=== PATIENT | female | born 1950 | race Caucasian/White ===

== ENCOUNTER 2019-02-26 12:30 | Inpatient (IN) | payer OTHER ==
--- NOTE | 2019-02-26 13:06 | PDOC ---
History of Present Illness - General Chief Complaint: Lightheaded Stated Complaint: LIGHTHEADED & BOWEL ISSUES Time Seen by Provider: 02/26/19 12:33 - History of Present Illness Initial Comments: 02/26/19 13:01 68 F with h/o childhood polio, paraplegia, HTN, HLD, hypothyroid, presenting to ED with several months of feeling depressed. Pt states that she has lost multiple friends and family members over the past year and now feels like she has no one to talk to. She reports sleeping poorly sometimes. Feels very lonely because she lives alone. Pt denies any thoughts of hurting herself or others. Denies AVH. She states Dr. Burgos started her on lexapro about 6-12 months ago, but she has not noticed any difference. Pt also notes that she has been having inconsistent bowel movements. She notes that she is occasionally constipated, but more recently, she has been having daily bowel movements that are soft. Denies any bloody or dark tarry stools. Denies diarrhea. Denies N/V. Denies abdominal pain. Pt is concerned that she may have colon cancer. Past History - Past Medical History Allergies/Adverse Reactions: Allergies Allergy/AdvReac Type Severity Reaction Status Date / Time pneumococcal 23-valent Allergy Severe weakness Verified 02/26/19 14:39 polysacchari [From Pneumovax 23] allopurinol Allergy Intermediate rash Verified 02/26/19 14:39 Home Medications: Ambulatory Orders Cholecalciferol (Vitamin D3) [Vitamin D3] 2,000 unit PO DAILY tablet 05/26/12 Ubidecarenone [Co Q-10] 50 mg PO DAILY capsule 05/26/12 Fish Oil DAILY 08/17/13 Omeprazole 20 mg PO DAILY 08/17/13 Ferrous Sulfate 325 mg PO DAILY tablet 05/29/14 Sodium Chloride [Saline Nose [place]] 1 spray NS EACH NOSTRIL BID spray 05/21/16 Judi's Wort 150 mg PO DAILY capsule 07/22/16 Atenolol [Tenormin] 100 mg PO DAILY 02/26/19 Escitalopram Oxalate [Lexapro -] 10 mg PO DAILY 02/26/19 Famotidine [Pepcid] 40 mg PO DAILY 02/26/19 Febuxostat [Uloric] 40 mg PO DAILY 02/26/19 Oxybutynin Chloride [Ditropan -] 5 mg PO DAILY 02/26/19 Oxycodone HCl 5 mg PO BID PRN 02/26/19 Potassium Chloride [K-Dur -] 20 meq PO DAILY 02/26/19 Anemia: Yes COPD: No GI Disorders: Yes Disorders: Yes HTN: Yes Hypercholesterolemia: Yes Psychiatric Problems: Yes Thyroid Disease: Yes Other medical history: POLIO, USES A MOTORIZED WHEELCHAIR. DRIVES HER OWN VAN. Review of Systems - Review of Systems Comments:: 02/26/19 13:04 GENERAL/CONSTITUTIONAL: No fever or chills. No weakness. HEAD, EYES, EARS, NOSE AND THROAT: No change in vision. No ear pain or discharge. No sore throat. CARDIOVASCULAR: No chest pain, no shortness of breath, no loss of consciousness RESPIRATORY: No cough, wheezing, or hemoptysis. GASTROINTESTINAL: +soft stools, No nausea, vomiting, diarrhea or constipation. GENITOURINARY: No dysuria, frequency, or change in urination. MUSCULOSKELETAL: No joint or muscle swelling or pain. No neck or back pain. SKIN: No rash NEUROLOGIC: No vertigo, no change in strength/sensation. ENDOCRINE: No increased thirst. No abnormal weight change. HEMATOLOGIC/LYMPHATIC: No anemia, easy bleeding, or history of blood clots. ALLERGIC/IMMUNOLOGIC: No hives or skin allergy. *Physical Exam - Physical Exam 02/26/19 13:04 "GENERAL: Awake, alert, and fully oriented, in no acute distress. HEAD: No signs of trauma EYES: PERRLA, EOMI, sclera anicteric, conjunctiva clear ENT: Auricles normal inspection, hearing grossly normal, nares patent, oropharynx clear without exudates. Moist mucosa NECK: Nontender, no stepoffs, Normal ROM, supple, no lymphadenopathy, JVD, or masses LUNGS: Breath sounds equal, clear to auscultation bilaterally. No wheezes, and no crackles HEART: Regular rate and rhythm, normal S1 and S2, no murmurs, rubs or gallops ABDOMEN: Soft, nontender, normoactive bowel sounds. No guarding, no rebound. No masses EXTREMITIES: + 2 PE BLE, + erythema and crusting to both lower extremities, R>L NEUROLOGICAL: Cranial nerves II through XII intact. 5/5 strength and sensation in all extremities, Normal speech, normal gait, normal cerebellar function ED Treatment Course - LABORATORY CBC & Chemistry Diagram: 02/28/19 07:01 02/27/19 06:15 Medical Decision Making - Medical Decision Making 02/26/19 13:04 68 F with depression. No SI/HI/AVH. No acute psych needs at this time. Will refer to outpt psychiatry. Pt also complaining of intermittent constipation and soft stools. Pt with completely benign abdomen. Suspect irritable bowel syndrome. On exam, pt noted to have bilateral LE cellulitis, R>L. - Labs - Psych referral - Abx for cellulitis 02/26/19 15:09 Labs notable for WBC 25, Bands 14%, likely 2/2 severe cellulitis Will initiate vanc/zosyn Pt also has mild hypokalemia at 3.2. Pt given PO potassium. Discharge - Discharge Information Problems reviewed: Yes Clinical Impression/Diagnosis: Depression, Cellulitis Condition: Good - Admission Yes - Follow up/Referral - Patient Discharge Instructions - Post Discharge Activity
[2019-02-26 14:00] LABS: HEMATOCRIT 36.2 % (32.4-45.2); HEMOGLOBIN 11.8 GM/dl (10.7-15.3); MCH 28.9 pg (25.7-33.7); MCHC 32.7 g/dl (32.0-36.0); MEAN CELL VOLUME 88.4 fl (80-96); MEAN PLT VOLUME 7.9 fl (7.5-11.1); PLATELET COUNT 335 K/MM3 (134-434); RBC 4.09 M/mm3 (3.60-5.2); RDW 15.1 % (11.6-15.6)
[2019-02-26 14:15] LABS: ALBUMIN 3.3 g/dl (3.4-5.0); BILIRUBIN,TOTAL 0.7 mg/dl (0.2-1); CALCIUM 9.3 mg/dl (8.5-10); CREATININE 0.6 mg/dl (0.55-1.3); POTASSIUM 3.2 mmol/L (3.5-5.1); TOT PROT 7.6 g/dl (6.4-8.2)
[2019-02-26 14:27] LABS: PLATELET ESTIMATE ADEQUATE
[2019-02-26] MEDS ORDERED: POTASSIUM CHLORIDE TABS 20 MEQ TABLET.ER (FP) PO ONE ×2 (14:29→14:39)
[2019-02-26 15:09] LABS: EPITHELIAL CELLS FEW /hpf
[2019-02-26] MEDS ORDERED: PIPERACILLIN/TAZOB 4.5 GM 4.5 GM/100 ML BAG IVPB ONE (15:31)
[2019-02-26] MEDS ORDERED: VANCOMYCIN 1 GM in D5W (PRE-DOCKED) 1,000 MG/250 ML IVPB ONE (15:31)
[2019-02-26] MEDS ORDERED: PIPERACILLIN/TAZOBACTAM 4.5 GM VIAL IVPB ONE (16:11)
[2019-02-26] MEDS ORDERED: VANCOMYCIN 1,000 MG VIAL (RESTRICTED TO ID ONLY) ONE (16:12)
[2019-02-26 16:29] LABS: MAGNESIUM 2.2 mg/dL (1.8-2.4)
[2019-02-26] MEDS ORDERED: SODIUM CHLORIDE 1,000 ML IV SCH (16:45)
[2019-02-26] MEDS ORDERED: ACETAMINOPHEN 325 MG TABLET (FP) PO PRN (16:45)
--- NOTE | 2019-02-26 16:47 | HP ---
CHIEF COMPLAINT:feel depressed PCP:Loretta HISTORY OF PRESENT ILLNESS: Radha Lizarraga is a68 F with h/o childhood polio, paraplegia, HTN, HLD, hypothyroid, anemia presented to ED this afternoon with c/o feeling depressed, pt has had several family members pass away within the past 3 years. pt also has friends who are currently ill. pt seen at bedside in ED, pleasant,smiling, lives home alone. Denies SI/HI. pt takes Lexapro started within this year, does not feel it is working. pt with BLE redness, 2+PE. pt reports she had constipation, now has daily soft BMs. denies fevers, chills, cough, abd pain, n/ v, diarrhea. ER course was notable for: (1)WBC 24, Band 14% (2) (3) Recent Travel: PAST MEDICAL HISTORY: Anemia childhood polio, paraplegia, HTN, HLD, Hypothyroid PAST SURGICAL HISTORY: Social History: Smoking:denies Alcohol:denies Drugs: denies Allergies pneumococcal 23-valent polysacchari [From Pneumovax 23] Allergy (Severe, Verified 02/26/19 14:39) weakness allopurinol Allergy (Intermediate, Verified 02/26/19 14:39) rash HOME MEDICATIONS: Home Medications Medication Instructions Recorded Cholecalciferol (Vitamin D3) 2,000 unit PO DAILY tablet 05/26/12 [Vitamin D3] Ubidecarenone [Co Q-10] 50 mg PO DAILY capsule 05/26/12 Fish Oil DAILY 08/17/13 Omeprazole 20 mg PO DAILY 08/17/13 Ferrous Sulfate 325 mg PO DAILY tablet 05/29/14 Sodium Chloride [Saline Nose [place]] 1 spray NS EACH NOSTRIL BID spray 05/21/16 Judi's Wort 150 mg PO DAILY capsule 07/22/16 Atenolol [Tenormin] 100 mg PO DAILY 02/26/19 Escitalopram Oxalate [Lexapro -] 10 mg PO DAILY 02/26/19 Famotidine [Pepcid] 40 mg PO DAILY 02/26/19 Febuxostat [Uloric] 40 mg PO DAILY 02/26/19 Oxybutynin Chloride [Ditropan -] 5 mg PO DAILY 02/26/19 Oxycodone HCl 5 mg PO BID PRN 02/26/19 Potassium Chloride [K-Dur -] 20 meq PO DAILY 02/26/19 REVIEW OF SYSTEMS CONSTITUTIONAL: Absent: fever, chills, diaphoresis, generalized weakness, malaise, loss of appetite, weight change HEENT: Absent: rhinorrhea, nasal congestion, throat pain, throat swelling, difficulty swallowing, mouth swelling, ear pain, eye pain, visual changes CARDIOVASCULAR: Absent: chest pain, syncope, palpitations, irregular heart rate, lightheadedness , peripheral edema RESPIRATORY: Absent: cough, shortness of breath, dyspnea with exertion, orthopnea, wheezing, stridor, hemoptysis GASTROINTESTINAL: Absent: abdominal pain, abdominal distension, nausea, vomiting, diarrhea, constipation, melena, hematochezia GENITOURINARY: Absent: dysuria, frequency, urgency, hesitancy, hematuria, flank pain, genital pain MUSCULOSKELETAL: Absent: myalgia, arthralgia, joint swelling, back pain, neck pain SKIN: Absent: rash, itching, pallor HEMATOLOGIC/IMMUNOLOGIC: Absent: easy bleeding, easy bruising, lymphadenopathy, frequent infections ENDOCRINE: Absent: unexplained weight gain, unexplained weight loss, heat intolerance, cold intolerance NEUROLOGIC: Absent: headache, focal weakness or paresthesias, dizziness, unsteady gait, seizure, mental status changes, bladder or bowel incontinence PSYCHIATRIC: +depression Absent: anxiety, -suicidal or homicidal ideation, hallucinations. PHYSICAL EXAMINATION Vital Signs - 24 hr 02/26/19 02/26/19 12:32 15:17 Temperature 98.3 F 98.1 F Pulse Rate 64 Pulse Rate [ 80 Right Radial] Respiratory 18 17 Rate Blood Pressure 175/80 H Blood Pressure 159/60 [Left Arm] O2 Sat by Pulse 97 95 Oximetry (%) GENERAL: Awake, alert, and fully oriented, in no acute distress. HEAD: Normal with no signs of trauma. EYES: Pupils equal, round and reactive to light, extraocular movements intact, sclera anicteric, conjunctiva clear. No lid lag. EARS, NOSE, THROAT: Ears normal, nares patent, oropharynx clear without exudates. Moist mucous membranes. NECK: Normal range of motion, supple without lymphadenopathy, JVD, or masses. LUNGS: Breath sounds equal, clear to auscultation bilaterally. No wheezes, and no crackles. No accessory muscle use. HEART: Regular rate and rhythm, normal S1 and S2 without murmur, rub or gallop. ABDOMEN: Soft, nontender, not distended, normoactive bowel sounds, no guarding, no rebound, no masses. No hepatomegaly or splenomegaly. MUSCULOSKELETAL: Normal range of motion at all joints. No bony deformities or tenderness. No CVA tenderness. UPPER EXTREMITIES: 2+ pulses, warm, well-perfused. No cyanosis. No clubbing. No peripheral edema. LOWER EXTREMITIES: 2+ PE, R>L, medium, large round spots on legs, with scabs, pt picks at wounds -no drainage noted NEUROLOGICAL: Cranial nerves II-XII intact. Normal speech. Normal gait. PSYCHIATRIC: Cooperative. Good eye contact. Appropriate mood and affect. SKIN: Warm, dry, normal turgor, no rashes or lesions noted, normal capillary refill. Laboratory Results - last 24 hr 02/26/19 02/26/19 02/26/19 13:41 13:41 14:50 WBC 24.0 H RBC 4.09 Hgb 11.8 Hct 36.2 MCV 88.4 MCH 28.9 MCHC 32.7 RDW 15.1 Plt Count 335 MPV 7.9 Absolute Neuts (auto) 22.5 Neutrophils % No Result Required. Neutrophils % (Manual) 80.0 Band Neutrophils % 14.0 H Lymphocytes % No Result Required. Lymphocytes % (Manual) 2.0 L Monocytes % (Manual) 4 Platelet Estimate Adequate Sodium 135 L Potassium 3.2 L Chloride 100 Carbon Dioxide 24 Anion Gap 11 BUN 28.0 H Creatinine 0.6 Est GFR (CKD-EPI)AfAm 107.03 Est GFR (CKD-EPI)NonAf 92.35 Random Glucose 130 H Calcium 9.3 Phosphorus Magnesium Total Bilirubin 0.7 AST 29 ALT 38 Alkaline Phosphatase 165 H D Total Protein 7.6 Albumin 3.3 L TSH 3.00 Urine Color Yellow Urine Appearance Clear Urine pH 5.0 Urine Protein 1+ H Urine Glucose (UA) Negative Urine Ketones Negative Urine Blood Trace-intact Urine Nitrite Negative Urine Bilirubin Negative Urine Urobilinogen 0.2 Ur Leukocyte Esterase Negative Urine RBC 0-2 Urine WBC 0-2 Ur Transition Epith Cell Few 02/26/19 16:00 WBC RBC Hgb Hct MCV MCH MCHC RDW Plt Count MPV Absolute Neuts (auto) Neutrophils % Neutrophils % (Manual) Band Neutrophils % Lymphocytes % Lymphocytes % (Manual) Monocytes % (Manual) Platelet Estimate Sodium Potassium Chloride Carbon Dioxide Anion Gap BUN Creatinine Est GFR (CKD-EPI)AfAm Est GFR (CKD-EPI)NonAf Random Glucose Calcium Phosphorus 3.0 Magnesium 2.2 Total Bilirubin AST ALT Alkaline Phosphatase Total Protein Albumin TSH Urine Color Urine Appearance Urine pH Urine Protein Urine Glucose (UA) Urine Ketones Urine Blood Urine Nitrite Urine Bilirubin Urine Urobilinogen Ur Leukocyte Esterase Urine RBC Urine WBC Ur Transition Epith Cell ASSESSMENT/PLAN: Radha Lizarraga is a68 F with h/o childhood polio, paraplegia, HTN, HLD, hypothyroid, anemia admitted for Admitting Diagnosis BLE cellulitis Chronic Condition HTN HLD Hypothyroidism Anemia A/P: #BLE cellulitis -IV vanc, zosyn -IVF -ID consult -venous doppler ordered -blood,urine cx pending -lactic pending #Hypokalemia -repleted in ED -monitor daily #Depression,chronic -Denies SI/HI -c/w Lexapro 10mg daily-pt reports not working -psyche consult #Anemia,chronic -hg stable -c/w ferrous sulfate #HTN #HLD -resume home meds #Hypothyroidism -c/w synthroid #Overactive bladder -c/w oxybutin Full Code Low sodium diet Heparin SQ Dispo: requires inpatient treatment pt may benefit from [facility], lives home alone, reports having trouble with ADLS at home Visit type - Emergency Visit Emergency Visit: Yes Care time: The patient presented to the Emergency Department on the above date and was hospitalized for further evaluation of their emergent condition. - New Patient This patient is new to me today: No - Critical Care Critical Care patient: No
[2019-02-26 17:07] LABS: VENOUS PC02 47.2 mmHg (38-52); VENOUS PH 7.34 (7.31-7.41); VENOUS PO2 < 49 mmHg (28-48)
[2019-02-26] MEDS ORDERED: PIPERACILLIN/TAZOB 3.375 GM 3.375 GM in DEXTROSE 5%-WATER - 50 ML IVPB SCH (23:00)
[2019-02-26] MEDS ORDERED: PIPERACILLIN/TAZOBACTAM 3.375 GM VIAL IVPB ONE (23:32)
[2019-02-26] MEDS ORDERED: DEXTROSE 5%-WATER - 50 ML IVPB ONE (23:32)
[2019-02-26] MEDS: PIPERACILLIN/TAZOB 3.375 GM 3.375 GM in DEXTROSE 5%-WATER - 50 ML IVPB SCH (23:36)
[2019-02-26] MEDS: HEPARIN NA (PORCINE) 5,000 UNITS/ML 1ML VIAL SQ SCH (23:36)
[2019-02-27] MEDS ORDERED: DEXTROSE 5%-WATER - 50 ML IVPB ONE ×4 (06:38→23:44)
[2019-02-27] MEDS ORDERED: PIPERACILLIN/TAZOBACTAM 3.375 GM VIAL IVPB ONE ×4 (06:38→23:44)
[2019-02-27] MEDS: LEVOTHYROXINE NA 50 MCG TABLET (FP) PO SCH (06:40)
[2019-02-27] MEDS: PIPERACILLIN/TAZOB 3.375 GM 3.375 GM in DEXTROSE 5%-WATER - 50 ML IVPB SCH ×3 (06:40→18:38)
[2019-02-27 08:27] LABS: BASO % 0.2 % (0-2.0); EOS % 0.9 % (0-4.5); HEMATOCRIT 29.5 % (32.4-45.2); HEMOGLOBIN 9.6 GM/dl (10.7-15.3); LYMPH % 10.5 % (8-40); MCH 28.5 pg (25.7-33.7); MCHC 32.4 g/dl (32.0-36.0); MEAN PLT VOLUME 8.3 fl (7.5-11.1); MONO % 3.6 % (3.8-10.2); NEUT % 84.8 % (42.8-82.8); PLATELET COUNT 244 K/MM3 (134-434); RBC 3.36 M/mm3 (3.60-5.2); RDW 15.2 % (11.6-15.6); WHITE BLOOD COUNT 13.1 K/mm3 (4.0-10.8)
[2019-02-27 08:42] LABS: ALBUMIN 2.4 g/dl (3.4-5.0); BILIRUBIN,TOTAL 0.8 mg/dl (0.2-1); CALCIUM 8.6 mg/dl (8.5-10); CREATININE 0.7 mg/dl (0.55-1.3); MAGNESIUM 2.2 mg/dL (1.8-2.4); POTASSIUM 4.8 mmol/L (3.5-5.1); TOT PROT 5.7 g/dl (6.4-8.2)
--- NOTE | 2019-02-27 09:53 | CON.ID ---
Consult Consult Specialty:: infectious diseases Referred by:: Renetta Reason for Consultation:: b/l cellulitis of the legs - History of Present Illness Chief Complaint: depression History of Present Illness: 68 F with h/o childhood polio, paraplegia, HTN, HLD, hypothyroid, with c/o feeling depressed, pt has had several family members pass away within the past 3 years. pt also has friends who are currently ill. , lives home alone. Denies SI/HI. pt takes Lexapro started within this year, does not feel it is working. pt with BLE redness, 2+PE. pt reports she had constipation, now has daily soft BMs. denies fevers, chills, cough, abd pain, n/v, diarrhea. patient has swelling of the legs chronic,but cellulitis comes and goes - History Source History Provided By: Patient Limitations to Obtaining History: No Limitations - Past Medical History ...LMP Comment: 68 YEARS OLD ...: No - Alcohol/Substance Use Hx Alcohol Use: No - Smoking History Smoking history: Never smoked Home Medications - Allergies Allergies/Adverse Reactions: Allergies Allergy/AdvReac Type Severity Reaction Status Date / Time pneumococcal 23-valent Allergy Severe weakness Verified 02/26/19 14:39 polysacchari [From Pneumovax 23] allopurinol Allergy Intermediate rash Verified 02/26/19 14:39 - Home Medications Home Medications: Ambulatory Orders Cholecalciferol (Vitamin D3) [Vitamin D3] 2,000 unit PO DAILY tablet 05/26/12 Ubidecarenone [Co Q-10] 50 mg PO DAILY capsule 05/26/12 Fish Oil DAILY 08/17/13 Omeprazole 20 mg PO DAILY 08/17/13 Ferrous Sulfate 325 mg PO DAILY tablet 05/29/14 Sodium Chloride [Saline Nose [place]] 1 spray NS EACH NOSTRIL BID spray 05/21/16 [place]'s Wort 150 mg PO DAILY capsule 07/22/16 Atenolol [Tenormin] 100 mg PO DAILY 02/26/19 Escitalopram Oxalate [Lexapro -] 10 mg PO DAILY 02/26/19 Famotidine [Pepcid] 40 mg PO DAILY 02/26/19 Febuxostat [Uloric] 40 mg PO DAILY 02/26/19 Oxybutynin Chloride [Ditropan -] 5 mg PO DAILY 02/26/19 Oxycodone HCl 5 mg PO BID PRN 02/26/19 Potassium Chloride [K-Dur -] 20 meq PO DAILY 02/26/19 Review of Systems - Review of Systems Constitutional: reports: No Symptoms Eyes: reports: No Symptoms HENT: reports: No Symptoms Neck: reports: No Symptoms Cardiovascular: reports: No Symptoms Respiratory: reports: No Symptoms Gastrointestinal: reports: No Symptoms Genitourinary: reports: No Symptoms Musculoskeletal: reports: Other Integumentary: reports: Erythema, Other Neurological: reports: No Symptoms Endocrine: reports: No Symptoms Hematology/Lymphatic: reports: No Symptoms Psychiatric: reports: No Symptoms Physical Exam Vital Signs: Vital Signs Temperature 98.3 F 02/27/19 06:24 Pulse Rate 68 02/27/19 06:24 Respiratory Rate 20 02/27/19 06:24 Blood Pressure 121/48 L 02/27/19 06:24 O2 Sat by Pulse Oximetry (%) 95 02/27/19 06:24 Constitutional: Yes: Well Nourished, No Distress, Calm Neck: Yes: Supple, Trachea Midline Cardiovascular: Yes: Regular Rate and Rhythm Respiratory: Yes: Regular, CTA Bilaterally Gastrointestinal: Yes: Normal Bowel Sounds, Soft Extremities: Yes: Erythema (b/l legs), Other Neurological: Yes: Alert, Oriented Psychiatric: Yes: Alert, Oriented Labs: CBC, BMP 02/27/19 06:15 02/27/19 06:15 Imaging - Results Chest X-ray: Report Reviewed, Image Reviewed Ultrasound: Report Reviewed, Image Reviewed Assessment/Plan 68 F with h/o childhood polio, paraplegia, HTN, HLD, hypothyroid, anemia admitted for ble cellulitis htn hld anemia hypothyroidism plan patient was started on zosyn will continue elevation of the legs rest as per the team
[2019-02-27] MEDS ORDERED: VALSARTAN 160 MG TABLET (UD) PO SCH (10:00)
[2019-02-27] MEDS ORDERED: HYDROCHLOROTHIAZIDE 25 MG TABLET (FP) PO SCH (10:00)
[2019-02-27] MEDS ORDERED: FEBUXOSTAT 40 MG TAB PO SCH (10:00)
--- NOTE | 2019-02-27 10:15 | EKG ---
Test Reason : Blood Pressure : / mmHG Vent. Rate : 076 BPM Atrial Rate : 076 BPM P-R Int : 134 ms QRS Dur : 070 ms QT Int : 398 ms P-R-T Axes : 056 046 024 degrees QTc Int : 447 ms POOR DATA QUALITY, INTERPRETATION MAY BE ADVERSELY AFFECTED NORMAL SINUS RHYTHM NORMAL ECG NO PREVIOUS ECGS AVAILABLE Confirmed by KJ CAMARGO, KEV ([id number]) on 02/27/2019 10:15:20 AM Referred By: SYEDA ROSAS Confirmed By:KEV UNDERWOOD MD
[2019-02-27] MEDS: POTASSIUM CHLORIDE TABS 20 MEQ TABLET.ER (FP) PO SCH (10:27)
[2019-02-27] MEDS: OXYBUTYNIN CHLORIDE 5 MG TABLET PO SCH (10:27)
[2019-02-27] MEDS: FERROUS SO4 325 MG TABLET (FP) PO SCH (10:27)
[2019-02-27] MEDS: ESCITALOPRAM OXALATE 10 MG TABLET (FP) PO SCH (10:27)
[2019-02-27] MEDS: HEPARIN NA (PORCINE) 5,000 UNITS/ML 1ML VIAL SQ SCH ×2 (10:27→21:20)
[2019-02-27] MEDS: PANTOPRAZOLE 20 MG TABLET (FP) PO SCH (10:28)
[2019-02-27] MEDS: FAMOTIDINE 20 MG TABLET PO SCH (10:28)
[2019-02-27] MEDS: ATENOLOL 50 MG TABLET (FP) PO SCH (10:28)
--- NOTE | 2019-02-27 11:27 | PN ---
Physical Exam: SUBJECTIVE: Patient seen and examined at bedside. Pt reports feeling better and better spirit, denies any suicidal or homicidal, cp,sob,palpitations, abdominal pain N/V/D, melena, hematochezia,or urinary symptoms. OBJECTIVE: Vital Signs Period Temp Pulse Resp BP Sys/Kumar Pulse Ox Last 24 Hr 97.4 F-98.3 F 64-80 17-20 106-175/48-80 95-97 GENERAL: The patient is awake, alert, and fully oriented, in no acute distress. HEAD: Normal with no signs of trauma. EYES: PERRL, extraocular movements intact, sclera anicteric, conjunctiva clear. No ptosis. ENT: Ears normal, nares patent, oropharynx clear without exudates, moist mucous membranes. NECK: Trachea midline, full range of motion, supple. LUNGS: Breath sounds equal, clear to auscultation bilaterally, no wheezes, no crackles, no accessory muscle use. HEART: Regular rate and rhythm, S1, S2 without murmur, rub or gallop. ABDOMEN: Soft, nontender, nondistended, normoactive bowel sounds, no guarding, no rebound, no hepatosplenomegaly, no masses. EXTREMITIES: 2+ pulses, warm, bilateral LE with erythema, scaly/ crusted skin with multiple dry wounds, positive tenderness, edema> Rt leg NEUROLOGICAL: Cranial nerves II through XII grossly intact. Normal speech, gait not observed. PSYCH: Normal mood, normal affect. SKIN: Warm, dry, normal turgor, no rashes or lesions noted Laboratory Results - last 24 hr 02/26/19 02/26/19 02/26/19 13:41 13:41 14:50 WBC 24.0 H RBC 4.09 Hgb 11.8 Hct 36.2 MCV 88.4 MCH 28.9 MCHC 32.7 RDW 15.1 Plt Count 335 MPV 7.9 Absolute Neuts (auto) 22.5 Neutrophils % No Result Required. Neutrophils % (Manual) 80.0 Band Neutrophils % 14.0 H Lymphocytes % No Result Required. Lymphocytes % (Manual) 2.0 L Monocytes % Monocytes % (Manual) 4 Eosinophils % Basophils % Platelet Estimate Adequate VBG pH POC VBG pCO2 POC VBG pO2 VBG HCO3 VBG O2 Sat (Dragan) VBG Base Excess Sodium 135 L Potassium 3.2 L Chloride 100 Carbon Dioxide 24 Anion Gap 11 BUN 28.0 H Creatinine 0.6 Est GFR (CKD-EPI)AfAm 107.03 Est GFR (CKD-EPI)NonAf 92.35 Random Glucose 130 H Lactic Acid Calcium 9.3 Phosphorus Magnesium Total Bilirubin 0.7 AST 29 ALT 38 Alkaline Phosphatase 165 H D Total Protein 7.6 Albumin 3.3 L TSH 3.00 Urine Color Yellow Urine Appearance Clear Urine pH 5.0 Urine Protein 1+ H Urine Glucose (UA) Negative Urine Ketones Negative Urine Blood Trace-intact Urine Nitrite Negative Urine Bilirubin Negative Urine Urobilinogen 0.2 Ur Leukocyte Esterase Negative Urine RBC 0-2 Urine WBC 0-2 Ur Transition Epith Cell Few 02/26/19 02/26/19 02/26/19 16:00 16:00 16:15 WBC RBC Hgb Hct MCV MCH MCHC RDW Plt Count MPV Absolute Neuts (auto) Neutrophils % Neutrophils % (Manual) Band Neutrophils % Lymphocytes % Lymphocytes % (Manual) Monocytes % Monocytes % (Manual) Eosinophils % Basophils % Platelet Estimate VBG pH 7.34 POC VBG pCO2 47.2 POC VBG pO2 < 49 H VBG HCO3 24.9 VBG O2 Sat (Dragan) 36.6 L VBG Base Excess -0.6 Sodium Potassium Chloride Carbon Dioxide Anion Gap BUN Creatinine Est GFR (CKD-EPI)AfAm Est GFR (CKD-EPI)NonAf Random Glucose Lactic Acid 2.0 Calcium Phosphorus 3.0 Magnesium 2.2 Total Bilirubin AST ALT Alkaline Phosphatase Total Protein Albumin TSH Urine Color Urine Appearance Urine pH Urine Protein Urine Glucose (UA) Urine Ketones Urine Blood Urine Nitrite Urine Bilirubin Urine Urobilinogen Ur Leukocyte Esterase Urine RBC Urine WBC Ur Transition Epith Cell 02/27/19 02/27/19 06:15 06:15 WBC 13.1 H RBC 3.36 L Hgb 9.6 L Hct 29.5 L D MCV 88.0 MCH 28.5 MCHC 32.4 RDW 15.2 Plt Count 244 MPV 8.3 Absolute Neuts (auto) 11.1 Neutrophils % 84.8 H Neutrophils % (Manual) Band Neutrophils % Lymphocytes % 10.5 Lymphocytes % (Manual) Monocytes % 3.6 L Monocytes % (Manual) Eosinophils % 0.9 Basophils % 0.2 Platelet Estimate VBG pH POC VBG pCO2 POC VBG pO2 VBG HCO3 VBG O2 Sat (Dragan) VBG Base Excess Sodium 137 Potassium 4.8 Chloride 105 Carbon Dioxide 22 Anion Gap 10 BUN 28.0 H Creatinine 0.7 Est GFR (CKD-EPI)AfAm 101.74 Est GFR (CKD-EPI)NonAf 87.78 Random Glucose 102 Lactic Acid Calcium 8.6 Phosphorus Magnesium 2.2 Total Bilirubin 0.8 AST 26 ALT 29 Alkaline Phosphatase 132 H D Total Protein 5.7 L Albumin 2.4 L TSH Urine Color Urine Appearance Urine pH Urine Protein Urine Glucose (UA) Urine Ketones Urine Blood Urine Nitrite Urine Bilirubin Urine Urobilinogen Ur Leukocyte Esterase Urine RBC Urine WBC Ur Transition Epith Cell Active Medications Generic Name Dose Route Start Last Admin Trade Name Freq PRN Reason Stop Dose Admin Acetaminophen 650 mg 02/26/19 16:45 Tylenol - PO Q6H PRN PAIN LEVEL 1 - 3 Atenolol 100 mg 02/27/19 10:00 Tenormin - PO DAILY GISELLE Escitalopram Oxalate 10 mg 02/27/19 10:00 Lexapro - PO DAILY GISELLE Famotidine 40 mg 02/27/19 10:00 Pepcid - PO DAILY GISELLE Febuxostat 40 mg 02/27/19 10:00 Uloric - PO DAILY GISELLE Ferrous Sulfate 325 mg 02/27/19 10:00 Feosol - PO DAILY GISELLE Heparin Sodium (Porcine) 5,000 unit 02/26/19 22:00 02/26/19 23:36 Heparin - SQ 5,000 unit BID GISELLE Administration Hydrochlorothiazide 25 mg 02/27/19 10:00 Hctz - PO DAILY GISELLE Sodium Chloride 1,000 mls @ 75 mls/hr 02/26/19 16:45 02/26/19 16:45 Normal Saline - IV 75 mls/hr ASDIR GISELLE Administration Piperacillin Sod/Tazobactam 50 mls @ 100 mls/hr 02/27/19 12:00 Sod 3.375 gm/ Dextrose IVPB Q8H-IV GISELLE Protocol Levothyroxine Sodium 50 mcg 02/27/19 07:00 02/27/19 06:40 Synthroid - PO 50 mcg DAILY@0700 GISELLE Administration Oxybutynin Chloride 5 mg 02/27/19 10:00 Ditropan - PO DAILY GISELLE Pantoprazole Sodium 20 mg 02/27/19 10:00 Protonix - PO DAILY GISELLE Potassium Chloride 20 meq 02/27/19 10:00 K-Dur - PO DAILY GISELLE Valsartan 160 mg 02/27/19 10:00 Diovan - PO DAILY GISELLE Microbiology 02/26/19 14:50 Urine - Urine - Catheterized Urine Culture - Final NO GROWTH OBTAINED CxR: No acute lung pathology ASSESSMENT/PLAN: 68 F with h/o childhood polio, paraplegia, HTN, HLD, hypothyroid, anemia presented to ED this afternoon with c/o feeling depressed, bilateral lower redness and edema. PMD *BLE cellulitis - ID Dr. Villa following - s/p one dose of Vanco in ER -will con on Zosyn -wbc trending down 24>13.1 - lactic acid 2, afebrile - BC pending -encourage to keep legs elevated - US negative for DVT *Hypokalemia- resolved -replaced in ED -monitor daily *Depression,chronic -will cont on Lexapro 10mg daily-pt reports not working -psy consult ordered - no suicidal ideations #Anemia,chronic - baseline Hgb (10-11) - drop in H/H ( 11.8>9.6)- likely dilutional -asymptomatic - will check stool studies, b12,folate - will cont on home dose Fe *HTN -resume home meds *Hypothyroidism -c/w Synthroid - TFT's -normal *Overactive bladder -c/w oxybutin *Chronically elevated ALK- asymptomatic - AST/ALT- wnl Full Code *F/E/N: Low sodium diet * Replace electrolytes as needed * PT evaluation to assess for transfer ability *DVT Prophylaxis: Heparin SQ Visit type - Emergency Visit Emergency Visit: Yes ED Registration Date: 02/26/19 Care time: The patient presented to the Emergency Department on the above date and was hospitalized for further evaluation of their emergent condition. - New Patient This patient is new to me today: Yes Date on this admission: 02/27/19 - Critical Care Critical Care patient: No
[2019-02-27 12:56] LABS: IRON SERUM 22 ug/dL (50-175); TOTAL IRON BINDING CAPACITY 196 ug/dL (250-450)
[2019-02-27] MEDS: SODIUM CHLORIDE 1,000 ML IV SCH (14:37)
[2019-02-28] MEDS: PIPERACILLIN/TAZOB 3.375 GM 3.375 GM in DEXTROSE 5%-WATER - 50 ML IVPB SCH ×3 (01:35→17:44)
[2019-02-28] MEDS ORDERED: oxyCODONE HCL 5 MG TABLET PO PRN (05:27)
[2019-02-28] MEDS ORDERED: guaiFENesin/D-METHORPHAN HB 10 ML UNIT-DOSE CUPS PO PRN (05:28)
[2019-02-28] MEDS: LEVOTHYROXINE NA 50 MCG TABLET (FP) PO SCH (06:29)
[2019-02-28 07:10] LABS: BASO % 0.6 % (0-2.0); EOS % 3.7 % (0-4.5); HEMATOCRIT 29.9 % (32.4-45.2); HEMOGLOBIN 9.7 GM/dl (10.7-15.3); MCH 28.6 pg (25.7-33.7); MCHC 32.4 g/dl (32.0-36.0); MEAN CELL VOLUME 88.4 fl (80-96); MONO % 6.4 % (3.8-10.2); NEUT % 74.3 % (42.8-82.8); PLATELET COUNT 243 K/MM3 (134-434); RBC 3.38 M/mm3 (3.60-5.2); RDW 15.1 % (11.6-15.6); WHITE BLOOD COUNT 7.5 K/mm3 (4.0-10.8)
[2019-02-28] MEDS ORDERED: PT OWN MED DRAWER 7, Y5N ONE (10:12)
[2019-02-28] MEDS ORDERED: DEXTROSE 5%-WATER - 50 ML IVPB ONE ×2 (10:12→17:24)
[2019-02-28] MEDS ORDERED: PIPERACILLIN/TAZOBACTAM 3.375 GM VIAL IVPB ONE ×2 (10:12→17:24)
--- NOTE | 2019-02-28 10:16 | PN ---
Physical Exam: SUBJECTIVE: Patient seen and examined. Came to the hospital feeling depressed, anhedonia. Has had episodes of loose stools for several months. Has obsessive habit of picking at skin on her legs, did not realize her right leg was infected. OBJECTIVE: Vital Signs Period Temp Pulse Resp BP Sys/Kumar Pulse Ox Last 24 Hr 97.5 F-98.4 F 63-93 16-19 90-142/37-54 93-97 GENERAL: The patient is awake, alert, and fully oriented, in no acute distress. HEAD: Normal with no signs of trauma. EYES: PERRL, extraocular movements intact, sclera anicteric, conjunctiva clear. LUNGS: Breath sounds equal, clear to auscultation bilaterally, no wheezes, no crackles, no accessory muscle use. HEART: Regular rate and rhythm, S1, S2 ABDOMEN: Soft, nontender, nondistended EXTREMITIES: 1+ PT pulses bilaterally, warm, 2+ edema bilaterally RLE: vascular wounds x 2 (see SKIN below) NEUROLOGICAL: Cranial nerves II through XII grossly intact. Normal speech. SKIN: RLE: (1) Pre tibial area, superior: vascular ulcer, 3cmW x 1.5cmL x unstageable depth 2/2 slough (2) Pre tibial area, inferior: vascular ulcer, 2cmW x 1.5cmL x unstageable depth 2/2 slough Right upper posterior thigh (1) Stage II pressure ulcer, 1cmWx 1cmLx0.1cmD (2) Stage II pressure ulcer, 0.25cmW x 0.25cmL x 0.1cmD Left buttocks (1) Stage II pressure ulcer, .25cmW x .25cmL x .2cmD Laboratory Results - last 24 hr 02/27/19 02/28/19 06:15 07:01 WBC 7.5 RBC 3.38 L Hgb 9.7 L Hct 29.9 L MCV 88.4 MCH 28.6 MCHC 32.4 RDW 15.1 Plt Count 243 MPV 8.0 Absolute Neuts (auto) 5.6 Neutrophils % 74.3 Lymphocytes % 15.0 Monocytes % 6.4 Eosinophils % 3.7 Basophils % 0.6 Iron 22 L TIBC 196 L Iron Saturation 11 L Unsaturated IBC 174 L Vitamin B12 404 Serum Folate 23 H Active Medications Generic Name Dose Route Start Last Admin Trade Name Freq PRN Reason Stop Dose Admin Acetaminophen 650 mg 02/26/19 16:45 02/28/19 04:05 Tylenol - PO 650 mg Q6H PRN Administration PAIN LEVEL 1 - 3 Atenolol 100 mg 02/27/19 10:00 02/27/19 10:28 Tenormin - PO 100 mg DAILY [facility] Administration Collagenase 1 applic 02/28/19 10:15 Santyl - TP DAILY [facility] Protocol Escitalopram Oxalate 10 mg 02/27/19 10:00 02/27/19 10:27 Lexapro - PO 10 mg DAILY [facility] Administration Famotidine 40 mg 02/27/19 10:00 02/27/19 10:28 Pepcid - PO 40 mg DAILY [facility] Administration Febuxostat 40 mg 02/27/19 10:00 Uloric - PO DAILY [facility] Ferrous Sulfate 325 mg 02/27/19 10:00 02/27/19 10:27 Feosol - PO 325 mg DAILY [facility] Administration Guaifenesin 10 ml 02/28/19 05:28 02/28/19 05:39 Robitussin Dm - PO 10 ml Q8H PRN Administration COUGH Heparin Sodium (Porcine) 5,000 unit 02/26/19 22:00 02/27/19 21:20 Heparin - SQ 5,000 unit BID [facility] Administration Piperacillin Sod/Tazobactam 50 mls @ 100 mls/hr 02/27/19 12:00 02/28/19 01:35 Sod 3.375 gm/ Dextrose IVPB 100 mls/hr Q8H-IV [facility] Administration Protocol Sodium Chloride 1,000 mls @ 75 mls/hr 02/27/19 14:15 02/27/19 14:37 Normal Saline - IV 75 mls/hr ASDIR [facility] Administration Levothyroxine Sodium 50 mcg 02/27/19 07:00 02/28/19 06:29 Synthroid - PO 50 mcg DAILY@0700 [facility] Administration Oxybutynin Chloride 5 mg 02/27/19 10:00 02/27/19 10:27 Ditropan - PO 5 mg DAILY [facility] Administration Oxycodone HCl 5 mg 02/28/19 05:27 02/28/19 05:39 Roxicodone - PO 5 mg BID PRN Administration PAIN LEVEL 6-10 Pantoprazole Sodium 20 mg 02/27/19 10:00 02/27/19 10:28 Protonix - PO 20 mg DAILY [facility] Administration Potassium Chloride 20 meq 02/27/19 10:00 02/27/19 10:27 K-Dur - PO 20 meq DAILY [facility] Administration ASSESSMENT/PLAN: 68 year-old female with a PMH significant for HTN, HLD, 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 Cellulitis of RLE Chronic lower extremity lymphedema Vascular ulcers --two vascular ulcers, unstageable, with slough with surrounding erythema and warmth --apply collagenase daily --continue Zosyn --ID consult --patient has venodynes at home, does not use Hypertension --BP mildly elevated --continue atenolol Hyperlipidemia --continue ezetimibe, atorvastatin Hypothyroidism --continue levothyroxine Polio Postpolio syndrome (2001) --monitor respiratory status closely Stool incontinence --ongoing for several months --last colonoscopy >10 years ago --GI consult GERD --not on PPI Gout --continue Uloric OCD --continue Lexapro Pressure ulcers --apply Allevyn dressing q72h or PRN if soiled FEN Fluids: PO intake adequate Electrolytes: replete as indicated Nutrition: low sodium DVT prophylaxis: subq heparin Physical therapy Dispo: continues to require inpatient care. Full code. Visit type - Emergency Visit Emergency Visit: Yes ED Registration Date: 02/26/19 Care time: The patient presented to the Emergency Department on the above date and was hospitalized for further evaluation of their emergent condition. - New Patient This patient is new to me today: Yes Date on this admission: 02/28/19 - Critical Care Critical Care patient: No
[2019-02-28] MEDS: FAMOTIDINE 20 MG TABLET PO SCH (10:25)
[2019-02-28] MEDS: ESCITALOPRAM OXALATE 10 MG TABLET (FP) PO SCH (10:25)
[2019-02-28] MEDS: OXYBUTYNIN CHLORIDE 5 MG TABLET PO SCH (10:25)
[2019-02-28] MEDS: ATENOLOL 50 MG TABLET (FP) PO SCH (10:26)
[2019-02-28] MEDS: POTASSIUM CHLORIDE TABS 20 MEQ TABLET.ER (FP) PO SCH (10:26)
[2019-02-28] MEDS: HEPARIN NA (PORCINE) 5,000 UNITS/ML 1ML VIAL SQ SCH ×2 (10:27→15:03)
[2019-02-28] MEDS: FERROUS SO4 325 MG TABLET (FP) PO SCH (10:27)
[2019-02-28] MEDS: PANTOPRAZOLE 20 MG TABLET (FP) PO SCH (10:27)
[2019-02-28] MEDS ORDERED: EZETIMIBE 10 MG TABLET (FP) PO SCH (11:00)
[2019-02-28] MEDS ORDERED: COLLAGENASE CLOSTRIDIUM HIST. 30 GRAMS TUBE TP SCH (11:00)
--- NOTE | 2019-02-28 12:49 | PN ---
Progress Note, Physician History of Present Illness: stable leg improving - Current Medication List Current Medications: Active Medications Acetaminophen (Tylenol -) 650 mg PO Q6H PRN PRN Reason: PAIN LEVEL 1 - 3 Last Admin: 02/28/19 04:05 Dose: 650 mg Atenolol (Tenormin -) 100 mg PO DAILY [facility] Last Admin: 02/28/19 10:26 Dose: 100 mg Atorvastatin Calcium (Lipitor -) 10 mg PO HS [facility] Collagenase (Santyl -) 1 applic TP DAILY [facility]; Protocol Last Admin: 02/28/19 10:27 Dose: 1 applic Ezetimibe (Zetia -) 10 mg PO DAILY [facility] Escitalopram Oxalate (Lexapro -) 10 mg PO DAILY [facility] Last Admin: 02/28/19 10:25 Dose: 10 mg Famotidine (Pepcid -) 40 mg PO DAILY [facility] Last Admin: 02/28/19 10:25 Dose: 40 mg Febuxostat (Uloric -) 40 mg PO DAILY [facility] Ferrous Sulfate (Feosol -) 325 mg PO DAILY [facility] Last Admin: 02/28/19 10:27 Dose: 325 mg Guaifenesin (Robitussin Dm -) 10 ml PO Q8H PRN PRN Reason: COUGH Last Admin: 02/28/19 05:39 Dose: 10 ml Heparin Sodium (Porcine) (Heparin -) 5,000 unit SQ TID [facility] Piperacillin Sod/Tazobactam (Sod 3.375 gm/ Dextrose) 50 mls @ 100 mls/hr IVPB Q8H-IV [facility]; Protocol Last Admin: 02/28/19 10:27 Dose: 100 mls/hr Sodium Chloride (Normal Saline -) 1,000 mls @ 75 mls/hr IV ASDIR [facility] Last Admin: 02/27/19 14:37 Dose: 75 mls/hr Levothyroxine Sodium (Synthroid -) 50 mcg PO DAILY@0700 [facility] Last Admin: 02/28/19 06:29 Dose: 50 mcg Oxybutynin Chloride (Ditropan -) 5 mg PO DAILY [facility] Last Admin: 02/28/19 10:25 Dose: 5 mg Oxycodone HCl (Roxicodone -) 5 mg PO BID PRN PRN Reason: PAIN LEVEL 6-10 Last Admin: 02/28/19 05:39 Dose: 5 mg Pantoprazole Sodium (Protonix -) 20 mg PO DAILY [facility] Last Admin: 02/28/19 10:27 Dose: 20 mg Potassium Chloride (K-Dur -) 20 meq PO DAILY [facility] Last Admin: 02/28/19 10:26 Dose: 20 meq - Objective Vital Signs: Vital Signs Temperature 97.4 F L 02/28/19 10:00 Pulse Rate 74 02/28/19 10:00 Respiratory Rate 19 02/28/19 10:00 Blood Pressure 140/68 02/28/19 10:00 O2 Sat by Pulse Oximetry (%) 98 02/28/19 10:00 Constitutional: Yes: No Distress, Calm Cardiovascular: Yes: S1, S2 Respiratory: Yes: Regular, CTA Bilaterally Gastrointestinal: Yes: Normal Bowel Sounds, Soft Musculoskeletal: Yes: Other Extremities: Yes: Other (cellulitis of both legs) Neurological: Yes: Alert, Oriented Psychiatric: Yes: Alert, Oriented Labs: CBC, BMP 02/28/19 07:01 02/27/19 06:15 Assessment/Plan 68 F with h/o childhood polio, paraplegia, HTN, HLD, hypothyroid, anemia admitted for ble cellulitis htn hld anemia hypothyroidism plan zosyn will continue elevation of the legs rest as per the team
[2019-02-28] MEDS: SODIUM CHLORIDE 1,000 ML IV SCH (15:04)
[2019-02-28] MEDS ORDERED: PROPOFOL 1,000,000 MCG/100 ML VIAL IVPB SCH (18:45)
[2019-02-28 19:01] LABS: BASO % 1.9 % (0-2.0); HEMATOCRIT 33.6 % (32.4-45.2); HEMOGLOBIN 10.6 GM/dl (10.7-15.3); MCH 28.3 pg (25.7-33.7); MCHC 31.6 g/dl (32.0-36.0); MEAN CELL VOLUME 89.6 fl (80-96); MEAN PLT VOLUME 7.9 fl (7.5-11.1); MONO % 5.3 % (3.8-10.2); NEUT % 67.8 % (42.8-82.8); PLATELET COUNT 347 K/MM3 (134-434); RBC 3.75 M/mm3 (3.60-5.2); RDW 15.5 % (11.6-15.6); WHITE BLOOD COUNT 9.1 K/mm3 (4.0-10.8)
--- NOTE | 2019-02-28 19:10 | ED.PROV ---
Physicial Exam I saw and examined the patient. - Vital Signs Last Vital Signs Temp Pulse Resp BP Pulse Ox 97.5 F L 64 18 152/79 97 02/28/19 14:00 02/28/19 14:00 02/28/19 14:00 02/28/19 14:00 02/28/19 14:00 Procedures - Intubation Time of Intubation: 18:30 Intubation Method: orotracheal Blade used: Mac Tube Size (Fr): 7.5 Medications: Etomidate, Rocuronium Tube position @ lip (cm): 24 Tube position confirmed by: Direct visualization, CO2 detector, Chest x-ray, Breath sounds Breath Sounds after Intubation: equal Intubation Complications: no complications Post Intubation Xray: Yes Critical Care Time/MDM Note Total Critical Care Time: 60 Critical Care Statement: The care of this patient involved high complexity decision making to prevent further life threatening deterioration of the patient 's condition and/or to evaluate & treat vital organ system(s) failure or risk of failure. - Medical Decision Making Note: 02/28/19 19:02 Rapid response was called for altered mental status. Upon my arrival to pt's room, pt was found unresponsive, receiving rescue breaths via BVM by hospital staff. Pt was given etomidate and linden, intubated via DL with 7.5 ET tube Post-intubation vitals notable for HTN with BP 170s/90s, O2 sat 100% on vent CXR obtained Per pt's sister, pt was well appearing earlier today, though she was complaining of SOB all day. Prior to my evaluation, pt had apparently been breathing agonally. Labs obtained, including ABG to evaluate for possible hypercapnic respiratory failure Will r/o ICH with head CT given acute mental status change
[2019-02-28 19:14] LABS: ALBUMIN 2.3 g/dl (3.4-5.0); BILIRUBIN,TOTAL 0.8 mg/dl (0.2-1); CALCIUM 8.2 mg/dl (8.5-10); CREATININE 0.6 mg/dl (0.55-1.3); MAGNESIUM 2.2 mg/dL (1.8-2.4); POTASSIUM 4.4 mmol/L (3.5-5.1); TOT PROT 6.1 g/dl (6.4-8.2)
--- NOTE | 2019-02-28 19:15 | RAPID ---
Physical Examination Vital Signs: Vital Signs Temperature 97.5 F L 02/28/19 14:00 Pulse Rate 64 02/28/19 14:00 Respiratory Rate 18 02/28/19 14:00 Blood Pressure 152/79 02/28/19 14:00 O2 Sat by Pulse Oximetry (%) 97 02/28/19 14:00 Summoned to patient's room for complaint of SOB. Patient seen and examined. Patient supine in bed, awake, eyes open, pulling off nasal cannula, not following commands. SpO2 71%. Airway clear on inspection. No stridor. Coarse bilateral breath sounds. NRB placed. Rapid response called, ED team responded. Labs: CBC, BMP 02/28/19 18:30
--- NOTE | 2019-02-28 19:18 | ED.PROV ---
Physicial Exam I saw and examined the patient. - Vital Signs Last Vital Signs Temp Pulse Resp BP Pulse Ox 97.5 F L 64 18 152/79 97 02/28/19 14:00 02/28/19 14:00 02/28/19 14:00 02/28/19 14:00 02/28/19 14:00 Procedures - Intubation Intubation Method: orotracheal Blade used: Mac (3) Tube Size (Fr): 7.5 Medications: Etomidate, Rocuronium Tube position @ lip (cm): 24 Tube position confirmed by: Direct visualization, CO2 detector, Chest x-ray, Breath sounds Breath Sounds after Intubation: equal Intubation Complications: no complications Post Intubation Xray: Yes Critical Care Time/MDM Note - Medical Decision Making Note: Called to pt's bedside for rapid response as pt had become altered/unresponsive. On arrival pt was not following commands and was non-verbal Pt was noted to have an SpO2 in the low 80s on a non-rebreather Pt was bagged with improved saturations Pt intubated with 7.5 ETT, at 24cm at teeth RSI with Etomidate and Junior Post intubation sedation with propofol B/l breath sounds auscultated and color change noted on CO2 detector Pt placed on vent, SIMV 350/18/100 [employer] Winkler at bedside ETT noted to be just proximal to chance Will back tube out 2cm and re-take XR RT notified 02/28/19 19:12
[2019-02-28 20:01] LABS: ARTERIAL BLD GAS O2 SATURATION 98.9 % (95-98); ARTERIAL BLOOD GAS BASE EXCESS -8.1 meq/l (-2-2); ARTERIAL BLOOD GAS PCO2 51.2 mmHg (35-45); ARTERIAL BLOOD GAS PO2 246 mmHg (80-100)
[2019-02-28] MEDS ORDERED: VANCOMYCIN 1 GM in D5W (PRE-DOCKED) 1,000 MG/250 ML IVPB ONE (21:42)
[2019-02-28] MEDS ORDERED: PIPERACILLIN/TAZOB 3.375 GM 3.375 GM in DEXTROSE 5%-WATER - 50 ML IVPB SCH (21:45)
[2019-02-28 21:59] LABS: ARTERIAL BLD GAS O2 SATURATION 98.8 % (95-98); ARTERIAL BLOOD GAS BASE EXCESS -7.7 meq/l (-2-2); ARTERIAL BLOOD GAS PCO2 47.2 mmHg (35-45); ARTERIAL BLOOD GAS pH 7.25 (7.35-7.45)
[2019-02-28] MEDS ORDERED: ATORVASTATIN CA 10 MG TABLET (FP) PO SCH (22:00)
[2019-02-28 22:01] LABS: ARTERIAL BLOOD GAS PO2 239 mmHg (80-100)
[2019-02-28 22:03] LABS: ALLENS TEST POSITIVE
[2019-02-28 22:10] LABS: EPITHELIAL CELLS FEW /hpf
[2019-02-28] MEDS ORDERED: ACETAMINOPHEN 325 MG TABLET (FP) PO PRN (22:24)
[2019-02-28] MEDS ORDERED: SODIUM CHLORIDE 1,000 ML IV SCH (22:24)
[2019-02-28] MEDS ORDERED: FUROSEMIDE 40 MG/4 ML INJECTABLE VIAL IVPUSH ONE (23:22)
--- NOTE | 2019-02-28 23:26 | CONSULT ---
Consultation: REQUESTING PROVIDER: Giorgi Camacho CONSULT REQUEST: We have been asked to medically evaluate this patient for ( Acute respiratory distress ). HISTORY OF PRESENT ILLNESS: history is taking from chart as pt is not able to provide story, intubated , sedated Radha Lizarraga is a68 F with h/o childhood polio, paraplegia, HTN, HLD, hypothyroid, anemia presented from [facility] due to acute respiratory distress , she was intubated and sedated, lives home alone. pt takes Lexapro started within this year, does not feel it is working. pt with BLE redness, 2+PE. pt reports she had constipation, now has daily soft BMs. denies fevers, chills, cough, abd pain, n/v, diarrhea. REVIEW OF SYSTEMS: un able to obtain PHYSICAL EXAMINATION Vital Signs - 24 hr 02/28/19 02/28/19 02/28/19 06:00 07:46 10:00 Temperature 97.5 F L 97.4 F L Pulse Rate 67 74 Respiratory 19 19 Rate Blood Pressure 142/54 L 140/68 O2 Sat by Pulse 94 L 94 L 98 Oximetry (%) 02/28/19 02/28/19 02/28/19 14:00 18:05 18:08 Temperature 97.5 F L 97.5 F L 97.5 F L Pulse Rate 64 89 94 H Respiratory 18 18 18 Rate Blood Pressure 152/79 221/90 H 185/102 H O2 Sat by Pulse 97 Oximetry (%) 02/28/19 02/28/19 02/28/19 18:10 18:15 19:00 Temperature 97.5 F L 97.5 F L Pulse Rate 94 H 80 Respiratory 18 20 Rate Blood Pressure 156/102 H 110/56 L O2 Sat by Pulse 100 Oximetry (%) 02/28/19 02/28/19 02/28/19 19:20 20:00 20:20 Temperature Pulse Rate Respiratory 18 18 Rate Blood Pressure O2 Sat by Pulse 100 Oximetry (%) 02/28/19 02/28/19 02/28/19 20:30 21:00 21:30 Temperature Pulse Rate 54 L Respiratory 18 Rate Blood Pressure 83/49 L 129/71 O2 Sat by Pulse 100 Oximetry (%) 02/28/19 02/28/19 02/28/19 21:39 21:58 23:07 Temperature 97.8 F 95.6 F L Pulse Rate 52 L 54 L 55 L Respiratory 18 18 18 Rate Blood Pressure 143/78 145/75 178/87 H O2 Sat by Pulse Oximetry (%) GENERAL: intubated sedated , but still able to follow commands HEAD: Normal with no signs of trauma. EYES: Pupils equal, round and reactive to light, extraocular movements intact, sclera anicteric, EARS, NOSE, THROAT: dry mucous membranes. NECK: supple LUNGS:diminished breath sounds at lyn bases HEART:RRR, normal S1 and S2 without murmur, rub or gallop. ABDOMEN: Soft, nontender, not distended, normoactive bowel sounds, no guarding, UPPER EXTREMITIES: 2+ pulses, warm, well-perfused. No cyanosis. No clubbing. No peripheral edema. LOWER EXTREMITIES: 2+ PE, R>L, medium, large round spots on legs, with scabs, pt picks at wounds -no drainage noted , LE paralysed NEUROLOGICAL: intubated sedated SKIN: Warm, dry, normal turgor,B/L LE erythema with exfoliation. Laboratory Results - last 24 hr 02/28/19 02/28/19 02/28/19 03:30 07:01 07:01 WBC 7.5 RBC 3.38 L Hgb 9.7 L Hct 29.9 L MCV 88.4 MCH 28.6 MCHC 32.4 RDW 15.1 Plt Count 243 MPV 8.0 Absolute Neuts (auto) 5.6 Neutrophils % 74.3 Lymphocytes % 15.0 Monocytes % 6.4 Eosinophils % 3.7 Basophils % 0.6 PTT (Actin FS) Anticoagulation Therapy Puncture Site ABG pH ABG pCO2 at Pt Temp ABG pO2 at Pt Temp ABG HCO3 ABG O2 Sat (Measured) ABG O2 Content ABG Base Excess Carlo Test O2 Delivery Device Oxygen Flow Rate Vent Mode Vent Rate Mechanical Rate PEEP Pressure Support Vent Sodium Potassium Chloride Carbon Dioxide Anion Gap BUN Creatinine Est GFR (CKD-EPI)AfAm Est GFR (CKD-EPI)NonAf Random Glucose Lactic Acid Calcium Magnesium Ferritin 488.5 H Total Bilirubin AST ALT Alkaline Phosphatase Troponin I Total Protein Albumin Urine Color Urine Appearance Urine pH Urine Protein Urine Glucose (UA) Urine Ketones Urine Blood Urine Nitrite Urine Bilirubin Urine Urobilinogen Ur Leukocyte Esterase Urine RBC Urine WBC Ur Transition Epith Cell Urine Bacteria Stool Occult Blood Negative Blood Type Antibody Screen 02/28/19 02/28/19 02/28/19 18:30 18:30 18:30 WBC 9.1 RBC 3.75 Hgb 10.6 L Hct 33.6 MCV 89.6 MCH 28.3 MCHC 31.6 L RDW 15.5 Plt Count 347 MPV 7.9 Absolute Neuts (auto) 6.1 Neutrophils % 67.8 Lymphocytes % 23.0 Monocytes % 5.3 Eosinophils % 2.0 Basophils % 1.9 PTT (Actin FS) 24.9 L Anticoagulation Therapy Puncture Site ABG pH ABG pCO2 at Pt Temp ABG pO2 at Pt Temp ABG HCO3 ABG O2 Sat (Measured) ABG O2 Content ABG Base Excess Carlo Test O2 Delivery Device Oxygen Flow Rate Vent Mode Vent Rate Mechanical Rate PEEP Pressure Support Vent Sodium 138 Potassium 4.4 Chloride 110 H Carbon Dioxide 18 L Anion Gap 10 BUN 17.0 Creatinine 0.6 Est GFR (CKD-EPI)AfAm 107.03 Est GFR (CKD-EPI)NonAf 92.35 Random Glucose 180 H Lactic Acid Calcium 8.2 L Magnesium 2.2 Ferritin Total Bilirubin 0.8 AST 74 H ALT 63 H Alkaline Phosphatase 192 H D Troponin I Total Protein 6.1 L Albumin 2.3 L Urine Color Urine Appearance Urine pH Urine Protein Urine Glucose (UA) Urine Ketones Urine Blood Urine Nitrite Urine Bilirubin Urine Urobilinogen Ur Leukocyte Esterase Urine RBC Urine WBC Ur Transition Epith Cell Urine Bacteria Stool Occult Blood Blood Type Antibody Screen 02/28/19 02/28/19 02/28/19 18:30 18:30 18:30 WBC RBC Hgb Hct MCV MCH MCHC RDW Plt Count MPV Absolute Neuts (auto) Neutrophils % Lymphocytes % Monocytes % Eosinophils % Basophils % PTT (Actin FS) Anticoagulation Therapy No Result Required. Puncture Site ABG pH ABG pCO2 at Pt Temp ABG pO2 at Pt Temp ABG HCO3 ABG O2 Sat (Measured) ABG O2 Content ABG Base Excess Carlo Test O2 Delivery Device Oxygen Flow Rate Vent Mode No Result Required. Vent Rate Mechanical Rate PEEP Pressure Support Vent Sodium Potassium Chloride Carbon Dioxide Anion Gap BUN Creatinine Est GFR (CKD-EPI)AfAm Est GFR (CKD-EPI)NonAf Random Glucose Lactic Acid 2.3 H* Calcium Magnesium Ferritin Total Bilirubin AST ALT Alkaline Phosphatase Troponin I 0.03 Total Protein Albumin Urine Color Urine Appearance Urine pH Urine Protein Urine Glucose (UA) Urine Ketones Urine Blood Urine Nitrite Urine Bilirubin Urine Urobilinogen Ur Leukocyte Esterase Urine RBC Urine WBC Ur Transition Epith Cell Urine Bacteria Stool Occult Blood Blood Type Antibody Screen 02/28/19 02/28/19 02/28/19 18:30 19:50 20:36 WBC RBC Hgb Hct MCV MCH MCHC RDW Plt Count MPV Absolute Neuts (auto) Neutrophils % Lymphocytes % Monocytes % Eosinophils % Basophils % PTT (Actin FS) Anticoagulation Therapy Puncture Site No Result Required. ABG pH 7.20 L ABG pCO2 at Pt Temp 51.2 H ABG pO2 at Pt Temp 246 H ABG HCO3 19.4 L ABG O2 Sat (Measured) 98.9 H ABG O2 Content 15.3 ABG Base Excess -8.1 L Carlo Test No Result Required. O2 Delivery Device Oxygen Flow Rate No Result Required. Vent Mode Vent Rate Mechanical Rate PEEP Pressure Support Vent Sodium Potassium Chloride Carbon Dioxide Anion Gap BUN Creatinine Est GFR (CKD-EPI)AfAm Est GFR (CKD-EPI)NonAf Random Glucose Lactic Acid Calcium Magnesium Ferritin Total Bilirubin AST ALT Alkaline Phosphatase Troponin I Total Protein Albumin Urine Color Yellow Urine Appearance Clear Urine pH 5.0 Urine Protein 1+ H Urine Glucose (UA) Negative Urine Ketones Negative Urine Blood Negative Urine Nitrite Negative Urine Bilirubin Negative Urine Urobilinogen 0.2 Ur Leukocyte Esterase Negative Urine RBC 2-5 Urine WBC 2-5 Ur Transition Epith Cell Few Urine Bacteria Few Stool Occult Blood Blood Type A POSITIVE Antibody Screen Negative 02/28/19 20:55 WBC RBC Hgb Hct MCV MCH MCHC RDW Plt Count MPV Absolute Neuts (auto) Neutrophils % Lymphocytes % Monocytes % Eosinophils % Basophils % PTT (Actin FS) Anticoagulation Therapy Puncture Site Right radial ABG pH 7.25 L ABG pCO2 at Pt Temp 47.2 H ABG pO2 at Pt Temp 239 H ABG HCO3 19.8 L ABG O2 Sat (Measured) 98.8 H ABG O2 Content 98.8 ABG Base Excess -7.7 L Carlo Test Positive O2 Delivery Device Mech vent Oxygen Flow Rate 100% Vent Mode Vent Rate 18 Mechanical Rate A/c PEEP 5.0 Pressure Support Vent 350 Sodium Potassium Chloride Carbon Dioxide Anion Gap BUN Creatinine Est GFR (CKD-EPI)AfAm Est GFR (CKD-EPI)NonAf Random Glucose Lactic Acid Calcium Magnesium Ferritin Total Bilirubin AST ALT Alkaline Phosphatase Troponin I Total Protein Albumin Urine Color Urine Appearance Urine pH Urine Protein Urine Glucose (UA) Urine Ketones Urine Blood Urine Nitrite Urine Bilirubin Urine Urobilinogen Ur Leukocyte Esterase Urine RBC Urine WBC Ur Transition Epith Cell Urine Bacteria Stool Occult Blood Blood Type Antibody Screen Active Medications Generic Name Dose Route Start Last Admin Trade Name Freq PRN Reason Stop Dose Admin Acetaminophen 650 mg 02/28/19 22:24 Tylenol - PO Q6H PRN PAIN LEVEL 1 - 3 Atenolol 100 mg 03/01/19 10:00 Tenormin - PO DAILY [facility] Atorvastatin Calcium 10 mg 03/01/19 22:00 Lipitor - PO HS [facility] Chlorhexidine Gluconate 1 applic 02/28/19 22:00 Hibiclens For Decolonization - TP HS [facility] Collagenase 1 applic 03/01/19 10:00 Santyl - TP DAILY [facility] Protocol Ezetimibe 10 mg 03/01/19 10:00 Zetia - PO DAILY [facility] Escitalopram Oxalate 10 mg 03/01/19 10:00 Lexapro - PO DAILY [facility] Famotidine 40 mg 03/01/19 10:00 Pepcid - PO DAILY [facility] Febuxostat 40 mg 03/01/19 10:00 Uloric - PO DAILY [facility] Ferrous Sulfate 325 mg 03/01/19 10:00 Feosol - PO DAILY [facility] Furosemide 40 mg 02/28/19 23:22 Lasix Injection - IVPUSH 02/28/19 23:23 ONCE ONE Guaifenesin 10 ml 02/28/19 22:24 Robitussin Dm - PO Q8H PRN COUGH Heparin Sodium (Porcine) 5,000 unit 03/01/19 06:00 Heparin - SQ TID [facility] Propofol 1,000,000 mcg in 100 mls @ 15.803 mls/hr 02/28/19 19:13 Diprivan - IVPB TITR [facility] Protocol 35 MCG/KG/MIN Sodium Chloride 1,000 mls @ 75 mls/hr 02/28/19 22:24 Normal Saline - IV ASDIR [facility] Piperacillin Sod/Tazobactam 50 mls @ 100 mls/hr 03/01/19 02:00 Sod 3.375 gm/ Dextrose IVPB Q8H-IV [facility] Protocol Levothyroxine Sodium 50 mcg 03/01/19 07:00 Synthroid - PO DAILY@0700 [facility] Mupirocin 1 applic 02/28/19 22:00 Bactroban Ointment (For Decolonization) - NS 03/05/19 21:59 BID [facility] Oxybutynin Chloride 5 mg 03/01/19 10:00 Ditropan - PO DAILY [facility] Oxycodone HCl 5 mg 02/28/19 22:24 Roxicodone - PO BID PRN PAIN LEVEL 6-10 Pantoprazole Sodium 20 mg 03/01/19 10:00 Protonix - PO DAILY [facility] Potassium Chloride 20 meq 03/01/19 10:00 K-Dur - PO DAILY [facility] CBC, BMP 02/28/19 18:30 02/28/19 18:30 ASSESSMENT/PLAN: 68 year-old female with a PMH significant for HTN, HLD, 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 # Acute respiratory distress 2/2 volume over load , R.O Pulmonary edema /PNA * intibated , sedated , on propofol @ 100 * repeat ABG * Vent settings Fioe 40 % TV 350m PEEP 5 * maintain o2 sat > 90 * maintain MAP > 65 * cont abx * lasix 40 iv once * repeat CXR now and in AM * # Cellulitis of RLE Chronic lower extremity lymphedema Vascular ulcers * two vascular ulcers, unstageable, with slough with surrounding erythema and warmth * apply collagenase daily * continue Zosyn /vanco * ID consulted * patient has venodynes at home, does not use * repeat LA , cont lose dose IV fluids to help decrease LA #Hypertension * BP mildly elevated in 140 systolic has couple reading > 180 systolic , will give one dose lasix , continue atenolol #Hyperlipidemia * continue ezetimibe, atorvastatin #Hypothyroidism * continue levothyroxine, repeat TSH #Polio #Postpolio syndrome (2001) * monitor respiratory status closely #Stool incontinence, chronic * last colonoscopy >10 years ago * GI consult #GERD * on PPI 20 mg IV daily #Gout * continue Uloric #OCD * continue Lexapro #Pressure ulcers * apply Allevyn dressing q72h or PRN if soiled #FEN * Fluids: IV @ 42 NS * Electrolytes: replete as indicated * Nutrition: NPO for now #DVT prophylaxis: sq heparin #Dispo:monior in ICU , # Full code Visit type - Emergency Visit Emergency Visit: Yes ED Registration Date: 02/26/19 Care time: The patient presented to the Emergency Department on the above date and was hospitalized for further evaluation of their emergent condition. - New Patient This patient is new to me today: Yes Date on this admission: 02/26/19 - Critical Care Critical Care patient: Yes Total Critical Care Time (in minutes): 45 Critical Care Statement: The care of this patient involved high complexity decision making to prevent further life threatening deterioration of the patient 's condition and/or to evaluate & treat vital organ system(s) failure or risk of failure. ATTENDING PHYSICIAN STATEMENT I saw and evaluated the patient. I reviewed the resident's note and discussed the case with the resident. I agree with the resident's findings and plan as documented. SUBJECTIVE: OBJECTIVE: ASSESSMENT AND PLAN:
[2019-03-01] MEDS: PROPOFOL 1,000,000 MCG/100 ML VIAL IVPB SCH ×2 (00:04→09:00)
[2019-03-01 00:06] LABS: BASO % 0.4 % (0-2.0); EOS % 1.6 % (0-4.5); HEMATOCRIT 32.2 % (32.4-45.2); HEMOGLOBIN 10.3 GM/dL (10.7-15.3); LYMPH % 7.5 % (8-40); MCH 28.1 pg (25.7-33.7); MEAN CELL VOLUME 87.9 fl (80-96); MEAN PLT VOLUME 7.7 fl (7.5-11.1); MONO % 5.2 % (3.8-10.2); NEUT % 85.3 % (42.8-82.8); PLATELET COUNT 283 K/MM3 (134-434); RBC 3.66 M/mm3 (3.60-5.2); RDW 16.1 % (11.6-15.6); WHITE BLOOD COUNT 10.9 K/mm3 (4.0-10.0)
[2019-03-01] MEDS: MUPIROCIN 2% TOPICAL OINTMENT FOR DECOLONIZATION NS SCH ×3 (00:11→21:57)
[2019-03-01] MEDS: CHLORHEXIDINE GLUCONATE 4% CLEANSER FOR DECOLONIZATION TP SCH ×2 (00:11→21:57)
[2019-03-01 00:19] LABS: INR 0.94 (0.83-1.09); PROTHROMBIN TIME (PATIENT) 11.1 SEC (9.7-13.0)
[2019-03-01 00:21] LABS: COCAINE, UR NEGATIVE ng/ml (CUTOFF=300); METHADONE, UR NEGATIVE ng/ml (CUTOFF=300); OPIATES, URI NEGATIVE ng/ml (CUTOFF=300); PHENCYCLIDINE,URINE NEGATIVE ng/ml (CUTOFF=25); URINE AMPHETAMINES NEGATIVE ng/ml (CUTOFF=500); URINE BARBITURATES NEGATIVE ng/ml (CUTOFF=200); URINE BENZODIAZEPINES NEGATIVE ng/ml (CUTOFF=200)
[2019-03-01] MEDS ORDERED: DEXTROSE 5%-WATER - 50 ML IVPB ONE ×3 (00:22→17:35)
[2019-03-01] MEDS ORDERED: PIPERACILLIN/TAZOBACTAM 3.375 GM VIAL IVPB ONE ×3 (00:22→17:35)
[2019-03-01 00:33] LABS: BILIRUBIN,TOTAL 0.9 mg/dL (0.2-1); BLOOD UREA NITROGEN 15.3 mg/dL (7-18); CALCIUM 8.1 mg/dL (8.5-10.1); CREATININE 0.5 mg/dL (0.55-1.3); MAGNESIUM 1.9 mg/dL (1.8-2.4); PHOSPHOROUS 2.7 mg/dL (2.5-4.9); POTASSIUM 3.9 mmol/L (3.5-5.1); TOT PROT 5.8 g/dl (6.4-8.2)
[2019-03-01 00:34] LABS: N-TERMINAL BNP 5578.2 pg/ml (5-125)
[2019-03-01] MEDS ORDERED: SODIUM CHLORIDE 1,000 ML IV SCH (00:49)
[2019-03-01] MEDS: PIPERACILLIN/TAZOB 3.375 GM 3.375 GM in DEXTROSE 5%-WATER - 50 ML IVPB SCH ×3 (01:13→17:38)
[2019-03-01] MEDS: HEPARIN NA (PORCINE) 5,000 UNITS/ML 1ML VIAL SQ SCH ×4 (01:16→21:57)
[2019-03-01 01:25] LABS: ARTERIAL BLD GAS O2 SATURATION 97.3 % (95-98); ARTERIAL BLOOD GAS BASE EXCESS -4.7 meq/l (-2-2); ARTERIAL BLOOD GAS PCO2 36.1 mmHg (35-45); ARTERIAL BLOOD GAS pH 7.36 (7.35-7.45)
[2019-03-01 01:27] LABS: ALLENS TEST POSITIVE; ARTERIAL BLOOD GAS PO2 149 mmHg (80-100)
--- NOTE | 2019-03-01 06:01 | HOSP ---
Subjective - Review of Symptoms Events since last encounter: Patient was seen and examined. Initially admitted to [facility] and treated for cellulitis of her lower extremity and on 02/28 in the evening developed sudden respiratory failure which prompted intubation. She was subsequently transferred to [facility] to be managed in the ICU. CT of chest was performed and showed bilateral pneumonia with pleural effusions. Patient with copious secretions through ET tube. Treating broadly with Zosyn and vancomycin , blood cultures, tracheal aspirate cultures sent. Chemistry showed worsening of transaminitis, lactic acidosis which improved after antibiotic administration. Found to have mild leukocytosis. Physical Examination Vital Signs: Vital Signs Temperature 97.3 F L 03/01/19 02:00 Pulse Rate 46 L 03/01/19 02:30 Respiratory Rate 18 03/01/19 03:30 Blood Pressure 90/57 L 03/01/19 02:30 O2 Sat by Pulse Oximetry (%) 100 03/01/19 02:15 Labs: CBC, BMP 02/28/19 23:30 02/28/19 23:30
[2019-03-01] MEDS ORDERED: ACETAMINOPHEN 1000 MG/100 ML VIAL (NON FORMULARY) IVPB ONE (06:48)
[2019-03-01] MEDS ORDERED: ACETAMINOPHEN 1000 MG/100 ML VIAL (NON FORMULARY) IVPB PRN (06:50)
[2019-03-01] MEDS ORDERED: LEVOTHYROXINE NA 50 MCG TABLET (FP) PO SCH (07:00)
[2019-03-01 07:25] LABS: BASO % 0.6 % (0-2.0); EOS % 3.8 % (0-4.5); HEMATOCRIT 29.8 % (32.4-45.2); HEMOGLOBIN 9.8 GM/dL (10.7-15.3); LYMPH % 10.6 % (8-40); MCH 28.5 pg (25.7-33.7); MCHC 32.7 g/dl (32.0-36.0); MEAN CELL VOLUME 87.2 fl (80-96); MEAN PLT VOLUME 7.7 fl (7.5-11.1); MONO % 5.4 % (3.8-10.2); NEUT % 79.6 % (42.8-82.8); PLATELET COUNT 277 K/MM3 (134-434); RBC 3.42 M/mm3 (3.60-5.2); RDW 16.1 % (11.6-15.6); WHITE BLOOD COUNT 9.4 K/mm3 (4.0-10.0)
[2019-03-01 08:06] LABS: BILIRUBIN,TOTAL 0.6 mg/dL (0.2-1); BLOOD UREA NITROGEN 14.9 mg/dL (7-18); CALCIUM 8.4 mg/dL (8.5-10.1); CREATININE 0.5 mg/dL (0.55-1.3); MAGNESIUM 1.9 mg/dL (1.8-2.4); POTASSIUM 3.6 mmol/L (3.5-5.1); TOT PROT 5.5 g/dl (6.4-8.2)
--- NOTE | 2019-03-01 08:34 | PN ---
Progress Note, Physician History of Present Illness: 68 F with h/o childhood polio, paraplegia, HTN, HLD, hypothyroid, anemia. Initially admitted to [facility] and treated for cellulitis of her lower extremity and on 02/28 in the evening developed sudden respiratory failure which prompted intubation and transfer to [facility] to be managed in the ICU. CT of chest was performed and showed bilateral pneumonia with pleural effusions. Patient with copious secretions through ET tube. Treating broadly with Zosyn and vancomycin, blood cultures, tracheal aspirate cultures sent. Chemistry showed worsening of transaminitis, lactic acidosis which improved after antibiotic administration. - Current Medication List Current Medications: Active Medications Acetaminophen (Tylenol -) 650 mg PO Q6H PRN PRN Reason: PAIN LEVEL 1 - 3 Acetaminophen (Ofirmev Injection -) 1,000 mg IVPB Q6H PRN PRN Reason: PAIN 4-6 Atenolol (Tenormin -) 100 mg PO DAILY [facility] Atorvastatin Calcium (Lipitor -) 10 mg PO HS [facility] Chlorhexidine Gluconate (Hibiclens For Decolonization -) 1 applic TP HS [facility] Last Admin: 03/01/19 00:11 Dose: 1 applic Collagenase (Santyl -) 1 applic TP DAILY [facility]; Protocol Ezetimibe (Zetia -) 10 mg PO DAILY [facility] Escitalopram Oxalate (Lexapro -) 10 mg PO DAILY [facility] Famotidine (Pepcid -) 40 mg PO DAILY [facility] Febuxostat (Uloric -) 40 mg PO DAILY [facility] Ferrous Sulfate (Feosol -) 325 mg PO DAILY [facility] Guaifenesin (Robitussin Dm -) 10 ml PO Q8H PRN PRN Reason: COUGH Heparin Sodium (Porcine) (Heparin -) 5,000 unit SQ TID [facility] Last Admin: 03/01/19 05:31 Dose: 5,000 unit Propofol (Diprivan -) 1,000,000 mcg in 100 mls @ 15.803 mls/hr IVPB TITR [facility]; Protocol Last Titration: 03/01/19 06:50 Dose: 20 mcg/kg/min, 9.03 mls/hr Piperacillin Sod/Tazobactam (Sod 3.375 gm/ Dextrose) 50 mls @ 100 mls/hr IVPB Q8H-IV [facility]; Protocol Last Admin: 03/01/19 01:13 Dose: 100 mls/hr Sodium Chloride (Normal Saline -) 1,000 mls @ 42 mls/hr IV ASDIR [facility] Last Admin: 03/01/19 01:13 Dose: 42 mls/hr Levothyroxine Sodium (Synthroid Injection -) 37.5 mcg IVPUSH DAILY [facility] Mupirocin (Bactroban Ointment (For Decolonization) -) 1 applic NS BID [facility] Stop: 03/05/19 21:59 Last Admin: 03/01/19 00:11 Dose: Not Given Oxybutynin Chloride (Ditropan -) 5 mg PO DAILY [facility] Oxycodone HCl (Roxicodone -) 5 mg PO BID PRN PRN Reason: PAIN LEVEL 7-10 Pantoprazole Sodium (Protonix -) 20 mg PO DAILY [facility] Potassium Chloride (K-Dur -) 20 meq PO DAILY [facility] - Objective Vital Signs: Vital Signs Temperature 97.7 F 03/01/19 06:00 Pulse Rate 46 L 03/01/19 08:00 Respiratory Rate 20 03/01/19 08:18 Blood Pressure 92/52 L 03/01/19 08:00 O2 Sat by Pulse Oximetry (%) 99 03/01/19 08:07 Constitutional: Yes: Well Nourished, No Distress, Calm Eyes: Yes: WNL, Conjunctiva Clear HENT: Yes: WNL, Atraumatic, Normocephalic Neck: Yes: WNL, Supple, Trachea Midline Cardiovascular: Yes: WNL, Regular Rate and Rhythm Respiratory: Yes: Mechanically Ventilated (on AC 10, FIO2 40), Rhonchi ( scattered) Gastrointestinal: Yes: WNL, Normal Bowel Sounds, Soft, Abdomen, Obese ...Rectal Exam: Yes: Deferred Genitourinary: Yes: Ramirez Present Breast(s): Yes: WNL Musculoskeletal: Yes: Joint Stiffness, Joint Swelling (to right LE) Extremities: Yes: Other (cellulitus to RLE) Edema: No Edema: LUE: 1+, RUE: 1+, LLE: 3+, RLE: 4+ Peripheral Pulses WNL: Yes Peripheral Pulses: Left Radial: 1+, Right Radial: 1+, Left Doralis Pedis: 1+, Right Dorsalis Pedis: 1+, Left Femoral: 1+, Right Femoral: 1+ Integumentary: Yes: Bruising (to RLE), Erythema, Skin Tear Neurological: Yes: Other (Intubated ans sedtaed. Respods to verbal commands. Attempting to write) ...Motor Strength: LUE, LLE, RUE, RLE (generalized weakness) Psychiatric: Yes: Other (sedated and intubated) Labs: CBC, BMP 03/01/19 06:30 03/01/19 06:30 INR, PTT INR 0.94 (0.83-1.09) 02/28/19 23:30 - ....Imaging Chest X-ray: Image Reviewed (BL infitrates, effusions R>L) Cat Scan: Report Reviewed (no acute pathology) Problem List - Problems (1) Prophylactic measure Assessment/Plan: FEN NPO monitor electrolytes IVF if remains with prolonged intubation will start clinimix/TF for nutrition Code(s): Z29.9 - ENCOUNTER FOR PROPHYLACTIC MEASURES, UNSPECIFIED (2) Cellulitis Assessment/Plan: c/w abx zosyn ID following Code(s): L03.90 - CELLULITIS, UNSPECIFIED (3) Depression Assessment/Plan: c/w lexapro supportive care Code(s): F32.9 - MAJOR DEPRESSIVE DISORDER, SINGLE EPISODE, UNSPECIFIED (4) Hypothyroidism Assessment/Plan: c/w synthroid Code(s): E03.9 - HYPOTHYROIDISM, UNSPECIFIED (5) Overactive bladder Assessment/Plan: c/w oxybutin remove ramirez when extubated Code(s): N32.81 - OVERACTIVE BLADDER (6) HLD (hyperlipidemia) Assessment/Plan: c/w atorvastatin and zetia when extubated Code(s): E78.5 - HYPERLIPIDEMIA, UNSPECIFIED (7) HTN (hypertension) Assessment/Plan: normotensive c./w tenormin Code(s): I10 - ESSENTIAL (PRIMARY) HYPERTENSION (8) Anemia, chronic disease Assessment/Plan: H/H stable continue to monitor Code(s): D63.8 - ANEMIA IN OTHER CHRONIC DISEASES CLASSIFIED ELSEWHERE (9) Acute respiratory failure requiring reintubation Assessment/Plan: remains intubated awake and following commands will begin to wean to extubation after extubation BiPap if needed c/w inhaled bronchodilators Code(s): J96.00 - ACUTE RESPIRATORY FAILURE, UNSP W HYPOXIA OR HYPERCAPNIA Visit type - Emergency Visit Emergency Visit: Yes ED Registration Date: 02/26/19 Care time: The patient presented to the Emergency Department on the above date and was hospitalized for further evaluation of their emergent condition. - New Patient This patient is new to me today: Yes Date on this admission: 03/01/19 - Critical Care Critical Care patient: Yes Total Critical Care Time (in minutes): 55 Critical Care Statement: The care of this patient involved high complexity decision making to prevent further life threatening deterioration of the patient 's condition and/or to evaluate & treat vital organ system(s) failure or risk of failure.
[2019-03-01] MEDS ORDERED: PHENOL 177 ML SPRAY BOTTLE MM PRN (08:53)
[2019-03-01] MEDS ORDERED: MORPHINE SULFATE 2 MG/ML VIAL IVPUSH PRN (08:56)
[2019-03-01 08:58] LABS: INR 0.95 (0.83-1.09); PROTHROMBIN TIME (PATIENT) 11.2 SEC (9.7-13.0)
[2019-03-01] MEDS ORDERED: SODIUM CHLORIDE 1,000 ML IV STA (09:03)
[2019-03-01] MEDS ORDERED: LEVOTHYROXINE SODIUM 100 MCG VIAL IVPUSH SCH ×2 (10:00→10:30)
[2019-03-01] MEDS ORDERED: FAMOTIDINE 20 MG TABLET PO SCH (10:00)
[2019-03-01] MEDS: FERROUS SO4 325 MG TABLET (FP) PO SCH ×2 (10:01→14:18)
[2019-03-01] MEDS: POTASSIUM CHLORIDE TABS 20 MEQ TABLET.ER (FP) PO SCH ×2 (10:01→14:18)
[2019-03-01] MEDS: ESCITALOPRAM OXALATE 10 MG TABLET (FP) PO SCH ×2 (10:01→14:26)
[2019-03-01] MEDS: OXYBUTYNIN CHLORIDE 5 MG TABLET PO SCH ×2 (10:01→14:20)
[2019-03-01] MEDS: PANTOPRAZOLE 20 MG TABLET (FP) PO SCH ×2 (10:02→14:20)
[2019-03-01] MEDS: ATENOLOL 50 MG TABLET (FP) PO SCH (10:03)
[2019-03-01] MEDS: EZETIMIBE 10 MG TABLET (FP) PO SCH (10:04)
[2019-03-01] MEDS: FEBUXOSTAT 40 MG TAB PO SCH ×2 (10:04→14:18)
[2019-03-01] MEDS ORDERED: PT OWN MED DRAWER 7, Y5N ONE (10:10)
[2019-03-01] MEDS ORDERED: FUROSEMIDE 40 MG/4 ML INJECTABLE VIAL ONE (10:48)
[2019-03-01] MEDS ORDERED: FUROSEMIDE 40 MG/4 ML INJECTABLE VIAL IVPUSH ONE (10:57)
[2019-03-01] MEDS: COLLAGENASE CLOSTRIDIUM HIST. 30 GRAMS TUBE TP SCH (11:20)
--- NOTE | 2019-03-01 11:25 | PN ---
Teaching Attending Note Name of Resident: Elvi Zamora ATTENDING PHYSICIAN STATEMENT I saw and evaluated the patient. I reviewed the resident's note and discussed the case with the resident. I agree with the resident's findings and plan as documented. SUBJECTIVE: Patient seen and examined in the ICU. Awake and alert on AC Mode of vent, 40% FiO2 No pressors. Intake & Output 02/26/19 02/27/19 02/28/19 03/01/19 23:59 23:59 23:59 23:59 Intake Total 350 2605 1378.8 900 Output Total 0 880 1375 Balance 350 2605 498.8 -475 Weight 165 lb 14.4 oz 163 lb 9.328 oz 163 lb 9.328 oz Last Vital Signs Temp Pulse Resp BP Pulse Ox 97.5 F L 48 L 18 109/65 99 03/01/19 10:00 03/01/19 10:00 03/01/19 10:00 03/01/19 10:00 03/01/19 08:07 Active Medications Acetaminophen (Tylenol -) 650 mg PO Q6H PRN PRN Reason: PAIN LEVEL 1 - 3 Acetaminophen (Ofirmev Injection -) 1,000 mg IVPB Q6H PRN PRN Reason: PAIN 4-6 Atenolol (Tenormin -) 100 mg PO DAILY [facility] Last Admin: 03/01/19 10:03 Dose: Not Given Atorvastatin Calcium (Lipitor -) 10 mg PO HS [facility] Chlorhexidine Gluconate (Hibiclens For Decolonization -) 1 applic TP HS [facility] Last Admin: 03/01/19 00:11 Dose: 1 applic Collagenase (Santyl -) 1 applic TP DAILY [facility]; Protocol Last Admin: 03/01/19 11:20 Dose: 1 applic Ezetimibe (Zetia -) 10 mg PO DAILY [facility] Last Admin: 03/01/19 10:04 Dose: Not Given Escitalopram Oxalate (Lexapro -) 10 mg PO DAILY [facility] Last Admin: 03/01/19 10:01 Dose: Not Given Famotidine (Pepcid -) 40 mg PO DAILY [facility] Last Admin: 03/01/19 10:01 Dose: Not Given Febuxostat (Uloric -) 40 mg PO DAILY [facility] Last Admin: 03/01/19 10:04 Dose: Not Given Ferrous Sulfate (Feosol -) 325 mg PO DAILY [facility] Last Admin: 03/01/19 10:01 Dose: Not Given Guaifenesin (Robitussin Dm -) 10 ml PO Q8H PRN PRN Reason: COUGH Heparin Sodium (Porcine) (Heparin -) 5,000 unit SQ TID [facility] Last Admin: 03/01/19 05:31 Dose: 5,000 unit Propofol (Diprivan -) 1,000,000 mcg in 100 mls @ 15.803 mls/hr IVPB TITR [facility]; Protocol Last Titration: 03/01/19 09:30 Dose: 0 mcg/kg/min, 0 mls/hr Piperacillin Sod/Tazobactam (Sod 3.375 gm/ Dextrose) 50 mls @ 100 mls/hr IVPB Q8H-IV [facility]; Protocol Last Admin: 03/01/19 10:11 Dose: 100 mls/hr Sodium Chloride (Normal Saline -) 1,000 mls @ 42 mls/hr IV ASD[facility] Last Admin: 03/01/19 01:13 Dose: 42 mls/hr Levothyroxine Sodium (Synthroid Injection -) 37.5 mcg IVPUSH 0700 [facility] Last Admin: 03/01/19 11:21 Dose: 37.5 mcg Morphine Sulfate (Morphine Sulfate) 2 mg IVPUSH Q6H PRN PRN Reason: PAIN LEVEL 6-10 Mupirocin (Bactroban Ointment (For Decolonization) -) 1 applic NS BID [facility] Stop: 03/05/19 21:59 Last Admin: 03/01/19 00:11 Dose: Not Given Oxybutynin Chloride (Ditropan -) 5 mg PO DAILY [facility] Last Admin: 03/01/19 10:01 Dose: Not Given Oxycodone HCl (Roxicodone -) 5 mg PO BID PRN PRN Reason: PAIN LEVEL 7-10 Pantoprazole Sodium (Protonix -) 20 mg PO DAILY [facility] Last Admin: 03/01/19 10:02 Dose: Not Given Phenol/Menthol (Chloraseptic -) 1 spray MM Q6HPO PRN PRN Reason: SORE THROAT Last Admin: 03/01/19 10:11 Dose: 1 spray Potassium Chloride (K-Dur -) 20 meq PO DAILY [facility] Last Admin: 03/01/19 10:01 Dose: Not Given GENERAL: intubated and awake, able to follow commands HEAD: Normal with no signs of trauma. EYES: Pupils equal, round and reactive to light, extraocular movements intact, sclera anicteric, EARS, NOSE, THROAT: dry mucous membranes. NECK: supple LUNGS: Bilateral rales and rhonchi HEART:RRR, normal S1 and S2 without murmur, rub or gallop. ABDOMEN: Soft, nontender, not distended, normoactive bowel sounds, no guarding, UPPER EXTREMITIES: 2+ pulses, warm, well-perfused. No cyanosis. No clubbing. No peripheral edema. LOWER EXTREMITIES: 2+ PE, R>L, medium, large round spots on legs, with scabs NEUROLOGICAL: nonfocal SKIN: Warm, dry, normal turgor,B/L LE erythema with exfoliation. Laboratory Results - last 24 hr 02/28/19 02/28/19 02/28/19 07:01 18:30 18:30 WBC 9.1 RBC 3.75 Hgb 10.6 L Hct 33.6 MCV 89.6 MCH 28.3 MCHC 31.6 L RDW 15.5 Plt Count 347 MPV 7.9 Absolute Neuts (auto) 6.1 Neutrophils % 67.8 Lymphocytes % 23.0 Monocytes % 5.3 Eosinophils % 2.0 Basophils % 1.9 Nucleated RBC % PT with INR INR PTT (Act[facility] FS) Anticoagulation Therapy Puncture Site ABG pH ABG pCO2 at Pt Temp ABG pO2 at Pt Temp ABG HCO3 ABG O2 Sat (Measured) ABG O2 Content ABG Base Excess Carlo Test O2 Delivery Device Oxygen Flow Rate Vent Mode Vent Rate Mechanical Rate PEEP Pressure Support Vent Sodium 138 Potassium 4.4 Chloride 110 H Carbon Dioxide 18 L Anion Gap 10 BUN 17.0 Creatinine 0.6 Est GFR (CKD-EPI)AfAm 107.03 Est GFR (CKD-EPI)NonAf 92.35 Random Glucose 180 H Lactic Acid Calcium 8.2 L Phosphorus Magnesium 2.2 Ferritin 488.5 H Total Bilirubin 0.8 AST 74 H ALT 63 H Alkaline Phosphatase 192 H D Troponin I B-Natriuretic Peptide Total Protein 6.1 L Albumin 2.3 L TSH Urine Color Urine Appearance Urine pH Urine Protein Urine Glucose (UA) Urine Ketones Urine Blood Urine Nitrite Urine Bilirubin Urine Urobilinogen Ur Leukocyte Esterase Urine RBC Urine WBC Ur Transition Epith Cell Urine Bacteria Opiates Screen Methadone Screen Barbiturate Screen Phencyclidine Screen Ur Amphetamines Screen MDMA (Ecstasy) Screen Benzodiazepines Screen Cocaine Screen U Marijuana (THC) Screen Influenza A (Rapid) Influenza B (Rapid) Blood Type Antibody Screen 02/28/19 02/28/19 02/28/19 18:30 18:30 18:30 WBC RBC Hgb Hct MCV MCH MCHC RDW Plt Count MPV Absolute Neuts (auto) Neutrophils % Lymphocytes % Monocytes % Eosinophils % Basophils % Nucleated RBC % PT with INR INR PTT (Actin FS) 24.9 L Anticoagulation Therapy Puncture Site ABG pH ABG pCO2 at Pt Temp ABG pO2 at Pt Temp ABG HCO3 ABG O2 Sat (Measured) ABG O2 Content ABG Base Excess Carlo Test O2 Delivery Device Oxygen Flow Rate Vent Mode Vent Rate Mechanical Rate PEEP Pressure Support Vent Sodium Potassium Chloride Carbon Dioxide Anion Gap BUN Creatinine Est GFR (CKD-EPI)AfAm Est GFR (CKD-EPI)NonAf Random Glucose Lactic Acid 2.3 H* Calcium Phosphorus Magnesium Ferritin Total Bilirubin AST ALT Alkaline Phosphatase Troponin I 0.03 B-Natriuretic Peptide Total Protein Albumin TSH Urine Color Urine Appearance Urine pH Urine Protein Urine Glucose (UA) Urine Ketones Urine Blood Urine Nitrite Urine Bilirubin Urine Urobilinogen Ur Leukocyte Esterase Urine RBC Urine WBC Ur Transition Epith Cell Urine Bacteria Opiates Screen Methadone Screen Barbiturate Screen Phencyclidine Screen Ur Amphetamines Screen MDMA (Ecstasy) Screen Benzodiazepines Screen Cocaine Screen U Marijuana (THC) Screen Influenza A (Rapid) Influenza B (Rapid) Blood Type Antibody Screen 02/28/19 02/28/19 02/28/19 18:30 18:30 19:50 WBC RBC Hgb Hct MCV MCH MCHC RDW Plt Count MPV Absolute Neuts (auto) Neutrophils % Lymphocytes % Monocytes % Eosinophils % Basophils % Nucleated RBC % PT with INR INR PTT (Actin FS) Anticoagulation Therapy No Result Required. Puncture Site No Result Required. ABG pH 7.20 L ABG pCO2 at Pt Temp 51.2 H ABG pO2 at Pt Temp 246 H ABG HCO3 19.4 L ABG O2 Sat (Measured) 98.9 H ABG O2 Content 15.3 ABG Base Excess -8.1 L Carlo Test No Result Required. O2 Delivery Device Oxygen Flow Rate No Result Required. Vent Mode No Result Required. Vent Rate Mechanical Rate PEEP Pressure Support Vent Sodium Potassium Chloride Carbon Dioxide Anion Gap BUN Creatinine Est GFR (CKD-EPI)AfAm Est GFR (CKD-EPI)NonAf Random Glucose Lactic Acid Calcium Phosphorus Magnesium Ferritin Total Bilirubin AST ALT Alkaline Phosphatase Troponin I B-Natriuretic Peptide Total Protein Albumin TSH Urine Color Urine Appearance Urine pH Urine Protein Urine Glucose (UA) Urine Ketones Urine Blood Urine Nitrite Urine Bilirubin Urine Urobilinogen Ur Leukocyte Esterase Urine RBC Urine WBC Ur Transition Epith Cell Urine Bacteria Opiates Screen Methadone Screen Barbiturate Screen Phencyclidine Screen Ur Amphetamines Screen MDMA (Ecstasy) Screen Benzodiazepines Screen Cocaine Screen U Marijuana (THC) Screen Influenza A (Rapid) Influenza B (Rapid) Blood Type A POSITIVE Antibody Screen Negative 02/28/19 02/28/19 02/28/19 20:36 20:55 23:30 WBC RBC Hgb Hct MCV MCH MCHC RDW Plt Count MPV Absolute Neuts (auto) Neutrophils % Lymphocytes % Monocytes % Eosinophils % Basophils % Nucleated RBC % PT with INR INR PTT (Actin FS) Anticoagulation Therapy Puncture Site Right radial ABG pH 7.25 L ABG pCO2 at Pt Temp 47.2 H ABG pO2 at Pt Temp 239 H ABG HCO3 19.8 L ABG O2 Sat (Measured) 98.8 H ABG O2 Content 98.8 ABG Base Excess -7.7 L Carlo Test Positive O2 Delivery Device Mech vent Oxygen Flow Rate 100% Vent Mode Vent Rate 18 Mechanical Rate A/c PEEP 5.0 Pressure Support Vent 350 Sodium Potassium Chloride Carbon Dioxide Anion Gap BUN Creatinine Est GFR (CKD-EPI)AfAm Est GFR (CKD-EPI)NonAf Random Glucose Lactic Acid Calcium Phosphorus Magnesium Ferritin Total Bilirubin AST ALT Alkaline Phosphatase Troponin I B-Natriuretic Peptide 5578.2 H Total Protein Albumin TSH 1.52 Urine Color Yellow Urine Appearance Clear Urine pH 5.0 Urine Protein 1+ H Urine Glucose (UA) Negative Urine Ketones Negative Urine Blood Negative Urine Nitrite Negative Urine Bilirubin Negative Urine Urobilinogen 0.2 Ur Leukocyte Esterase Negative Urine RBC 2-5 Urine WBC 2-5 Ur Transition Epith Cell Few Urine Bacteria Few Opiates Screen Methadone Screen Barbiturate Screen Phencyclidine Screen Ur Amphetamines Screen MDMA (Ecstasy) Screen Benzodiazepines Screen Cocaine Screen U Marijuana (THC) Screen Influenza A (Rapid) Influenza B (Rapid) Blood Type Antibody Screen 02/28/19 02/28/19 02/28/19 23:30 23:30 23:30 WBC RBC Hgb Hct MCV MCH MCHC RDW Plt Count MPV Absolute Neuts (auto) Neutrophils % Lymphocytes % Monocytes % Eosinophils % Basophils % Nucleated RBC % PT with INR INR PTT (Actin FS) Anticoagulation Therapy Puncture Site ABG pH ABG pCO2 at Pt Temp ABG pO2 at Pt Temp ABG HCO3 ABG O2 Sat (Measured) ABG O2 Content ABG Base Excess Carlo Test O2 Delivery Device Oxygen Flow Rate Vent Mode Vent Rate Mechanical Rate PEEP Pressure Support Vent Sodium 141 Potassium 3.9 Chloride 114 H Carbon Dioxide 21 Anion Gap 7 L BUN 15.3 Creatinine 0.5 L Est GFR (CKD-EPI)AfAm 113.65 Est GFR (CKD-EPI)NonAf 98.06 Random Glucose 116 H Lactic Acid 0.8 Calcium 8.1 L Phosphorus Cancelled 2.7 Magnesium 1.9 Ferritin Total Bilirubin 0.9 AST 84 H ALT 78 H Alkaline Phosphatase 232 H Troponin I B-Natriuretic Peptide Total Protein 5.8 L Albumin 2.0 L TSH Cancelled Urine Color Urine Appearance Urine pH Urine Protein Urine Glucose (UA) Urine Ketones Urine Blood Urine Nitrite Urine Bilirubin Urine Urobilinogen Ur Leukocyte Esterase Urine RBC Urine WBC Ur Transition Epith Cell Urine Bacteria Opiates Screen Methadone Screen Barbiturate Screen Phencyclidine Screen Ur Amphetamines Screen MDMA (Ecstasy) Screen Benzodiazepines Screen Cocaine Screen U Marijuana (THC) Screen Influenza A (Rapid) Influenza B (Rapid) Blood Type Antibody Screen 02/28/19 02/28/19 02/28/19 23:30 23:30 23:45 WBC 10.9 H RBC 3.66 Hgb 10.3 L Hct 32.2 L MCV 87.9 MCH 28.1 MCHC 32.0 RDW 16.1 H Plt Count 283 MPV 7.7 Absolute Neuts (auto) 9.3 H Neutrophils % 85.3 H Lymphocytes % 7.5 L Monocytes % 5.2 Eosinophils % 1.6 Basophils % 0.4 Nucleated RBC % 0 PT with INR 11.10 INR 0.94 PTT (Actin FS) Anticoagulation Therapy Puncture Site ABG pH ABG pCO2 at Pt Temp ABG pO2 at Pt Temp ABG HCO3 ABG O2 Sat (Measured) ABG O2 Content ABG Base Excess Carlo Test O2 Delivery Device Oxygen Flow Rate Vent Mode Vent Rate Mechanical Rate PEEP Pressure Support Vent Sodium Potassium Chloride Carbon Dioxide Anion Gap BUN Creatinine Est GFR (CKD-EPI)AfAm Est GFR (CKD-EPI)NonAf Random Glucose Lactic Acid Calcium Phosphorus Magnesium Ferritin Total Bilirubin AST ALT Alkaline Phosphatase Troponin I B-Natriuretic Peptide Total Protein Albumin TSH Urine Color Urine Appearance Urine pH Urine Protein Urine Glucose (UA) Urine Ketones Urine Blood Urine Nitrite Urine Bilirubin Urine Urobilinogen Ur Leukocyte Esterase Urine RBC Urine WBC Ur Transition Epith Cell Urine Bacteria Opiates Screen Negative Methadone Screen Negative Barbiturate Screen Negative Phencyclidine Screen Negative Ur Amphetamines Screen Negative MDMA (Ecstasy) Screen Negative Benzodiazepines Screen Negative Cocaine Screen Negative U Marijuana (THC) Screen Negative Influenza A (Rapid) Influenza B (Rapid) Blood Type Antibody Screen 03/01/19 03/01/19 03/01/19 01:10 06:30 06:30 WBC 9.4 RBC 3.42 L Hgb 9.8 L Hct 29.8 L MCV 87.2 MCH 28.5 MCHC 32.7 RDW 16.1 H Plt Count 277 MPV 7.7 Absolute Neuts (auto) 7.5 Neutrophils % 79.6 Lymphocytes % 10.6 D Monocytes % 5.4 Eosinophils % 3.8 D Basophils % 0.6 Nucleated RBC % 0 PT with INR 11.20 INR 0.95 PTT (Actin FS) Anticoagulation Therapy No Result Required. Puncture Site Right radial ABG pH 7.36 ABG pCO2 at Pt Temp 36.1 ABG pO2 at Pt Temp 149 H ABG HCO3 19.8 L ABG O2 Sat (Measured) 97.3 ABG O2 Content No Result Required. ABG Base Excess -4.7 L Carlo Test Positive O2 Delivery Device No Result Required. Oxygen Flow Rate 40% Vent Mode A/c Vent Rate 18 Mechanical Rate No Result Required. PEEP 5.0 Pressure Support Vent 350 Sodium Potassium Chloride Carbon Dioxide Anion Gap BUN Creatinine Est GFR (CKD-EPI)AfAm Est GFR (CKD-EPI)NonAf Random Glucose Lactic Acid Calcium Phosphorus Magnesium Ferritin Total Bilirubin AST ALT Alkaline Phosphatase Troponin I B-Natriuretic Peptide Total Protein Albumin TSH Urine Color Urine Appearance Urine pH Urine Protein Urine Glucose (UA) Urine Ketones Urine Blood Urine Nitrite Urine Bilirubin Urine Urobilinogen Ur Leukocyte Esterase Urine RBC Urine WBC Ur Transition Epith Cell Urine Bacteria Opiates Screen Methadone Screen Barbiturate Screen Phencyclidine Screen Ur Amphetamines Screen MDMA (Ecstasy) Screen Benzodiazepines Screen Cocaine Screen U Marijuana (THC) Screen Influenza A (Rapid) Influenza B (Rapid) Blood Type Antibody Screen 03/01/19 03/01/19 06:30 08:20 WBC RBC Hgb Hct MCV MCH MCHC RDW Plt Count MPV Absolute Neuts (auto) Neutrophils % Lymphocytes % Monocytes % Eosinophils % Basophils % Nucleated RBC % PT with INR INR PTT (Actin FS) Anticoagulation Therapy Puncture Site ABG pH ABG pCO2 at Pt Temp ABG pO2 at Pt Temp ABG HCO3 ABG O2 Sat (Measured) ABG O2 Content ABG Base Excess Carlo Test O2 Delivery Device Oxygen Flow Rate Vent Mode Vent Rate Mechanical Rate PEEP Pressure Support Vent Sodium 142 Potassium 3.6 Chloride 110 H Carbon Dioxide 23 Anion Gap 9 BUN 14.9 Creatinine 0.5 L Est GFR (CKD-EPI)AfAm 113.65 Est GFR (CKD-EPI)NonAf 98.06 Random Glucose 97 Lactic Acid Calcium 8.4 L Phosphorus Magnesium 1.9 Ferritin Total Bilirubin 0.6 AST 52 H ALT 66 H Alkaline Phosphatase 208 H Troponin I 0.11 H B-Natriuretic Peptide Total Protein 5.5 L Albumin 2.0 L TSH Urine Color Urine Appearance Urine pH Urine Protein Urine Glucose (UA) Urine Ketones Urine Blood Urine Nitrite Urine Bilirubin Urine Urobilinogen Ur Leukocyte Esterase Urine RBC Urine WBC Ur Transition Epith Cell Urine Bacteria Opiates Screen Methadone Screen Barbiturate Screen Phencyclidine Screen Ur Amphetamines Screen MDMA (Ecstasy) Screen Benzodiazepines Screen Cocaine Screen U Marijuana (THC) Screen Influenza A (Rapid) Negative Influenza B (Rapid) Negative Blood Type Antibody Screen ASSESSMENT/PLAN: Acute respiratory distress due to volume over load / Pulmonary edema / PNA (?) component of ARDS physiology Cellulitis of RLE Chronic lower extremity lymphedema Vascular ulcers Hypertension Hyperlipidemia Hypothyroidism Post polio syndrome GERD Gout PLAN: ABX Per ID Lasix Strict I & O Follow CXR Wean trials and extubate to HFOT Daily weight VTE prophylaxis Local wound care Requires ICU monitoring Dr Hernandez Critical care time spent in reviewing chart, evaluating patient and formulating plan - 36 minutes.
--- NOTE | 2019-03-01 13:04 | ECHO ---
Version: 1 Name: JOSE MIGUEL DINERO Exam: Adult Echocardiogram Study Date: 03/01/2019, 11:18 AM Age: 68 Years MMode/2D Measurements & Calculations IVSd: 0.92 cm LVIDs: 2.30 cm LVIDd: 4.0 cm LVPWd: 0.75 cm LAV (MOD-bp): 35.8 ml LVOT diam: 1.96 cm Ao root diam: 2.45 cm LA dimension: 3.1 cm Doppler Measurements & Calculations MV E max gwyn: 85.9 cm/sec Med E/e': 12.5 MV A max gwyn: 99.4 cm/sec Med Peak E' Gwyn: 6.9 cm/sec MV E/A: 0.86 Lat E/e': 11.3 Lat Peak E' Gwyn: 7.6 cm/sec MR max P.3 mmHg Ao max P.7 mmHg Ao V2 max: 119.4 cm/sec TR max gwyn: 270.5 cm/sec TR max P.2 mmHg Procedure A complete two-dimensional transthoracic echocardiogram was performed (2D, M-mode, Doppler and color flow Doppler). Left Ventricle The left ventricular size, thickness and function are normal. Ejection Fraction = 60%. E/A reversal consistent with but not diagnostic of poor LV compliance. The left ventricular wall motion is normal . Right Ventricle The right ventricle is normal in size and function. Atria Normal left and right atrial size and function. Mitral Valve The mitral valve is normal. There is mild mitral regurgitation. Tricuspid Valve The tricuspid valve is normal in structure and function. There is mild tricuspid regurgitation. Righ t ventricular systolic pressure is elevated at 50 mmhg. Assuming the RA pressure is 5 mmHg. There is m oderate pulmonary hypertension. Aortic Valve There is trivial aortic valve thickening. Pulmonic Valve The pulmonic valve is normal in structure and function. Trace pulmonic valvular regurgitation. Great Vessels The aortic root is normal size. Pericardium/Pleura There is no pericardial effusion. There is no pleural effusion. Summary Statements The left ventricular size, thickness and function are normal Ejection Fraction = 60%. There is mild mitral regurgitation. There is mild tricuspid regurgitation. There is moderate pulmonary hypertension. Right ventricular systolic pressure is elevated at 50 mmhg. There is trivial aortic valve thickening. Trace pulmonic valvular regurgitation. MD Matt Pacheco 03/01/2019, 1:03 PM Ordering Physician: Albina Rand Performed By: Dhara Jain
--- NOTE | 2019-03-01 14:07 | PN ---
Physical Exam: SUBJECTIVE: Patient seen and examined. Extubated now on high flow, satting 100% toelrated extubation well. OBJECTIVE: Vital Signs Period Temp Pulse Resp BP Sys/Kumar Pulse Ox Last 24 Hr 95.6 F-97.8 F 46-94 17-28 83-221/49-102 97-100 GENERAL: AOx3 NAD HEENT: NCAT. PERRLA. Mild erythema of oropharynx post- extubation. LUNGS: B/l rhonchi noted. No incr work of breathing no use of access muscles. HEART: RRR S1S2 heard no murmurs ABDOMEN: Soft NTND + BS EXTREMITIES: pulse palpable b/l LE's. 2+ edema b/l LE, RLE weeping ulcerations + b/l cellulitis skin changes NEUROLOGICAL: Normal speech. Nonfocal exam PSYCH: Good mood, normal affect. SKIN: B/l LE cellulitis Laboratory Results - last 24 hr 02/28/19 02/28/19 02/28/19 18:30 18:30 18:30 WBC 9.1 RBC 3.75 Hgb 10.6 L Hct 33.6 MCV 89.6 MCH 28.3 MCHC 31.6 L RDW 15.5 Plt Count 347 MPV 7.9 Absolute Neuts (auto) 6.1 Neutrophils % 67.8 Lymphocytes % 23.0 Monocytes % 5.3 Eosinophils % 2.0 Basophils % 1.9 Nucleated RBC % PT with INR INR PTT (Actin FS) 24.9 L Anticoagulation Therapy Puncture Site ABG pH ABG pCO2 at Pt Temp ABG pO2 at Pt Temp ABG HCO3 ABG O2 Sat (Measured) ABG O2 Content ABG Base Excess Carlo Test O2 Delivery Device Oxygen Flow Rate Vent Mode Vent Rate Mechanical Rate PEEP Pressure Support Vent Sodium 138 Potassium 4.4 Chloride 110 H Carbon Dioxide 18 L Anion Gap 10 BUN 17.0 Creatinine 0.6 Est GFR (CKD-EPI)AfAm 107.03 Est GFR (CKD-EPI)NonAf 92.35 Random Glucose 180 H Lactic Acid Calcium 8.2 L Phosphorus Magnesium 2.2 Total Bilirubin 0.8 AST 74 H ALT 63 H Alkaline Phosphatase 192 H D Troponin I B-Natriuretic Peptide Total Protein 6.1 L Albumin 2.3 L TSH Urine Color Urine Appearance Urine pH Urine Protein Urine Glucose (UA) Urine Ketones Urine Blood Urine Nitrite Urine Bilirubin Urine Urobilinogen Ur Leukocyte Esterase Urine RBC Urine WBC Ur Transition Epith Cell Urine Bacteria Opiates Screen Methadone Screen Barbiturate Screen Phencyclidine Screen Ur Amphetamines Screen MDMA (Ecstasy) Screen Benzodiazepines Screen Cocaine Screen U Marijuana (THC) Screen Influenza A (Rapid) Influenza B (Rapid) Blood Type Antibody Screen 02/28/19 02/28/19 02/28/19 18:30 18:30 18:30 WBC RBC Hgb Hct MCV MCH MCHC RDW Plt Count MPV Absolute Neuts (auto) Neutrophils % Lymphocytes % Monocytes % Eosinophils % Basophils % Nucleated RBC % PT with INR INR PTT (Actin FS) Anticoagulation Therapy No Result Required. Puncture Site ABG pH ABG pCO2 at Pt Temp ABG pO2 at Pt Temp ABG HCO3 ABG O2 Sat (Measured) ABG O2 Content ABG Base Excess Carlo Test O2 Delivery Device Oxygen Flow Rate Vent Mode No Result Required. Vent Rate Mechanical Rate PEEP Pressure Support Vent Sodium Potassium Chloride Carbon Dioxide Anion Gap BUN Creatinine Est GFR (CKD-EPI)AfAm Est GFR (CKD-EPI)NonAf Random Glucose Lactic Acid 2.3 H* Calcium Phosphorus Magnesium Total Bilirubin AST ALT Alkaline Phosphatase Troponin I 0.03 B-Natriuretic Peptide Total Protein Albumin TSH Urine Color Urine Appearance Urine pH Urine Protein Urine Glucose (UA) Urine Ketones Urine Blood Urine Nitrite Urine Bilirubin Urine Urobilinogen Ur Leukocyte Esterase Urine RBC Urine WBC Ur Transition Epith Cell Urine Bacteria Opiates Screen Methadone Screen Barbiturate Screen Phencyclidine Screen Ur Amphetamines Screen MDMA (Ecstasy) Screen Benzodiazepines Screen Cocaine Screen U Marijuana (THC) Screen Influenza A (Rapid) Influenza B (Rapid) Blood Type Antibody Screen 02/28/19 02/28/19 02/28/19 18:30 19:50 20:36 WBC RBC Hgb Hct MCV MCH MCHC RDW Plt Count MPV Absolute Neuts (auto) Neutrophils % Lymphocytes % Monocytes % Eosinophils % Basophils % Nucleated RBC % PT with INR INR PTT (Actin FS) Anticoagulation Therapy Puncture Site No Result Required. ABG pH 7.20 L ABG pCO2 at Pt Temp 51.2 H ABG pO2 at Pt Temp 246 H ABG HCO3 19.4 L ABG O2 Sat (Measured) 98.9 H ABG O2 Content 15.3 ABG Base Excess -8.1 L Carlo Test No Result Required. O2 Delivery Device Oxygen Flow Rate No Result Required. Vent Mode Vent Rate Mechanical Rate PEEP Pressure Support Vent Sodium Potassium Chloride Carbon Dioxide Anion Gap BUN Creatinine Est GFR (CKD-EPI)AfAm Est GFR (CKD-EPI)NonAf Random Glucose Lactic Acid Calcium Phosphorus Magnesium Total Bilirubin AST ALT Alkaline Phosphatase Troponin I B-Natriuretic Peptide Total Protein Albumin TSH Urine Color Yellow Urine Appearance Clear Urine pH 5.0 Urine Protein 1+ H Urine Glucose (UA) Negative Urine Ketones Negative Urine Blood Negative Urine Nitrite Negative Urine Bilirubin Negative Urine Urobilinogen 0.2 Ur Leukocyte Esterase Negative Urine RBC 2-5 Urine WBC 2-5 Ur Transition Epith Cell Few Urine Bacteria Few Opiates Screen Methadone Screen Barbiturate Screen Phencyclidine Screen Ur Amphetamines Screen MDMA (Ecstasy) Screen Benzodiazepines Screen Cocaine Screen U Marijuana (THC) Screen Influenza A (Rapid) Influenza B (Rapid) Blood Type A POSITIVE Antibody Screen Negative 02/28/19 02/28/19 02/28/19 20:55 23:30 23:30 WBC RBC Hgb Hct MCV MCH MCHC RDW Plt Count MPV Absolute Neuts (auto) Neutrophils % Lymphocytes % Monocytes % Eosinophils % Basophils % Nucleated RBC % PT with INR INR PTT (Actin FS) Anticoagulation Therapy Puncture Site Right radial ABG pH 7.25 L ABG pCO2 at Pt Temp 47.2 H ABG pO2 at Pt Temp 239 H ABG HCO3 19.8 L ABG O2 Sat (Measured) 98.8 H ABG O2 Content 98.8 ABG Base Excess -7.7 L Carlo Test Positive O2 Delivery Device Mech vent Oxygen Flow Rate 100% Vent Mode Vent Rate 18 Mechanical Rate A/c PEEP 5.0 Pressure Support Vent 350 Sodium Potassium Chloride Carbon Dioxide Anion Gap BUN Creatinine Est GFR (CKD-EPI)AfAm Est GFR (CKD-EPI)NonAf Random Glucose Lactic Acid Calcium Phosphorus Cancelled Magnesium Total Bilirubin AST ALT Alkaline Phosphatase Troponin I B-Natriuretic Peptide 5578.2 H Total Protein Albumin TSH 1.52 Cancelled Urine Color Urine Appearance Urine pH Urine Protein Urine Glucose (UA) Urine Ketones Urine Blood Urine Nitrite Urine Bilirubin Urine Urobilinogen Ur Leukocyte Esterase Urine RBC Urine WBC Ur Transition Epith Cell Urine Bacteria Opiates Screen Methadone Screen Barbiturate Screen Phencyclidine Screen Ur Amphetamines Screen MDMA (Ecstasy) Screen Benzodiazepines Screen Cocaine Screen U Marijuana (THC) Screen Influenza A (Rapid) Influenza B (Rapid) Blood Type Antibody Screen 02/28/19 02/28/19 02/28/19 23:30 23:30 23:30 WBC 10.9 H RBC 3.66 Hgb 10.3 L Hct 32.2 L MCV 87.9 MCH 28.1 MCHC 32.0 RDW 16.1 H Plt Count 283 MPV 7.7 Absolute Neuts (auto) 9.3 H Neutrophils % 85.3 H Lymphocytes % 7.5 L Monocytes % 5.2 Eosinophils % 1.6 Basophils % 0.4 Nucleated RBC % 0 PT with INR INR PTT (Actin FS) Anticoagulation Therapy Puncture Site ABG pH ABG pCO2 at Pt Temp ABG pO2 at Pt Temp ABG HCO3 ABG O2 Sat (Measured) ABG O2 Content ABG Base Excess Carlo Test O2 Delivery Device Oxygen Flow Rate Vent Mode Vent Rate Mechanical Rate PEEP Pressure Support Vent Sodium 141 Potassium 3.9 Chloride 114 H Carbon Dioxide 21 Anion Gap 7 L BUN 15.3 Creatinine 0.5 L Est GFR (CKD-EPI)AfAm 113.65 Est GFR (CKD-EPI)NonAf 98.06 Random Glucose 116 H Lactic Acid 0.8 Calcium 8.1 L Phosphorus 2.7 Magnesium 1.9 Total Bilirubin 0.9 AST 84 H ALT 78 H Alkaline Phosphatase 232 H Troponin I B-Natriuretic Peptide Total Protein 5.8 L Albumin 2.0 L TSH Urine Color Urine Appearance Urine pH Urine Protein Urine Glucose (UA) Urine Ketones Urine Blood Urine Nitrite Urine Bilirubin Urine Urobilinogen Ur Leukocyte Esterase Urine RBC Urine WBC Ur Transition Epith Cell Urine Bacteria Opiates Screen Methadone Screen Barbiturate Screen Phencyclidine Screen Ur Amphetamines Screen MDMA (Ecstasy) Screen Benzodiazepines Screen Cocaine Screen U Marijuana (THC) Screen Influenza A (Rapid) Influenza B (Rapid) Blood Type Antibody Screen 02/28/19 02/28/19 03/01/19 23:30 23:45 01:10 WBC RBC Hgb Hct MCV MCH MCHC RDW Plt Count MPV Absolute Neuts (auto) Neutrophils % Lymphocytes % Monocytes % Eosinophils % Basophils % Nucleated RBC % PT with INR 11.10 INR 0.94 PTT (Actin FS) Anticoagulation Therapy No Result Required. Puncture Site Right radial ABG pH 7.36 ABG pCO2 at Pt Temp 36.1 ABG pO2 at Pt Temp 149 H ABG HCO3 19.8 L ABG O2 Sat (Measured) 97.3 ABG O2 Content No Result Required. ABG Base Excess -4.7 L Carlo Test Positive O2 Delivery Device No Result Required. Oxygen Flow Rate 40% Vent Mode A/c Vent Rate 18 Mechanical Rate No Result Required. PEEP 5.0 Pressure Support Vent 350 Sodium Potassium Chloride Carbon Dioxide Anion Gap BUN Creatinine Est GFR (CKD-EPI)AfAm Est GFR (CKD-EPI)NonAf Random Glucose Lactic Acid Calcium Phosphorus Magnesium Total Bilirubin AST ALT Alkaline Phosphatase Troponin I B-Natriuretic Peptide Total Protein Albumin TSH Urine Color Urine Appearance Urine pH Urine Protein Urine Glucose (UA) Urine Ketones Urine Blood Urine Nitrite Urine Bilirubin Urine Urobilinogen Ur Leukocyte Esterase Urine RBC Urine WBC Ur Transition Epith Cell Urine Bacteria Opiates Screen Negative Methadone Screen Negative Barbiturate Screen Negative Phencyclidine Screen Negative Ur Amphetamines Screen Negative MDMA (Ecstasy) Screen Negative Benzodiazepines Screen Negative Cocaine Screen Negative U Marijuana (THC) Screen Negative Influenza A (Rapid) Influenza B (Rapid) Blood Type Antibody Screen 03/01/19 03/01/19 03/01/19 06:30 06:30 06:30 WBC 9.4 RBC 3.42 L Hgb 9.8 L Hct 29.8 L MCV 87.2 MCH 28.5 MCHC 32.7 RDW 16.1 H Plt Count 277 MPV 7.7 Absolute Neuts (auto) 7.5 Neutrophils % 79.6 Lymphocytes % 10.6 D Monocytes % 5.4 Eosinophils % 3.8 D Basophils % 0.6 Nucleated RBC % 0 PT with INR 11.20 INR 0.95 PTT (Actin FS) Anticoagulation Therapy Puncture Site ABG pH ABG pCO2 at Pt Temp ABG pO2 at Pt Temp ABG HCO3 ABG O2 Sat (Measured) ABG O2 Content ABG Base Excess Carlo Test O2 Delivery Device Oxygen Flow Rate Vent Mode Vent Rate Mechanical Rate PEEP Pressure Support Vent Sodium 142 Potassium 3.6 Chloride 110 H Carbon Dioxide 23 Anion Gap 9 BUN 14.9 Creatinine 0.5 L Est GFR (CKD-EPI)AfAm 113.65 Est GFR (CKD-EPI)NonAf 98.06 Random Glucose 97 Lactic Acid Calcium 8.4 L Phosphorus Magnesium 1.9 Total Bilirubin 0.6 AST 52 H ALT 66 H Alkaline Phosphatase 208 H Troponin I 0.11 H B-Natriuretic Peptide Total Protein 5.5 L Albumin 2.0 L TSH Urine Color Urine Appearance Urine pH Urine Protein Urine Glucose (UA) Urine Ketones Urine Blood Urine Nitrite Urine Bilirubin Urine Urobilinogen Ur Leukocyte Esterase Urine RBC Urine WBC Ur Transition Epith Cell Urine Bacteria Opiates Screen Methadone Screen Barbiturate Screen Phencyclidine Screen Ur Amphetamines Screen MDMA (Ecstasy) Screen Benzodiazepines Screen Cocaine Screen U Marijuana (THC) Screen Influenza A (Rapid) Influenza B (Rapid) Blood Type Antibody Screen 03/01/19 08:20 WBC RBC Hgb Hct MCV MCH MCHC RDW Plt Count MPV Absolute Neuts (auto) Neutrophils % Lymphocytes % Monocytes % Eosinophils % Basophils % Nucleated RBC % PT with INR INR PTT (Actin FS) Anticoagulation Therapy Puncture Site ABG pH ABG pCO2 at Pt Temp ABG pO2 at Pt Temp ABG HCO3 ABG O2 Sat (Measured) ABG O2 Content ABG Base Excess Carlo Test O2 Delivery Device Oxygen Flow Rate Vent Mode Vent Rate Mechanical Rate PEEP Pressure Support Vent Sodium Potassium Chloride Carbon Dioxide Anion Gap BUN Creatinine Est GFR (CKD-EPI)AfAm Est GFR (CKD-EPI)NonAf Random Glucose Lactic Acid Calcium Phosphorus Magnesium Total Bilirubin AST ALT Alkaline Phosphatase Troponin I B-Natriuretic Peptide Total Protein Albumin TSH Urine Color Urine Appearance Urine pH Urine Protein Urine Glucose (UA) Urine Ketones Urine Blood Urine Nitrite Urine Bilirubin Urine Urobilinogen Ur Leukocyte Esterase Urine RBC Urine WBC Ur Transition Epith Cell Urine Bacteria Opiates Screen Methadone Screen Barbiturate Screen Phencyclidine Screen Ur Amphetamines Screen MDMA (Ecstasy) Screen Benzodiazepines Screen Cocaine Screen U Marijuana (THC) Screen Influenza A (Rapid) Negative Influenza B (Rapid) Negative Blood Type Antibody Screen Active Medications Generic Name Dose Route Start Last Admin Trade Name Freq PRN Reason Stop Dose Admin Acetaminophen 650 mg 02/28/19 22:24 Tylenol - PO Q6H PRN PAIN LEVEL 1 - 3 Acetaminophen 1,000 mg 03/01/19 06:50 Ofirmev Injection - IVPB Q6H PRN PAIN 4-6 Atenolol 100 mg 03/01/19 10:00 03/01/19 10:03 Tenormin - PO Not Given DAILY GISELLE Atorvastatin Calcium 10 mg 03/01/19 22:00 Lipitor - PO HS GISELLE Chlorhexidine Gluconate 1 applic 02/28/19 22:00 03/01/19 00:11 Hibiclens For Decolonization - TP 1 applic HS GISELLE Administration Collagenase 1 applic 03/01/19 10:00 03/01/19 11:20 Santyl - TP 1 applic DAILY GISELLE Administration Protocol Ezetimibe 10 mg 03/01/19 10:00 12/17/19 10:04 Zetia - PO Not Given DAILY [facility] Escitalopram Oxalate 10 mg 03/01/19 10:00 03/01/19 10:01 Lexapro - PO Not Given DAILY GISELLE Famotidine 40 mg 03/01/19 10:00 03/01/19 10:01 Pepcid - PO Not Given DAILY GISELLE Febuxostat 40 mg 03/01/19 10:00 03/01/19 10:04 Uloric - PO Not Given DAILY [facility] Ferrous Sulfate 325 mg 03/01/19 10:00 03/01/19 10:01 Feosol - PO Not Given DAILY [facility] Guaifenesin 10 ml 02/28/19 22:24 Robitussin Dm - PO Q8H PRN COUGH Heparin Sodium (Porcine) 5,000 unit 03/01/19 06:00 03/01/19 05:31 Heparin - SQ 5,000 unit TID GISELLE Administration Propofol 1,000,000 mcg in 100 mls @ 15.803 mls/hr 02/28/19 19:13 03/01/19 09: 30 Diprivan - IVPB 0 mcg/kg/min TITR GISELLE 0 mls/hr Titration Protocol 35 MCG/KG/MIN Piperacillin Sod/Tazobactam 50 mls @ 100 mls/hr 03/01/19 02:00 03/01/19 10:11 Sod 3.375 gm/ Dextrose IVPB 100 mls/hr Q8H-IV GISELLE Administration Protocol Sodium Chloride 1,000 mls @ 42 mls/hr 03/01/19 00:49 03/01/19 01:13 Normal Saline - IV 42 mls/hr ASDIR GISELLE Administration Levothyroxine Sodium 37.5 mcg 03/01/19 10:30 03/01/19 11:21 Synthroid Injection - IVPUSH 37.5 mcg 0700 GISELLE Administration Morphine Sulfate 2 mg 03/01/19 08:56 Morphine Sulfate IVPUSH Q6H PRN PAIN LEVEL 6-10 Mupirocin 1 applic 02/28/19 22:00 03/01/19 11:25 Bactroban Ointment (For Decolonization) - NS 03/05/19 21:59 1 applic BID GISELLE Administration Oxybutynin Chloride 5 mg 03/01/19 10:00 12/17/19 10:01 Ditropan - PO Not Given DAILY GISELLE Oxycodone HCl 5 mg 02/28/19 22:24 Roxicodone - PO BID PRN PAIN LEVEL 7-10 Pantoprazole Sodium 20 mg 03/01/19 10:00 03/01/19 10:02 Protonix - PO Not Given DAILY GISELLE Phenol/Menthol 1 spray 03/01/19 08:53 03/01/19 10:11 Chloraseptic - MM 1 spray Q6HPO PRN Administration SORE THROAT Potassium Chloride 20 meq 03/01/19 10:00 03/01/19 10:01 K-Dur - PO Not Given DAILY GISELLE ASSESSMENT/PLAN: 68 y.o. F PMH HTN, HLD, hyperthyroid, anemia, childhood polio, paraplegia presenting for worsening respiratory symptoms. #CV -EKG NSR [id number] -Tropinemia 0.11 likely 2/2 demand-- f/u repeat #Pulm -Extubated today now on high flow o2 40% FiO2 -CXR today weak inspiration with elevated right hemidiaphragm and persistent bilateral pulmonary and pleural changes. -S/p IV lasix 40mg -Monitor I's & O's -Daily weights -f/u sputum cx # -Morrow in place O's 150mL post lasix #ID -C/w abx zosyn for cellulitis -prn wound care -f/u repeat blood cx, urine cx #PPX -Heparin SQ #FEN -IVF d/c'd -Trend lytes -Tolerating PO water Visit type - Emergency Visit Emergency Visit: No - New Patient This patient is new to me today: Yes Date on this admission: 03/01/19 - Critical Care Critical Care patient: Yes Total Critical Care Time (in minutes): 36 Critical Care Statement: The care of this patient involved high complexity decision making to prevent further life threatening deterioration of the patient 's condition and/or to evaluate & treat vital organ system(s) failure or risk of failure. ATTENDING PHYSICIAN STATEMENT I saw and evaluated the patient. I reviewed the resident's note and discussed the case with the resident. I agree with the resident's findings and plan as documented. SUBJECTIVE: OBJECTIVE: ASSESSMENT AND PLAN:
[2019-03-01] MEDS: guaiFENesin/D-METHORPHAN HB 10 ML UNIT-DOSE CUPS PO PRN ×2 (14:24→21:57)
--- NOTE | 2019-03-01 20:17 | PN ---
Progress Note, Physician History of Present Illness: Events noted. Noted yesterday to be in acute respiratory distress with O2 desaturation requiring intubation. Reported to have copious respiratory secretions. CXR with infiltrates/edema. Pt is now extubated, alert, on HFOT. Remains afebrile. B/L LE edema/erythema. - Current Medication List Current Medications: Active Medications Acetaminophen (Tylenol -) 650 mg PO Q6H PRN PRN Reason: PAIN LEVEL 1 - 3 Acetaminophen (Ofirmev Injection -) 1,000 mg IVPB Q6H PRN PRN Reason: PAIN 4-6 Atenolol (Tenormin -) 100 mg PO DAILY [facility] Last Admin: 03/01/19 10:03 Dose: Not Given Atorvastatin Calcium (Lipitor -) 10 mg PO HS [facility] Chlorhexidine Gluconate (Hibiclens For Decolonization -) 1 applic TP HS [facility] Last Admin: 03/01/19 00:11 Dose: 1 applic Collagenase (Santyl -) 1 applic TP DAILY [facility]; Protocol Last Admin: 03/01/19 11:20 Dose: 1 applic Ezetimibe (Zetia -) 10 mg PO DAILY [facility] Last Admin: 03/01/19 10:04 Dose: Not Given Escitalopram Oxalate (Lexapro -) 10 mg PO DAILY [facility] Last Admin: 03/01/19 14:26 Dose: 10 mg Febuxostat (Uloric -) 40 mg PO DAILY [facility] Last Admin: 03/01/19 14:18 Dose: 40 mg Ferrous Sulfate (Feosol -) 325 mg PO DAILY [facility] Last Admin: 03/01/19 14:18 Dose: 325 mg Guaifenesin (Robitussin Dm -) 10 ml PO Q8H PRN PRN Reason: COUGH Last Admin: 03/01/19 14:24 Dose: 10 ml Heparin Sodium (Porcine) (Heparin -) 5,000 unit SQ TID [facility] Last Admin: 03/01/19 14:13 Dose: 5,000 unit Piperacillin Sod/Tazobactam (Sod 3.375 gm/ Dextrose) 50 mls @ 100 mls/hr IVPB Q8H-IV G[facility]ELLE; Protocol Last Admin: 03/01/19 17:38 Dose: 100 mls/hr Levothyroxine Sodium (Synthroid Injection -) 37.5 mcg IVPUSH 0700 [facility] Last Admin: 03/01/19 11:21 Dose: 37.5 mcg Morphine Sulfate (Morphine Sulfate) 2 mg IVPUSH Q6H PRN PRN Reason: PAIN LEVEL 6-10 Mupirocin (Bactroban Ointment (For Decolonization) -) 1 applic NS BID [facility] Stop: 03/05/19 21:59 Last Admin: 03/01/19 11:25 Dose: 1 applic Oxybutynin Chloride (Ditropan -) 5 mg PO DAILY [facility] Last Admin: 03/01/19 14:20 Dose: 5 mg Oxycodone HCl (Roxicodone -) 5 mg PO BID PRN PRN Reason: PAIN LEVEL 7-10 Pantoprazole Sodium (Protonix -) 20 mg PO DAILY [facility] Last Admin: 03/01/19 14:20 Dose: 20 mg Phenol/Menthol (Chloraseptic -) 1 spray MM Q6HPO PRN PRN Reason: SORE THROAT Last Admin: 03/01/19 10:11 Dose: 1 spray Potassium Chloride (K-Dur -) 20 meq PO DAILY [facility] Last Admin: 03/01/19 14:18 Dose: 20 meq - Objective Vital Signs: Vital Signs Temperature 97.3 F L 03/01/19 18:00 Pulse Rate 71 03/01/19 18:00 Respiratory Rate 18 03/01/19 18:00 Blood Pressure 130/79 03/01/19 18:00 O2 Sat by Pulse Oximetry (%) 97 03/01/19 11:00 Constitutional: Yes: No Distress, Calm Eyes: Yes: Conjunctiva Clear Cardiovascular: Yes: Regular Rate and Rhythm Respiratory: Yes: Rhonchi, Other (HFOT) Gastrointestinal: Yes: Normal Bowel Sounds, Soft, Abdomen, Obese Extremities: Yes: Erythema (b/l LE erythema RLE>LLE, RLE ulcers) Edema: Yes Edema: LLE: 2+, RLE: 2+ Integumentary: Yes: WNL Neurological: Yes: Alert Labs: CBC, BMP 03/01/19 06:30 03/01/19 06:30 INR, PTT INR 0.95 (0.83-1.09) 03/01/19 06:30 Laboratory Tests 02/26/19 02/26/19 02/26/19 13:41 13:41 14:50 WBC 24.0 H RBC 4.09 Hgb 11.8 Hct 36.2 MCV 88.4 MCH 28.9 MCHC 32.7 RDW 15.1 Plt Count 335 MPV 7.9 Absolute Neuts (auto) 22.5 Neutrophils % No Result Required. Neutrophils % (Manual) 80.0 Band Neutrophils % 14.0 H Lymphocytes % No Result Required. Lymphocytes % (Manual) 2.0 L Monocytes % Monocytes % (Manual) 4 Eosinophils % Basophils % Nucleated RBC % Platelet Estimate Adequate PT with INR INR PTT (Actin FS) Anticoagulation Therapy Puncture Site ABG pH ABG pCO2 at Pt Temp ABG pO2 at Pt Temp ABG HCO3 ABG O2 Sat (Measured) ABG O2 Content ABG Base Excess Carlo Test VBG pH POC VBG pCO2 POC VBG pO2 VBG HCO3 VBG O2 Sat (Dragan) VBG Base Excess O2 Delivery Device Oxygen Flow Rate Vent Mode Vent Rate Mechanical Rate PEEP Pressure Support Vent Sodium 135 L Potassium 3.2 L Chloride 100 Carbon Dioxide 24 Anion Gap 11 BUN 28.0 H Creatinine 0.6 Est GFR (CKD-EPI)AfAm 107.03 Est GFR (CKD-EPI)NonAf 92.35 Random Glucose 130 H Lactic Acid Calcium 9.3 Phosphorus Magnesium Iron TIBC Iron Saturation Unsaturated IBC Ferritin Total Bilirubin 0.7 AST 29 ALT 38 Alkaline Phosphatase 165 H D Troponin I B-Natriuretic Peptide Total Protein 7.6 Albumin 3.3 L Vitamin B12 Serum Folate TSH 3.00 Urine Color Yellow Urine Appearance Clear Urine pH 5.0 Urine Protein 1+ H Urine Glucose (UA) Negative Urine Ketones Negative Urine Blood Trace-intact Urine Nitrite Negative Urine Bilirubin Negative Urine Urobilinogen 0.2 Ur Leukocyte Esterase Negative Urine RBC 0-2 Urine WBC 0-2 Ur Transition Epith Cell Few Urine Bacteria Stool Occult Blood Opiates Screen Methadone Screen Barbiturate Screen Phencyclidine Screen Ur Amphetamines Screen MDMA (Ecstasy) Screen Benzodiazepines Screen Cocaine Screen U Marijuana (THC) Screen Influenza A (Rapid) Influenza B (Rapid) Blood Type Antibody Screen 02/26/19 02/26/19 02/26/19 16:00 16:00 16:15 WBC RBC Hgb Hct MCV MCH MCHC RDW Plt Count MPV Absolute Neuts (auto) Neutrophils % Neutrophils % (Manual) Band Neutrophils % Lymphocytes % Lymphocytes % (Manual) Monocytes % Monocytes % (Manual) Eosinophils % Basophils % Nucleated RBC % Platelet Estimate PT with INR INR PTT (Actin FS) Anticoagulation Therapy Puncture Site ABG pH ABG pCO2 at Pt Temp ABG pO2 at Pt Temp ABG HCO3 ABG O2 Sat (Measured) ABG O2 Content ABG Base Excess Carlo Test VBG pH 7.34 POC VBG pCO2 47.2 POC VBG pO2 < 49 H VBG HCO3 24.9 VBG O2 Sat (Dragan) 36.6 L VBG Base Excess -0.6 O2 Delivery Device Oxygen Flow Rate Vent Mode Vent Rate Mechanical Rate PEEP Pressure Support Vent Sodium Potassium Chloride Carbon Dioxide Anion Gap BUN Creatinine Est GFR (CKD-EPI)AfAm Est GFR (CKD-EPI)NonAf Random Glucose Lactic Acid 2.0 Calcium Phosphorus 3.0 Magnesium 2.2 Iron TIBC Iron Saturation Unsaturated IBC Ferritin Total Bilirubin AST ALT Alkaline Phosphatase Troponin I B-Natriuretic Peptide Total Protein Albumin Vitamin B12 Serum Folate TSH Urine Color Urine Appearance Urine pH Urine Protein Urine Glucose (UA) Urine Ketones Urine Blood Urine Nitrite Urine Bilirubin Urine Urobilinogen Ur Leukocyte Esterase Urine RBC Urine WBC Ur Transition Epith Cell Urine Bacteria Stool Occult Blood Opiates Screen Methadone Screen Barbiturate Screen Phencyclidine Screen Ur Amphetamines Screen MDMA (Ecstasy) Screen Benzodiazepines Screen Cocaine Screen U Marijuana (THC) Screen Influenza A (Rapid) Influenza B (Rapid) Blood Type Antibody Screen 02/27/19 02/27/19 02/27/19 06:15 06:15 06:15 WBC 13.1 H RBC 3.36 L Hgb 9.6 L Hct 29.5 L D MCV 88.0 MCH 28.5 MCHC 32.4 RDW 15.2 Plt Count 244 MPV 8.3 Absolute Neuts (auto) 11.1 Neutrophils % 84.8 H Neutrophils % (Manual) Band Neutrophils % Lymphocytes % 10.5 Lymphocytes % (Manual) Monocytes % 3.6 L Monocytes % (Manual) Eosinophils % 0.9 Basophils % 0.2 Nucleated RBC % Platelet Estimate PT with INR INR PTT (Actin FS) Anticoagulation Therapy Puncture Site ABG pH ABG pCO2 at Pt Temp ABG pO2 at Pt Temp ABG HCO3 ABG O2 Sat (Measured) ABG O2 Content ABG Base Excess Carlo Test VBG pH POC VBG pCO2 POC VBG pO2 VBG HCO3 VBG O2 Sat (Dragan) VBG Base Excess O2 Delivery Device Oxygen Flow Rate Vent Mode Vent Rate Mechanical Rate PEEP Pressure Support Vent Sodium 137 Potassium 4.8 Chloride 105 Carbon Dioxide 22 Anion Gap 10 BUN 28.0 H Creatinine 0.7 Est GFR (CKD-EPI)AfAm 101.74 Est GFR (CKD-EPI)NonAf 87.78 Random Glucose 102 Lactic Acid Calcium 8.6 Phosphorus Magnesium 2.2 Iron 22 L TIBC 196 L Iron Saturation 11 L Unsaturated IBC 174 L Ferritin Total Bilirubin 0.8 AST 26 ALT 29 Alkaline Phosphatase 132 H D Troponin I B-Natriuretic Peptide Total Protein 5.7 L Albumin 2.4 L Vitamin B12 404 Serum Folate 23 H TSH Urine Color Urine Appearance Urine pH Urine Protein Urine Glucose (UA) Urine Ketones Urine Blood Urine Nitrite Urine Bilirubin Urine Urobilinogen Ur Leukocyte Esterase Urine RBC Urine WBC Ur Transition Epith Cell Urine Bacteria Stool Occult Blood Opiates Screen Methadone Screen Barbiturate Screen Phencyclidine Screen Ur Amphetamines Screen MDMA (Ecstasy) Screen Benzodiazepines Screen Cocaine Screen U Marijuana (THC) Screen Influenza A (Rapid) Influenza B (Rapid) Blood Type Antibody Screen 02/28/19 02/28/19 02/28/19 03:30 07:01 07:01 WBC 7.5 RBC 3.38 L Hgb 9.7 L Hct 29.9 L MCV 88.4 MCH 28.6 MCHC 32.4 RDW 15.1 Plt Count 243 MPV 8.0 Absolute Neuts (auto) 5.6 Neutrophils % 74.3 Neutrophils % (Manual) Band Neutrophils % Lymphocytes % 15.0 Lymphocytes % (Manual) Monocytes % 6.4 Monocytes % (Manual) Eosinophils % 3.7 Basophils % 0.6 Nucleated RBC % Platelet Estimate PT with INR INR PTT (Actin FS) Anticoagulation Therapy Puncture Site ABG pH ABG pCO2 at Pt Temp ABG pO2 at Pt Temp ABG HCO3 ABG O2 Sat (Measured) ABG O2 Content ABG Base Excess Carlo Test VBG pH POC VBG pCO2 POC VBG pO2 VBG HCO3 VBG O2 Sat (Dragan) VBG Base Excess O2 Delivery Device Oxygen Flow Rate Vent Mode Vent Rate Mechanical Rate PEEP Pressure Support Vent Sodium Potassium Chloride Carbon Dioxide Anion Gap BUN Creatinine Est GFR (CKD-EPI)AfAm Est GFR (CKD-EPI)NonAf Random Glucose Lactic Acid Calcium Phosphorus Magnesium Iron TIBC Iron Saturation Unsaturated IBC Ferritin 488.5 H Total Bilirubin AST ALT Alkaline Phosphatase Troponin I B-Natriuretic Peptide Total Protein Albumin Vitamin B12 Serum Folate TSH Urine Color Urine Appearance Urine pH Urine Protein Urine Glucose (UA) Urine Ketones Urine Blood Urine Nitrite Urine Bilirubin Urine Urobilinogen Ur Leukocyte Esterase Urine RBC Urine WBC Ur Transition Epith Cell Urine Bacteria Stool Occult Blood Negative Opiates Screen Methadone Screen Barbiturate Screen Phencyclidine Screen Ur Amphetamines Screen MDMA (Ecstasy) Screen Benzodiazepines Screen Cocaine Screen U Marijuana (THC) Screen Influenza A (Rapid) Influenza B (Rapid) Blood Type Antibody Screen 02/28/19 02/28/19 02/28/19 18:30 18:30 18:30 WBC 9.1 RBC 3.75 Hgb 10.6 L Hct 33.6 MCV 89.6 MCH 28.3 MCHC 31.6 L RDW 15.5 Plt Count 347 MPV 7.9 Absolute Neuts (auto) 6.1 Neutrophils % 67.8 Neutrophils % (Manual) Band Neutrophils % Lymphocytes % 23.0 Lymphocytes % (Manual) Monocytes % 5.3 Monocytes % (Manual) Eosinophils % 2.0 Basophils % 1.9 Nucleated RBC % Platelet Estimate PT with INR INR PTT (Actin FS) 24.9 L Anticoagulation Therapy Puncture Site ABG pH ABG pCO2 at Pt Temp ABG pO2 at Pt Temp ABG HCO3 ABG O2 Sat (Measured) ABG O2 Content ABG Base Excess Carlo Test VBG pH POC VBG pCO2 POC VBG pO2 VBG HCO3 VBG O2 Sat (Dragan) VBG Base Excess O2 Delivery Device Oxygen Flow Rate Vent Mode Vent Rate Mechanical Rate PEEP Pressure Support Vent Sodium 138 Potassium 4.4 Chloride 110 H Carbon Dioxide 18 L Anion Gap 10 BUN 17.0 Creatinine 0.6 Est GFR (CKD-EPI)AfAm 107.03 Est GFR (CKD-EPI)NonAf 92.35 Random Glucose 180 H Lactic Acid Calcium 8.2 L Phosphorus Magnesium 2.2 Iron TIBC Iron Saturation Unsaturated IBC Ferritin Total Bilirubin 0.8 AST 74 H ALT 63 H Alkaline Phosphatase 192 H D Troponin I B-Natriuretic Peptide Total Protein 6.1 L Albumin 2.3 L Vitamin B12 Serum Folate TSH Urine Color Urine Appearance Urine pH Urine Protein Urine Glucose (UA) Urine Ketones Urine Blood Urine Nitrite Urine Bilirubin Urine Urobilinogen Ur Leukocyte Esterase Urine RBC Urine WBC Ur Transition Epith Cell Urine Bacteria Stool Occult Blood Opiates Screen Methadone Screen Barbiturate Screen Phencyclidine Screen Ur Amphetamines Screen MDMA (Ecstasy) Screen Benzodiazepines Screen Cocaine Screen U Marijuana (THC) Screen Influenza A (Rapid) Influenza B (Rapid) Blood Type Antibody Screen 02/28/19 02/28/19 02/28/19 18:30 18:30 18:30 WBC RBC Hgb Hct MCV MCH MCHC RDW Plt Count MPV Absolute Neuts (auto) Neutrophils % Neutrophils % (Manual) Band Neutrophils % Lymphocytes % Lymphocytes % (Manual) Monocytes % Monocytes % (Manual) Eosinophils % Basophils % Nucleated RBC % Platelet Estimate PT with INR INR PTT (Actin FS) Anticoagulation Therapy No Result Required. Puncture Site ABG pH ABG pCO2 at Pt Temp ABG pO2 at Pt Temp ABG HCO3 ABG O2 Sat (Measured) ABG O2 Content ABG Base Excess Carlo Test VBG pH POC VBG pCO2 POC VBG pO2 VBG HCO3 VBG O2 Sat (Dragan) VBG Base Excess O2 Delivery Device Oxygen Flow Rate Vent Mode No Result Required. Vent Rate Mechanical Rate PEEP Pressure Support Vent Sodium Potassium Chloride Carbon Dioxide Anion Gap BUN Creatinine Est GFR (CKD-EPI)AfAm Est GFR (CKD-EPI)NonAf Random Glucose Lactic Acid 2.3 H* Calcium Phosphorus Magnesium Iron TIBC Iron Saturation Unsaturated IBC Ferritin Total Bilirubin AST ALT Alkaline Phosphatase Troponin I 0.03 B-Natriuretic Peptide Total Protein Albumin Vitamin B12 Serum Folate TSH Urine Color Urine Appearance Urine pH Urine Protein Urine Glucose (UA) Urine Ketones Urine Blood Urine Nitrite Urine Bilirubin Urine Urobilinogen Ur Leukocyte Esterase Urine RBC Urine WBC Ur Transition Epith Cell Urine Bacteria Stool Occult Blood Opiates Screen Methadone Screen Barbiturate Screen Phencyclidine Screen Ur Amphetamines Screen MDMA (Ecstasy) Screen Benzodiazepines Screen Cocaine Screen U Marijuana (THC) Screen Influenza A (Rapid) Influenza B (Rapid) Blood Type Antibody Screen 02/28/19 02/28/19 02/28/19 18:30 19:50 20:36 WBC RBC Hgb Hct MCV MCH MCHC RDW Plt Count MPV Absolute Neuts (auto) Neutrophils % Neutrophils % (Manual) Band Neutrophils % Lymphocytes % Lymphocytes % (Manual) Monocytes % Monocytes % (Manual) Eosinophils % Basophils % Nucleated RBC % Platelet Estimate PT with INR INR PTT (Actin FS) Anticoagulation Therapy Puncture Site No Result Required. ABG pH 7.20 L ABG pCO2 at Pt Temp 51.2 H ABG pO2 at Pt Temp 246 H ABG HCO3 19.4 L ABG O2 Sat (Measured) 98.9 H ABG O2 Content 15.3 ABG Base Excess -8.1 L Carlo Test No Result Required. VBG pH POC VBG pCO2 POC VBG pO2 VBG HCO3 VBG O2 Sat (Dragan) VBG Base Excess O2 Delivery Device Oxygen Flow Rate No Result Required. Vent Mode Vent Rate Mechanical Rate PEEP Pressure Support Vent Sodium Potassium Chloride Carbon Dioxide Anion Gap BUN Creatinine Est GFR (CKD-EPI)AfAm Est GFR (CKD-EPI)NonAf Random Glucose Lactic Acid Calcium Phosphorus Magnesium Iron TIBC Iron Saturation Unsaturated IBC Ferritin Total Bilirubin AST ALT Alkaline Phosphatase Troponin I B-Natriuretic Peptide Total Protein Albumin Vitamin B12 Serum Folate TSH Urine Color Yellow Urine Appearance Clear Urine pH 5.0 Urine Protein 1+ H Urine Glucose (UA) Negative Urine Ketones Negative Urine Blood Negative Urine Nitrite Negative Urine Bilirubin Negative Urine Urobilinogen 0.2 Ur Leukocyte Esterase Negative Urine RBC 2-5 Urine WBC 2-5 Ur Transition Epith Cell Few Urine Bacteria Few Stool Occult Blood Opiates Screen Methadone Screen Barbiturate Screen Phencyclidine Screen Ur Amphetamines Screen MDMA (Ecstasy) Screen Benzodiazepines Screen Cocaine Screen U Marijuana (THC) Screen Influenza A (Rapid) Influenza B (Rapid) Blood Type A POSITIVE Antibody Screen Negative 02/28/19 02/28/19 02/28/19 20:55 23:30 23:30 WBC RBC Hgb Hct MCV MCH MCHC RDW Plt Count MPV Absolute Neuts (auto) Neutrophils % Neutrophils % (Manual) Band Neutrophils % Lymphocytes % Lymphocytes % (Manual) Monocytes % Monocytes % (Manual) Eosinophils % Basophils % Nucleated RBC % Platelet Estimate PT with INR INR PTT (Actin FS) Anticoagulation Therapy Puncture Site Right radial ABG pH 7.25 L ABG pCO2 at Pt Temp 47.2 H ABG pO2 at Pt Temp 239 H ABG HCO3 19.8 L ABG O2 Sat (Measured) 98.8 H ABG O2 Content 98.8 ABG Base Excess -7.7 L Carlo Test Positive VBG pH POC VBG pCO2 POC VBG pO2 VBG HCO3 VBG O2 Sat (Dragan) VBG Base Excess O2 Delivery Device Mech vent Oxygen Flow Rate 100% Vent Mode Vent Rate 18 Mechanical Rate A/c PEEP 5.0 Pressure Support Vent 350 Sodium Potassium Chloride Carbon Dioxide Anion Gap BUN Creatinine Est GFR (CKD-EPI)AfAm Est GFR (CKD-EPI)NonAf Random Glucose Lactic Acid Calcium Phosphorus Cancelled Magnesium Iron TIBC Iron Saturation Unsaturated IBC Ferritin Total Bilirubin AST ALT Alkaline Phosphatase Troponin I B-Natriuretic Peptide 5578.2 H Total Protein Albumin Vitamin B12 Serum Folate TSH 1.52 Cancelled Urine Color Urine Appearance Urine pH Urine Protein Urine Glucose (UA) Urine Ketones Urine Blood Urine Nitrite Urine Bilirubin Urine Urobilinogen Ur Leukocyte Esterase Urine RBC Urine WBC Ur Transition Epith Cell Urine Bacteria Stool Occult Blood Opiates Screen Methadone Screen Barbiturate Screen Phencyclidine Screen Ur Amphetamines Screen MDMA (Ecstasy) Screen Benzodiazepines Screen Cocaine Screen U Marijuana (THC) Screen Influenza A (Rapid) Influenza B (Rapid) Blood Type Antibody Screen 02/28/19 02/28/19 02/28/19 23:30 23:30 23:30 WBC 10.9 H RBC 3.66 Hgb 10.3 L Hct 32.2 L MCV 87.9 MCH 28.1 MCHC 32.0 RDW 16.1 H Plt Count 283 MPV 7.7 Absolute Neuts (auto) 9.3 H Neutrophils % 85.3 H Neutrophils % (Manual) Band Neutrophils % Lymphocytes % 7.5 L Lymphocytes % (Manual) Monocytes % 5.2 Monocytes % (Manual) Eosinophils % 1.6 Basophils % 0.4 Nucleated RBC % 0 Platelet Estimate PT with INR INR PTT (Actin FS) Anticoagulation Therapy Puncture Site ABG pH ABG pCO2 at Pt Temp ABG pO2 at Pt Temp ABG HCO3 ABG O2 Sat (Measured) ABG O2 Content ABG Base Excess Carlo Test VBG pH POC VBG pCO2 POC VBG pO2 VBG HCO3 VBG O2 Sat (Dragan) VBG Base Excess O2 Delivery Device Oxygen Flow Rate Vent Mode Vent Rate Mechanical Rate PEEP Pressure Support Vent Sodium 141 Potassium 3.9 Chloride 114 H Carbon Dioxide 21 Anion Gap 7 L BUN 15.3 Creatinine 0.5 L Est GFR (CKD-EPI)AfAm 113.65 Est GFR (CKD-EPI)NonAf 98.06 Random Glucose 116 H Lactic Acid 0.8 Calcium 8.1 L Phosphorus 2.7 Magnesium 1.9 Iron TIBC Iron Saturation Unsaturated IBC Ferritin Total Bilirubin 0.9 AST 84 H ALT 78 H Alkaline Phosphatase 232 H Troponin I B-Natriuretic Peptide Total Protein 5.8 L Albumin 2.0 L Vitamin B12 Serum Folate TSH Urine Color Urine Appearance Urine pH Urine Protein Urine Glucose (UA) Urine Ketones Urine Blood Urine Nitrite Urine Bilirubin Urine Urobilinogen Ur Leukocyte Esterase Urine RBC Urine WBC Ur Transition Epith Cell Urine Bacteria Stool Occult Blood Opiates Screen Methadone Screen Barbiturate Screen Phencyclidine Screen Ur Amphetamines Screen MDMA (Ecstasy) Screen Benzodiazepines Screen Cocaine Screen U Marijuana (THC) Screen Influenza A (Rapid) Influenza B (Rapid) Blood Type Antibody Screen 02/28/19 02/28/19 03/01/19 23:30 23:45 01:10 WBC RBC Hgb Hct MCV MCH MCHC RDW Plt Count MPV Absolute Neuts (auto) Neutrophils % Neutrophils % (Manual) Band Neutrophils % Lymphocytes % Lymphocytes % (Manual) Monocytes % Monocytes % (Manual) Eosinophils % Basophils % Nucleated RBC % Platelet Estimate PT with INR 11.10 INR 0.94 PTT (Actin FS) Anticoagulation Therapy No Result Required. Puncture Site Right radial ABG pH 7.36 ABG pCO2 at Pt Temp 36.1 ABG pO2 at Pt Temp 149 H ABG HCO3 19.8 L ABG O2 Sat (Measured) 97.3 ABG O2 Content No Result Required. ABG Base Excess -4.7 L Carlo Test Positive VBG pH POC VBG pCO2 POC VBG pO2 VBG HCO3 VBG O2 Sat (Dragan) VBG Base Excess O2 Delivery Device No Result Required. Oxygen Flow Rate 40% Vent Mode A/c Vent Rate 18 Mechanical Rate No Result Required. PEEP 5.0 Pressure Support Vent 350 Sodium Potassium Chloride Carbon Dioxide Anion Gap BUN Creatinine Est GFR (CKD-EPI)AfAm Est GFR (CKD-EPI)NonAf Random Glucose Lactic Acid Calcium Phosphorus Magnesium Iron TIBC Iron Saturation Unsaturated IBC Ferritin Total Bilirubin AST ALT Alkaline Phosphatase Troponin I B-Natriuretic Peptide Total Protein Albumin Vitamin B12 Serum Folate TSH Urine Color Urine Appearance Urine pH Urine Protein Urine Glucose (UA) Urine Ketones Urine Blood Urine Nitrite Urine Bilirubin Urine Urobilinogen Ur Leukocyte Esterase Urine RBC Urine WBC Ur Transition Epith Cell Urine Bacteria Stool Occult Blood Opiates Screen Negative Methadone Screen Negative Barbiturate Screen Negative Phencyclidine Screen Negative Ur Amphetamines Screen Negative MDMA (Ecstasy) Screen Negative Benzodiazepines Screen Negative Cocaine Screen Negative U Marijuana (THC) Screen Negative Influenza A (Rapid) Influenza B (Rapid) Blood Type Antibody Screen 03/01/19 03/01/19 03/01/19 06:30 06:30 06:30 WBC 9.4 RBC 3.42 L Hgb 9.8 L Hct 29.8 L MCV 87.2 MCH 28.5 MCHC 32.7 RDW 16.1 H Plt Count 277 MPV 7.7 Absolute Neuts (auto) 7.5 Neutrophils % 79.6 Neutrophils % (Manual) Band Neutrophils % Lymphocytes % 10.6 D Lymphocytes % (Manual) Monocytes % 5.4 Monocytes % (Manual) Eosinophils % 3.8 D Basophils % 0.6 Nucleated RBC % 0 Platelet Estimate PT with INR 11.20 INR 0.95 PTT (Actin FS) Anticoagulation Therapy Puncture Site ABG pH ABG pCO2 at Pt Temp ABG pO2 at Pt Temp ABG HCO3 ABG O2 Sat (Measured) ABG O2 Content ABG Base Excess Carlo Test VBG pH POC VBG pCO2 POC VBG pO2 VBG HCO3 VBG O2 Sat (Dragan) VBG Base Excess O2 Delivery Device Oxygen Flow Rate Vent Mode Vent Rate Mechanical Rate PEEP Pressure Support Vent Sodium 142 Potassium 3.6 Chloride 110 H Carbon Dioxide 23 Anion Gap 9 BUN 14.9 Creatinine 0.5 L Est GFR (CKD-EPI)AfAm 113.65 Est GFR (CKD-EPI)NonAf 98.06 Random Glucose 97 Lactic Acid Calcium 8.4 L Phosphorus Magnesium 1.9 Iron TIBC Iron Saturation Unsaturated IBC Ferritin Total Bilirubin 0.6 AST 52 H ALT 66 H Alkaline Phosphatase 208 H Troponin I 0.11 H B-Natriuretic Peptide Total Protein 5.5 L Albumin 2.0 L Vitamin B12 Serum Folate TSH Urine Color Urine Appearance Urine pH Urine Protein Urine Glucose (UA) Urine Ketones Urine Blood Urine Nitrite Urine Bilirubin Urine Urobilinogen Ur Leukocyte Esterase Urine RBC Urine WBC Ur Transition Epith Cell Urine Bacteria Stool Occult Blood Opiates Screen Methadone Screen Barbiturate Screen Phencyclidine Screen Ur Amphetamines Screen MDMA (Ecstasy) Screen Benzodiazepines Screen Cocaine Screen U Marijuana (THC) Screen Influenza A (Rapid) Influenza B (Rapid) Blood Type Antibody Screen 03/01/19 03/01/19 03/01/19 08:20 15:00 15:00 WBC RBC Hgb Hct MCV MCH MCHC RDW Plt Count MPV Absolute Neuts (auto) Neutrophils % Neutrophils % (Manual) Band Neutrophils % Lymphocytes % Lymphocytes % (Manual) Monocytes % Monocytes % (Manual) Eosinophils % Basophils % Nucleated RBC % Platelet Estimate PT with INR INR PTT (Actin FS) Anticoagulation Therapy Puncture Site ABG pH ABG pCO2 at Pt Temp ABG pO2 at Pt Temp ABG HCO3 ABG O2 Sat (Measured) ABG O2 Content ABG Base Excess Carlo Test VBG pH POC VBG pCO2 POC VBG pO2 VBG HCO3 VBG O2 Sat (Dragan) VBG Base Excess O2 Delivery Device Oxygen Flow Rate Vent Mode Vent Rate Mechanical Rate PEEP Pressure Support Vent Sodium Potassium Chloride Carbon Dioxide Anion Gap BUN Creatinine Est GFR (CKD-EPI)AfAm Est GFR (CKD-EPI)NonAf Random Glucose Lactic Acid Calcium Phosphorus Magnesium Iron TIBC Iron Saturation Unsaturated IBC Ferritin Total Bilirubin AST ALT Alkaline Phosphatase Troponin I 0.07 H B-Natriuretic Peptide Total Protein Albumin Vitamin B12 Serum Folate TSH Urine Color Urine Appearance Urine pH Urine Protein Urine Glucose (UA) Urine Ketones Urine Blood Urine Nitrite Urine Bilirubin Urine Urobilinogen Ur Leukocyte Esterase Urine RBC Urine WBC Ur Transition Epith Cell Urine Bacteria Stool Occult Blood Opiates Screen Methadone Screen Barbiturate Screen Phencyclidine Screen Ur Amphetamines Screen MDMA (Ecstasy) Screen Benzodiazepines Screen Cocaine Screen U Marijuana (THC) Screen Influenza A (Rapid) Negative Influenza B (Rapid) Negative Blood Type A POSITIVE Antibody Screen - ....Imaging Chest X-ray: Report Reviewed Problem List - Problems (1) Acute respiratory failure requiring reintubation Code(s): J96.00 - ACUTE RESPIRATORY FAILURE, UNSP W HYPOXIA OR HYPERCAPNIA (2) Anemia, chronic disease Code(s): D63.8 - ANEMIA IN OTHER CHRONIC DISEASES CLASSIFIED ELSEWHERE (3) Cellulitis Code(s): L03.90 - CELLULITIS, UNSPECIFIED (4) Depression Code(s): F32.9 - MAJOR DEPRESSIVE DISORDER, SINGLE EPISODE, UNSPECIFIED (5) HLD (hyperlipidemia) Code(s): E78.5 - HYPERLIPIDEMIA, UNSPECIFIED (6) HTN (hypertension) Code(s): I10 - ESSENTIAL (PRIMARY) HYPERTENSION (7) Hypothyroidism Code(s): E03.9 - HYPOTHYROIDISM, UNSPECIFIED Assessment/Plan Acute hypoxic respiratory failure PNA Pulmonary Edema LE cellulitis LE lymphedema Hx of Polio HTN hypothyroidism -- Chart reviewed, labs/imaging results noted -- s/p extubation, now on HFOT -- leukocytosis resolved, LFTs trending down, lactic acid normalized, afebrile -- follow up blood/urine/sputum culture results -- continue IV antibiotics -- monitor vitals closely Rest of care per ICU cc: 40 min
--- NOTE | 2019-03-01 20:25 | CON.PSL ---
Psychology Consult Consult Specialty:: Clinical Psychology History Provided By: Patient Limitations to Obtaining History: No Limitations Current Medications: Active Medications Acetaminophen (Tylenol -) 650 mg PO Q6H PRN PRN Reason: PAIN LEVEL 1 - 3 Acetaminophen (Ofirmev Injection -) 1,000 mg IVPB Q6H PRN PRN Reason: PAIN 4-6 Atenolol (Tenormin -) 100 mg PO DAILY COUNTS [facility]CLUDE 234 BEDS AT THE [facility] Last Admin: 03/01/19 10:03 Dose: Not Given Atorvastatin Calcium (Lipitor -) 10 mg PO HS COUNTS INCLUDE 234 BEDS AT THE [facility] Chlorhexidine Gluconate (Hibiclens For Decolonization -) 1 applic TP HS COUNTS INCLUDE 234 BEDS AT THE [facility] Last Admin: 03/01/19 00:11 Dose: 1 applic Collagenase (Santyl -) 1 applic TP DAILY [facility]S [facility]CLUDE 234 BEDS AT THE [facility]; Protocol Last Admin: 03/01/19 11:20 Dose: 1 applic Ezetimibe (Zetia -) 10 mg PO DAILY COUNTS INCLUDE 234 BEDS AT THE [facility] Last Admin: 03/01/19 10:04 Dose: Not Given Escitalopram Oxalate (Lexapro -) 10 mg PO DAILY COUNTS INCLUDE 234 BEDS AT THE [facility] Last Admin: 03/01/19 14:26 Dose: 10 mg Febuxostat (Uloric -) 40 mg PO DAILY COUNTS INCLUDE 234 BEDS AT THE [facility] Last Admin: 03/01/19 14:18 Dose: 40 mg Ferrous Sulfate (Feosol -) 325 mg PO DAILY COUNTS INCLUDE 234 BEDS AT THE [facility] Last Admin: 03/01/19 14:18 Dose: 325 mg Guaifenesin (Robitussin Dm -) 10 ml PO Q8H PRN PRN Reason: COUGH Last Admin: 03/01/19 14:24 Dose: 10 ml Heparin Sodium (Porcine) (Heparin -) 5,000 unit SQ TID COUNTS INCLUDE 234 BEDS AT THE [facility] Last Admin: 03/01/19 14:13 Dose: 5,000 unit Piperacillin Sod/Tazobactam (Sod 3.375 gm/ Dextrose) 50 mls @ 100 mls/hr IVPB Q8H-IV COUNTS INCLUDE 234 BEDS AT THE [facility]; Protocol Last Admin: 03/01/19 17:38 Dose: 100 mls/hr Levothyroxine Sodium (Synthroid Injection -) 37.5 mcg IVPUSH 0700 COUNTS INCLUDE 234 BEDS AT THE [facility] Last Admin: 03/01/19 11:21 Dose: 37.5 mcg Morphine Sulfate (Morphine Sulfate) 2 mg IVPUSH Q6H PRN PRN Reason: PAIN LEVEL 6-10 Mupirocin (Bactroban Ointment (For Decolonization) -) 1 applic NS BID COUNTS INCLUDE 234 BEDS AT THE [facility] Stop: 03/05/19 21:59 Last Admin: 03/01/19 11:25 Dose: 1 applic Oxybutynin Chloride (Ditropan -) 5 mg PO DAILY COUNTS INCLUDE 234 BEDS AT THE [facility] Last Admin: 03/01/19 14:20 Dose: 5 mg Oxycodone HCl (Roxicodone -) 5 mg PO BID PRN PRN Reason: PAIN LEVEL 7-10 Pantoprazole Sodium (Protonix -) 20 mg PO DAILY COUNTS INCLUDE 234 BEDS AT THE [facility] Last Admin: 03/01/19 14:20 Dose: 20 mg Phenol/Menthol (Chloraseptic -) 1 spray MM Q6HPO PRN PRN Reason: SORE THROAT Last Admin: 03/01/19 10:11 Dose: 1 spray Potassium Chloride (K-Dur -) 20 meq PO DAILY COUNTS INCLUDE 234 BEDS AT THE [facility] Last Admin: 03/01/19 14:18 Dose: 20 meq Allergies: Allergies Allergy/AdvReac Type Severity Reaction Status Date / Time pneumococcal 23-valent Allergy Severe weakness Verified 02/26/19 14:39 polysacchari [From Pneumovax 23] allopurinol Allergy Intermediate rash Verified 02/26/19 14:39 Does patient have pain?: Yes (She described her pain as minimal apparently well managed with analgesics.) Pain Location Body Site: Abdomen Pain Description: Chronic, Non-Descriptive Hx Alcohol Use: No Hx Substance Use: No Current Medical Exam-Psy Attention: Alert Orientation: Time, Person, Place Immediate Term Memory: 3/ Expressive: Coherent Receptive: Age Appropriate Comprehension of Spoken Words Hallucinations: Absent Thought Process: Intact Depression: Moderate Hopelessness: No Loss of Interest: Yes Danger to Self and Others: No Appetite: Good Serial Sevens Intact: No (She was able to spell WORLD backwards.) Repeats 3 words told earlier: 2/3 Support System: Family Problem List - Problem (1) Major depressive disorder, recurrent, moderate Code(s): F33.1 - MAJOR DEPRESSIVE DISORDER, RECURRENT, MODERATE Assessment/Plan The patient is a wilfredo person admitted due to respiratory distress. She has pneumonia and cellulitis. A consult was requested as the patient admitted to depression. We spoke for a few minutes and she did not appear to be very depressed. Her affect at first was euthymic and it became evident that she appreciated the visit and attention . Unless asked, she did not volunteer her emotional state. She did not seem anxious. The patient has suffered recent losses of family members and this results in her grief. She also experiences depression due to her debilitating medical state. The patient has a hx of childhood polio, parapelgia, hypothyroidism and pain. She was clear that she is not a danger to herself or others. However, at times she does not see the point in going on with her life though emphatically stated that she would not want to harm herself. The treatment plan is to provide supportive psychotherapy while she remains an inpatient. Thank you for the courtesy of your referral.
[2019-03-01] MEDS ORDERED: ATORVASTATIN CA 10 MG TABLET (FP) PO SCH (22:00)
[2019-03-01] MEDS: oxyCODONE HCL 5 MG TABLET PO PRN (23:44)
[2019-03-02] MEDS ORDERED: PIPERACILLIN/TAZOBACTAM 3.375 GM VIAL IVPB ONE ×3 (02:28→17:50)
[2019-03-02] MEDS ORDERED: DEXTROSE 5%-WATER - 50 ML IVPB ONE ×3 (02:28→17:50)
[2019-03-02] MEDS: PIPERACILLIN/TAZOB 3.375 GM 3.375 GM in DEXTROSE 5%-WATER - 50 ML IVPB SCH ×3 (03:15→18:14)
[2019-03-02] MEDS: HEPARIN NA (PORCINE) 5,000 UNITS/ML 1ML VIAL SQ SCH ×3 (06:03→21:33)
[2019-03-02] MEDS ORDERED: LEVOTHYROXINE NA 50 MCG TABLET (FP) PO SCH (07:00)
[2019-03-02 07:58] LABS: BASO % 0.8 % (0-2.0); EOS % 8.3 % (0-4.5); HEMATOCRIT 28.8 % (32.4-45.2); HEMOGLOBIN 9.5 GM/dL (10.7-15.3); MCH 28.6 pg (25.7-33.7); MCHC 33.1 g/dl (32.0-36.0); MEAN CELL VOLUME 86.3 fl (80-96); MEAN PLT VOLUME 7.8 fl (7.5-11.1); MONO % 7.4 % (3.8-10.2); NEUT % 66.5 % (42.8-82.8); PLATELET COUNT 257 K/MM3 (134-434); RBC 3.33 M/mm3 (3.60-5.2); WHITE BLOOD COUNT 6.9 K/mm3 (4.0-10.0)
[2019-03-02 08:05] LABS: ALBUMIN 2.1 g/dl (3.4-5.0); BILIRUBIN,TOTAL 0.5 mg/dL (0.2-1); BLOOD UREA NITROGEN 13.7 mg/dL (7-18); CALCIUM 8.9 mg/dL (8.5-10.1); CREATININE 0.7 mg/dL (0.55-1.3); MAGNESIUM 1.6 mg/dL (1.8-2.4); PHOSPHOROUS 3.4 mg/dL (2.5-4.9); POTASSIUM 3.7 mmol/L (3.5-5.1); TOT PROT 5.7 g/dl (6.4-8.2)
[2019-03-02] MEDS ORDERED: MAGNESIUM SULF 50% (8.12 MEQ/2 ML-1 GM VIAL) IVPB ONE (08:15)
--- NOTE | 2019-03-02 08:15 | PN ---
Progress Note, Physician Chief Complaint: Feels much better, appreciative for care she is receiving History of Present Illness: 68 F with h/o childhood polio, paraplegia, HTN, HLD, hypothyroid, anemia. Initially admitted to [facility] and treated for cellulitis of her lower extremity and on 02/28 in the evening developed sudden respiratory failure which prompted intubation and transfer to [facility] to be managed in the ICU. CT of chest was performed and showed bilateral pneumonia with pleural effusions. Patient with copious secretions through ET tube. Treating broadly with Zosyn and vancomycin, blood cultures, tracheal aspirate cultures sent. Chemistry showed worsening of transaminitis, lactic acidosis which improved after antibiotic administration. - Current Medication List Current Medications: Active Medications Acetaminophen (Tylenol -) 650 mg PO Q6H PRN PRN Reason: PAIN LEVEL 1 - 3 Acetaminophen (Ofirmev Injection -) 1,000 mg IVPB Q6H PRN PRN Reason: PAIN 4-6 Atenolol (Tenormin -) 100 mg PO DAILY [facility] Last Admin: 03/01/19 10:03 Dose: Not Given Atorvastatin Calcium (Lipitor -) 10 mg PO HS [facility] Last Admin: 03/01/19 21:57 Dose: 10 mg Chlorhexidine Gluconate (Hibiclens For Decolonization -) 1 applic TP HS [facility] Last Admin: 03/01/19 21:57 Dose: 1 applic Collagenase (Santyl -) 1 applic TP DAILY [facility]; Protocol Last Admin: 03/01/19 11:20 Dose: 1 applic Ezetimibe (Zetia -) 10 mg PO DAILY [facility] Last Admin: 03/01/19 10:04 Dose: Not Given Escitalopram Oxalate (Lexapro -) 10 mg PO DAILY [facility] Last Admin: 03/01/19 14:26 Dose: 10 mg Febuxostat (Uloric -) 40 mg PO DAILY [facility] Last Admin: 03/01/19 14:18 Dose: 40 mg Ferrous Sulfate (Feosol -) 325 mg PO DAILY [facility] Last Admin: 03/01/19 14:18 Dose: 325 mg Guaifenesin (Robitussin Dm -) 10 ml PO Q8H PRN PRN Reason: COUGH Last Admin: 03/01/19 21:57 Dose: 10 ml Heparin Sodium (Porcine) (Heparin -) 5,000 unit SQ TID [facility] Last Admin: 03/02/19 06:03 Dose: 5,000 unit Piperacillin Sod/Tazobactam (Sod 3.375 gm/ Dextrose) 50 mls @ 100 mls/hr IVPB Q8H-IV [facility]; Protocol Last Admin: 03/02/19 03:15 Dose: 100 mls/hr Levothyroxine Sodium (Synthroid -) 50 mcg PO DAILY@0700 [facility] Last Admin: 03/02/19 06:03 Dose: 50 mcg Magnesium Sulfate (Magnesium Sulfate) 2 gm IVPB ONCE ONE Stop: 03/02/19 08:16 Morphine Sulfate (Morphine Sulfate) 2 mg IVPUSH Q6H PRN PRN Reason: PAIN LEVEL 6-10 Mupirocin (Bactroban Ointment (For Decolonization) -) 1 applic NS BID [facility] Stop: 03/05/19 21:59 Last Admin: 03/01/19 21:57 Dose: 1 applic Oxybutynin Chloride (Ditropan -) 5 mg PO DAILY [facility] Last Admin: 03/01/19 14:20 Dose: 5 mg Oxycodone HCl (Roxicodone -) 5 mg PO BID PRN PRN Reason: PAIN LEVEL 7-10 Last Admin: 03/01/19 23:44 Dose: 5 mg Pantoprazole Sodium (Protonix -) 20 mg PO DAILY [facility] Last Admin: 03/01/19 14:20 Dose: 20 mg Phenol/Menthol (Chloraseptic -) 1 spray MM Q6HPO PRN PRN Reason: SORE THROAT Last Admin: 03/01/19 10:11 Dose: 1 spray Potassium Chloride (K-Dur -) 20 meq PO DAILY [facility] Last Admin: 03/01/19 14:18 Dose: 20 meq - Objective Vital Signs: Vital Signs Temperature 97.2 F L 03/02/19 06:00 Pulse Rate 55 L 03/02/19 06:00 Respiratory Rate 16 03/02/19 07:31 Blood Pressure 137/74 03/02/19 06:00 O2 Sat by Pulse Oximetry (%) 100 03/02/19 07:31 Constitutional: Yes: Well Nourished, No Distress, Calm Eyes: Yes: WNL, Conjunctiva Clear HENT: Yes: WNL, Atraumatic, Normocephalic Neck: Yes: WNL, Supple, Trachea Midline Cardiovascular: Yes: WNL, Regular Rate and Rhythm Respiratory: Yes: Regular, Diminished (at bases), Rhonchi (scattered) Gastrointestinal: Yes: WNL, Normal Bowel Sounds ...Rectal Exam: Yes: Deferred Genitourinary: Yes: WNL Breast(s): Yes: WNL Musculoskeletal: Yes: WNL Extremities: Yes: Erythema, Other (cellulitus to RLE) Edema: Yes Edema: LUE: 1+, RUE: 1+, LLE: 3+, RLE: 4+ Peripheral Pulses WNL: No Peripheral Pulses: Left Radial: 2+, Right Radial: 2+, Left Doralis Pedis: 1+, Right Dorsalis Pedis: 1+, Left Femoral: 2+, Right Femoral: 2+ Wound/Incision: Yes: Other (RLE weeping ulcerations + BL cellulitis skin changes ) Neurological: Yes: WNL, Alert, Oriented ...Motor Strength: WNL Psychiatric: Yes: WNL Labs: CBC, BMP 03/02/19 07:00 INR, PTT INR 0.95 (0.83-1.09) 03/01/19 06:30 Problem List - Problems (1) Prophylactic measure Assessment/Plan: FEN tolerating regular diet monitor electrolytes IVF stopped DVT heparin sq Dispo mainatin as in patient full code discharge planning Code(s): Z29.9 - ENCOUNTER FOR PROPHYLACTIC MEASURES, UNSPECIFIED (2) Cellulitis Assessment/Plan: c/w abx zosyn ID following Code(s): L03.90 - CELLULITIS, UNSPECIFIED (3) Depression Assessment/Plan: c/w lexapro supportive care seen by Dr Cohen Code(s): F32.9 - MAJOR DEPRESSIVE DISORDER, SINGLE EPISODE, UNSPECIFIED (4) Hypothyroidism Assessment/Plan: c/w synthroid Code(s): E03.9 - HYPOTHYROIDISM, UNSPECIFIED (5) Overactive bladder Assessment/Plan: c/w oxybutin Code(s): N32.81 - OVERACTIVE BLADDER (6) HLD (hyperlipidemia) Assessment/Plan: c/w atorvastatin and zetia Code(s): E78.5 - HYPERLIPIDEMIA, UNSPECIFIED (7) HTN (hypertension) Assessment/Plan: normotensive c./w tenormin Code(s): I10 - ESSENTIAL (PRIMARY) HYPERTENSION (8) Anemia, chronic disease Assessment/Plan: H/H stable 9/28 continue to monitor Code(s): D63.8 - ANEMIA IN OTHER CHRONIC DISEASES CLASSIFIED ELSEWHERE (9) Acute respiratory failure requiring reintubation Assessment/Plan: extubated successfully yesterday and transitioned to NC today Code(s): J96.00 - ACUTE RESPIRATORY FAILURE, UNSP W HYPOXIA OR HYPERCAPNIA Visit type - Emergency Visit Emergency Visit: Yes ED Registration Date: 02/26/19 Care time: The patient presented to the Emergency Department on the above date and was hospitalized for further evaluation of their emergent condition. - New Patient This patient is new to me today: No - Critical Care Critical Care patient: No - Discharge Referral Referred to [facility] Med P.C.: No
[2019-03-02] MEDS: EZETIMIBE 10 MG TABLET (FP) PO SCH (09:37)
[2019-03-02] MEDS: FERROUS SO4 325 MG TABLET (FP) PO SCH (09:37)
[2019-03-02] MEDS: FEBUXOSTAT 40 MG TAB PO SCH (09:37)
[2019-03-02] MEDS: ATENOLOL 50 MG TABLET (FP) PO SCH (09:37)
[2019-03-02] MEDS: PANTOPRAZOLE 20 MG TABLET (FP) PO SCH (09:38)
[2019-03-02] MEDS: POTASSIUM CHLORIDE TABS 20 MEQ TABLET.ER (FP) PO SCH (09:38)
[2019-03-02] MEDS: OXYBUTYNIN CHLORIDE 5 MG TABLET PO SCH (09:38)
[2019-03-02] MEDS: COLLAGENASE CLOSTRIDIUM HIST. 30 GRAMS TUBE TP SCH (09:38)
[2019-03-02] MEDS: ESCITALOPRAM OXALATE 10 MG TABLET (FP) PO SCH (09:38)
[2019-03-02] MEDS: MUPIROCIN 2% TOPICAL OINTMENT FOR DECOLONIZATION NS SCH (09:39)
[2019-03-02] MEDS: oxyCODONE HCL 5 MG TABLET PO PRN (10:14)
[2019-03-02] MEDS: guaiFENesin/D-METHORPHAN HB 10 ML UNIT-DOSE CUPS PO PRN (10:20)
--- NOTE | 2019-03-02 12:39 | PN ---
Teaching Attending Note Name of Resident: Elvi Zamora ATTENDING PHYSICIAN STATEMENT I saw and evaluated the patient. I reviewed the resident's note and discussed the case with the resident. I agree with the resident's findings and plan as documented. SUBJECTIVE: Pt seen and examined in the ICU. Extubated yesterday without incident. Transitioned to nasal cannula from HFOT during rounds. OBJECTIVE: Vital Signs Period Temp Pulse Resp BP Sys/Kumar Pulse Ox Last 24 Hr 97.1 F-97.5 F 43-72 14-22 96-150/52-95 96-100 Intake & Output 02/27/19 02/28/19 03/01/19 03/02/19 23:59 23:59 23:59 23:59 Intake Total 2605 1378.8 1713 550 Output Total 880 3575 1000 Balance 2605 498.8 -1862 -450 Weight 74.2 kg 73.936 kg 70.534 kg Gen: NAD at rest Heart: RRR Lung: left base rales Abd: soft, nontender Ext: + edema, +erythema CBC, BMP 03/02/19 07:00 03/02/19 07:00 Active Medications Acetaminophen (Tylenol -) 650 mg PO Q6H PRN PRN Reason: PAIN LEVEL 1 - 3 Acetaminophen (Ofirmev Injection -) 1,000 mg IVPB Q6H PRN PRN Reason: PAIN 4-6 Atenolol (Tenormin -) 100 mg PO DAILY [facility] Last Admin: 03/02/19 09:37 Dose: 100 mg Atorvastatin Calcium (Lipitor -) 10 mg PO HS [facility] Last Admin: 03/01/19 21:57 Dose: 10 mg Chlorhexidine Gluconate (Hibiclens For Decolonization -) 1 applic TP HS [facility] Last Admin: 03/01/19 21:57 Dose: 1 applic Collagenase (Santyl -) 1 applic TP DAILY [facility]; Protocol Last Admin: 03/02/19 09:38 Dose: 1 applic Ezetimibe (Zetia -) 10 mg PO DAILY [facility] Last Admin: 03/02/19 09:37 Dose: 10 mg Escitalopram Oxalate (Lexapro -) 10 mg PO DAILY [facility] Last Admin: 03/02/19 09:38 Dose: 10 mg Febuxostat (Uloric -) 40 mg PO DAILY [facility] Last Admin: 03/02/19 09:37 Dose: 40 mg Ferrous Sulfate (Feosol -) 325 mg PO DAILY [facility] Last Admin: 03/02/19 09:37 Dose: 325 mg Guaifenesin (Robitussin Dm -) 10 ml PO Q8H PRN PRN Reason: COUGH Last Admin: 03/02/19 10:20 Dose: 10 ml Heparin Sodium (Porcine) (Heparin -) 5,000 unit SQ TID [facility] Last Admin: 03/02/19 06:03 Dose: 5,000 unit Piperacillin Sod/Tazobactam (Sod 3.375 gm/ Dextrose) 50 mls @ 100 mls/hr IVPB Q8H-IV [facility]; Protocol Last Admin: 03/02/19 09:35 Dose: 100 mls/hr Levothyroxine Sodium (Synthroid -) 50 mcg PO DAILY@0700 [facility] Last Admin: 03/02/19 06:03 Dose: 50 mcg Morphine Sulfate (Morphine Sulfate) 2 mg IVPUSH Q6H PRN PRN Reason: PAIN LEVEL 6-10 Mupirocin (Bactroban Ointment (For Decolonization) -) 1 applic NS BID [facility] Stop: 03/05/19 21:59 Last Admin: 03/02/19 09:39 Dose: 1 applic Oxybutynin Chloride (Ditropan -) 5 mg PO DAILY [facility] Last Admin: 03/02/19 09:38 Dose: 5 mg Oxycodone HCl (Roxicodone -) 5 mg PO BID PRN PRN Reason: PAIN LEVEL 7-10 Last Admin: 03/02/19 10:14 Dose: 5 mg Pantoprazole Sodium (Protonix -) 20 mg PO DAILY [facility] Last Admin: 03/02/19 09:38 Dose: 20 mg Phenol/Menthol (Chloraseptic -) 1 spray MM Q6HPO PRN PRN Reason: SORE THROAT Last Admin: 03/01/19 10:11 Dose: 1 spray Potassium Chloride (K-Dur -) 20 meq PO DAILY [facility] Last Admin: 03/02/19 09:38 Dose: 20 meq ASSESSMENT AND PLAN: Acute Hypoxic and Hypercapneic Respiratory Failure improving Pneumonia Cellulitis Chronic Lymphedema HTN Hyperlipidemia Hypothyroidism h/o Polio Anemia - continue antibiotics - wound care - PO as tolerated - O2 to keep Spo2 >90% - DVT prophylaxis - can monitor on floor
--- NOTE | 2019-03-02 13:24 | PN ---
Progress Note (short form) - Note Progress Note: The patient was in good spirits today. Her sleep is said to be interrupted by "mind chatter." Her pain is overall well controlled by analgesic. However, upon further questioning it was established that she experiences cold hands and toes. A basic hypnotic intervention was administered and the patient's hands felt a little warmer after a couple of minutes. She was taught a diaphragmatic breathing exercise to be used while her HR is monitored as it may result in decreased HR. She indeed reported that she felt more relaxed with the treatment. A similar approach was suggested to her to improve sleep and interrupt the mind chatter when trying to sleep. Eulogio Cohen Psy.D. Member of the [employer] Member, [employer]CI[employer], Senior Fellow, Board Certified in Neurofeedback Problem List - Problems (1) Major depressive disorder, recurrent, moderate Code(s): F33.1 - MAJOR DEPRESSIVE DISORDER, RECURRENT, MODERATE
--- NOTE | 2019-03-02 14:02 | PN ---
Progress Note, Physician History of Present Illness: stable extubated improving - Current Medication List Current Medications: Active Medications Acetaminophen (Tylenol -) 650 mg PO Q6H PRN PRN Reason: PAIN LEVEL 1 - 3 Acetaminophen (Ofirmev Injection -) 1,000 mg IVPB Q6H PRN PRN Reason: PAIN 4-6 Atenolol (Tenormin -) 100 mg PO DAILY [facility] Last Admin: 03/02/19 09:37 Dose: 100 mg Atorvastatin Calcium (Lipitor -) 10 mg PO HS [facility] Last Admin: 03/01/19 21:57 Dose: 10 mg Chlorhexidine Gluconate (Hibiclens For Decolonization -) 1 applic TP HS [facility] Last Admin: 03/01/19 21:57 Dose: 1 applic Collagenase (Santyl -) 1 applic TP DAILY [facility]; Protocol Last Admin: 03/02/19 09:38 Dose: 1 applic Ezetimibe (Zetia -) 10 mg PO DAILY [facility] Last Admin: 03/02/19 09:37 Dose: 10 mg Escitalopram Oxalate (Lexapro -) 10 mg PO DAILY [facility] Last Admin: 03/02/19 09:38 Dose: 10 mg Febuxostat (Uloric -) 40 mg PO DAILY [facility] Last Admin: 03/02/19 09:37 Dose: 40 mg Ferrous Sulfate (Feosol -) 325 mg PO DAILY [facility] Last Admin: 03/02/19 09:37 Dose: 325 mg Guaifenesin (Robitussin Dm -) 10 ml PO Q8H PRN PRN Reason: COUGH Last Admin: 03/02/19 10:20 Dose: 10 ml Heparin Sodium (Porcine) (Heparin -) 5,000 unit SQ TID [facility] Last Admin: 03/02/19 06:03 Dose: 5,000 unit Piperacillin Sod/Tazobactam (Sod 3.375 gm/ Dextrose) 50 mls @ 100 mls/hr IVPB Q8H-IV [facility]; Protocol Last Admin: 03/02/19 09:35 Dose: 100 mls/hr Levothyroxine Sodium (Synthroid -) 50 mcg PO DAILY@0700 [facility] Last Admin: 03/02/19 06:03 Dose: 50 mcg Morphine Sulfate (Morphine Sulfate) 2 mg IVPUSH Q6H PRN PRN Reason: PAIN LEVEL 6-10 Mupirocin (Bactroban Ointment (For Decolonization) -) 1 applic NS BID [facility] Stop: 03/05/19 21:59 Last Admin: 03/02/19 09:39 Dose: 1 applic Oxybutynin Chloride (Ditropan -) 5 mg PO DAILY [facility] Last Admin: 03/02/19 09:38 Dose: 5 mg Oxycodone HCl (Roxicodone -) 5 mg PO BID PRN PRN Reason: PAIN LEVEL 7-10 Last Admin: 03/02/19 10:14 Dose: 5 mg Pantoprazole Sodium (Protonix -) 20 mg PO DAILY [facility] Last Admin: 03/02/19 09:38 Dose: 20 mg Phenol/Menthol (Chloraseptic -) 1 spray MM Q6HPO PRN PRN Reason: SORE THROAT Last Admin: 03/01/19 10:11 Dose: 1 spray Potassium Chloride (K-Dur -) 20 meq PO DAILY [facility] Last Admin: 03/02/19 09:38 Dose: 20 meq - Objective Vital Signs: Vital Signs Temperature 97.2 F L 03/02/19 06:00 Pulse Rate 63 03/02/19 12:00 Respiratory Rate 17 03/02/19 12:00 Blood Pressure 116/91 03/02/19 12:00 O2 Sat by Pulse Oximetry (%) 100 03/02/19 07:31 Constitutional: Yes: No Distress, Calm Respiratory: Yes: Regular, CTA Bilaterally Gastrointestinal: Yes: Normal Bowel Sounds, Soft Musculoskeletal: Yes: WNL Extremities: Yes: Other Neurological: Yes: Alert, Oriented Psychiatric: Yes: Alert, Oriented Labs: CBC, BMP 03/02/19 07:00 03/02/19 07:00 INR, PTT INR 0.95 (0.83-1.09) 03/01/19 06:30 Assessment/Plan 68 F with h/o childhood polio, paraplegia, HTN, HLD, hypothyroid, anemia admitted for ble cellulitis htn hld anemia hypothyroidism plan zosyn monitor resp status rest as per the team
[2019-03-02] MEDS ORDERED: guaiFENesin/D-METHORPHAN HB 10 ML UNIT-DOSE CUPS PO PRN (15:31)
[2019-03-02] MEDS ORDERED: ACETAMINOPHEN 1000 MG/100 ML VIAL (NON FORMULARY) IVPB PRN (15:31)
[2019-03-02] MEDS ORDERED: PHENOL 177 ML SPRAY BOTTLE MM PRN (15:31)
[2019-03-02] MEDS ORDERED: MORPHINE SULFATE 2 MG/ML VIAL IVPUSH PRN (15:31)
--- NOTE | 2019-03-02 16:15 | PN ---
Physical Exam: SUBJECTIVE: Patient seen and examined. Tolerating PO diet. Transitioned from high flow O2 to 3L NC, satting well. No respiratory distress. Denies pain. OBJECTIVE: Vital Signs Period Temp Pulse Resp BP Sys/Kumar Pulse Ox Last 24 Hr 97.2 F-97.5 F 43-72 14-22 96-150/58-95 96-100 GENERAL: AOx3 NAD HEENT: NCAT. PERRLA. Clear oropharynx LUNGS: B/l rales noted @ bases. No incr work of breathing no use of access muscles. HEART: RRR S1S2 heard no murmurs ABDOMEN: Soft NTND + BS EXTREMITIES: pulse palpable b/l LE's. 2+ edema b/l LE, RLE weeping ulcerations + b/l cellulitis skin changes NEUROLOGICAL: Nonfocal exam PSYCH: Good mood, appropriate affect. SKIN: B/l LE cellulitis Laboratory Results - last 24 hr 03/01/19 03/01/19 03/02/19 15:00 15:00 07:00 WBC 6.9 RBC 3.33 L Hgb 9.5 L Hct 28.8 L MCV 86.3 MCH 28.6 MCHC 33.1 RDW 16.0 H Plt Count 257 MPV 7.8 Absolute Neuts (auto) 4.6 Neutrophils % 66.5 Lymphocytes % 17.0 D Monocytes % 7.4 Eosinophils % 8.3 H D Basophils % 0.8 Nucleated RBC % 0 Sodium Potassium Chloride Carbon Dioxide Anion Gap BUN Creatinine Est GFR (CKD-EPI)AfAm Est GFR (CKD-EPI)NonAf Random Glucose Calcium Phosphorus Magnesium Total Bilirubin AST ALT Alkaline Phosphatase Troponin I 0.07 H Total Protein Albumin Blood Type A POSITIVE 03/02/19 07:00 WBC RBC Hgb Hct MCV MCH MCHC RDW Plt Count MPV Absolute Neuts (auto) Neutrophils % Lymphocytes % Monocytes % Eosinophils % Basophils % Nucleated RBC % Sodium 145 Potassium 3.7 Chloride 109 H Carbon Dioxide 28 Anion Gap 8 BUN 13.7 Creatinine 0.7 Est GFR (CKD-EPI)AfAm 101.74 Est GFR (CKD-EPI)NonAf 87.78 Random Glucose 85 Calcium 8.9 Phosphorus 3.4 Magnesium 1.6 L Total Bilirubin 0.5 AST 33 ALT 55 Alkaline Phosphatase 200 H Troponin I Total Protein 5.7 L Albumin 2.1 L Blood Type Active Medications Generic Name Dose Route Start Last Admin Trade Name Freq PRN Reason Stop Dose Admin Acetaminophen 650 mg 03/02/19 15:31 Tylenol - PO Q6H PRN PAIN LEVEL 1 - 3 Acetaminophen 1,000 mg 03/02/19 15:31 Ofirmev Injection - IVPB Q6H PRN PAIN 4-6 Atenolol 100 mg 03/03/19 10:00 Tenormin - PO DAILY [facility] Atorvastatin Calcium 10 mg 03/02/19 22:00 Lipitor - PO HS [facility] Chlorhexidine Gluconate 1 applic 03/02/19 22:00 Hibiclens For Decolonization - TP HS [facility] Ezetimibe 10 mg 03/03/19 10:00 Zetia - PO DAILY [facility] Escitalopram Oxalate 10 mg 03/03/19 10:00 Lexapro - PO DAILY [facility] Febuxostat 40 mg 03/03/19 10:00 Uloric - PO DAILY [facility] Ferrous Sulfate 325 mg 03/03/19 10:00 Feosol - PO DAILY [facility] Guaifenesin 10 ml 03/02/19 15:31 Robitussin Dm - PO Q8H PRN COUGH Heparin Sodium (Porcine) 5,000 unit 03/02/19 22:00 Heparin - SQ TID [facility] Piperacillin Sod/Tazobactam 50 mls @ 100 mls/hr 03/02/19 18:00 Sod 3.375 gm/ Dextrose IVPB Q8H-IV [facility] Protocol Levothyroxine Sodium 50 mcg 03/03/19 07:00 Synthroid - PO DAILY@0700 [facility] Morphine Sulfate 2 mg 03/02/19 15:31 Morphine Sulfate IVPUSH Q6H PRN PAIN LEVEL 6-10 Mupirocin 1 applic 03/02/19 22:00 Bactroban Ointment (For Decolonization) - NS 03/05/19 21:59 BID [facility] Oxybutynin Chloride 5 mg 03/03/19 10:00 Ditropan - PO DAILY [facility] Oxycodone HCl 5 mg 03/02/19 15:31 Roxicodone - PO BID PRN PAIN LEVEL 7-10 Pantoprazole Sodium 20 mg 03/03/19 10:00 Protonix - PO DAILY [facility] Phenol/Menthol 1 spray 03/02/19 15:31 Chloraseptic - MM Q6HPO PRN SORE THROAT Potassium Chloride 20 meq 03/03/19 10:00 K-Dur - PO DAILY [facility] ASSESSMENT/PLAN: 68 y.o. F PMH HTN, HLD, hyperthyroid, anemia, childhood polio, paraplegia presenting for worsening respiratory symptoms. #CV -EKG NSR [id number] -Trops downtrended -Depressive sxs- seen by Dr. Cohen, c/w daily supportive psychotherapy #Pulm -Extubated 03/01/19 transitioned to high flow now on nasal cannula -CXR 03/02 b/l pulm changes similar to previous xray -IV lasix 1 dose 03/01 -Monitor I's & O's -Daily weights -Sputum cx negative # -Morrow in place 1.3L output 24h #ID -C/w abx zosyn for cellulitis -prn wound care -Repeat blood cx, urine cx negative #PPX -Heparin SQ #FEN -no standing fluids -Hypomagnesemia, repleted; Trend lytes -Tolerating PO diet #Dispo Med surg Visit type - Emergency Visit Emergency Visit: No - New Patient This patient is new to me today: No - Critical Care Critical Care patient: Yes Total Critical Care Time (in minutes): 36 Critical Care Statement: The care of this patient involved high complexity decision making to prevent further life threatening deterioration of the patient 's condition and/or to evaluate & treat vital organ system(s) failure or risk of failure. ATTENDING PHYSICIAN STATEMENT I saw and evaluated the patient. I reviewed the resident's note and discussed the case with the resident. I agree with the resident's findings and plan as documented. SUBJECTIVE: OBJECTIVE: ASSESSMENT AND PLAN:
[2019-03-02] MEDS: ATORVASTATIN CA 10 MG TABLET (FP) PO SCH (21:33)
[2019-03-02] MEDS ORDERED: MUPIROCIN 2% TOPICAL OINTMENT FOR DECOLONIZATION NS SCH (22:00)
[2019-03-02] MEDS ORDERED: CHLORHEXIDINE GLUCONATE 4% CLEANSER FOR DECOLONIZATION TP SCH (22:00)
[2019-03-03] MEDS ORDERED: PIPERACILLIN/TAZOBACTAM 3.375 GM VIAL IVPB ONE ×3 (00:47→17:27)
[2019-03-03] MEDS ORDERED: DEXTROSE 5%-WATER - 50 ML IVPB ONE ×3 (00:47→17:27)
[2019-03-03] MEDS: PIPERACILLIN/TAZOB 3.375 GM 3.375 GM in DEXTROSE 5%-WATER - 50 ML IVPB SCH ×3 (01:28→17:29)
[2019-03-03] MEDS: HEPARIN NA (PORCINE) 5,000 UNITS/ML 1ML VIAL SQ SCH ×3 (06:17→21:25)
[2019-03-03] MEDS: LEVOTHYROXINE NA 50 MCG TABLET (FP) PO SCH (06:18)
[2019-03-03] MEDS ORDERED: PT OWN MED DRAWER 7, Y5N ONE ×2 (08:14→10:35)
[2019-03-03 08:20] LABS: HEMATOCRIT 27.6 % (32.4-45.2); HEMOGLOBIN 9.2 GM/dL (10.7-15.3); MCH 28.7 pg (25.7-33.7); MCHC 33.3 g/dl (32.0-36.0); MEAN CELL VOLUME 86.4 fl (80-96); MEAN PLT VOLUME 7.7 fl (7.5-11.1); PLATELET COUNT 272 K/MM3 (134-434); RDW 15.9 % (11.6-15.6); WHITE BLOOD COUNT 8.8 K/mm3 (4.0-10.0)
[2019-03-03 08:46] LABS: ALBUMIN 2.2 g/dl (3.4-5.0); BILIRUBIN,TOTAL 0.4 mg/dL (0.2-1); BLOOD UREA NITROGEN 19.9 mg/dL (7-18); CALCIUM 8.9 mg/dL (8.5-10.1); CREATININE 0.8 mg/dL (0.55-1.3); MAGNESIUM 2.3 mg/dL (1.8-2.4); PHOSPHOROUS 3.7 mg/dL (2.5-4.9); POTASSIUM 4.1 mmol/L (3.5-5.1); TOT PROT 5.8 g/dl (6.4-8.2)
--- NOTE | 2019-03-03 09:10 | PN ---
Progress Note, Physician Chief Complaint: Feels much better. Thinks here legs are much improved but can not see if they look improved History of Present Illness: 68 F with h/o childhood polio, paraplegia, HTN, HLD, hypothyroid, anemia. Initially admitted to [facility] and treated for cellulitis of her lower extremity and on 02/28 in the evening developed sudden respiratory failure which prompted intubation and transfer to [facility] to be managed in the ICU. CT of chest was performed and showed bilateral pneumonia with pleural effusions. Patient with copious secretions through ET tube. Treating broadly with Zosyn and vancomycin, blood cultures, tracheal aspirate cultures sent. Chemistry showed worsening of transaminitis, lactic acidosis which improved after antibiotic administration. - Current Medication List Current Medications: Active Medications Acetaminophen (Tylenol -) 650 mg PO Q6H PRN PRN Reason: PAIN LEVEL 1 - 3 Acetaminophen (Ofirmev Injection -) 1,000 mg IVPB Q6H PRN PRN Reason: PAIN 4-6 Atenolol (Tenormin -) 100 mg PO DAILY [facility] Atorvastatin Calcium (Lipitor -) 10 mg PO HS [facility] Last Admin: 03/02/19 21:33 Dose: 10 mg Ezetimibe (Zetia -) 10 mg PO DAILY [facility] Escitalopram Oxalate (Lexapro -) 10 mg PO DAILY [facility] Febuxostat (Uloric -) 40 mg PO DAILY [facility] Ferrous Sulfate (Feosol -) 325 mg PO DAILY [facility] Guaifenesin (Robitussin Dm -) 10 ml PO Q8H PRN PRN Reason: COUGH Heparin Sodium (Porcine) (Heparin -) 5,000 unit SQ TID [facility] Last Admin: 03/03/19 06:17 Dose: 5,000 unit Piperacillin Sod/Tazobactam (Sod 3.375 gm/ Dextrose) 50 mls @ 100 mls/hr IVPB Q8H-IV [facility]; Protocol Last Admin: 03/03/19 01:28 Dose: 100 mls/hr Levothyroxine Sodium (Synthroid -) 50 mcg PO DAILY@0700 [facility] Last Admin: 03/03/19 06:18 Dose: 50 mcg Morphine Sulfate (Morphine Sulfate) 2 mg IVPUSH Q6H PRN PRN Reason: PAIN LEVEL 6-10 Oxybutynin Chloride (Ditropan -) 5 mg PO DAILY [facility] Oxycodone HCl (Roxicodone -) 5 mg PO BID PRN PRN Reason: PAIN LEVEL 7-10 Pantoprazole Sodium (Protonix -) 20 mg PO DAILY [facility] Phenol/Menthol (Chloraseptic -) 1 spray MM Q6HPO PRN PRN Reason: SORE THROAT Potassium Chloride (K-Dur -) 20 meq PO DAILY [facility] - Objective Vital Signs: Vital Signs Temperature 98.3 F 03/03/19 07:00 Pulse Rate 92 H 03/03/19 07:00 Respiratory Rate 20 03/03/19 07:00 Blood Pressure 111/60 03/03/19 07:00 O2 Sat by Pulse Oximetry (%) 100 03/02/19 23:28 Additional Findings/Remarks: Constitutional: Yes: Well Nourished, No Distress, Calm Eyes: Yes: WNL, Conjunctiva Clear HENT: Yes: WNL, Atraumatic, Normocephalic Neck: Yes: WNL, Supple, Trachea Midline Cardiovascular: Yes: WNL, Regular Rate and Rhythm Respiratory: Yes: Regular, Diminished (at bases), Rhonchi (scattered) Gastrointestinal: Yes: WNL, Normal Bowel Sounds ...Rectal Exam: Yes: Deferred Genitourinary: Yes: WNL Breast(s): Yes: WNL Musculoskeletal: Yes: WNL Extremities: Yes: Erythema, Other (cellulitus to RLE) Edema: Yes Edema: LUE: 1+, RUE: 1+, LLE: 3+, RLE: 4+ Peripheral Pulses WNL: No Peripheral Pulses: Left Radial: 2+, Right Radial: 2+, Left Doralis Pedis: 1+, Right Dorsalis Pedis: 1+, Left Femoral: 2+, Right Femoral: 2+ Wound/Incision: Yes: Other (RLE weeping ulcerations + BL cellulitis skin changes ) Neurological: Yes: WNL, Alert, Oriented ...Motor Strength: WNL Psychiatric: Yes: WNL Labs: CBC, BMP 03/03/19 07:05 03/03/19 07:05 INR, PTT INR 0.95 (0.83-1.09) 03/01/19 06:30 Problem List - Problems (1) Prophylactic measure Assessment/Plan: FEN tolerating regular diet monitor electrolytes IVF stopped DVT heparin sq Dispo maintain as in patient full code discharge planning Code(s): Z29.9 - ENCOUNTER FOR PROPHYLACTIC MEASURES, UNSPECIFIED (2) Cellulitis Assessment/Plan: c/w abx zosyn ID following Code(s): L03.90 - CELLULITIS, UNSPECIFIED (3) Depression Assessment/Plan: c/w lexapro supportive care Dr Vicki tran Code(s): F32.9 - MAJOR DEPRESSIVE DISORDER, SINGLE EPISODE, UNSPECIFIED (4) Hypothyroidism Assessment/Plan: c/w synthroid Code(s): E03.9 - HYPOTHYROIDISM, UNSPECIFIED (5) Overactive bladder Assessment/Plan: c/w oxybutin Code(s): N32.81 - OVERACTIVE BLADDER (6) HLD (hyperlipidemia) Assessment/Plan: c/w atorvastatin and zetia Code(s): E78.5 - HYPERLIPIDEMIA, UNSPECIFIED (7) HTN (hypertension) Assessment/Plan: normotensive c./w tenormin Code(s): I10 - ESSENTIAL (PRIMARY) HYPERTENSION (8) Anemia, chronic disease Assessment/Plan: H/H stable 12/10 continue to monitor Code(s): D63.8 - ANEMIA IN OTHER CHRONIC DISEASES CLASSIFIED ELSEWHERE (9) Acute respiratory failure requiring reintubation Assessment/Plan: maintain on NC respiratory failure resolved Code(s): J96.00 - ACUTE RESPIRATORY FAILURE, UNSP W HYPOXIA OR HYPERCAPNIA Visit type - Emergency Visit Emergency Visit: Yes ED Registration Date: 02/26/19 Care time: The patient presented to the Emergency Department on the above date and was hospitalized for further evaluation of their emergent condition. - New Patient This patient is new to me today: No - Critical Care Critical Care patient: No - Discharge Referral Referred to [facility] Med P.C.: No
[2019-03-03] MEDS: FERROUS SO4 325 MG TABLET (FP) PO SCH (10:39)
[2019-03-03] MEDS: POTASSIUM CHLORIDE TABS 20 MEQ TABLET.ER (FP) PO SCH (10:39)
[2019-03-03] MEDS: OXYBUTYNIN CHLORIDE 5 MG TABLET PO SCH (10:39)
[2019-03-03] MEDS: ESCITALOPRAM OXALATE 10 MG TABLET (FP) PO SCH (10:39)
[2019-03-03] MEDS: ATENOLOL 50 MG TABLET (FP) PO SCH (10:40)
[2019-03-03] MEDS: PANTOPRAZOLE 20 MG TABLET (FP) PO SCH (10:40)
[2019-03-03] MEDS: EZETIMIBE 10 MG TABLET (FP) PO SCH (10:41)
[2019-03-03] MEDS: FEBUXOSTAT 40 MG TAB PO SCH (10:41)
[2019-03-03] MEDS: ACETAMINOPHEN 325 MG TABLET (FP) PO PRN (12:00)
--- NOTE | 2019-03-03 14:56 | PN ---
Progress Note, Physician History of Present Illness: stable no new issues - Current Medication List Current Medications: Active Medications Acetaminophen (Tylenol -) 650 mg PO Q6H PRN PRN Reason: PAIN LEVEL 1 - 3 Last Admin: 03/03/19 12:00 Dose: 650 mg Acetaminophen (Ofirmev Injection -) 1,000 mg IVPB Q6H PRN PRN Reason: PAIN 4-6 Atenolol (Tenormin -) 100 mg PO DAILY [facility] Last Admin: 03/03/19 10:40 Dose: 100 mg Atorvastatin Calcium (Lipitor -) 10 mg PO HS [facility] Last Admin: 03/02/19 21:33 Dose: 10 mg Ezetimibe (Zetia -) 10 mg PO DAILY [facility] Last Admin: 03/03/19 10:41 Dose: 10 mg Escitalopram Oxalate (Lexapro -) 10 mg PO DAILY [facility] Last Admin: 03/03/19 10:39 Dose: 10 mg Febuxostat (Uloric -) 40 mg PO DAILY [facility] Last Admin: 03/03/19 10:41 Dose: 40 mg Ferrous Sulfate (Feosol -) 325 mg PO DAILY [facility] Last Admin: 03/03/19 10:39 Dose: 325 mg Guaifenesin (Robitussin Dm -) 10 ml PO Q8H PRN PRN Reason: COUGH Heparin Sodium (Porcine) (Heparin -) 5,000 unit SQ TID [facility] Last Admin: 03/03/19 13:37 Dose: 5,000 unit Piperacillin Sod/Tazobactam (Sod 3.375 gm/ Dextrose) 50 mls @ 100 mls/hr IVPB Q8H-IV [facility]; Protocol Last Admin: 03/03/19 10:41 Dose: 100 mls/hr Levothyroxine Sodium (Synthroid -) 50 mcg PO DAILY@0700 [facility] Last Admin: 03/03/19 06:18 Dose: 50 mcg Morphine Sulfate (Morphine Sulfate) 2 mg IVPUSH Q6H PRN PRN Reason: PAIN LEVEL 6-10 Oxybutynin Chloride (Ditropan -) 5 mg PO DAILY [facility] Last Admin: 03/03/19 10:39 Dose: 5 mg Oxycodone HCl (Roxicodone -) 5 mg PO BID PRN PRN Reason: PAIN LEVEL 7-10 Pantoprazole Sodium (Protonix -) 20 mg PO DAILY [facility] Last Admin: 03/03/19 10:40 Dose: 20 mg Phenol/Menthol (Chloraseptic -) 1 spray MM Q6HPO PRN PRN Reason: SORE THROAT Potassium Chloride (K-Dur -) 20 meq PO DAILY [facility] Last Admin: 03/03/19 10:39 Dose: 20 meq - Objective Vital Signs: Vital Signs Temperature 98.1 F 03/03/19 14:14 Pulse Rate 61 03/03/19 14:14 Respiratory Rate 20 03/03/19 14:14 Blood Pressure 119/56 L 03/03/19 14:14 O2 Sat by Pulse Oximetry (%) 100 03/03/19 10:00 Constitutional: Yes: No Distress, Calm Cardiovascular: Yes: S1, S2 Respiratory: Yes: Regular, CTA Bilaterally Musculoskeletal: Yes: WNL Extremities: Yes: Other Neurological: Yes: Alert, Oriented Psychiatric: Yes: Alert, Oriented Labs: CBC, BMP 03/03/19 07:05 03/03/19 07:05 INR, PTT INR 0.95 (0.83-1.09) 03/01/19 06:30 Assessment/Plan 68 F with h/o childhood polio, paraplegia, HTN, HLD, hypothyroid, anemia admitted for ble cellulitis htn hld anemia hypothyroidism plan zosyn will continue elevation of the legs rest as per the team
[2019-03-03] MEDS: ATORVASTATIN CA 10 MG TABLET (FP) PO SCH (21:26)
[2019-03-04] MEDS ORDERED: PIPERACILLIN/TAZOBACTAM 3.375 GM VIAL IVPB ONE ×4 (01:54→15:25)
[2019-03-04] MEDS ORDERED: DEXTROSE 5%-WATER - 50 ML IVPB ONE ×4 (01:54→15:25)
[2019-03-04] MEDS: PIPERACILLIN/TAZOB 3.375 GM 3.375 GM in DEXTROSE 5%-WATER - 50 ML IVPB SCH ×3 (02:00→17:56)
[2019-03-04] MEDS: ACETAMINOPHEN 325 MG TABLET (FP) PO PRN (02:00)
[2019-03-04] MEDS: LEVOTHYROXINE NA 50 MCG TABLET (FP) PO SCH (06:18)
[2019-03-04] MEDS: HEPARIN NA (PORCINE) 5,000 UNITS/ML 1ML VIAL SQ SCH ×3 (06:18→21:15)
[2019-03-04 08:31] LABS: BASO % 0.7 % (0-2.0); EOS % 5.5 % (0-4.5); HEMATOCRIT 26.9 % (32.4-45.2); HEMOGLOBIN 8.8 GM/dL (10.7-15.3); LYMPH % 18.9 % (8-40); MCH 28.4 pg (25.7-33.7); MCHC 32.8 g/dl (32.0-36.0); MEAN CELL VOLUME 86.5 fl (80-96); MEAN PLT VOLUME 7.7 fl (7.5-11.1); MONO % 8.3 % (3.8-10.2); NEUT % 66.6 % (42.8-82.8); PLATELET COUNT 269 K/MM3 (134-434); RBC 3.11 M/mm3 (3.60-5.2); RDW 15.5 % (11.6-15.6); WHITE BLOOD COUNT 7.8 K/mm3 (4.0-10.0)
[2019-03-04 08:32] LABS: BILIRUBIN,TOTAL 0.4 mg/dL (0.2-1); CALCIUM 9.1 mg/dL (8.5-10.1); CREATININE 0.7 mg/dL (0.55-1.3); MAGNESIUM 2.1 mg/dL (1.8-2.4); POTASSIUM 4.4 mmol/L (3.5-5.1); TOT PROT 5.6 g/dl (6.4-8.2)
--- NOTE | 2019-03-04 08:40 | PN ---
Progress Note, Physician Chief Complaint: Feels much better. c/o purtitic rash on right flank and buttock History of Present Illness: 68 F with h/o childhood polio, paraplegia, HTN, HLD, hypothyroid, anemia. Initially admitted to [facility] and treated for cellulitis of her lower extremity and on 02/28 in the evening developed sudden respiratory failure which prompted intubation and transfer to [facility] to be managed in the ICU. CT of chest was performed and showed bilateral pneumonia with pleural effusions. Patient with copious secretions through ET tube. Treating broadly with Zosyn and vancomycin, blood cultures, tracheal aspirate cultures sent. Chemistry showed worsening of transaminitis, lactic acidosis which improved after antibiotic administration. - Current Medication List Current Medications: Active Medications Acetaminophen (Tylenol -) 650 mg PO Q6H PRN PRN Reason: PAIN LEVEL 1 - 3 Last Admin: 03/04/19 02:00 Dose: 650 mg Acetaminophen (Ofirmev Injection -) 1,000 mg IVPB Q6H PRN PRN Reason: PAIN 4-6 Atenolol (Tenormin -) 100 mg PO DAILY [facility] Last Admin: 03/03/19 10:40 Dose: 100 mg Atorvastatin Calcium (Lipitor -) 10 mg PO HS [facility] Last Admin: 03/03/19 21:26 Dose: 10 mg Ezetimibe (Zetia -) 10 mg PO DAILY [facility] Last Admin: 03/03/19 10:41 Dose: 10 mg Escitalopram Oxalate (Lexapro -) 10 mg PO DAILY [facility] Last Admin: 03/03/19 10:39 Dose: 10 mg Febuxostat (Uloric -) 40 mg PO DAILY [facility] Last Admin: 03/03/19 10:41 Dose: 40 mg Ferrous Sulfate (Feosol -) 325 mg PO DAILY [facility] Last Admin: 03/03/19 10:39 Dose: 325 mg Guaifenesin (Robitussin Dm -) 10 ml PO Q8H PRN PRN Reason: COUGH Heparin Sodium (Porcine) (Heparin -) 5,000 unit SQ TID [facility] Last Admin: 03/04/19 06:18 Dose: 5,000 unit Piperacillin Sod/Tazobactam (Sod 3.375 gm/ Dextrose) 50 mls @ 100 mls/hr IVPB Q8H-IV [facility]; Protocol Last Admin: 03/04/19 02:00 Dose: 100 mls/hr Levothyroxine Sodium (Synthroid -) 50 mcg PO DAILY@0700 [facility] Last Admin: 03/04/19 06:18 Dose: 50 mcg Morphine Sulfate (Morphine Sulfate) 2 mg IVPUSH Q6H PRN PRN Reason: PAIN LEVEL 6-10 Oxybutynin Chloride (Ditropan -) 5 mg PO DAILY [facility] Last Admin: 03/03/19 10:39 Dose: 5 mg Oxycodone HCl (Roxicodone -) 5 mg PO BID PRN PRN Reason: PAIN LEVEL 7-10 Pantoprazole Sodium (Protonix -) 20 mg PO DAILY [facility] Last Admin: 03/03/19 10:40 Dose: 20 mg Phenol/Menthol (Chloraseptic -) 1 spray MM Q6HPO PRN PRN Reason: SORE THROAT Potassium Chloride (K-Dur -) 20 meq PO DAILY [facility] Last Admin: 03/03/19 10:39 Dose: 20 meq - Objective Vital Signs: Vital Signs Temperature 97.5 F L 03/04/19 05:00 Pulse Rate 59 L 03/04/19 05:00 Respiratory Rate 20 03/04/19 05:00 Blood Pressure 133/6 L 03/04/19 05:00 O2 Sat by Pulse Oximetry (%) 99 03/03/19 22:00 Additional Findings/Remarks: Constitutional: Yes: Well Nourished, No Distress, Calm Eyes: Yes: WNL, Conjunctiva Clear HENT: Yes: WNL, Atraumatic, Normocephalic Neck: Yes: WNL, Supple, Trachea Midline Cardiovascular: Yes: WNL, Regular Rate and Rhythm Respiratory: Yes: Regular, Diminished (at bases), Rhonchi (scattered) Gastrointestinal: Yes: WNL, Normal Bowel Sounds ...Rectal Exam: Yes: Deferred Genitourinary: Yes: WNL Breast(s): Yes: WNL Musculoskeletal: Yes: WNL Extremities: Yes: Erythema, Other (cellulitus to RLE) Edema: Yes Edema: LUE: 1+, RUE: 1+, LLE: 3+, RLE: 4+ Peripheral Pulses WNL: No Peripheral Pulses: Left Radial: 2+, Right Radial: 2+, Left Doralis Pedis: 1+, Right Dorsalis Pedis: 1+, Left Femoral: 2+, Right Femoral: 2+ Wound/Incision: Yes: Other (RLE weeping ulcerations + BL cellulitis skin changes ) Integumentary: scabbed rash to right flank and right buttock Neurological: Yes: WNL, Alert, Oriented ...Motor Strength: WNL Psychiatric: Yes: WNL Labs: CBC, BMP 03/04/19 06:57 INR, PTT INR 0.95 (0.83-1.09) 03/01/19 06:30 Problem List - Problems (1) Prophylactic measure Assessment/Plan: FEN tolerating regular diet monitor electrolytes adequate PO intake DVT heparin sq Dispo maintain as in patient full code discharge planning Code(s): Z29.9 - ENCOUNTER FOR PROPHYLACTIC MEASURES, UNSPECIFIED (2) Cellulitis Assessment/Plan: c/w abx zosyn ID following Code(s): L03.90 - CELLULITIS, UNSPECIFIED (3) Depression Assessment/Plan: c/w lexapro supportive care Dr Vicki tran Code(s): F32.9 - MAJOR DEPRESSIVE DISORDER, SINGLE EPISODE, UNSPECIFIED (4) Hypothyroidism Assessment/Plan: c/w synthroid Code(s): E03.9 - HYPOTHYROIDISM, UNSPECIFIED (5) Overactive bladder Assessment/Plan: c/w oxybutin Code(s): N32.81 - OVERACTIVE BLADDER (6) HLD (hyperlipidemia) Assessment/Plan: c/w atorvastatin and zetia Code(s): E78.5 - HYPERLIPIDEMIA, UNSPECIFIED (7) HTN (hypertension) Assessment/Plan: normotensive c./w tenormin Code(s): I10 - ESSENTIAL (PRIMARY) HYPERTENSION (8) Anemia, chronic disease Assessment/Plan: H/H stable 12/10 continue to monitor Code(s): D63.8 - ANEMIA IN OTHER CHRONIC DISEASES CLASSIFIED ELSEWHERE (9) Acute respiratory failure requiring reintubation Assessment/Plan: maintain on NC respiratory failure resolved Code(s): J96.00 - ACUTE RESPIRATORY FAILURE, UNSP W HYPOXIA OR HYPERCAPNIA (10) Polio Code(s): A80.9 - ACUTE POLIOMYELITIS, UNSPECIFIED (11) Functional quadriplegia Assessment/Plan: secondary to polio supportive care Code(s): R53.2 - FUNCTIONAL QUADRIPLEGIA Visit type - Emergency Visit Emergency Visit: Yes ED Registration Date: 02/26/19 Care time: The patient presented to the Emergency Department on the above date and was hospitalized for further evaluation of their emergent condition. - New Patient This patient is new to me today: No - Critical Care Critical Care patient: No - Discharge Referral Referred to [facility] Med P.C.: No
--- NOTE | 2019-03-04 08:59 | PN ---
Progress Note, Physician History of Present Illness: stable no new issues - Current Medication List Current Medications: Active Medications Acetaminophen (Tylenol -) 650 mg PO Q6H PRN PRN Reason: PAIN LEVEL 1 - 3 Last Admin: 03/04/19 02:00 Dose: 650 mg Acetaminophen (Ofirmev Injection -) 1,000 mg IVPB Q6H PRN PRN Reason: PAIN 4-6 Atenolol (Tenormin -) 100 mg PO DAILY [facility] Last Admin: 03/03/19 10:40 Dose: 100 mg Atorvastatin Calcium (Lipitor -) 10 mg PO HS [facility] Last Admin: 03/03/19 21:26 Dose: 10 mg Ezetimibe (Zetia -) 10 mg PO DAILY [facility] Last Admin: 03/03/19 10:41 Dose: 10 mg Escitalopram Oxalate (Lexapro -) 10 mg PO DAILY [facility] Last Admin: 03/03/19 10:39 Dose: 10 mg Febuxostat (Uloric -) 40 mg PO DAILY [facility] Last Admin: 03/03/19 10:41 Dose: 40 mg Ferrous Sulfate (Feosol -) 325 mg PO DAILY [facility] Last Admin: 03/03/19 10:39 Dose: 325 mg Guaifenesin (Robitussin Dm -) 10 ml PO Q8H PRN PRN Reason: COUGH Heparin Sodium (Porcine) (Heparin -) 5,000 unit SQ TID [facility] Last Admin: 03/04/19 06:18 Dose: 5,000 unit Piperacillin Sod/Tazobactam (Sod 3.375 gm/ Dextrose) 50 mls @ 100 mls/hr IVPB Q8H-IV [facility]; Protocol Last Admin: 03/04/19 02:00 Dose: 100 mls/hr Levothyroxine Sodium (Synthroid -) 50 mcg PO DAILY@0700 [facility] Last Admin: 03/04/19 06:18 Dose: 50 mcg Morphine Sulfate (Morphine Sulfate) 2 mg IVPUSH Q6H PRN PRN Reason: PAIN LEVEL 6-10 Oxybutynin Chloride (Ditropan -) 5 mg PO DAILY [facility] Last Admin: 03/03/19 10:39 Dose: 5 mg Oxycodone HCl (Roxicodone -) 5 mg PO BID PRN PRN Reason: PAIN LEVEL 7-10 Pantoprazole Sodium (Protonix -) 20 mg PO DAILY [facility] Last Admin: 03/03/19 10:40 Dose: 20 mg Phenol/Menthol (Chloraseptic -) 1 spray MM Q6HPO PRN PRN Reason: SORE THROAT Potassium Chloride (K-Dur -) 20 meq PO DAILY [facility] Last Admin: 03/03/19 10:39 Dose: 20 meq - Objective Vital Signs: Vital Signs Temperature 97.5 F L 03/04/19 05:00 Pulse Rate 59 L 03/04/19 05:00 Respiratory Rate 20 03/04/19 05:00 Blood Pressure 133/6 L 03/04/19 05:00 O2 Sat by Pulse Oximetry (%) 99 03/03/19 22:00 Constitutional: Yes: No Distress, Calm Cardiovascular: Yes: S1, S2 Respiratory: Yes: Regular, CTA Bilaterally Gastrointestinal: Yes: Normal Bowel Sounds, Soft Musculoskeletal: Yes: WNL Extremities: Yes: Erythema (improving), Other Neurological: Yes: Alert, Oriented Psychiatric: Yes: Alert, Oriented Labs: CBC, BMP 03/04/19 06:57 03/04/19 06:57 INR, PTT INR 0.95 (0.83-1.09) 03/01/19 06:30 Assessment/Plan 68 F with h/o childhood polio, paraplegia, HTN, HLD, hypothyroid, anemia admitted for ble cellulitis htn hld anemia hypothyroidism plan zosyn monitor resp status rest as per the team
[2019-03-04] MEDS: ATENOLOL 50 MG TABLET (FP) PO SCH (09:35)
[2019-03-04] MEDS: FERROUS SO4 325 MG TABLET (FP) PO SCH (09:36)
[2019-03-04] MEDS: OXYBUTYNIN CHLORIDE 5 MG TABLET PO SCH (09:36)
[2019-03-04] MEDS: ESCITALOPRAM OXALATE 10 MG TABLET (FP) PO SCH (09:37)
[2019-03-04] MEDS: POTASSIUM CHLORIDE TABS 20 MEQ TABLET.ER (FP) PO SCH (09:38)
[2019-03-04] MEDS: PANTOPRAZOLE 20 MG TABLET (FP) PO SCH (09:38)
[2019-03-04] MEDS: EZETIMIBE 10 MG TABLET (FP) PO SCH (09:38)
[2019-03-04 10:30] LABS: PLATELET ESTIMATE NORMAL
[2019-03-04] MEDS: FEBUXOSTAT 40 MG TAB PO SCH (10:34)
[2019-03-04] MEDS ORDERED: PT OWN MED DRAWER 7, Y5N ONE (11:23)
[2019-03-04] MEDS: ATORVASTATIN CA 10 MG TABLET (FP) PO SCH (21:15)
[2019-03-04] MEDS: oxyCODONE HCL 5 MG TABLET PO PRN (21:22)
[2019-03-05] MEDS ORDERED: PIPERACILLIN/TAZOBACTAM 3.375 GM VIAL IVPB ONE ×3 (02:19→16:37)
[2019-03-05] MEDS ORDERED: DEXTROSE 5%-WATER - 50 ML IVPB ONE ×3 (02:20→16:37)
[2019-03-05] MEDS: PIPERACILLIN/TAZOB 3.375 GM 3.375 GM in DEXTROSE 5%-WATER - 50 ML IVPB SCH ×3 (02:52→17:00)
[2019-03-05] MEDS: HEPARIN NA (PORCINE) 5,000 UNITS/ML 1ML VIAL SQ SCH ×3 (06:03→21:45)
[2019-03-05] MEDS: LEVOTHYROXINE NA 50 MCG TABLET (FP) PO SCH (06:03)
[2019-03-05 08:26] LABS: BASO % 1.1 % (0-2.0); EOS % 6.3 % (0-4.5); HEMATOCRIT 29.9 % (32.4-45.2); HEMOGLOBIN 9.4 GM/dL (10.7-15.3); LYMPH % 17.8 % (8-40); MCH 27.7 pg (25.7-33.7); MCHC 31.6 g/dl (32.0-36.0); MEAN CELL VOLUME 87.8 fl (80-96); MEAN PLT VOLUME 7.7 fl (7.5-11.1); MONO % 7.2 % (3.8-10.2); NEUT % 67.6 % (42.8-82.8); PLATELET COUNT 258 K/MM3 (134-434); RDW 15.6 % (11.6-15.6); WHITE BLOOD COUNT 8.9 K/mm3 (4.0-10.0)
--- NOTE | 2019-03-05 09:02 | PN ---
Progress Note, Physician Chief Complaint: Feels much better. Rash is improved. History of Present Illness: 68 F with h/o childhood polio, paraplegia, HTN, HLD, hypothyroid, anemia. Initially admitted to [facility] and treated for cellulitis of her lower extremity and on 02/28 in the evening developed sudden respiratory failure which prompted intubation and transfer to [facility] to be managed in the ICU. CT of chest was performed and showed bilateral pneumonia with pleural effusions. Patient with copious secretions through ET tube. Treating broadly with Zosyn and vancomycin, blood cultures, tracheal aspirate cultures sent. Chemistry showed worsening of transaminitis, lactic acidosis which improved after antibiotic administration. - Current Medication List Current Medications: Active Medications Acetaminophen (Tylenol -) 650 mg PO Q6H PRN PRN Reason: PAIN LEVEL 1 - 3 Last Admin: 03/04/19 02:00 Dose: 650 mg Acetaminophen (Ofirmev Injection -) 1,000 mg IVPB Q6H PRN PRN Reason: PAIN 4-6 Atenolol (Tenormin -) 100 mg PO DAILY [facility] Last Admin: 03/04/19 09:35 Dose: 100 mg Atorvastatin Calcium (Lipitor -) 10 mg PO HS [facility] Last Admin: 03/04/19 21:15 Dose: 10 mg Ezetimibe (Zetia -) 10 mg PO DAILY [facility] Last Admin: 03/04/19 09:38 Dose: 10 mg Escitalopram Oxalate (Lexapro -) 10 mg PO DAILY [facility] Last Admin: 03/04/19 09:37 Dose: 10 mg Febuxostat (Uloric -) 40 mg PO DAILY [facility] Last Admin: 03/04/19 10:34 Dose: 40 mg Ferrous Sulfate (Feosol -) 325 mg PO DAILY [facility] Last Admin: 03/04/19 09:36 Dose: 325 mg Guaifenesin (Robitussin Dm -) 10 ml PO Q8H PRN PRN Reason: COUGH Heparin Sodium (Porcine) (Heparin -) 5,000 unit SQ TID [facility] Last Admin: 03/05/19 06:03 Dose: 5,000 unit Hydrocortisone (Hytone 0.5% Cream -) 1 applic TP TID PRN PRN Reason: FOR ITCHING Piperacillin Sod/Tazobactam (Sod 3.375 gm/ Dextrose) 50 mls @ 100 mls/hr IVPB Q8H-IV [facility]; Protocol Last Admin: 03/05/19 02:52 Dose: 100 mls/hr Levothyroxine Sodium (Synthroid -) 50 mcg PO DAILY@0700 [facility] Last Admin: 03/05/19 06:03 Dose: 50 mcg Morphine Sulfate (Morphine Sulfate) 2 mg IVPUSH Q6H PRN PRN Reason: PAIN LEVEL 6-10 Oxybutynin Chloride (Ditropan -) 5 mg PO DAILY [facility] Last Admin: 03/04/19 09:36 Dose: 5 mg Oxycodone HCl (Roxicodone -) 5 mg PO BID PRN PRN Reason: PAIN LEVEL 7-10 Last Admin: 03/04/19 21:22 Dose: 5 mg Pantoprazole Sodium (Protonix -) 20 mg PO DAILY [facility] Last Admin: 03/04/19 09:38 Dose: 20 mg Phenol/Menthol (Chloraseptic -) 1 spray MM Q6HPO PRN PRN Reason: SORE THROAT Potassium Chloride (K-Dur -) 20 meq PO DAILY [facility] Last Admin: 03/04/19 09:38 Dose: 20 meq - Objective Vital Signs: Vital Signs Temperature 97.8 F 03/05/19 03:00 Pulse Rate 56 L 03/05/19 03:00 Respiratory Rate 18 03/05/19 03:00 Blood Pressure 120/58 L 03/05/19 03:00 O2 Sat by Pulse Oximetry (%) 99 03/04/19 10:00 Additional Findings/Remarks: Constitutional: Yes: Well Nourished, No Distress, Calm Eyes: Yes: WNL, Conjunctiva Clear HENT: Yes: WNL, Atraumatic, Normocephalic Neck: Yes: WNL, Supple, Trachea Midline Cardiovascular: Yes: WNL, Regular Rate and Rhythm Respiratory: Yes: Regular, Diminished (at bases), Rhonchi (scattered) Gastrointestinal: Yes: WNL, Normal Bowel Sounds ...Rectal Exam: Yes: Deferred Genitourinary: Yes: WNL Breast(s): Yes: WNL Musculoskeletal: Yes: WNL Extremities: Yes: Erythema, Other (cellulitus to RLE) Edema: Yes Edema: LUE: 1+, RUE: 1+, LLE: 3+, RLE: 4+ Peripheral Pulses WNL: No Peripheral Pulses: Left Radial: 2+, Right Radial: 2+, Left Doralis Pedis: 1+, Right Dorsalis Pedis: 1+, Left Femoral: 2+, Right Femoral: 2+ Wound/Incision: Yes: Other (RLE weeping ulcerations + BL cellulitis skin changes ) Neurological: Yes: WNL, Alert, Oriented ...Motor Strength: WNL Psychiatric: Yes: WNL Labs: CBC, BMP 03/05/19 07:46 INR, PTT INR 0.95 (0.83-1.09) 03/01/19 06:30 Problem List - Problems (1) Prophylactic measure Assessment/Plan: FEN tolerating regular diet monitor electrolytes adequate PO intake DVT heparin sq Dispo maintain as in patient full code discharge planning Code(s): Z29.9 - ENCOUNTER FOR PROPHYLACTIC MEASURES, UNSPECIFIED (2) Cellulitis Assessment/Plan: c/w abx zosyn ID following will start to de-escelate Code(s): L03.90 - CELLULITIS, UNSPECIFIED (3) Depression Assessment/Plan: c/w lexapro supportive care Dr Vicki tran Code(s): F32.9 - MAJOR DEPRESSIVE DISORDER, SINGLE EPISODE, UNSPECIFIED (4) Hypothyroidism Assessment/Plan: c/w synthroid Code(s): E03.9 - HYPOTHYROIDISM, UNSPECIFIED (5) Overactive bladder Assessment/Plan: c/w oxybutin Code(s): N32.81 - OVERACTIVE BLADDER (6) HLD (hyperlipidemia) Assessment/Plan: c/w atorvastatin and zetia Code(s): E78.5 - HYPERLIPIDEMIA, UNSPECIFIED (7) HTN (hypertension) Assessment/Plan: normotensive c./w tenormin Code(s): I10 - ESSENTIAL (PRIMARY) HYPERTENSION (8) Anemia, chronic disease Assessment/Plan: H/H stable 12/10 continue to monitor Code(s): D63.8 - ANEMIA IN OTHER CHRONIC DISEASES CLASSIFIED ELSEWHERE (9) Acute respiratory failure requiring reintubation Assessment/Plan: maintain on NC respiratory failure resolved Code(s): J96.00 - ACUTE RESPIRATORY FAILURE, UNSP W HYPOXIA OR HYPERCAPNIA (10) Polio Code(s): A80.9 - ACUTE POLIOMYELITIS, UNSPECIFIED (11) Functional quadriplegia Assessment/Plan: secondary to polio supportive care Code(s): R53.2 - FUNCTIONAL QUADRIPLEGIA Visit type - Emergency Visit Emergency Visit: Yes ED Registration Date: 02/26/19 Care time: The patient presented to the Emergency Department on the above date and was hospitalized for further evaluation of their emergent condition. - New Patient This patient is new to me today: No - Critical Care Critical Care patient: No - Discharge Referral Referred to [facility] Med P.C.: No
[2019-03-05 09:20] LABS: ALBUMIN 2.2 g/dl (3.4-5.0); BILIRUBIN,TOTAL 0.3 mg/dL (0.2-1); BLOOD UREA NITROGEN 20.6 mg/dL (7-18); CALCIUM 8.8 mg/dL (8.5-10.1); CREATININE 0.6 mg/dL (0.55-1.3); MAGNESIUM 1.8 mg/dL (1.8-2.4); POTASSIUM 4.7 mmol/L (3.5-5.1); TOT PROT 5.9 g/dl (6.4-8.2)
[2019-03-05] MEDS: EZETIMIBE 10 MG TABLET (FP) PO SCH (09:33)
[2019-03-05] MEDS: FERROUS SO4 325 MG TABLET (FP) PO SCH (09:33)
[2019-03-05] MEDS: ESCITALOPRAM OXALATE 10 MG TABLET (FP) PO SCH (09:34)
[2019-03-05] MEDS: OXYBUTYNIN CHLORIDE 5 MG TABLET PO SCH (09:34)
[2019-03-05] MEDS: POTASSIUM CHLORIDE TABS 20 MEQ TABLET.ER (FP) PO SCH (09:34)
[2019-03-05] MEDS: ATENOLOL 50 MG TABLET (FP) PO SCH (09:34)
[2019-03-05] MEDS: PANTOPRAZOLE 20 MG TABLET (FP) PO SCH (09:35)
--- NOTE | 2019-03-05 10:03 | PN ---
Progress Note, Physician History of Present Illness: stable starting to look better legs improving patient improving - Current Medication List Current Medications: Active Medications Acetaminophen (Tylenol -) 650 mg PO Q6H PRN PRN Reason: PAIN LEVEL 1 - 3 Last Admin: 03/04/19 02:00 Dose: 650 mg Acetaminophen (Ofirmev Injection -) 1,000 mg IVPB Q6H PRN PRN Reason: PAIN 4-6 Atenolol (Tenormin -) 100 mg PO DAILY [facility] Last Admin: 03/05/19 09:34 Dose: 100 mg Atorvastatin Calcium (Lipitor -) 10 mg PO HS [facility] Last Admin: 03/04/19 21:15 Dose: 10 mg Ezetimibe (Zetia -) 10 mg PO DAILY [facility] Last Admin: 03/05/19 09:33 Dose: 10 mg Escitalopram Oxalate (Lexapro -) 10 mg PO DAILY [facility] Last Admin: 03/05/19 09:34 Dose: 10 mg Febuxostat (Uloric -) 40 mg PO DAILY [facility] Last Admin: 03/04/19 10:34 Dose: 40 mg Ferrous Sulfate (Feosol -) 325 mg PO DAILY [facility] Last Admin: 03/05/19 09:33 Dose: 325 mg Guaifenesin (Robitussin Dm -) 10 ml PO Q8H PRN PRN Reason: COUGH Heparin Sodium (Porcine) (Heparin -) 5,000 unit SQ TID [facility] Last Admin: 03/05/19 06:03 Dose: 5,000 unit Hydrocortisone (Hytone 0.5% Cream -) 1 applic TP TID PRN PRN Reason: FOR ITCHING Piperacillin Sod/Tazobactam (Sod 3.375 gm/ Dextrose) 50 mls @ 100 mls/hr IVPB Q8H-IV [facility]; Protocol Last Admin: 03/05/19 09:35 Dose: 100 mls/hr Levothyroxine Sodium (Synthroid -) 50 mcg PO DAILY@0700 [facility] Last Admin: 03/05/19 06:03 Dose: 50 mcg Morphine Sulfate (Morphine Sulfate) 2 mg IVPUSH Q6H PRN PRN Reason: PAIN LEVEL 6-10 Oxybutynin Chloride (Ditropan -) 5 mg PO DAILY [facility] Last Admin: 03/05/19 09:34 Dose: 5 mg Oxycodone HCl (Roxicodone -) 5 mg PO BID PRN PRN Reason: PAIN LEVEL 7-10 Last Admin: 03/04/19 21:22 Dose: 5 mg Pantoprazole Sodium (Protonix -) 20 mg PO DAILY [facility] Last Admin: 03/05/19 09:35 Dose: 20 mg Phenol/Menthol (Chloraseptic -) 1 spray MM Q6HPO PRN PRN Reason: SORE THROAT Potassium Chloride (K-Dur -) 20 meq PO DAILY [facility] Last Admin: 03/05/19 09:34 Dose: 20 meq - Objective Vital Signs: Vital Signs Temperature 97.8 F 03/05/19 03:00 Pulse Rate 56 L 03/05/19 03:00 Respiratory Rate 18 03/05/19 03:00 Blood Pressure 120/58 L 03/05/19 03:00 O2 Sat by Pulse Oximetry (%) 99 03/04/19 10:00 Constitutional: Yes: No Distress, Calm Cardiovascular: Yes: S1, S2 Respiratory: Yes: Regular, CTA Bilaterally Gastrointestinal: Yes: Normal Bowel Sounds, Soft Musculoskeletal: Yes: WNL Extremities: Yes: Other Wound/Incision: Yes: Dressing Dry and Intact Neurological: Yes: Alert, Oriented Psychiatric: Yes: Alert, Oriented Labs: CBC, BMP 03/05/19 07:46 03/05/19 07:46 INR, PTT INR 0.95 (0.83-1.09) 03/01/19 06:30 Assessment/Plan 68 F with h/o childhood polio, paraplegia, HTN, HLD, hypothyroid, anemia admitted for ble cellulitis htn hld anemia hypothyroidism plan zosyn monitor resp status rest as per the team will deescalte in a day or so
[2019-03-05] MEDS: FEBUXOSTAT 40 MG TAB PO SCH (11:00)
[2019-03-05 11:15] LABS: ANISOCYTOSIS 0; MACROCYTOSIS 0; PLATELET ESTIMATE NORMAL
[2019-03-05] MEDS: ATORVASTATIN CA 10 MG TABLET (FP) PO SCH (21:44)
[2019-03-05] MEDS: oxyCODONE HCL 5 MG TABLET PO PRN (21:44)
[2019-03-05] MEDS: SODIUM CHLORIDE NASAL SPRAY 44 ML BOTTLE NS SCH (21:46)
[2019-03-06] MEDS ORDERED: diphenhydrAMINE HCL 25 MG CAPSULE (FP) PO ONE (00:02)
[2019-03-06] MEDS ORDERED: PIPERACILLIN/TAZOBACTAM 3.375 GM VIAL IVPB ONE ×3 (01:04→17:28)
[2019-03-06] MEDS ORDERED: DEXTROSE 5%-WATER - 50 ML IVPB ONE ×3 (01:04→17:28)
[2019-03-06] MEDS ORDERED: diphenhydrAMINE HCL 12.5 MG/5 ML UNIT-DOSE CUPS PO ONE (01:15)
[2019-03-06] MEDS: PIPERACILLIN/TAZOB 3.375 GM 3.375 GM in DEXTROSE 5%-WATER - 50 ML IVPB SCH ×3 (01:22→17:46)
[2019-03-06] MEDS: HEPARIN NA (PORCINE) 5,000 UNITS/ML 1ML VIAL SQ SCH ×3 (06:05→21:52)
[2019-03-06] MEDS: LEVOTHYROXINE NA 50 MCG TABLET (FP) PO SCH (06:05)
--- NOTE | 2019-03-06 08:18 | PN ---
Progress Note, Physician Chief Complaint: Feels much better. Rash is improved. History of Present Illness: 68 F with h/o childhood polio, paraplegia, HTN, HLD, hypothyroid, anemia. Initially admitted to [facility] and treated for cellulitis of her lower extremity and on 02/28 in the evening developed sudden respiratory failure which prompted intubation and transfer to [facility] to be managed in the ICU. CT of chest was performed and showed bilateral pneumonia with pleural effusions. Patient with copious secretions through ET tube. Treating broadly with Zosyn and vancomycin, blood cultures, tracheal aspirate cultures sent. Chemistry showed worsening of transaminitis, lactic acidosis which improved after antibiotic administration. - Current Medication List Current Medications: Active Medications Acetaminophen (Tylenol -) 650 mg PO Q6H PRN PRN Reason: PAIN LEVEL 1 - 3 Last Admin: 03/04/19 02:00 Dose: 650 mg Acetaminophen (Ofirmev Injection -) 1,000 mg IVPB Q6H PRN PRN Reason: PAIN 4-6 Atenolol (Tenormin -) 100 mg PO DAILY [facility] Last Admin: 03/05/19 09:34 Dose: 100 mg Atorvastatin Calcium (Lipitor -) 10 mg PO HS [facility] Last Admin: 03/05/19 21:44 Dose: 10 mg Ezetimibe (Zetia -) 10 mg PO DAILY [facility] Last Admin: 03/05/19 09:33 Dose: 10 mg Escitalopram Oxalate (Lexapro -) 10 mg PO DAILY [facility] Last Admin: 03/05/19 09:34 Dose: 10 mg Febuxostat (Uloric -) 40 mg PO DAILY [facility] Last Admin: 03/05/19 11:00 Dose: 40 mg Ferrous Sulfate (Feosol -) 325 mg PO DAILY [facility] Last Admin: 03/05/19 09:33 Dose: 325 mg Guaifenesin (Robitussin Dm -) 10 ml PO Q8H PRN PRN Reason: COUGH Heparin Sodium (Porcine) (Heparin -) 5,000 unit SQ TID [facility] Last Admin: 03/06/19 06:05 Dose: 5,000 unit Hydrocortisone (Hytone 0.5% Cream -) 1 applic TP TID PRN PRN Reason: FOR ITCHING Piperacillin Sod/Tazobactam (Sod 3.375 gm/ Dextrose) 50 mls @ 100 mls/hr IVPB Q8H-IV [facility]; Protocol Last Admin: 03/06/19 01:22 Dose: 100 mls/hr Levothyroxine Sodium (Synthroid -) 50 mcg PO DAILY@0700 [facility] Last Admin: 03/06/19 06:05 Dose: 50 mcg Oxybutynin Chloride (Ditropan -) 5 mg PO DAILY [facility] Last Admin: 03/05/19 09:34 Dose: 5 mg Oxycodone HCl (Roxicodone -) 5 mg PO BID PRN PRN Reason: PAIN LEVEL 7-10 Last Admin: 03/05/19 21:44 Dose: 5 mg Pantoprazole Sodium (Protonix -) 20 mg PO DAILY [facility] Last Admin: 03/05/19 09:35 Dose: 20 mg Phenol/Menthol (Chloraseptic -) 1 spray MM Q6HPO PRN PRN Reason: SORE THROAT Potassium Chloride (K-Dur -) 20 meq PO DAILY [facility] Last Admin: 03/05/19 09:34 Dose: 20 meq Sodium Chloride ([place] Nasal [place] -) 1 spray NS BID [facility] Last Admin: 03/05/19 21:46 Dose: 1 spray - Objective Vital Signs: Vital Signs Temperature 98.4 F 03/06/19 05:38 Pulse Rate 64 03/06/19 05:38 Respiratory Rate 20 03/06/19 05:38 Blood Pressure 154/64 03/06/19 05:38 O2 Sat by Pulse Oximetry (%) 98 03/05/19 22:00 Additional Findings/Remarks: Constitutional: Yes: Well Nourished, No Distress, Calm Eyes: Yes: WNL, Conjunctiva Clear HENT: Yes: WNL, Atraumatic, Normocephalic Neck: Yes: WNL, Supple, Trachea Midline Cardiovascular: Yes: WNL, Regular Rate and Rhythm Respiratory: Yes: Regular, Diminished (at bases) Gastrointestinal: Yes: WNL, Normal Bowel Sounds ...Rectal Exam: Yes: Deferred Genitourinary: Yes: WNL Breast(s): Yes: WNL Musculoskeletal: Yes: WNL Extremities: Yes: Erythema, Other (cellulitus to RLE) Edema: Yes Edema: LUE: 1+, RUE: 1+, LLE: 3+, RLE: 4+ Peripheral Pulses WNL: No Peripheral Pulses: Left Radial: 2+, Right Radial: 2+, Left Doralis Pedis: 1+, Right Dorsalis Pedis: 1+, Left Femoral: 2+, Right Femoral: 2+ Wound/Incision: Yes: Other (RLE weeping ulcerations + BL cellulitis skin changes ) Neurological: Yes: WNL, Alert, Oriented ...Motor Strength: WNL Psychiatric: Yes: WNL Labs: CBC, BMP 03/05/19 07:46 03/05/19 07:46 INR, PTT INR 0.95 (0.83-1.09) 03/01/19 06:30 Problem List - Problems (1) Prophylactic measure Assessment/Plan: FEN tolerating regular diet monitor electrolytes adequate PO intake DVT heparin sq Dispo maintain as in patient full code discharge planning Code(s): Z29.9 - ENCOUNTER FOR PROPHYLACTIC MEASURES, UNSPECIFIED (2) Cellulitis Assessment/Plan: c/w abx zosyn ID following will start to de-escelate Code(s): L03.90 - CELLULITIS, UNSPECIFIED (3) Depression Assessment/Plan: c/w lexapro supportive care Dr Vicki tran Code(s): F32.9 - MAJOR DEPRESSIVE DISORDER, SINGLE EPISODE, UNSPECIFIED (4) Hypothyroidism Assessment/Plan: c/w synthroid Code(s): E03.9 - HYPOTHYROIDISM, UNSPECIFIED (5) Overactive bladder Assessment/Plan: c/w oxybutin Code(s): N32.81 - OVERACTIVE BLADDER (6) HLD (hyperlipidemia) Assessment/Plan: c/w atorvastatin and zetia Code(s): E78.5 - HYPERLIPIDEMIA, UNSPECIFIED (7) HTN (hypertension) Assessment/Plan: normotensive c./w tenormin Code(s): I10 - ESSENTIAL (PRIMARY) HYPERTENSION (8) Anemia, chronic disease Assessment/Plan: H/H stable 12/10 continue to monitor Code(s): D63.8 - ANEMIA IN OTHER CHRONIC DISEASES CLASSIFIED ELSEWHERE (9) Acute respiratory failure requiring reintubation Assessment/Plan: maintain on NC respiratory failure resolved Code(s): J96.00 - ACUTE RESPIRATORY FAILURE, UNSP W HYPOXIA OR HYPERCAPNIA (10) Polio Assessment/Plan: c/w PT pt has compression sleeves that she wears at home-advised her not to use while there is open areas on LE Code(s): A80.9 - ACUTE POLIOMYELITIS, UNSPECIFIED (11) Functional quadriplegia Assessment/Plan: secondary to polio supportive care PT Code(s): R53.2 - FUNCTIONAL QUADRIPLEGIA Visit type - Emergency Visit Emergency Visit: Yes ED Registration Date: 02/26/19 Care time: The patient presented to the Emergency Department on the above date and was hospitalized for further evaluation of their emergent condition. - New Patient This patient is new to me today: No - Critical Care Critical Care patient: No - Discharge Referral Referred to [facility] Med P.C.: No
[2019-03-06 08:32] LABS: BASO % 0.6 % (0-2.0); EOS % 5.5 % (0-4.5); HEMATOCRIT 27.7 % (32.4-45.2); HEMOGLOBIN 8.9 GM/dL (10.7-15.3); LYMPH % 20.4 % (8-40); MCHC 32.2 g/dl (32.0-36.0); MEAN CELL VOLUME 87.1 fl (80-96); MONO % 6.9 % (3.8-10.2); NEUT % 66.6 % (42.8-82.8); PLATELET COUNT 259 K/MM3 (134-434); RBC 3.19 M/mm3 (3.60-5.2); RDW 15.4 % (11.6-15.6)
[2019-03-06] MEDS ORDERED: PT OWN MED DRAWER 7, Y5N ONE ×2 (09:38→22:13)
[2019-03-06] MEDS: PANTOPRAZOLE 20 MG TABLET (FP) PO SCH (09:46)
[2019-03-06] MEDS: ESCITALOPRAM OXALATE 10 MG TABLET (FP) PO SCH (09:46)
[2019-03-06] MEDS: EZETIMIBE 10 MG TABLET (FP) PO SCH (09:46)
[2019-03-06] MEDS: FERROUS SO4 325 MG TABLET (FP) PO SCH (09:46)
[2019-03-06] MEDS: OXYBUTYNIN CHLORIDE 5 MG TABLET PO SCH (09:46)
[2019-03-06] MEDS: POTASSIUM CHLORIDE TABS 20 MEQ TABLET.ER (FP) PO SCH (09:46)
[2019-03-06] MEDS: ATENOLOL 50 MG TABLET (FP) PO SCH (09:46)
[2019-03-06] MEDS: FEBUXOSTAT 40 MG TAB PO SCH (09:47)
[2019-03-06] MEDS: SODIUM CHLORIDE NASAL SPRAY 44 ML BOTTLE NS SCH ×2 (09:49→21:53)
[2019-03-06 09:51] LABS: ANISOCYTOSIS 3+; MACROCYTOSIS 0; PLATELET ESTIMATE NORMAL
[2019-03-06 10:00] LABS: ALBUMIN 2.2 g/dl (3.4-5.0); BILIRUBIN,TOTAL 0.3 mg/dL (0.2-1); CALCIUM 9.1 mg/dL (8.5-10.1); CREATININE 0.7 mg/dL (0.55-1.3); MAGNESIUM 1.8 mg/dL (1.8-2.4); POTASSIUM 4.9 mmol/L (3.5-5.1); TOT PROT 5.7 g/dl (6.4-8.2)
[2019-03-06] MEDS: diphenhydrAMINE HCL 25 MG CAPSULE (FP) PO PRN (11:44)
--- NOTE | 2019-03-06 17:56 | PN ---
Progress Note, Physician History of Present Illness: Pt is doing well, stating she feels better. No new complaints. - Current Medication List Current Medications: Active Medications Acetaminophen (Tylenol -) 650 mg PO Q6H PRN PRN Reason: PAIN LEVEL 1 - 3 Last Admin: 03/04/19 02:00 Dose: 650 mg Acetaminophen (Ofirmev Injection -) 1,000 mg IVPB Q6H PRN PRN Reason: PAIN 4-6 Atenolol (Tenormin -) 100 mg PO DAILY [facility] Last Admin: 03/06/19 09:46 Dose: 100 mg Atorvastatin Calcium (Lipitor -) 10 mg PO HS [facility] Last Admin: 03/05/19 21:44 Dose: 10 mg Diphenhydramine HCl (Benadryl -) 25 mg PO Q6H PRN PRN Reason: FOR ITCHING Last Admin: 03/06/19 11:44 Dose: 25 mg Ezetimibe (Zetia -) 10 mg PO DAILY [facility] Last Admin: 03/06/19 09:46 Dose: 10 mg Escitalopram Oxalate (Lexapro -) 10 mg PO DAILY [facility] Last Admin: 03/06/19 09:46 Dose: 10 mg Febuxostat (Uloric -) 40 mg PO DAILY [facility] Last Admin: 03/06/19 09:47 Dose: 40 mg Ferrous Sulfate (Feosol -) 325 mg PO DAILY [facility] Last Admin: 03/06/19 09:46 Dose: 325 mg Guaifenesin (Robitussin Dm -) 10 ml PO Q8H PRN PRN Reason: COUGH Heparin Sodium (Porcine) (Heparin -) 5,000 unit SQ TID [facility] Last Admin: 03/06/19 13:41 Dose: 5,000 unit Hydrocortisone (Hytone 0.5% Cream -) 1 applic TP TID PRN PRN Reason: FOR ITCHING Piperacillin Sod/Tazobactam (Sod 3.375 gm/ Dextrose) 50 mls @ 100 mls/hr IVPB Q8H-IV [facility]; Protocol Last Admin: 03/06/19 17:46 Dose: 100 mls/hr Levothyroxine Sodium (Synthroid -) 50 mcg PO DAILY@0700 [facility] Last Admin: 03/06/19 06:05 Dose: 50 mcg Oxybutynin Chloride (Ditropan -) 5 mg PO DAILY [facility] Last Admin: 03/06/19 09:46 Dose: 5 mg Oxycodone HCl (Roxicodone -) 5 mg PO BID PRN PRN Reason: PAIN LEVEL 7-10 Last Admin: 03/05/19 21:44 Dose: 5 mg Pantoprazole Sodium (Protonix -) 20 mg PO DAILY [facility] Last Admin: 03/06/19 09:46 Dose: 20 mg Phenol/Menthol (Chloraseptic -) 1 spray MM Q6HPO PRN PRN Reason: SORE THROAT Potassium Chloride (K-Dur -) 20 meq PO DAILY [facility] Last Admin: 03/06/19 09:46 Dose: 20 meq Sodium Chloride ([place] Nasal [place] -) 1 spray NS BID [facility] Last Admin: 03/06/19 09:49 Dose: 1 spray - Objective Vital Signs: Vital Signs Temperature 97.4 F L 03/06/19 14:00 Pulse Rate 59 L 03/06/19 14:00 Respiratory Rate 20 03/06/19 14:00 Blood Pressure 101/44 L 03/06/19 14:00 O2 Sat by Pulse Oximetry (%) 98 03/06/19 10:00 Constitutional: Yes: No Distress, Calm Cardiovascular: Yes: Regular Rate and Rhythm Respiratory: Yes: Diminished (slight at bases), On Nasal O2 Gastrointestinal: Yes: Normal Bowel Sounds, Soft Extremities: Yes: Erythema (b/l erythema, mild warmth) Wound/Incision: Yes: Dressing Dry and Intact Labs: CBC, BMP 03/06/19 07:09 03/06/19 07:09 INR, PTT INR 0.95 (0.83-1.09) 03/01/19 06:30 Microbiology 02/28/19 23:45 Blood - Peripheral Venous Blood Culture - Final NO GROWTH AFTER 5 DAYS INCUBATION 02/28/19 23:30 Blood - Peripheral Venous Blood Culture - Final NO GROWTH AFTER 5 DAYS INCUBATION 02/26/19 16:00 Blood - Peripheral Venous Blood Culture - Final NO GROWTH AFTER 5 DAYS INCUBATION 02/26/19 15:45 Blood - Peripheral Venous Blood Culture - Final NO GROWTH AFTER 5 DAYS INCUBATION 03/01/19 00:05 Sputum - Endotrachea Suction/Ventilator Gram Stain - Final 03/01/19 00:05 Sputum - Endotrachea Suction/Ventilator Sputum Culture - Final NORMAL RESPIRATORY ESTELITA 02/28/19 20:36 Urine - Urine Morrow Urine Culture - Final NO GROWTH OBTAINED 02/28/19 23:47 Urine For Antigen Detection Legionella Antigen - Final 02/28/19 23:47 Urine For Antigen Detection Streptococcus pneumoniae Antigen (M - Final 02/26/19 14:50 Urine - Urine - Catheterized Urine Culture - Final NO GROWTH OBTAINED Problem List - Problems (1) Acute respiratory failure requiring reintubation Code(s): J96.00 - ACUTE RESPIRATORY FAILURE, UNSP W HYPOXIA OR HYPERCAPNIA (2) Anemia, chronic disease Code(s): D63.8 - ANEMIA IN OTHER CHRONIC DISEASES CLASSIFIED ELSEWHERE (3) Cellulitis Code(s): L03.90 - CELLULITIS, UNSPECIFIED (4) Depression Code(s): F32.9 - MAJOR DEPRESSIVE DISORDER, SINGLE EPISODE, UNSPECIFIED (5) HLD (hyperlipidemia) Code(s): E78.5 - HYPERLIPIDEMIA, UNSPECIFIED (6) HTN (hypertension) Code(s): I10 - ESSENTIAL (PRIMARY) HYPERTENSION (7) Hypothyroidism Code(s): E03.9 - HYPOTHYROIDISM, UNSPECIFIED Assessment/Plan Acute hypoxic respiratory failure - s/p extubation Pulmonary Edema/Possible PNA LE cellulitis LE lymphedema Hx of Polio HTN hypothyroidism -- Pt clinically improving -- continue antibiotics -- continue wound care
[2019-03-06] MEDS: ATORVASTATIN CA 10 MG TABLET (FP) PO SCH (21:53)
[2019-03-07] MEDS ORDERED: PIPERACILLIN/TAZOBACTAM 3.375 GM VIAL IVPB ONE ×3 (01:29→17:13)
[2019-03-07] MEDS ORDERED: DEXTROSE 5%-WATER - 50 ML IVPB ONE ×3 (01:29→17:13)
[2019-03-07] MEDS: PIPERACILLIN/TAZOB 3.375 GM 3.375 GM in DEXTROSE 5%-WATER - 50 ML IVPB SCH ×3 (01:31→17:21)
[2019-03-07] MEDS: HEPARIN NA (PORCINE) 5,000 UNITS/ML 1ML VIAL SQ SCH ×3 (06:17→21:54)
[2019-03-07] MEDS: LEVOTHYROXINE NA 50 MCG TABLET (FP) PO SCH (06:17)
[2019-03-07 08:15] LABS: BASO % 0.7 % (0-2.0); EOS % 5.4 % (0-4.5); HEMOGLOBIN 9.4 GM/dL (10.7-15.3); LYMPH % 21.3 % (8-40); MCH 28.2 pg (25.7-33.7); MCHC 32.5 g/dl (32.0-36.0); MEAN CELL VOLUME 86.7 fl (80-96); MONO % 6.3 % (3.8-10.2); NEUT % 66.3 % (42.8-82.8); PLATELET COUNT 267 K/MM3 (134-434); RBC 3.34 M/mm3 (3.60-5.2); RDW 15.8 % (11.6-15.6)
[2019-03-07 09:28] LABS: ALBUMIN 2.2 g/dl (3.4-5.0); BILIRUBIN,TOTAL 0.3 mg/dL (0.2-1); BLOOD UREA NITROGEN 24.5 mg/dL (7-18); CALCIUM 9.6 mg/dL (8.5-10.1); CREATININE 0.7 mg/dL (0.55-1.3); MAGNESIUM 1.7 mg/dL (1.8-2.4); POTASSIUM 5.1 mmol/L (3.5-5.1); TOT PROT 6.1 g/dl (6.4-8.2)
[2019-03-07] MEDS: POTASSIUM CHLORIDE TABS 20 MEQ TABLET.ER (FP) PO SCH (09:35)
[2019-03-07] MEDS: OXYBUTYNIN CHLORIDE 5 MG TABLET PO SCH (09:35)
[2019-03-07] MEDS: ESCITALOPRAM OXALATE 10 MG TABLET (FP) PO SCH (09:35)
[2019-03-07] MEDS: FERROUS SO4 325 MG TABLET (FP) PO SCH (09:35)
[2019-03-07] MEDS: ATENOLOL 50 MG TABLET (FP) PO SCH (09:36)
[2019-03-07] MEDS: FEBUXOSTAT 40 MG TAB PO SCH (09:36)
[2019-03-07] MEDS: PANTOPRAZOLE 20 MG TABLET (FP) PO SCH (09:36)
[2019-03-07] MEDS: SODIUM CHLORIDE NASAL SPRAY 44 ML BOTTLE NS SCH ×2 (09:37→21:57)
[2019-03-07] MEDS: EZETIMIBE 10 MG TABLET (FP) PO SCH (09:37)
[2019-03-07] MEDS: HYDROCORTISONE 0.5% TOPICAL CREAM 30 GM TUBE TP PRN (09:47)
[2019-03-07 10:35] LABS: ANISOCYTOSIS 1+; MACROCYTOSIS 0; PLATELET ESTIMATE NORMAL
[2019-03-07 12:20] VITALS: BMI 34.2
--- NOTE | 2019-03-07 12:27 | PN ---
Physical Exam: SUBJECTIVE: Patient seen and examined at the bedside. eating lunch. feels well. no shortness of breath or pain OBJECTIVE: Patient is a 68 F with h/o childhood polio, paraplegia, HTN, HLD, hypothyroid, anemia. Initially admitted to [facility] and treated for cellulitis of her lower right extremity and on 02/28 in the evening developed sudden respiratory failure which prompted intubation and transfer to [facility] to be managed in the ICU. CT of chest was performed and showed bilateral pneumonia with pleural effusions. Vital Signs Period Temp Pulse Resp BP Sys/Kumar Pulse Ox Last 24 Hr 97.4 F-98.6 F 55-71 18-20 101-141/44-88 96-96 GENERAL: The patient is awake, alert, and fully oriented, in no acute distress. HEAD: Normal with no signs of trauma. EYES: PERRL, extraocular movements intact, sclera anicteric, conjunctiva clear. No ptosis. ENT: Ears normal, nares patent, oropharynx clear without exudates, moist mucous membranes. NECK: Trachea midline, full range of motion, supple. LUNGS: diminished bilaterally, on 2 liters of nasal cannula. HEART: Regular rate and rhythm ABDOMEN: Soft, nontender, nondistended, normoactive bowel sounds, no guarding, no rebound, no hepatosplenomegaly, no masses. EXTREMITIES: right lower leg cellulitis NEUROLOGICAL: Normal speech PSYCH: Normal mood, normal affect. Laboratory Results - last 24 hr 03/07/19 03/07/19 07:20 07:20 WBC 8.0 RBC 3.34 L Hgb 9.4 L Hct 29.0 L MCV 86.7 MCH 28.2 MCHC 32.5 RDW 15.8 H Plt Count 267 MPV 8.0 Absolute Neuts (auto) 5.3 Neutrophils % 66.3 Neutrophils % (Manual) 66.7 Band Neutrophils % 0.0 Lymphocytes % 21.3 Lymphocytes % (Manual) 20.6 Monocytes % 6.3 Monocytes % (Manual) 4 Eosinophils % 5.4 H Eosinophils % (Manual) 1.9 Basophils % 0.7 Basophils % (Manual) 1.0 Myelocytes % (Man) 1 D Promyelocytes % (Man) 0 Blast Cells % (Manual) 0 Nucleated RBC % 0 Metamyelocytes 1 Hypochromia 0 Platelet Estimate Normal Polychromasia 1+ Poikilocytosis 1+ Basophilic Stippling 1+ Anisocytosis 1+ Microcytosis 1+ Macrocytosis 0 Stomatocytes 1+ Sodium 141 Potassium 5.1 Chloride 106 Carbon Dioxide 29 Anion Gap 7 L BUN 24.5 H Creatinine 0.7 Est GFR (CKD-EPI)AfAm 101.74 Est GFR (CKD-EPI)NonAf 87.78 Random Glucose 90 Calcium 9.6 Magnesium 1.7 L Total Bilirubin 0.3 AST 21 ALT 22 Alkaline Phosphatase 112 Total Protein 6.1 L Albumin 2.2 L Active Medications Generic Name Dose Route Start Last Admin Trade Name Freq PRN Reason Stop Dose Admin Acetaminophen 650 mg 03/02/19 15:31 03/04/19 02:00 Tylenol - PO 650 mg Q6H PRN Administration PAIN LEVEL 1 - 3 Acetaminophen 1,000 mg 03/02/19 15:31 Ofirmev Injection - IVPB Q6H PRN PAIN 4-6 Atenolol 100 mg 03/03/19 10:00 03/07/19 09:36 Tenormin - PO 100 mg DAILY GISELLE Administration Atorvastatin Calcium 10 mg 03/02/19 22:00 03/06/19 21:53 Lipitor - PO 10 mg HS GISELLE Administration Diphenhydramine HCl 25 mg 03/06/19 11:35 03/06/19 11:44 Benadryl - PO 25 mg Q6H PRN Administration FOR ITCHING Ezetimibe 10 mg 03/03/19 10:00 03/07/19 09:37 Zetia - PO 10 mg DAILY GISELLE Administration Escitalopram Oxalate 10 mg 03/03/19 10:00 03/07/19 09:35 Lexapro - PO 10 mg DAILY GISELLE Administration Febuxostat 40 mg 03/03/19 10:00 03/07/19 09:36 Uloric - PO 40 mg DAILY GISELLE Administration Ferrous Sulfate 325 mg 03/03/19 10:00 03/07/19 09:35 Feosol - PO 325 mg DAILY GISELLE Administration Guaifenesin 10 ml 03/02/19 15:31 Robitussin Dm - PO Q8H PRN COUGH Heparin Sodium (Porcine) 5,000 unit 03/02/19 22:00 03/07/19 06:17 Heparin - SQ 5,000 unit TID GISELLE Administration Hydrocortisone 1 applic 03/04/19 10:54 03/07/19 09:47 Hytone 0.5% Cream - TP 1 applic TID PRN Administration FOR ITCHING Piperacillin Sod/Tazobactam 50 mls @ 100 mls/hr 03/02/19 18:00 03/07/19 09:37 Sod 3.375 gm/ Dextrose IVPB 100 mls/hr Q8H-IV GISELLE Administration Protocol Levothyroxine Sodium 50 mcg 03/03/19 07:00 03/07/19 06:17 Synthroid - PO 50 mcg DAILY@0700 GISELLE Administration Oxybutynin Chloride 5 mg 03/03/19 10:00 03/07/19 09:35 Ditropan - PO 5 mg DAILY GISELLE Administration Pantoprazole Sodium 20 mg 03/03/19 10:00 03/07/19 09:36 Protonix - PO 20 mg DAILY GISELLE Administration Phenol/Menthol 1 spray 03/02/19 15:31 Chloraseptic - MM Q6HPO PRN SORE THROAT Potassium Chloride 20 meq 03/03/19 10:00 03/07/19 09:35 K-Dur - PO 20 meq DAILY GISELLE Administration Sodium Chloride 1 spray 03/05/19 22:00 03/07/19 09:37 [place] Nasal [place] - NS 1 spray BID GISELLE Administration ASSESSMENT/PLAN: Problem List - Problems (1) Acute respiratory failure requiring reintubation Assessment/Plan: required intubation and transfer from [facility] after patient had acute respiratory failure possible pneumonia/bilaterally cta negative for PE on zosyn id following Code(s): J96.00 - ACUTE RESPIRATORY FAILURE, UNSP W HYPOXIA OR HYPERCAPNIA (2) Pneumonia Code(s): J18.9 - PNEUMONIA, UNSPECIFIED ORGANISM (3) Anemia, chronic disease Assessment/Plan: monitor hmg/hct Code(s): D63.8 - ANEMIA IN OTHER CHRONIC DISEASES CLASSIFIED ELSEWHERE (4) Cellulitis Assessment/Plan: right lower ext cellulitis on zosyn Code(s): L03.90 - CELLULITIS, UNSPECIFIED (5) Functional quadriplegia Assessment/Plan: bed bound turn and position Code(s): R53.2 - FUNCTIONAL QUADRIPLEGIA (6) HLD (hyperlipidemia) Assessment/Plan: cont home meds Code(s): E78.5 - HYPERLIPIDEMIA, UNSPECIFIED (7) HTN (hypertension) Code(s): I10 - ESSENTIAL (PRIMARY) HYPERTENSION (8) Hypothyroidism Code(s): E03.9 - HYPOTHYROIDISM, UNSPECIFIED (9) Prophylactic measure Assessment/Plan: FEN tolerating regular diet monitor electrolytes adequate PO intake DVT heparin sq Dispo maintain as in patient full code Code(s): Z29.9 - ENCOUNTER FOR PROPHYLACTIC MEASURES, UNSPECIFIED Visit type - Emergency Visit Emergency Visit: Yes ED Registration Date: 02/26/19 Care time: The patient presented to the Emergency Department on the above date and was hospitalized for further evaluation of their emergent condition. - New Patient This patient is new to me today: Yes Date on this admission: 03/07/19 - Critical Care Critical Care patient: No - Discharge Referral Referred to [facility] Med [facility] No
--- NOTE | 2019-03-07 13:58 | PN ---
Progress Note, Physician History of Present Illness: stable doing well - Current Medication List Current Medications: Active Medications Acetaminophen (Tylenol -) 650 mg PO Q6H PRN PRN Reason: PAIN LEVEL 1 - 3 Last Admin: 03/04/19 02:00 Dose: 650 mg Acetaminophen (Ofirmev Injection -) 1,000 mg IVPB Q6H PRN PRN Reason: PAIN 4-6 Atenolol (Tenormin -) 100 mg PO DAILY [facility] Last Admin: 03/07/19 09:36 Dose: 100 mg Atorvastatin Calcium (Lipitor -) 10 mg PO HS [facility] Last Admin: 03/06/19 21:53 Dose: 10 mg Diphenhydramine HCl (Benadryl -) 25 mg PO Q6H PRN PRN Reason: FOR ITCHING Last Admin: 03/06/19 11:44 Dose: 25 mg Ezetimibe (Zetia -) 10 mg PO DAILY [facility] Last Admin: 03/07/19 09:37 Dose: 10 mg Escitalopram Oxalate (Lexapro -) 10 mg PO DAILY [facility] Last Admin: 03/07/19 09:35 Dose: 10 mg Febuxostat (Uloric -) 40 mg PO DAILY [facility] Last Admin: 03/07/19 09:36 Dose: 40 mg Ferrous Sulfate (Feosol -) 325 mg PO DAILY [facility] Last Admin: 03/07/19 09:35 Dose: 325 mg Guaifenesin (Robitussin Dm -) 10 ml PO Q8H PRN PRN Reason: COUGH Heparin Sodium (Porcine) (Heparin -) 5,000 unit SQ TID [facility] Last Admin: 03/07/19 06:17 Dose: 5,000 unit Hydrocortisone (Hytone 0.5% Cream -) 1 applic TP TID PRN PRN Reason: FOR ITCHING Last Admin: 03/07/19 09:47 Dose: 1 applic Piperacillin Sod/Tazobactam (Sod 3.375 gm/ Dextrose) 50 mls @ 100 mls/hr IVPB Q8H-IV GISELLE; Protocol Last Admin: 03/07/19 09:37 Dose: 100 mls/hr Levothyroxine Sodium (Synthroid -) 50 mcg PO DAILY@0700 [facility] Last Admin: 03/07/19 06:17 Dose: 50 mcg Oxybutynin Chloride (Ditropan -) 5 mg PO DAILY [facility] Last Admin: 03/07/19 09:35 Dose: 5 mg Pantoprazole Sodium (Protonix -) 20 mg PO DAILY [facility] Last Admin: 03/07/19 09:36 Dose: 20 mg Phenol/Menthol (Chloraseptic -) 1 spray MM Q6HPO PRN PRN Reason: SORE THROAT Potassium Chloride (K-Dur -) 20 meq PO DAILY [facility] Last Admin: 03/07/19 09:35 Dose: 20 meq Sodium Chloride ([place] Nasal [place] -) 1 spray NS BID [facility] Last Admin: 03/07/19 09:37 Dose: 1 spray - Objective Vital Signs: Vital Signs Temperature 98.2 F 03/07/19 08:50 Pulse Rate 62 03/07/19 08:50 Respiratory Rate 20 03/07/19 08:50 Blood Pressure 141/88 03/07/19 08:50 O2 Sat by Pulse Oximetry (%) 96 03/07/19 10:00 Constitutional: Yes: No Distress, Calm Cardiovascular: Yes: S1, S2 Respiratory: Yes: Regular, CTA Bilaterally Gastrointestinal: Yes: Normal Bowel Sounds, Soft Genitourinary: Yes: Other Musculoskeletal: Yes: Other Extremities: Yes: Erythema (improved) Integumentary: Yes: Erythema (improving) Neurological: Yes: Alert, Oriented Labs: CBC, BMP 03/07/19 07:20 03/07/19 07:20 INR, PTT INR 0.95 (0.83-1.09) 03/01/19 06:30 Assessment/Plan 68 F with h/o childhood polio, paraplegia, HTN, HLD, hypothyroid, anemia admitted for [facility] - Problems (1) Acute respiratory failure requiring reintubation Code(s): J96.00 - ACUTE RESPIRATORY FAILURE, UNSP W HYPOXIA OR HYPERCAPNIA (2) Anemia, chronic disease Code(s): D63.8 - ANEMIA IN OTHER CHRONIC DISEASES CLASSIFIED ELSEWHERE (3) Cellulitis Code(s): L03.90 - CELLULITIS, UNSPECIFIED (4) Depression Code(s): F32.9 - MAJOR DEPRESSIVE DISORDER, SINGLE EPISODE, UNSPECIFIED (5) HLD (hyperlipidemia) Code(s): E78.5 - HYPERLIPIDEMIA, UNSPECIFIED (6) HTN (hypertension) Code(s): I10 - ESSENTIAL (PRIMARY) HYPERTENSION (7) Hypothyroidism Code(s): E03.9 - HYPOTHYROIDISM, UNSPECIFIED Assessment/Plan Acute hypoxic respiratory failure - s/p extubation Pulmonary Edema/Possible PNA LE cellulitis LE lymphedema Hx of Polio HTN hypothyroidism plan will look at the wound rest as per he team
[2019-03-07] MEDS: ATORVASTATIN CA 10 MG TABLET (FP) PO SCH (21:54)
[2019-03-07] MEDS: oxyCODONE HCL 5 MG TABLET PO PRN (21:55)
[2019-03-08] MEDS ORDERED: PIPERACILLIN/TAZOBACTAM 3.375 GM VIAL IVPB ONE ×3 (01:36→17:36)
[2019-03-08] MEDS ORDERED: DEXTROSE 5%-WATER - 50 ML IVPB ONE ×3 (01:37→17:36)
[2019-03-08] MEDS: diphenhydrAMINE HCL 25 MG CAPSULE (FP) PO PRN (01:39)
[2019-03-08] MEDS: PIPERACILLIN/TAZOB 3.375 GM 3.375 GM in DEXTROSE 5%-WATER - 50 ML IVPB SCH ×3 (01:39→17:40)
[2019-03-08] MEDS: LEVOTHYROXINE NA 50 MCG TABLET (FP) PO SCH (06:22)
[2019-03-08] MEDS: HEPARIN NA (PORCINE) 5,000 UNITS/ML 1ML VIAL SQ SCH ×3 (06:22→22:26)
[2019-03-08 07:37] LABS: BASO % 0.8 % (0-2.0); HEMATOCRIT 29.2 % (32.4-45.2); HEMOGLOBIN 9.4 GM/dL (10.7-15.3); LYMPH % 20.5 % (8-40); MCH 27.9 pg (25.7-33.7); MEAN PLT VOLUME 8.1 fl (7.5-11.1); NEUT % 69.7 % (42.8-82.8); PLATELET COUNT 265 K/MM3 (134-434); RBC 3.36 M/mm3 (3.60-5.2); RDW 16.1 % (11.6-15.6); WHITE BLOOD COUNT 9.2 K/mm3 (4.0-10.0)
[2019-03-08 08:07] LABS: ALBUMIN 2.2 g/dl (3.4-5.0); BILIRUBIN,TOTAL 0.3 mg/dL (0.2-1); BLOOD UREA NITROGEN 27.7 mg/dL (7-18); CALCIUM 9.4 mg/dL (8.5-10.1); CREATININE 0.6 mg/dL (0.55-1.3); MAGNESIUM 1.8 mg/dL (1.8-2.4); POTASSIUM 4.9 mmol/L (3.5-5.1)
[2019-03-08 10:20] LABS: ANISOCYTOSIS 1+; MACROCYTOSIS 0; PLATELET ESTIMATE NORMAL
[2019-03-08] MEDS ORDERED: PT OWN MED DRAWER 7, Y5N ONE (10:39)
[2019-03-08] MEDS: FEBUXOSTAT 40 MG TAB PO SCH (10:44)
[2019-03-08] MEDS: ESCITALOPRAM OXALATE 10 MG TABLET (FP) PO SCH (10:44)
[2019-03-08] MEDS: FERROUS SO4 325 MG TABLET (FP) PO SCH (10:44)
[2019-03-08] MEDS: POTASSIUM CHLORIDE TABS 20 MEQ TABLET.ER (FP) PO SCH (10:44)
[2019-03-08] MEDS: PANTOPRAZOLE 20 MG TABLET (FP) PO SCH (10:44)
[2019-03-08] MEDS: OXYBUTYNIN CHLORIDE 5 MG TABLET PO SCH (10:44)
[2019-03-08] MEDS: ATENOLOL 50 MG TABLET (FP) PO SCH (10:44)
[2019-03-08] MEDS: EZETIMIBE 10 MG TABLET (FP) PO SCH (10:45)
[2019-03-08] MEDS: SODIUM CHLORIDE NASAL SPRAY 44 ML BOTTLE NS SCH ×2 (10:45→22:26)
--- NOTE | 2019-03-08 14:07 | PN ---
Progress Note, Physician History of Present Illness: stable no new issues - Current Medication List Current Medications: Active Medications Acetaminophen (Tylenol -) 650 mg PO Q6H PRN PRN Reason: PAIN LEVEL 1 - 3 Last Admin: 03/04/19 02:00 Dose: 650 mg Acetaminophen (Ofirmev Injection -) 1,000 mg IVPB Q6H PRN PRN Reason: PAIN 4-6 Atenolol (Tenormin -) 100 mg PO DAILY [facility] [place] Last Admin: 03/08/19 10:44 Dose: 100 mg Atorvastatin Calcium (Lipitor -) 10 mg PO HS [facility] Last Admin: 03/07/19 21:54 Dose: 10 mg Diphenhydramine HCl (Benadryl -) 25 mg PO Q6H PRN PRN Reason: FOR ITCHING Last Admin: 03/08/19 01:39 Dose: 25 mg Ezetimibe (Zetia -) 10 mg PO DAILY [facility] Last Admin: 03/08/19 10:45 Dose: 10 mg Escitalopram Oxalate (Lexapro -) 10 mg PO DAILY [facility] Last Admin: 03/08/19 10:44 Dose: 10 mg Febuxostat (Uloric -) 40 mg PO DAILY [facility] [place] Last Admin: 03/08/19 10:44 Dose: 40 mg Ferrous Sulfate (Feosol -) 325 mg PO DAILY [facility] [place] Last Admin: 03/08/19 10:44 Dose: 325 mg Guaifenesin (Robitussin Dm -) 10 ml PO Q8H PRN PRN Reason: COUGH Heparin Sodium (Porcine) (Heparin -) 5,000 unit SQ TID [facility] Last Admin: 03/08/19 06:22 Dose: 5,000 unit Hydrocortisone (Hytone 0.5% Cream -) 1 applic TP TID PRN PRN Reason: FOR ITCHING Last Admin: 03/07/19 09:47 Dose: 1 applic Piperacillin Sod/Tazobactam (Sod 3.375 gm/ Dextrose) 50 mls @ 100 mls/hr IVPB Q8H-IV GISELLE; Protocol Last Admin: 03/08/19 10:45 Dose: 100 mls/hr Levothyroxine Sodium (Synthroid -) 50 mcg PO DAILY@0700 [facility] [place] Last Admin: 03/08/19 06:22 Dose: 50 mcg Oxybutynin Chloride (Ditropan -) 5 mg PO DAILY [facility] Last Admin: 03/08/19 10:44 Dose: 5 mg Oxycodone HCl (Roxicodone -) 5 mg PO Q6H PRN PRN Reason: PAIN LEVEL 7 - 10 Last Admin: 03/07/19 21:55 Dose: 5 mg Pantoprazole Sodium (Protonix -) 20 mg PO DAILY [facility] [place] Last Admin: 03/08/19 10:44 Dose: 20 mg Phenol/Menthol (Chloraseptic -) 1 spray MM Q6HPO PRN PRN Reason: SORE THROAT Potassium Chloride (K-Dur -) 20 meq PO DAILY [facility] [place] Last Admin: 03/08/19 10:44 Dose: 20 meq Sodium Chloride ([place] Nasal [place] -) 1 spray NS BID [facility] Last Admin: 03/08/19 10:45 Dose: 1 spray - Objective Vital Signs: Vital Signs Temperature 98.5 F 03/08/19 06:00 Pulse Rate 67 03/08/19 06:00 Respiratory Rate 18 03/08/19 06:00 Blood Pressure 140/75 03/08/19 06:00 O2 Sat by Pulse Oximetry (%) 96 03/07/19 22:00 Constitutional: Yes: No Distress, Calm Cardiovascular: Yes: S1, S2 Respiratory: Yes: Regular, CTA Bilaterally Gastrointestinal: Yes: Normal Bowel Sounds, Soft Musculoskeletal: Yes: WNL Extremities: Yes: Erythema (improving), Other Neurological: Yes: Alert, Oriented Psychiatric: Yes: Alert, Oriented Labs: CBC, BMP 03/08/19 06:40 03/08/19 06:40 INR, PTT INR 0.95 (0.83-1.09) 03/01/19 06:30 Assessment/Plan 68 F with h/o childhood polio, paraplegia, HTN, HLD, hypothyroid, anemia admitted for [facility] - Problems (1) Acute respiratory failure requiring reintubation Code(s): J96.00 - ACUTE RESPIRATORY FAILURE, UNSP W HYPOXIA OR HYPERCAPNIA (2) Anemia, chronic disease Code(s): D63.8 - ANEMIA IN OTHER CHRONIC DISEASES CLASSIFIED ELSEWHERE (3) Cellulitis Code(s): L03.90 - CELLULITIS, UNSPECIFIED (4) Depression Code(s): F32.9 - MAJOR DEPRESSIVE DISORDER, SINGLE EPISODE, UNSPECIFIED (5) HLD (hyperlipidemia) Code(s): E78.5 - HYPERLIPIDEMIA, UNSPECIFIED (6) HTN (hypertension) Code(s): I10 - ESSENTIAL (PRIMARY) HYPERTENSION (7) Hypothyroidism Code(s): E03.9 - HYPOTHYROIDISM, UNSPECIFIED Assessment/Plan Acute hypoxic respiratory failure - s/p extubation Pulmonary Edema/Possible PNA LE cellulitis LE lymphedema Hx of Polio HTN hypothyroidism plan continue current mgmt will deescalte in a day or so to oral
--- NOTE | 2019-03-08 16:31 | PN ---
Physical Exam: SUBJECTIVE: Patient seen and examined at the bedside. in no acute distress. feels well. was able to get out of bed with PT today. at home she has a motorized wheel chair. OBJECTIVE: Patient is a 68 F with h/o childhood polio, paraplegia, HTN, HLD, hypothyroid, anemia. Initially admitted to [facility] and treated for cellulitis of her lower right extremity and on 02/28 in the evening developed sudden respiratory failure which prompted intubation and transfer to [facility] to be managed in the ICU. She was extubated 03/01/19 and transitioned to high flow now on nasal cannula. She is currently tolerating room air with stable oxygen saturations. CT of chest was performed and showed bilateral pneumonia with pleural effusions. Vital Signs Period Temp Pulse Resp BP Sys/Kumar Pulse Ox Last 24 Hr 97.3 F-98.5 F 65-67 18-20 110-140/45-75 96-98 GENERAL: The patient is awake, alert, and fully oriented, in no acute distress. HEAD: Normal with no signs of trauma. EYES: PERRL, extraocular movements intact, sclera anicteric, conjunctiva clear. No ptosis. ENT: Ears normal, nares patent, oropharynx clear without exudates, moist mucous membranes. NECK: Trachea midline, full range of motion, supple. LUNGS: diminished bilaterally, but clear on upper lobes, patient sats 91% on room air. HEART: Regular rate and rhythm ABDOMEN: Soft, nontender, nondistended, normoactive bowel sounds, no guarding, no rebound, no hepatosplenomegaly, no masses. EXTREMITIES: right lower leg cellulitis, dressing c/d/i - left leg with small areas of redness, no open lesions, open to air NEUROLOGICAL: Normal speech. WC bound PSYCH: Normal mood, normal affect. Laboratory Results - last 24 hr 03/08/19 03/08/19 06:40 06:40 WBC 9.2 RBC 3.36 L Hgb 9.4 L Hct 29.2 L MCV 87.0 MCH 27.9 MCHC 32.0 RDW 16.1 H Plt Count 265 MPV 8.1 Absolute Neuts (auto) 6.4 Neutrophils % 69.7 Neutrophils % (Manual) 66.3 Band Neutrophils % 0.0 Lymphocytes % 20.5 Lymphocytes % (Manual) 17.8 Monocytes % 6.0 Monocytes % (Manual) 7 Eosinophils % 3.0 Eosinophils % (Manual) 2.0 Basophils % 0.8 Basophils % (Manual) 1.0 Myelocytes % (Man) 1 Promyelocytes % (Man) 0 Blast Cells % (Manual) 0 Nucleated RBC % 0 Metamyelocytes 1 Hypochromia 0 Platelet Estimate Normal Polychromasia 1+ Poikilocytosis 1+ Anisocytosis 1+ Microcytosis 1+ Macrocytosis 0 Stomatocytes 1+ Sodium 141 Potassium 4.9 Chloride 105 Carbon Dioxide 30 Anion Gap 6 L BUN 27.7 H Creatinine 0.6 Est GFR (CKD-EPI)AfAm 107.03 Est GFR (CKD-EPI)NonAf 92.35 Random Glucose 80 Calcium 9.4 Magnesium 1.8 Total Bilirubin 0.3 AST 22 ALT 22 Alkaline Phosphatase 105 Total Protein 6.0 L Albumin 2.2 L Active Medications Generic Name Dose Route Start Last Admin Trade Name Freq PRN Reason Stop Dose Admin Acetaminophen 650 mg 03/02/19 15:31 03/04/19 02:00 Tylenol - PO 650 mg Q6H PRN Administration PAIN LEVEL 1 - 3 Acetaminophen 1,000 mg 03/02/19 15:31 Ofirmev Injection - IVPB Q6H PRN PAIN 4-6 Atenolol 100 mg 03/03/19 10:00 03/08/19 10:44 Tenormin - PO 100 mg DAILY GISELLE Administration Atorvastatin Calcium 10 mg 03/02/19 22:00 03/07/19 21:54 Lipitor - PO 10 mg HS GISELLE Administration Diphenhydramine HCl 25 mg 03/06/19 11:35 03/08/19 01:39 Benadryl - PO 25 mg Q6H PRN Administration FOR ITCHING Ezetimibe 10 mg 03/03/19 10:00 03/08/19 10:45 Zetia - PO 10 mg DAILY GISELLE Administration Escitalopram Oxalate 10 mg 03/03/19 10:00 03/08/19 10:44 Lexapro - PO 10 mg DAILY GISELLE Administration Febuxostat 40 mg 03/03/19 10:00 03/08/19 10:44 Uloric - PO 40 mg DAILY GISELLE Administration Ferrous Sulfate 325 mg 03/03/19 10:00 03/08/19 10:44 Feosol - PO 325 mg DAILY GISELLE Administration Guaifenesin 10 ml 12/18/19 15:31 Robitussin Dm - PO Q8H PRN COUGH Heparin Sodium (Porcine) 5,000 unit 03/02/19 22:00 03/08/19 14:17 Heparin - SQ 5,000 unit TID GISELLE Administration Hydrocortisone 1 applic 03/04/19 10:54 03/07/19 09:47 Hytone 0.5% Cream - TP 1 applic TID PRN Administration FOR ITCHING Piperacillin Sod/Tazobactam 50 mls @ 100 mls/hr 03/02/19 18:00 03/08/19 10:45 Sod 3.375 gm/ Dextrose IVPB 100 mls/hr Q8H-IV GISELLE Administration Protocol Levothyroxine Sodium 50 mcg 03/03/19 07:00 03/08/19 06:22 Synthroid - PO 50 mcg DAILY@0700 GISELLE Administration Oxybutynin Chloride 5 mg 03/03/19 10:00 03/08/19 10:44 Ditropan - PO 5 mg DAILY GISELLE Administration Oxycodone HCl 5 mg 03/07/19 19:00 03/07/19 21:55 Roxicodone - PO 5 mg Q6H PRN Administration PAIN LEVEL 7 - 10 Pantoprazole Sodium 20 mg 03/03/19 10:00 03/08/19 10:44 Protonix - PO 20 mg DAILY GISELLE Administration Phenol/Menthol 1 spray 03/02/19 15:31 Chloraseptic - MM Q6HPO PRN SORE THROAT Potassium Chloride 20 meq 03/03/19 10:00 03/08/19 10:44 K-Dur - PO 20 meq DAILY G[facility]LE Administration Sodium Chloride 1 spray 03/05/19 22:00 03/08/19 10:45 [place] Nasal [place] - NS 1 spray BID GISELLE Administration ASSESSMENT/PLAN: Problem List - Problems (1) Acute respiratory failure requiring reintubation Assessment/Plan: required intubation and transfer from [facility] after patient had acute respiratory failure secondary to bilateral pneumonia. currently on Zosyn. Currently patient is tolerating room air with stable oxygen levels above 92%. Per id, patient to be switched to oral antibiotics likely tomorrow. cta negative for PE Code(s): J96.00 - ACUTE RESPIRATORY FAILURE, UNSP W HYPOXIA OR HYPERCAPNIA (2) Pneumonia Assessment/Plan: On Zosyn Code(s): J18.9 - PNEUMONIA, UNSPECIFIED ORGANISM (3) Anemia, chronic disease Assessment/Plan: stable, monitor hmg/hct Code(s): D63.8 - ANEMIA IN OTHER CHRONIC DISEASES CLASSIFIED ELSEWHERE (4) Cellulitis Assessment/Plan: right lower ext cellulitis with daily wound care. on Zosyn Code(s): L03.90 - CELLULITIS, UNSPECIFIED (5) Functional quadriplegia Assessment/Plan: bed bound turn and position to protect bony prominences Code(s): R53.2 - FUNCTIONAL QUADRIPLEGIA (6) HLD (hyperlipidemia) Assessment/Plan: cont home meds Code(s): E78.5 - HYPERLIPIDEMIA, UNSPECIFIED (7) HTN (hypertension) Assessment/Plan: blood pressure stable on atenolol Code(s): I10 - ESSENTIAL (PRIMARY) HYPERTENSION (8) Hypothyroidism Assessment/Plan: on Synthroid Code(s): E03.9 - HYPOTHYROIDISM, UNSPECIFIED (9) Prophylactic measure Assessment/Plan: FEN tolerating regular diet monitor electrolytes adequate PO intake DVT heparin sq Dispo maintain as in patient full code Code(s): Z29.9 - ENCOUNTER FOR PROPHYLACTIC MEASURES, UNSPECIFIED Visit type - Emergency Visit Emergency Visit: Yes ED Registration Date: 02/26/19 Care time: The patient presented to the Emergency Department on the above date and was hospitalized for further evaluation of their emergent condition. - New Patient This patient is new to me today: No - Critical Care Critical Care patient: No - Discharge Referral Referred to [facility] Med [facility] No
[2019-03-08] MEDS: ATORVASTATIN CA 10 MG TABLET (FP) PO SCH (22:26)
[2019-03-08] MEDS: oxyCODONE HCL 5 MG TABLET PO PRN (22:31)
[2019-03-09] MEDS ORDERED: PIPERACILLIN/TAZOBACTAM 3.375 GM VIAL IVPB ONE ×3 (01:33→17:17)
[2019-03-09] MEDS ORDERED: DEXTROSE 5%-WATER - 50 ML IVPB ONE ×3 (01:33→17:17)
[2019-03-09] MEDS: PIPERACILLIN/TAZOB 3.375 GM 3.375 GM in DEXTROSE 5%-WATER - 50 ML IVPB SCH ×2 (02:30→09:35)
[2019-03-09] MEDS: LEVOTHYROXINE NA 50 MCG TABLET (FP) PO SCH (06:48)
[2019-03-09] MEDS: HEPARIN NA (PORCINE) 5,000 UNITS/ML 1ML VIAL SQ SCH ×2 (06:48→14:07)
[2019-03-09 08:21] LABS: BASO % 0.8 % (0-2.0); EOS % 3.7 % (0-4.5); HEMATOCRIT 29.3 % (32.4-45.2); HEMOGLOBIN 9.3 GM/dL (10.7-15.3); LYMPH % 17.3 % (8-40); MCHC 31.9 g/dl (32.0-36.0); MEAN CELL VOLUME 87.7 fl (80-96); MEAN PLT VOLUME 8.2 fl (7.5-11.1); NEUT % 72.2 % (42.8-82.8); PLATELET COUNT 284 K/MM3 (134-434); RBC 3.34 M/mm3 (3.60-5.2); RDW 16.2 % (11.6-15.6); WHITE BLOOD COUNT 10.9 K/mm3 (4.0-10.0)
[2019-03-09 09:21] LABS: ALBUMIN 2.3 g/dl (3.4-5.0); BILIRUBIN,TOTAL 0.3 mg/dL (0.2-1); BLOOD UREA NITROGEN 24.6 mg/dL (7-18); CALCIUM 9.2 mg/dL (8.5-10.1); CREATININE 0.6 mg/dL (0.55-1.3); POTASSIUM 4.4 mmol/L (3.5-5.1); TOT PROT 6.2 g/dl (6.4-8.2)
[2019-03-09] MEDS ORDERED: PT OWN MED DRAWER 7, Y5N ONE (09:33)
[2019-03-09] MEDS: FERROUS SO4 325 MG TABLET (FP) PO SCH (09:35)
[2019-03-09] MEDS: POTASSIUM CHLORIDE TABS 20 MEQ TABLET.ER (FP) PO SCH (09:35)
[2019-03-09] MEDS: ESCITALOPRAM OXALATE 10 MG TABLET (FP) PO SCH (09:35)
[2019-03-09] MEDS: EZETIMIBE 10 MG TABLET (FP) PO SCH (09:35)
[2019-03-09] MEDS: ATENOLOL 50 MG TABLET (FP) PO SCH (09:35)
[2019-03-09] MEDS: SODIUM CHLORIDE NASAL SPRAY 44 ML BOTTLE NS SCH ×2 (09:36→22:14)
[2019-03-09] MEDS: PANTOPRAZOLE 20 MG TABLET (FP) PO SCH (09:36)
[2019-03-09] MEDS: OXYBUTYNIN CHLORIDE 5 MG TABLET PO SCH (09:36)
[2019-03-09] MEDS: FEBUXOSTAT 40 MG TAB PO SCH (09:36)
[2019-03-09] MEDS: AMOX TR/POT CLAV 875MG/125MG TABLETS (FP) PO SCH (22:14)
[2019-03-09] MEDS: ATORVASTATIN CA 10 MG TABLET (FP) PO SCH (22:14)
[2019-03-09] MEDS: diphenhydrAMINE HCL 25 MG CAPSULE (FP) PO PRN (23:16)
[2019-03-10] MEDS: LEVOTHYROXINE NA 50 MCG TABLET (FP) PO SCH (06:04)
--- NOTE | 2019-03-10 09:51 | PN ---
Progress Note, Physician History of Present Illness: patient stable no new issues - Current Medication List Current Medications: Active Medications Acetaminophen (Tylenol -) 650 mg PO Q6H PRN PRN Reason: PAIN LEVEL 1 - 3 Last Admin: 03/04/19 02:00 Dose: 650 mg Acetaminophen (Ofirmev Injection -) 1,000 mg IVPB Q6H PRN PRN Reason: PAIN 4-6 Amoxicillin/Clavulanate Potassium (Augmentin - 875mg Tablet) 1 tab PO BID [facility] Last Admin: 03/09/19 22:14 Dose: 1 tab Atenolol (Tenormin -) 100 mg PO DAILY [facility] Last Admin: 03/09/19 09:35 Dose: 100 mg Atorvastatin Calcium (Lipitor -) 10 mg PO HS [facility] Last Admin: 03/09/19 22:14 Dose: 10 mg Diphenhydramine HCl (Benadryl -) 25 mg PO Q6H PRN PRN Reason: FOR ITCHING Last Admin: 03/09/19 23:16 Dose: 25 mg Ezetimibe (Zetia -) 10 mg PO DAILY [facility] Last Admin: 03/09/19 09:35 Dose: 10 mg Escitalopram Oxalate (Lexapro -) 10 mg PO DAILY [facility] Last Admin: 03/09/19 09:35 Dose: 10 mg Febuxostat (Uloric -) 40 mg PO DAILY [facility] Last Admin: 03/09/19 09:36 Dose: 40 mg Ferrous Sulfate (Feosol -) 325 mg PO DAILY [facility] Last Admin: 03/09/19 09:35 Dose: 325 mg Guaifenesin (Robitussin Dm -) 10 ml PO Q8H PRN PRN Reason: COUGH Hydrocortisone (Hytone 0.5% Cream -) 1 applic TP TID PRN PRN Reason: FOR ITCHING Last Admin: 03/07/19 09:47 Dose: 1 applic Levothyroxine Sodium (Synthroid -) 50 mcg PO DAILY@0700 [facility] Last Admin: 03/10/19 06:04 Dose: 50 mcg Oxybutynin Chloride (Ditropan -) 5 mg PO DAILY [facility] Last Admin: 03/09/19 09:36 Dose: 5 mg Oxycodone HCl (Roxicodone -) 5 mg PO Q6H PRN PRN Reason: PAIN LEVEL 7 - 10 Last Admin: 03/08/19 22:31 Dose: 5 mg Pantoprazole Sodium (Protonix -) 20 mg PO DAILY [facility] Last Admin: 03/09/19 09:36 Dose: 20 mg Phenol/Menthol (Chloraseptic -) 1 spray MM Q6HPO PRN PRN Reason: SORE THROAT Potassium Chloride (K-Dur -) 20 meq PO DAILY [facility] Last Admin: 03/09/19 09:35 Dose: 20 meq Sodium Chloride (Racine Hart Nasal Hart -) 1 spray NS BID [facility] Last Admin: 03/09/19 22:14 Dose: 1 spray - Objective Vital Signs: Vital Signs Temperature 98.2 F 03/10/19 06:44 Pulse Rate 64 03/10/19 06:44 Respiratory Rate 20 03/10/19 06:44 Blood Pressure 134/65 03/10/19 06:44 O2 Sat by Pulse Oximetry (%) 92 L 03/09/19 22:00 Constitutional: Yes: No Distress, Calm Cardiovascular: Yes: S1, S2 Respiratory: Yes: Regular, CTA Bilaterally Gastrointestinal: Yes: Normal Bowel Sounds, Soft Musculoskeletal: Yes: WNL Extremities: Yes: Other Wound/Incision: Yes: Dressing Dry and Intact Neurological: Yes: Alert, Oriented Psychiatric: Yes: Alert, Oriented Labs: CBC, BMP 03/09/19 07:26 03/09/19 07:26 INR, PTT INR 0.95 (0.83-1.09) 03/01/19 06:30 Assessment/Plan 68 F with h/o childhood polio, paraplegia, HTN, HLD, hypothyroid, anemia admitted for [facility] - Problems (1) Acute respiratory failure requiring reintubation Code(s): J96.00 - ACUTE RESPIRATORY FAILURE, UNSP W HYPOXIA OR HYPERCAPNIA (2) Anemia, chronic disease Code(s): D63.8 - ANEMIA IN OTHER CHRONIC DISEASES CLASSIFIED ELSEWHERE (3) Cellulitis Code(s): L03.90 - CELLULITIS, UNSPECIFIED (4) Depression Code(s): F32.9 - MAJOR DEPRESSIVE DISORDER, SINGLE EPISODE, UNSPECIFIED (5) HLD (hyperlipidemia) Code(s): E78.5 - HYPERLIPIDEMIA, UNSPECIFIED (6) HTN (hypertension) Code(s): I10 - ESSENTIAL (PRIMARY) HYPERTENSION (7) Hypothyroidism Code(s): E03.9 - HYPOTHYROIDISM, UNSPECIFIED Assessment/Plan Acute hypoxic respiratory failure - s/p extubation Pulmonary Edema/Possible PNA LE cellulitis LE lymphedema Hx of Polio HTN hypothyroidism plan oral abx for a week elevation of legs rest as per the team
[2019-03-10] MEDS ORDERED: PT OWN MED DRAWER 7, Y5N ONE (11:01)
[2019-03-10] MEDS: PANTOPRAZOLE 20 MG TABLET (FP) PO SCH (11:08)
[2019-03-10] MEDS: ATENOLOL 50 MG TABLET (FP) PO SCH (11:08)
[2019-03-10] MEDS: AMOX TR/POT CLAV 875MG/125MG TABLETS (FP) PO SCH (11:08)
[2019-03-10] MEDS: FERROUS SO4 325 MG TABLET (FP) PO SCH (11:09)
[2019-03-10] MEDS: EZETIMIBE 10 MG TABLET (FP) PO SCH (11:09)
[2019-03-10] MEDS: ESCITALOPRAM OXALATE 10 MG TABLET (FP) PO SCH (11:09)
[2019-03-10] MEDS: POTASSIUM CHLORIDE TABS 20 MEQ TABLET.ER (FP) PO SCH (11:09)
[2019-03-10] MEDS: HYDROCORTISONE 0.5% TOPICAL CREAM 30 GM TUBE TP PRN (11:09)
[2019-03-10] MEDS: FEBUXOSTAT 40 MG TAB PO SCH (11:09)
[2019-03-10] MEDS: OXYBUTYNIN CHLORIDE 5 MG TABLET PO SCH (11:09)
[2019-03-10] MEDS: SODIUM CHLORIDE NASAL SPRAY 44 ML BOTTLE NS SCH (11:10)
--- NOTE | 2019-03-10 13:14 | DS ---
Physical Exam: SUBJECTIVE: Patient seen and examined at the bedside. Denies any shortness of breath or malaise. Feels much better and wants to go home. OBJECTIVE: Patient is a 68 F with h/o childhood polio, paraplegia, HTN, HLD, hypothyroid, anemia. Initially admitted to [facility] and treated for cellulitis of her lower right extremity and on 02/28 in the evening developed sudden respiratory failure which prompted intubation and transfer to [facility] to be managed in the ICU. She was extubated 03/01/19 and transitioned to high flow now on room air. She is currently tolerating room air with stable oxygen saturations. CT of chest was performed and showed bilateral pneumonia with pleural effusions. she was Treated with Zosyn IV and completed full course of zosyn and will be transitioned to Augmentin 875mg BID for 5 more days. SEE PROBLEM LIST BELOW. Vital Signs Period Temp Pulse Resp BP Sys/Kumra Pulse Ox Last 24 Hr 98.2 F-99.2 F 64-88 18-20 113-140/51-70 90-93 PHYSICAL EXAM GENERAL: The patient is awake, alert, and fully oriented, in no acute distress. HEAD: Normal with no signs of trauma. EYES: PERRL, extraocular movements intact, sclera anicteric, conjunctiva clear. No ptosis. ENT: Ears normal, nares patent, oropharynx clear without exudates, moist mucous membranes. NECK: Trachea midline, full range of motion, supple. LUNGS: diminished bilaterally, but clear on upper lobes, patient sats 91% on room air. HEART: Regular rate and rhythm ABDOMEN: Soft, nontender, nondistended, normoactive bowel sounds, no guarding, no rebound, no hepatosplenomegaly, no masses. EXTREMITIES: right lower leg cellulitis, dressing c/d/i - left leg with small areas of redness, no open lesions, open to air NEUROLOGICAL: Normal speech. WC bound PSYCH: Normal mood, normal affect. HOSPITAL COURSE: Date of Admission:02/26/19 Date of Discharge: 03/10/19 Minutes to complete discharge: 45 Discharge Summary Problems reviewed: Yes Reason For Visit: CELLULITIS Current Active Problems Acute respiratory failure requiring reintubation (Acute) Anemia, chronic disease (Acute) Cellulitis (Acute) Depression (Acute) Functional quadriplegia (Acute) HLD (hyperlipidemia) (Acute) HTN (hypertension) (Acute) Hypothyroidism (Acute) Major depressive disorder, recurrent, moderate (Acute) Overactive bladder (Acute) Pneumonia (Acute) Polio (Acute) Prophylactic measure (Acute) Condition: Good - Instructions Diet, Activity, Other Instructions: Mrs Lizarraga: You were admitted for right leg cellulitis and pneumonia. We will be sending you home with antibiotics for 5 more days (Augmentin 875), twice per day. Please follow up with your general physician on discharge. Thank you for allowing us to care for you. Referrals: Abel Burgos MD [Primary Care Provider] - 1 Week Eulogio Cohen PSYD [Psychologist] - Disposition: HOME - Home Medications Comprehensive Discharge Medication List: Ambulatory Orders Cholecalciferol (Vitamin D3) [Vitamin D3] 2,000 unit PO DAILY tablet 05/26/12 Ubidecarenone [Co Q-10] 50 mg PO DAILY capsule 05/26/12 Omeprazole 20 mg PO DAILY 08/17/13 Ferrous Sulfate 325 mg PO DAILY tablet 05/29/14 Sodium Chloride [Saline Nose [place]] 1 spray NS EACH NOSTRIL BID spray 05/21/16 Judi's Wort 150 mg PO DAILY capsule 07/22/16 Atenolol [Tenormin] 100 mg PO DAILY 02/26/19 Escitalopram Oxalate [Lexapro -] 10 mg PO DAILY 02/26/19 Famotidine [Pepcid] 40 mg PO DAILY 02/26/19 Febuxostat [Uloric] 40 mg PO DAILY 02/26/19 Oxybutynin Chloride [Ditropan -] 5 mg PO DAILY 02/26/19 Oxycodone HCl 5 mg PO BID PRN 02/26/19 Potassium Chloride [K-Dur -] 20 meq PO DAILY 02/26/19 Ezetimibe-Simvastatin 10-20 mg 10 - 20 mg PO DAILY 02/28/19 Amox-Tr/K Cl [Augmentin 875-125mg Tablet -] 1 tab PO BID #10 tablet 03/10/19 Lactobacillus Acidophilus [Bacid -] 1 each PO DAILY #30 capsule 03/10/19 Problem List - Problems (1) Acute respiratory failure requiring reintubation Assessment/Plan: Resolved, on room air. stable. Code(s): J96.00 - ACUTE RESPIRATORY FAILURE, UNSP W HYPOXIA OR HYPERCAPNIA (2) Pneumonia Assessment/Plan: completed zosyn, on 5 more days of Augmentin 875mg BID Code(s): J18.9 - PNEUMONIA, UNSPECIFIED ORGANISM (3) Anemia, chronic disease Assessment/Plan: stable, monitor hmg/hct as outpatient Code(s): D63.8 - ANEMIA IN OTHER CHRONIC DISEASES CLASSIFIED ELSEWHERE (4) Cellulitis Assessment/Plan: right lower ext cellulitis with daily wound care. Code(s): L03.90 - CELLULITIS, UNSPECIFIED (5) Functional quadriplegia Assessment/Plan: bed bound turn and position to protect bony prominences Code(s): R53.2 - FUNCTIONAL QUADRIPLEGIA (6) HLD (hyperlipidemia) Assessment/Plan: cont home meds Code(s): E78.5 - HYPERLIPIDEMIA, UNSPECIFIED (7) HTN (hypertension) Assessment/Plan: blood pressure stable on atenolol Code(s): I10 - ESSENTIAL (PRIMARY) HYPERTENSION (8) Hypothyroidism Assessment/Plan: on Synthroid Code(s): E03.9 - HYPOTHYROIDISM, UNSPECIFIED (9) Prophylactic measure Assessment/Plan: discharge home Code(s): Z29.9 - ENCOUNTER FOR PROPHYLACTIC MEASURES, UNSPECIFIED This patient is new to me today: No Emergency Visit: Yes ED Registration Date: 02/26/19 Care time: The patient presented to the Emergency Department on the above date and was hospitalized for further evaluation of their emergent condition. Critical Care patient: No - Discharge Referral Referred to [facility] No
[2019-03-10] MEDS: ACETAMINOPHEN 325 MG TABLET (FP) PO PRN (13:41)
[2019-03-10 17:17] VITALS: BP 137/75; PULSE 64; TEMP 97.3
== END 2019-03-10 18:01 | disposition home health service (06) | DRG 602 ==
LOC: FER 12:30 → FM/S 15:38 → JICU 02-28 22:40 → J8W 03-02 13:29
PROVIDERS: ADMIT Internal Medicine; ATTEND Nurse Practitioner Family
PROC: 0CHY7BZ Insertion of Airway into Mouth and Throat, Via Natural or Artificial Opening (ICD-10-PCS; principal; 2019-02-28)
PROC: 5A1935Z Respiratory Ventilation, Less than 24 Consecutive Hours (ICD-10-PCS; 2019-02-28)
DX: L03.116 Cellulitis of left lower limb (principal); J18.9 Pneumonia, unspecified organism; J96.01 Acute respiratory failure with hypoxia; J96.02 Acute respiratory failure with hypercapnia; R53.2 Functional quadriplegia; J90 Pleural effusion, not elsewhere classified; J81.1 Chronic pulmonary edema; F33.1 Major depressive disorder, recurrent, moderate; L03.115 Cellulitis of right lower limb; Z86.12 Personal history of poliomyelitis; I10 Essential (primary) hypertension; E78.5 Hyperlipidemia, unspecified; E03.9 Hypothyroidism, unspecified; D64.9 Anemia, unspecified; Z99.3 Dependence on wheelchair; E87.6 Hypokalemia; N32.81 Overactive bladder; K21.9 Gastro-esophageal reflux disease without esophagitis; M10.9 Gout, unspecified; F42.9 Obsessive-compulsive disorder, unspecified; L89.322 Pressure ulcer of left buttock, stage 2; L89.892 Pressure ulcer of other site, stage 2; R15.9 Full incontinence of feces; G14 Postpolio syndrome; D63.8 Anemia in other chronic diseases classified elsewhere
CPT/HCPCS: 36415; 36600; 70450-TC; 71045-TC-FY; 71275-TC; 80053; 80307; 81003; 81015; 82272; 82607; 82728; 82746; 82803; 83540; 83550; 83605; 83735; 83880; 84100; 84443; 84484; 85025; 85027; 85610; 85730; 86850; 86900; 86901; 87040; 87070; 87086; 87205; 87804; 87899; 93005; 93306-TC; 93970-TC; 94002; 97116-GP; 97162-GP; 99285-25; J0131; J1644; J7030; Q9967

== ENCOUNTER 2021-06-27 18:00 | Inpatient (IN) | payer OTHER ==
[2021-06-27 18:34] VITALS: BMI 22.8
[2021-06-27 19:47] LABS: BASO % 0.6 % (0-2.0); EOS % 5.3 % (0-4.5); HEMATOCRIT 33.9 % (32.4-45.2); LYMPH % 13.1 % (8-40); MCH 27.2 pg (25.7-33.7); MCHC 32.4 g/dl (32.0-36.0); MEAN CELL VOLUME 83.8 fl (80-96); MEAN PLT VOLUME 7.5 fl (7.5-11.1); MONO % 4.4 % (3.8-10.2); NEUT % 76.6 % (42.8-82.8); PLATELET COUNT 388 10^3/uL (134-434); RBC 4.04 M/mm3 (3.60-5.2); RDW 14.8 % (11.6-15.6); WHITE BLOOD COUNT 11.9 K/mm3 (4.0-10.0)
[2021-06-27 19:55] LABS: INR 1.04 (0.83-1.09)
[2021-06-27 19:57] LABS: ACTIVATED PTT 28.5 SECONDS (25.2-36.5)
[2021-06-27 20:09] LABS: CALCIUM 9.6 mg/dL (8.5-10.1)
[2021-06-27 20:10] LABS: ALBUMIN 3.4 g/dl (3.4-5.0); BLOOD UREA NITROGEN 23.5 mg/dL (7-18)
[2021-06-27 20:13] LABS: CREATININE 0.4 mg/dL (0.55-1.3)
[2021-06-27 20:14] LABS: BILIRUBIN,TOTAL 0.4 mg/dL (0.2-1); TOT PROT 7.6 g/dl (6.4-8.2)
[2021-06-27 21:30] LABS: EPI CELLS >36 /uL (0-25.1); HYALINE CASTS 2 /uL (0-3.1); URINE APPEARANCE TURBID; URINE BACTERIA 1096 /uL (0-1359); URINE BILIRUBIN NEGATIVE (NEGATIVE); URINE COLOR YELLOW; URINE GLUCOSE (UA) NEGATIVE (NEGATIVE); URINE KETONE NEGATIVE (NEGATIVE); URINE LEUK ESTERASE 3+ (NEGATIVE); URINE NITRITE NEGATIVE (NEGATIVE); URINE PROTEIN NEGATIVE (NEGATIVE); URINE RBC 8 /uL (0-23.9); URINE UROBILINOGEN 0.2 mg/dL (0.2-1.0); URINE WBC 1864 /uL (0-25.8)
[2021-06-27] MEDS ORDERED: CEFTRIAXONE 1 GM/50 ML BAG ONE (21:58)
[2021-06-28] MEDS ORDERED: oxyCODONE HCL 5 MG TABLET PO ONE (02:03)
[2021-06-28] MEDS ORDERED: oxyCODONE HCL 5 MG TABLET ONE (02:08)
[2021-06-28] MEDS ORDERED: ALBUTEROL SO4 HFA INHALER IH PRN (06:00)
[2021-06-28] MEDS: OXYBUTYNIN CHLORIDE 5 MG TABLET PO SCH ×3 (06:26→22:45)
[2021-06-28 07:05] LABS: BASO % 1.1 % (0-2.0); EOS % 5.5 % (0-4.5); HEMATOCRIT 34.4 % (32.4-45.2); HEMOGLOBIN 11.3 GM/dL (10.7-15.3); LYMPH % 18.2 % (8-40); MCH 27.7 pg (25.7-33.7); MCHC 32.8 g/dl (32.0-36.0); MEAN CELL VOLUME 84.5 fl (80-96); MEAN PLT VOLUME 7.4 fl (7.5-11.1); MONO % 6.2 % (3.8-10.2); PLATELET COUNT 374 10^3/uL (134-434); RBC 4.07 M/mm3 (3.60-5.2); RDW 15.4 % (11.6-15.6); WHITE BLOOD COUNT 10.3 K/mm3 (4.0-10.0)
[2021-06-28] MEDS ORDERED: LEVOTHYROXINE NA 50 MCG TABLET (FP) ONE (07:24)
[2021-06-28] MEDS: LEVOTHYROXINE NA 50 MCG TABLET (FP) PO SCH (07:35)
[2021-06-28] MEDS ORDERED: oxyCODONE HCL 5 MG TABLET PO PRN (08:00)
[2021-06-28 08:01] LABS: ALBUMIN 3.1 g/dl (3.4-5.0); BILIRUBIN,TOTAL 0.7 mg/dL (0.2-1); BLOOD UREA NITROGEN 21.9 mg/dL (7-18); CALCIUM 9.2 mg/dL (8.5-10.1); CREATININE 0.5 mg/dL (0.55-1.3); TOT PROT 7.5 g/dl (6.4-8.2)
[2021-06-28] MEDS ORDERED: ZINC SULFATE 220 MG CAPSULE (FP) ONE (10:23)
[2021-06-28] MEDS ORDERED: FAMOTIDINE 20 MG TABLET ONE (10:23)
[2021-06-28] MEDS ORDERED: ASCORBIC ACID 500 MG TABLET (FP) ONE (10:24)
[2021-06-28] MEDS ORDERED: ATENOLOL 50 MG TABLET (FP) ONE (10:24)
[2021-06-28] MEDS ORDERED: DOCUSATE SODIUM 100 MG CAPSULE (FP) PO ONE (10:24)
[2021-06-28] MEDS ORDERED: FERROUS SO4 325 MG TABLET (FP) ONE (10:24)
[2021-06-28] MEDS: FAMOTIDINE 20 MG TABLET PO SCH (10:34)
[2021-06-28] MEDS: DOCUSATE SODIUM 100 MG CAPSULE (FP) PO SCH (10:34)
[2021-06-28] MEDS: FERROUS SO4 325 MG TABLET (FP) PO SCH (10:34)
[2021-06-28] MEDS: MULTIVITAMINS THER W-MINERALS COMBO TABLET (FP) PO SCH (10:34)
[2021-06-28] MEDS: ZINC SULFATE 220 MG CAPSULE (FP) PO SCH ×2 (10:34→22:08)
[2021-06-28] MEDS: FEBUXOSTAT 40 MG TAB PO SCH (10:34)
[2021-06-28] MEDS: ATENOLOL 50 MG TABLET (FP) PO SCH (10:34)
[2021-06-28] MEDS: ASCORBIC ACID 500 MG TABLET (FP) PO SCH ×2 (10:35→22:09)
[2021-06-28] MEDS ORDERED: LIP BALM (CHAPSTICK) TP PRN (11:14)
[2021-06-28] MEDS: MINERAL OIL/PET HY-PHL TOPICAL OINTMENT 454 GM JAR TP SCH (13:41)
[2021-06-28] MEDS: SODIUM CHLORIDE 1,000 ML IV SCH (14:30)
[2021-06-28] MEDS: EZETIMIBE 10 MG TABLET (FP) PO SCH (22:06)
[2021-06-28] MEDS: MELATONIN 5 MG TABLETS PO SCH (22:06)
[2021-06-28] MEDS: ATORVASTATIN CA 10 MG TABLET (FP) PO SCH (22:06)
[2021-06-28] MEDS: SENNOSIDES 8.8 MG/5 ML BULK BOTTLE PO SCH (22:08)
[2021-06-29] MEDS: LEVOTHYROXINE NA 50 MCG TABLET (FP) PO SCH (06:31)
[2021-06-29] MEDS: OXYBUTYNIN CHLORIDE 5 MG TABLET PO SCH ×3 (06:31→21:49)
[2021-06-29] MEDS: ATENOLOL 50 MG TABLET (FP) PO SCH (10:14)
[2021-06-29] MEDS: ASCORBIC ACID 500 MG TABLET (FP) PO SCH ×3 (10:14→21:50)
[2021-06-29] MEDS: FAMOTIDINE 20 MG TABLET PO SCH (10:14)
[2021-06-29] MEDS: FERROUS SO4 325 MG TABLET (FP) PO SCH ×2 (10:14→10:31)
[2021-06-29] MEDS: FLUCONAZOLE 100 MG TABLET (UD) PO SCH (10:14)
[2021-06-29] MEDS: MULTIVITAMINS THER W-MINERALS COMBO TABLET (FP) PO SCH (10:14)
[2021-06-29] MEDS: ZINC SULFATE 220 MG CAPSULE (FP) PO SCH ×3 (10:15→21:51)
[2021-06-29] MEDS: FEBUXOSTAT 40 MG TAB PO SCH (10:15)
[2021-06-29] MEDS: DOCUSATE SODIUM 100 MG CAPSULE (FP) PO SCH (10:15)
[2021-06-29] MEDS: MINERAL OIL/PET HY-PHL TOPICAL OINTMENT 454 GM JAR TP SCH (10:19)
[2021-06-29] MEDS: SODIUM CHLORIDE 1,000 ML IV SCH (14:19)
[2021-06-29] MEDS: ATORVASTATIN CA 10 MG TABLET (FP) PO SCH (21:49)
[2021-06-29] MEDS: MELATONIN 5 MG TABLETS PO SCH (21:50)
[2021-06-29] MEDS: EZETIMIBE 10 MG TABLET (FP) PO SCH (21:50)
[2021-06-29] MEDS: SENNOSIDES 8.8 MG/5 ML BULK BOTTLE PO SCH (21:52)
[2021-06-30] MEDS: OXYBUTYNIN CHLORIDE 5 MG TABLET PO SCH ×3 (06:02→21:47)
[2021-06-30] MEDS: LEVOTHYROXINE NA 50 MCG TABLET (FP) PO SCH (06:31)
[2021-06-30] MEDS: FLUCONAZOLE 100 MG TABLET (UD) PO SCH (10:01)
[2021-06-30] MEDS: DOCUSATE SODIUM 100 MG CAPSULE (FP) PO SCH (10:01)
[2021-06-30] MEDS: FAMOTIDINE 20 MG TABLET PO SCH (10:01)
[2021-06-30] MEDS: ZINC SULFATE 220 MG CAPSULE (FP) PO SCH ×2 (10:01→21:47)
[2021-06-30] MEDS: ASCORBIC ACID 500 MG TABLET (FP) PO SCH ×2 (10:02→21:48)
[2021-06-30] MEDS: ATENOLOL 50 MG TABLET (FP) PO SCH (10:02)
[2021-06-30] MEDS: MULTIVITAMINS THER W-MINERALS COMBO TABLET (FP) PO SCH (10:02)
[2021-06-30] MEDS: FERROUS SO4 325 MG TABLET (FP) PO SCH (10:03)
[2021-06-30] MEDS: AMINO ACIDS/PROTEIN HYDROLYS 30 ML LIQUID.PKT PO SCH (10:03)
[2021-06-30] MEDS: MINERAL OIL/PET HY-PHL TOPICAL OINTMENT 454 GM JAR TP SCH (10:04)
[2021-06-30] MEDS: FEBUXOSTAT 40 MG TAB PO SCH (10:08)
[2021-06-30] MEDS ORDERED: ALBUTEROL SO4 2.5/IPRATROPIUM 0.5 INH SOL 3 ML VIAL.NEB. NEB PRN (10:22)
[2021-06-30] MEDS: SENNOSIDES 8.8 MG/5 ML BULK BOTTLE PO SCH (21:46)
[2021-06-30] MEDS: ATORVASTATIN CA 10 MG TABLET (FP) PO SCH (21:47)
[2021-06-30] MEDS: EZETIMIBE 10 MG TABLET (FP) PO SCH (21:47)
[2021-06-30] MEDS: MELATONIN 5 MG TABLETS PO SCH (21:47)
[2021-07-01] MEDS ORDERED: ATENOLOL 50 MG TABLET (FP) PO SCH (05:54)
[2021-07-01] MEDS: OXYBUTYNIN CHLORIDE 5 MG TABLET PO SCH ×3 (06:22→22:32)
[2021-07-01] MEDS: LEVOTHYROXINE NA 50 MCG TABLET (FP) PO SCH (06:22)
[2021-07-01] MEDS: AMINO ACIDS/PROTEIN HYDROLYS 30 ML LIQUID.PKT PO SCH (08:36)
[2021-07-01] MEDS: HYDROCORTISONE 2.5% TOPICAL CREAM 30 GM TUBE TP SCH ×2 (09:03→22:32)
[2021-07-01] MEDS: FEBUXOSTAT 40 MG TAB PO SCH (09:03)
[2021-07-01] MEDS: FAMOTIDINE 20 MG TABLET PO SCH (09:03)
[2021-07-01] MEDS: FLUCONAZOLE 100 MG TABLET (UD) PO SCH (09:03)
[2021-07-01] MEDS: DOCUSATE SODIUM 100 MG CAPSULE (FP) PO SCH (09:03)
[2021-07-01] MEDS: MINERAL OIL/PET HY-PHL TOPICAL OINTMENT 454 GM JAR TP SCH (09:04)
[2021-07-01] MEDS: FERROUS SO4 325 MG TABLET (FP) PO SCH (09:04)
[2021-07-01] MEDS: MULTIVITAMINS THER W-MINERALS COMBO TABLET (FP) PO SCH (09:04)
[2021-07-01] MEDS: ZINC SULFATE 220 MG CAPSULE (FP) PO SCH ×2 (09:04→22:33)
[2021-07-01] MEDS ORDERED: VALSARTAN 80 MG TABLET PO SCH (10:00)
[2021-07-01] MEDS: NYSTATIN 500,000 UNITS/5 ML SUSPENSION PO SCH ×2 (11:14→17:48)
[2021-07-01] MEDS: ASCORBIC ACID 500 MG TABLET (FP) PO SCH ×2 (11:14→22:33)
[2021-07-01 12:03] LABS: CALCIUM 9.5 mg/dL (8.5-10.1)
[2021-07-01 12:04] LABS: BLOOD UREA NITROGEN 21.4 mg/dL (7-18); MAGNESIUM 1.6 mg/dL (1.8-2.4)
[2021-07-01 12:07] LABS: CREATININE 0.4 mg/dL (0.55-1.3)
[2021-07-01 12:09] LABS: BILIRUBIN,TOTAL 0.2 mg/dL (0.2-1); TOT PROT 6.7 g/dl (6.4-8.2)
[2021-07-01] MEDS: MELATONIN 5 MG TABLETS PO SCH (22:32)
[2021-07-01] MEDS: SENNOSIDES 8.8 MG/5 ML BULK BOTTLE PO SCH (22:32)
[2021-07-01] MEDS: EZETIMIBE 10 MG TABLET (FP) PO SCH (22:32)
[2021-07-01] MEDS: ATORVASTATIN CA 10 MG TABLET (FP) PO SCH (22:32)
[2021-07-02] MEDS: NYSTATIN 500,000 UNITS/5 ML SUSPENSION PO SCH ×4 (00:03→17:45)
[2021-07-02] MEDS: LEVOTHYROXINE NA 50 MCG TABLET (FP) PO SCH (06:39)
[2021-07-02] MEDS: OXYBUTYNIN CHLORIDE 5 MG TABLET PO SCH ×2 (06:39→13:47)
[2021-07-02] MEDS ORDERED: ATENOLOL 25 MG TABLET (FP) PO SCH (08:34)
[2021-07-02] MEDS ORDERED: VALSARTAN 80 MG TABLET PO SCH ×2 (10:00→10:15)
[2021-07-02] MEDS: DOCUSATE SODIUM 100 MG CAPSULE (FP) PO SCH (10:27)
[2021-07-02] MEDS: AMINO ACIDS/PROTEIN HYDROLYS 30 ML LIQUID.PKT PO SCH ×2 (10:27→10:37)
[2021-07-02] MEDS: FERROUS SO4 325 MG TABLET (FP) PO SCH ×2 (10:28→10:37)
[2021-07-02] MEDS: FAMOTIDINE 20 MG TABLET PO SCH (10:28)
[2021-07-02] MEDS: ASCORBIC ACID 500 MG TABLET (FP) PO SCH ×2 (10:28→10:37)
[2021-07-02] MEDS: MULTIVITAMINS THER W-MINERALS COMBO TABLET (FP) PO SCH (10:28)
[2021-07-02] MEDS: ZINC SULFATE 220 MG CAPSULE (FP) PO SCH ×2 (10:28→10:37)
[2021-07-02] MEDS: FLUCONAZOLE 100 MG TABLET (UD) PO SCH (10:28)
[2021-07-02] MEDS: FEBUXOSTAT 40 MG TAB PO SCH (10:29)
[2021-07-02] MEDS: HYDROCORTISONE 2.5% TOPICAL CREAM 30 GM TUBE TP SCH (10:32)
[2021-07-02] MEDS: MINERAL OIL/PET HY-PHL TOPICAL OINTMENT 454 GM JAR TP SCH (10:33)
[2021-07-02 15:21] VITALS: BP 140/66; PULSE 61; TEMP 98.2
== END 2021-07-02 18:08 | DRG 308 ==
LOC: JER 18:00 → JERBED 22:21 → J4W 06-28 19:50
PROVIDERS: ADMIT Hospitalist; ATTEND Family Medicine
DX: R00.1 Bradycardia, unspecified (principal); R53.2 Functional quadriplegia; G12.1 Other inherited spinal muscular atrophy; N39.0 Urinary tract infection, site not specified; D32.0 Benign neoplasm of cerebral meninges; R47.81 Slurred speech; R47.1 Dysarthria and anarthria; R68.2 Dry mouth, unspecified; G14 Postpolio syndrome; I10 Essential (primary) hypertension; E78.5 Hyperlipidemia, unspecified; E03.9 Hypothyroidism, unspecified; G51.4 Facial myokymia; R21 Rash and other nonspecific skin eruption; R25.3 Fasciculation; R82.71 Bacteriuria; R29.715 NIHSS score 15; T44.7X5A Adverse effect of beta-adrenoreceptor antagonists, initial encounter; D63.8 Anemia in other chronic diseases classified elsewhere; Z93.0 Tracheostomy status; Z99.3 Dependence on wheelchair; Z66 Do not resuscitate
CPT/HCPCS: 36415; 70450-TC; 70551-TC; 71045-TC-FY; 80053; 80061; 81003; 82962; 83036; 83735; 84443; 85025; 85610; 85730; 86850; 86900; 86901; 87077; 87086; 93005; 93010; 99285-25; C9803-CS; U0003; U0005

== ENCOUNTER 2021-12-05 12:28 | Inpatient (IN) | payer OTHER ==
[2021-12-05 14:59] LABS: BASO % 0.9 % (0-2.0); EOS % 2.8 % (0-4.5); HEMATOCRIT 32.6 % (32.4-45.2); HEMOGLOBIN 10.7 GM/dL (10.7-15.3); LYMPH % 9.1 % (8-40); MCHC 32.8 g/dl (32.0-36.0); MEAN CELL VOLUME 85.6 fl (80-96); MEAN PLT VOLUME 7.9 fl (7.5-11.1); MONO % 3.3 % (3.8-10.2); NEUT % 83.9 % (42.8-82.8); PLATELET COUNT 459 10^3/uL (134-434); RDW 13.3 % (11.6-15.6); WHITE BLOOD COUNT 14.7 K/mm3 (4.0-10.0)
[2021-12-05 15:14] LABS: CALCIUM 9.6 mg/dL (8.5-10.1)
[2021-12-05 15:15] LABS: ALBUMIN 3.1 g/dl (3.4-5.0)
[2021-12-05 15:17] LABS: CREATININE 0.4 mg/dL (0.55-1.3)
[2021-12-05 15:19] LABS: BILIRUBIN,TOTAL 0.4 mg/dL (0.2-1); TOT PROT 7.8 g/dl (6.4-8.2)
[2021-12-05 15:22] LABS: N-TERMINAL BNP 578.7 pg/ml (5-125)
[2021-12-05 16:36] LABS: EPI CELLS >36 /uL (0-25.1); HYALINE CASTS 25 /uL (0-3.1); URINE APPEARANCE TURBID; URINE BACTERIA >9,000 /uL (0-1359); URINE BILIRUBIN NEGATIVE (NEGATIVE); URINE COLOR YELLOW; URINE GLUCOSE (UA) NEGATIVE (NEGATIVE); URINE KETONE NEGATIVE (NEGATIVE); URINE LEUK ESTERASE 3+ (NEGATIVE); URINE NITRITE POSITIVE (NEGATIVE); URINE PROTEIN 1+ (NEGATIVE); URINE UROBILINOGEN 0.2 mg/dL (0.2-1.0); URINE WBC 23353 /uL (0-25.8)
[2021-12-05] MEDS ORDERED: CEFTRIAXONE 1,000 MG in DEXTROSE 5%-WATER - 50 ML IVPB ONE (17:19)
[2021-12-05 18:13] LABS: URINE RBC 237.3 /uL (0-23.9)
[2021-12-05] MEDS ORDERED: CEFTRIAXONE 1 GM/50 ML BAG ONE (18:37)
[2021-12-05] MEDS ORDERED: FLU VACC QS2022-23(6MOS UP)/PF 60 MCG/0.5 ML SYRINGE IM ONE (21:19)
[2021-12-06] MEDS: MELATONIN 5 MG TABLETS PO PRN (02:23)
[2021-12-06 07:33] LABS: BASO % 0.8 % (0-2.0); EOS % 5.5 % (0-4.5); HEMATOCRIT 31.2 % (32.4-45.2); HEMOGLOBIN 10.5 GM/dL (10.7-15.3); LYMPH % 12.2 % (8-40); MCH 28.6 pg (25.7-33.7); MCHC 33.6 g/dl (32.0-36.0); MEAN CELL VOLUME 85.1 fl (80-96); MEAN PLT VOLUME 7.1 fl (7.5-11.1); MONO % 5.3 % (3.8-10.2); NEUT % 76.2 % (42.8-82.8); PLATELET COUNT 375 10^3/uL (134-434); RBC 3.67 M/mm3 (3.60-5.2); RDW 12.9 % (11.6-15.6); WHITE BLOOD COUNT 11.7 K/mm3 (4.0-10.0)
[2021-12-06 08:08] LABS: CALCIUM 9.1 mg/dL (8.5-10.1)
[2021-12-06 08:12] LABS: CREATININE 0.4 mg/dL (0.55-1.3)
[2021-12-06] MEDS ORDERED: ALBUTEROL SO4 2.5/IPRATROPIUM 0.5 INH SOL 3 ML VIAL.NEB. NEB PRN (08:23)
[2021-12-06] MEDS ORDERED: LIP BALM (CHAPSTICK) TP PRN (08:23)
[2021-12-06] MEDS ORDERED: oxyCODONE HCL 5 MG TABLET PO PRN ×2 (08:23→19:58)
[2021-12-06] MEDS: ESCITALOPRAM OXALATE 10 MG TABLET PO SCH (09:17)
[2021-12-06] MEDS: ATENOLOL 25 MG TABLET (FP) PO SCH (09:18)
[2021-12-06] MEDS: LEVOTHYROXINE NA 50 MCG TABLET (FP) PO SCH (09:18)
[2021-12-06] MEDS: VALSARTAN 80 MG TABLET PO SCH ×2 (09:18→21:44)
[2021-12-06] MEDS: HYDROCORTISONE 2.5% TOPICAL CREAM 30 GM TUBE TP SCH ×2 (09:21→22:15)
[2021-12-06] MEDS: ALPRAZolam 0.25 MG TABLET PO SCH ×2 (09:21→21:49)
[2021-12-06] MEDS ORDERED: FAMOTIDINE 20 MG TABLET PO SCH (10:00)
[2021-12-06 11:25] LABS: ALBUMIN 3.1 g/dl (3.4-5.0)
[2021-12-06 11:28] LABS: BILIRUBIN,DIRECT 0.2 mg/dL (0.0-0.2)
[2021-12-06 11:30] LABS: BILIRUBIN,TOTAL 0.3 mg/dL (0.2-1); TOT PROT 7.5 g/dl (6.4-8.2)
[2021-12-06] MEDS: NYSTATIN 500,000 UNITS/5 ML SUSPENSION PO SCH ×2 (13:05→17:41)
[2021-12-06] MEDS: CEFTRIAXONE 1 GM in DEXTROSE 5%-WATER - 50 ML IVPB SCH (14:09)
[2021-12-06] MEDS: MAG HYDROX/AL HYDROX/SIMETH 30 ML UNIT-DOSE CUP PO PRN (16:18)
[2021-12-06] MEDS: ATORVASTATIN CA 10 MG TABLET (FP) PO SCH (21:48)
[2021-12-06] MEDS: POLYETHYLENE GLYCOL (HEALTHYLAX) 3350 17 GM PACKET PO SCH (21:48)
[2021-12-06] MEDS: SENNOSIDES 8.6MG TABLET (FP) PO SCH (21:48)
[2021-12-06] MEDS: EZETIMIBE 10 MG TABLET (FP) PO SCH (21:50)
[2021-12-06] MEDS ORDERED: PATIENT'S OWN MEDICATION (NON-FORMULARY) (Senna Leaf Extract [Senna] 176 MG/5 ML Syrup) PO SCH (22:00)
[2021-12-07] MEDS: NYSTATIN 500,000 UNITS/5 ML SUSPENSION PO SCH ×5 (00:56→23:10)
[2021-12-07] MEDS: LEVOTHYROXINE NA 50 MCG TABLET (FP) PO SCH (06:43)
[2021-12-07 08:17] LABS: BASO % 1.3 % (0-2.0); EOS % 8.7 % (0-4.5); HEMATOCRIT 35.1 % (32.4-45.2); HEMOGLOBIN 11.4 GM/dL (10.7-15.3); LYMPH % 16.3 % (8-40); MCH 28.4 pg (25.7-33.7); MCHC 32.6 g/dl (32.0-36.0); MEAN CELL VOLUME 87.1 fl (80-96); MEAN PLT VOLUME 6.7 fl (7.5-11.1); NEUT % 68.7 % (42.8-82.8); PLATELET COUNT 386 10^3/uL (134-434); RBC 4.03 M/mm3 (3.60-5.2); WHITE BLOOD COUNT 10.9 K/mm3 (4.0-10.0)
[2021-12-07 08:24] LABS: INR 0.99 (0.83-1.09); PROTHROMBIN TIME (PATIENT) 11.4 SEC (9.7-13.0)
[2021-12-07 08:48] LABS: CALCIUM 9.5 mg/dL (8.5-10.1)
[2021-12-07 08:49] LABS: ALBUMIN 3.3 g/dl (3.4-5.0); BLOOD UREA NITROGEN 10.3 mg/dL (7-18)
[2021-12-07 08:52] LABS: CREATININE 0.4 mg/dL (0.55-1.3)
[2021-12-07 08:53] LABS: BILIRUBIN,TOTAL 0.8 mg/dL (0.2-1); TOT PROT 7.8 g/dl (6.4-8.2)
[2021-12-07] MEDS: MAG HYDROX/AL HYDROX/SIMETH 30 ML UNIT-DOSE CUP PO PRN (09:07)
[2021-12-07] MEDS: POLYETHYLENE GLYCOL (HEALTHYLAX) 3350 17 GM PACKET PO SCH ×2 (09:08→22:18)
[2021-12-07] MEDS: CEFTRIAXONE 1 GM in DEXTROSE 5%-WATER - 50 ML IVPB SCH (09:08)
[2021-12-07] MEDS: ESCITALOPRAM OXALATE 10 MG TABLET PO SCH (09:09)
[2021-12-07] MEDS: ATENOLOL 25 MG TABLET (FP) PO SCH (09:09)
[2021-12-07] MEDS: VALSARTAN 80 MG TABLET PO SCH ×2 (09:09→22:18)
[2021-12-07] MEDS: ALPRAZolam 0.25 MG TABLET PO SCH ×2 (09:09→22:16)
[2021-12-07] MEDS: PANTOPRAZOLE 40 MG TABLET PO SCH (09:10)
[2021-12-07] MEDS: HYDROCORTISONE 2.5% TOPICAL CREAM 30 GM TUBE TP SCH ×2 (10:25→22:21)
[2021-12-07] MEDS: MAG HYDROX/ALH/SMC/DPHA/LIDO 240 ML MOUTHWASH MM SCH ×2 (14:56→17:08)
[2021-12-07 15:18] VITALS: BMI 25.7
[2021-12-07] MEDS: AMMONIUM LACTATE 12% LOTION 225 GM BOTTLE TP PRN ×2 (15:54→22:20)
[2021-12-07] MEDS: EZETIMIBE 10 MG TABLET (FP) PO SCH (22:16)
[2021-12-07] MEDS: LYTES/YERBA SANTA 60 ML SPRAY MM SCH ×2 (22:16→22:18)
[2021-12-07] MEDS: ATORVASTATIN CA 10 MG TABLET (FP) PO SCH (22:17)
[2021-12-07] MEDS: SENNOSIDES 8.6MG TABLET (FP) PO SCH (22:17)
[2021-12-07] MEDS: NYSTATIN/TRIAMCINOLONE TOPICAL CREAM 15 GM TUBE TP SCH (22:19)
[2021-12-08] MEDS: MAG HYDROX/ALH/SMC/DPHA/LIDO 240 ML MOUTHWASH MM SCH ×5 (00:21→23:28)
[2021-12-08] MEDS: LEVOTHYROXINE NA 50 MCG TABLET (FP) PO SCH (06:30)
[2021-12-08] MEDS: NYSTATIN 500,000 UNITS/5 ML SUSPENSION PO SCH ×4 (06:30→23:28)
[2021-12-08] MEDS: AMINO ACIDS/PROTEIN HYDROLYS 30 ML LIQUID.PKT PO SCH (08:00)
[2021-12-08 08:28] LABS: BLOOD UREA NITROGEN 16.2 mg/dL (7-18)
[2021-12-08 08:31] LABS: CREATININE 0.7 mg/dL (0.55-1.3)
[2021-12-08] MEDS: ATENOLOL 25 MG TABLET (FP) PO SCH (10:25)
[2021-12-08] MEDS: VALSARTAN 80 MG TABLET PO SCH ×2 (10:25→21:31)
[2021-12-08] MEDS: PANTOPRAZOLE 40 MG TABLET PO SCH (10:25)
[2021-12-08] MEDS: MULTIVITAMINS (DAILY MVI) TABLET (FP) PO SCH (10:25)
[2021-12-08] MEDS: NYSTATIN/TRIAMCINOLONE TOPICAL CREAM 15 GM TUBE TP SCH ×2 (10:26→21:33)
[2021-12-08] MEDS: POLYETHYLENE GLYCOL (HEALTHYLAX) 3350 17 GM PACKET PO SCH ×2 (10:26→21:40)
[2021-12-08] MEDS: CEFTRIAXONE 1 GM in DEXTROSE 5%-WATER - 50 ML IVPB SCH (10:26)
[2021-12-08] MEDS: HYDROCORTISONE 2.5% TOPICAL CREAM 30 GM TUBE TP SCH ×2 (10:35→22:54)
[2021-12-08] MEDS: ALPRAZolam 0.25 MG TABLET PO SCH ×2 (10:36→21:33)
[2021-12-08] MEDS: ESCITALOPRAM OXALATE 10 MG TABLET PO SCH (10:36)
[2021-12-08] MEDS: ATORVASTATIN CA 10 MG TABLET (FP) PO SCH (21:31)
[2021-12-08] MEDS: LYTES/YERBA SANTA 60 ML SPRAY MM SCH (21:33)
[2021-12-08] MEDS: EZETIMIBE 10 MG TABLET (FP) PO SCH (21:33)
[2021-12-08] MEDS: SENNOSIDES 8.6MG TABLET (FP) PO SCH (21:40)
[2021-12-08] MEDS: MAG HYDROX/AL HYDROX/SIMETH 30 ML UNIT-DOSE CUP PO PRN (21:43)
[2021-12-09] MEDS: LEVOTHYROXINE NA 50 MCG TABLET (FP) PO SCH (06:42)
[2021-12-09] MEDS: MAG HYDROX/ALH/SMC/DPHA/LIDO 240 ML MOUTHWASH MM SCH ×5 (06:43→23:28)
[2021-12-09] MEDS: NYSTATIN 500,000 UNITS/5 ML SUSPENSION PO SCH ×5 (06:43→23:41)
[2021-12-09] MEDS: AMINO ACIDS/PROTEIN HYDROLYS 30 ML LIQUID.PKT PO SCH (07:17)
[2021-12-09 08:20] LABS: HEMATOCRIT 30.9 % (32.4-45.2); HEMOGLOBIN 10.2 GM/dL (10.7-15.3); MCH 28.6 pg (25.7-33.7); MCHC 33.1 g/dl (32.0-36.0); MEAN CELL VOLUME 86.6 fl (80-96); MEAN PLT VOLUME 7.1 fl (7.5-11.1); PLATELET COUNT 362 10^3/uL (134-434); RBC 3.56 M/mm3 (3.60-5.2); RDW 13.2 % (11.6-15.6); WHITE BLOOD COUNT 9.7 K/mm3 (4.0-10.0)
[2021-12-09 08:38] LABS: CALCIUM 9.1 mg/dL (8.5-10.1)
[2021-12-09 08:39] LABS: BLOOD UREA NITROGEN 17.4 mg/dL (7-18); MAGNESIUM 2.6 mg/dL (1.8-2.4)
[2021-12-09 08:42] LABS: CREATININE 0.4 mg/dL (0.55-1.3)
[2021-12-09] MEDS: HYDROCORTISONE 2.5% TOPICAL CREAM 30 GM TUBE TP SCH ×3 (09:53→23:58)
[2021-12-09] MEDS: POLYETHYLENE GLYCOL (HEALTHYLAX) 3350 17 GM PACKET PO SCH ×2 (09:53→23:22)
[2021-12-09] MEDS: PANTOPRAZOLE 40 MG TABLET PO SCH (09:54)
[2021-12-09] MEDS: MULTIVITAMINS (DAILY MVI) TABLET (FP) PO SCH (09:54)
[2021-12-09] MEDS: ATENOLOL 25 MG TABLET (FP) PO SCH (09:54)
[2021-12-09] MEDS: VALSARTAN 80 MG TABLET PO SCH ×2 (09:54→23:21)
[2021-12-09] MEDS: ALPRAZolam 0.25 MG TABLET PO SCH ×2 (09:55→23:22)
[2021-12-09] MEDS: CEFTRIAXONE 1 GM in DEXTROSE 5%-WATER - 50 ML IVPB SCH (10:25)
[2021-12-09] MEDS: ESCITALOPRAM OXALATE 10 MG TABLET PO SCH (10:25)
[2021-12-09] MEDS: NYSTATIN/TRIAMCINOLONE TOPICAL CREAM 15 GM TUBE TP SCH (10:25)
[2021-12-09] MEDS: ATORVASTATIN CA 10 MG TABLET (FP) PO SCH (23:22)
[2021-12-09] MEDS: SENNOSIDES 8.6MG TABLET (FP) PO SCH (23:22)
[2021-12-09] MEDS: LYTES/YERBA SANTA 60 ML SPRAY MM SCH (23:58)
[2021-12-09] MEDS: EZETIMIBE 10 MG TABLET (FP) PO SCH (23:58)
[2021-12-10] MEDS: NYSTATIN/TRIAMCINOLONE TOPICAL CREAM 15 GM TUBE TP SCH ×4 (02:23→22:42)
[2021-12-10] MEDS: MAG HYDROX/ALH/SMC/DPHA/LIDO 240 ML MOUTHWASH MM SCH ×3 (06:12→17:20)
[2021-12-10] MEDS: NYSTATIN 500,000 UNITS/5 ML SUSPENSION PO SCH ×3 (06:15→17:20)
[2021-12-10] MEDS: LEVOTHYROXINE NA 50 MCG TABLET (FP) PO SCH (06:15)
[2021-12-10] MEDS: HYDROCORTISONE 2.5% TOPICAL CREAM 30 GM TUBE TP SCH ×3 (10:43→21:37)
[2021-12-10] MEDS: AMINO ACIDS/PROTEIN HYDROLYS 30 ML LIQUID.PKT PO SCH ×2 (10:43→11:53)
[2021-12-10] MEDS: VALSARTAN 80 MG TABLET PO SCH ×3 (10:43→21:36)
[2021-12-10] MEDS: POLYETHYLENE GLYCOL (HEALTHYLAX) 3350 17 GM PACKET PO SCH ×3 (10:43→21:35)
[2021-12-10] MEDS: ESCITALOPRAM OXALATE 10 MG TABLET PO SCH ×2 (10:43→11:52)
[2021-12-10] MEDS: ALPRAZolam 0.25 MG TABLET PO SCH ×4 (10:44→21:35)
[2021-12-10] MEDS: PANTOPRAZOLE 40 MG TABLET PO SCH ×2 (10:44→11:51)
[2021-12-10] MEDS: ATENOLOL 25 MG TABLET (FP) PO SCH ×2 (10:44→11:51)
[2021-12-10] MEDS: MULTIVITAMINS (DAILY MVI) TABLET (FP) PO SCH ×2 (10:44→11:51)
[2021-12-10] MEDS: CEFTRIAXONE 1 GM in DEXTROSE 5%-WATER - 50 ML IVPB SCH ×2 (10:45→11:53)
[2021-12-10 13:18] LABS: HEMATOCRIT 32.1 % (32.4-45.2); HEMOGLOBIN 10.4 GM/dL (10.7-15.3); MCH 28.2 pg (25.7-33.7); MCHC 32.5 g/dl (32.0-36.0); MEAN CELL VOLUME 86.9 fl (80-96); PLATELET COUNT 363 10^3/uL (134-434); RBC 3.69 M/mm3 (3.60-5.2); RDW 13.5 % (11.6-15.6)
[2021-12-10 13:35] LABS: CALCIUM 9.8 mg/dL (8.5-10.1)
[2021-12-10 13:36] LABS: BLOOD UREA NITROGEN 14.4 mg/dL (7-18)
[2021-12-10 13:39] LABS: CREATININE 0.4 mg/dL (0.55-1.3)
[2021-12-10 13:41] LABS: BILIRUBIN,TOTAL 0.4 mg/dL (0.2-1); TOT PROT 7.1 g/dl (6.4-8.2)
[2021-12-10 14:04] LABS: MAGNESIUM 2.5 mg/dL (1.8-2.4)
[2021-12-10] MEDS ORDERED: LIDOCAINE VISCOUS 2% ORAL/TOP 15 ML UNIT-DOSE CUP ONE (15:04)
[2021-12-10] MEDS ORDERED: FUROSEMIDE 20 MG TABLET (FP) PO ONE (15:17)
[2021-12-10] MEDS: SODIUM CHLORIDE 1 GM TABLET PO SCH ×2 (18:37→21:36)
[2021-12-10] MEDS: ATORVASTATIN CA 10 MG TABLET (FP) PO SCH (21:35)
[2021-12-10] MEDS: EZETIMIBE 10 MG TABLET (FP) PO SCH (21:35)
[2021-12-10] MEDS: SENNOSIDES 8.6MG TABLET (FP) PO SCH (21:35)
[2021-12-10] MEDS: LYTES/YERBA SANTA 60 ML SPRAY MM SCH (21:37)
[2021-12-11] MEDS: MAG HYDROX/ALH/SMC/DPHA/LIDO 240 ML MOUTHWASH MM SCH ×4 (00:15→17:40)
[2021-12-11] MEDS: NYSTATIN 500,000 UNITS/5 ML SUSPENSION PO SCH ×4 (00:15→17:40)
[2021-12-11] MEDS ORDERED: ACETAMINOPHEN 325 MG TABLET (FP) PO ONE (05:13)
[2021-12-11] MEDS: LEVOTHYROXINE NA 50 MCG TABLET (FP) PO SCH (06:59)
[2021-12-11 09:07] LABS: CALCIUM 9.7 mg/dL (8.5-10.1)
[2021-12-11 09:08] LABS: ALBUMIN 3.1 g/dl (3.4-5.0); BLOOD UREA NITROGEN 17.3 mg/dL (7-18)
[2021-12-11 09:11] LABS: CREATININE 0.5 mg/dL (0.55-1.3)
[2021-12-11 09:12] LABS: BILIRUBIN,TOTAL 0.4 mg/dL (0.2-1); TOT PROT 7.3 g/dl (6.4-8.2)
[2021-12-11] MEDS: AMINO ACIDS/PROTEIN HYDROLYS 30 ML LIQUID.PKT PO SCH (11:24)
[2021-12-11] MEDS: POLYETHYLENE GLYCOL (HEALTHYLAX) 3350 17 GM PACKET PO SCH ×3 (11:24→22:25)
[2021-12-11] MEDS: PANTOPRAZOLE 40 MG TABLET PO SCH (11:25)
[2021-12-11] MEDS: VALSARTAN 80 MG TABLET PO SCH ×2 (11:25→22:08)
[2021-12-11] MEDS: ESCITALOPRAM OXALATE 10 MG TABLET PO SCH (11:25)
[2021-12-11] MEDS: ALPRAZolam 0.25 MG TABLET PO SCH ×2 (11:25→21:13)
[2021-12-11] MEDS: MULTIVITAMINS (DAILY MVI) TABLET (FP) PO SCH (11:25)
[2021-12-11] MEDS: ATENOLOL 25 MG TABLET (FP) PO SCH (11:25)
[2021-12-11] MEDS: CEFTRIAXONE 1 GM in DEXTROSE 5%-WATER - 50 ML IVPB SCH (11:26)
[2021-12-11] MEDS: NYSTATIN/TRIAMCINOLONE TOPICAL CREAM 15 GM TUBE TP SCH ×2 (11:27→22:17)
[2021-12-11] MEDS: HYDROCORTISONE 2.5% TOPICAL CREAM 30 GM TUBE TP SCH ×2 (11:27→22:17)
[2021-12-11 21:04] LABS: BASO % 0.9 % (0-2.0); EOS % 5.2 % (0-4.5); HEMATOCRIT 28.9 % (32.4-45.2); HEMOGLOBIN 9.4 GM/dL (10.7-15.3); LYMPH % 14.1 % (8-40); MCH 27.9 pg (25.7-33.7); MCHC 32.4 g/dl (32.0-36.0); MEAN CELL VOLUME 86.2 fl (80-96); MEAN PLT VOLUME 7.1 fl (7.5-11.1); MONO % 2.7 % (3.8-10.2); NEUT % 77.1 % (42.8-82.8); PLATELET COUNT 334 10^3/uL (134-434); RBC 3.35 M/mm3 (3.60-5.2); RDW 13.2 % (11.6-15.6); WHITE BLOOD COUNT 13.8 K/mm3 (4.0-10.0)
[2021-12-11 21:25] LABS: CALCIUM 8.9 mg/dL (8.5-10.1)
[2021-12-11 21:26] LABS: ALBUMIN 2.8 g/dl (3.4-5.0); BLOOD UREA NITROGEN 17.6 mg/dL (7-18)
[2021-12-11 21:29] LABS: CREATININE 0.6 mg/dL (0.55-1.3)
[2021-12-11 21:30] LABS: TOT PROT 6.8 g/dl (6.4-8.2)
[2021-12-11 21:31] LABS: BILIRUBIN,TOTAL 0.2 mg/dL (0.2-1)
[2021-12-11] MEDS: SENNOSIDES 8.6MG TABLET (FP) PO SCH ×2 (22:08→22:25)
[2021-12-11] MEDS: ATORVASTATIN CA 10 MG TABLET (FP) PO SCH (22:08)
[2021-12-11] MEDS: EZETIMIBE 10 MG TABLET (FP) PO SCH (22:08)
[2021-12-11] MEDS: MELATONIN 5 MG TABLETS PO PRN (22:08)
[2021-12-11] MEDS: LYTES/YERBA SANTA 60 ML SPRAY MM SCH (22:18)
[2021-12-12] MEDS: NYSTATIN 500,000 UNITS/5 ML SUSPENSION PO SCH ×5 (01:43→17:58)
[2021-12-12] MEDS: MAG HYDROX/ALH/SMC/DPHA/LIDO 240 ML MOUTHWASH MM SCH ×5 (01:50→17:58)
[2021-12-12] MEDS ORDERED: AMMONIUM LACTATE 12% LOTION 225 GM BOTTLE TP PRN (05:19)
[2021-12-12] MEDS ORDERED: ALBUTEROL SO4 2.5/IPRATROPIUM 0.5 INH SOL 3 ML VIAL.NEB. NEB PRN (05:19)
[2021-12-12] MEDS ORDERED: LIP BALM (CHAPSTICK) TP PRN (05:19)
[2021-12-12] MEDS: LEVOTHYROXINE NA 50 MCG TABLET (FP) PO SCH (06:31)
[2021-12-12 09:30] LABS: BASO % 0.6 % (0-2.0); EOS % 5.6 % (0-4.5); HEMATOCRIT 30.9 % (32.4-45.2); HEMOGLOBIN 9.9 GM/dL (10.7-15.3); LYMPH % 14.3 % (8-40); MCH 27.8 pg (25.7-33.7); MCHC 32.1 g/dl (32.0-36.0); MEAN CELL VOLUME 86.9 fl (80-96); MEAN PLT VOLUME 7.4 fl (7.5-11.1); MONO % 3.6 % (3.8-10.2); NEUT % 75.9 % (42.8-82.8); PLATELET COUNT 343 10^3/uL (134-434); RBC 3.56 M/mm3 (3.60-5.2); RDW 13.3 % (11.6-15.6); WHITE BLOOD COUNT 10.7 K/mm3 (4.0-10.0)
[2021-12-12] MEDS: AMINO ACIDS/PROTEIN HYDROLYS 30 ML LIQUID.PKT PO SCH (09:36)
[2021-12-12] MEDS: CEFTRIAXONE 1 GM in DEXTROSE 5%-WATER - 50 ML IVPB SCH (09:36)
[2021-12-12] MEDS: ATENOLOL 25 MG TABLET (FP) PO SCH (09:37)
[2021-12-12] MEDS: VALSARTAN 80 MG TABLET PO SCH ×2 (09:37→21:57)
[2021-12-12] MEDS: PANTOPRAZOLE 40 MG TABLET PO SCH (09:37)
[2021-12-12] MEDS: MULTIVITAMINS (DAILY MVI) TABLET (FP) PO SCH (09:37)
[2021-12-12] MEDS: POLYETHYLENE GLYCOL (HEALTHYLAX) 3350 17 GM PACKET PO SCH ×3 (09:43→21:57)
[2021-12-12] MEDS: ALPRAZolam 0.25 MG TABLET PO SCH ×2 (09:43→21:57)
[2021-12-12] MEDS: ESCITALOPRAM OXALATE 20 MG TABLET PO SCH (09:43)
[2021-12-12] MEDS: HYDROCORTISONE 2.5% TOPICAL CREAM 30 GM TUBE TP SCH ×2 (09:44→23:16)
[2021-12-12] MEDS: NYSTATIN/TRIAMCINOLONE TOPICAL CREAM 15 GM TUBE TP SCH ×2 (09:44→21:58)
[2021-12-12 10:17] LABS: BLOOD UREA NITROGEN 21.5 mg/dL (7-18); CALCIUM 9.5 mg/dL (8.5-10.1)
[2021-12-12 10:20] LABS: CREATININE 0.5 mg/dL (0.55-1.3)
[2021-12-12 10:21] LABS: TOT PROT 7.2 g/dl (6.4-8.2)
[2021-12-12 10:23] LABS: BILIRUBIN,TOTAL 0.8 mg/dL (0.2-1)
[2021-12-12 14:50] LABS: CHLORIDE 94 mmol/L (98-107); SODIUM 134 mmol/L (136-145)
[2021-12-12 14:52] LABS: CALCIUM 9.2 mg/dL (8.5-10.1)
[2021-12-12 14:53] LABS: ALBUMIN 2.8 g/dl (3.4-5.0); ANION GAP 9 MMOL/L (8-16); BLOOD UREA NITROGEN 20.6 mg/dL (7-18); CO2 32 mmol/L (21-32); GLUCOSE,RANDOM 103 mg/dL (74-106)
[2021-12-12 14:56] LABS: CREATININE 0.5 mg/dL (0.55-1.3); SGOT/AST 18 U/L (15-37); SGPT/ALT 22 U/L (13-61)
[2021-12-12 14:58] LABS: BILIRUBIN,TOTAL 0.2 mg/dL (0.2-1)
[2021-12-12 14:59] LABS: ALK PHOS 144 U/L (45-117)
[2021-12-12] MEDS: SENNOSIDES 8.6MG TABLET (FP) PO SCH (21:57)
[2021-12-12] MEDS: LYTES/YERBA SANTA 60 ML SPRAY MM SCH (21:59)
[2021-12-12] MEDS: ATORVASTATIN CA 10 MG TABLET (FP) PO SCH (22:01)
[2021-12-12] MEDS: EZETIMIBE 10 MG TABLET (FP) PO SCH (22:03)
[2021-12-13] MEDS: MAG HYDROX/ALH/SMC/DPHA/LIDO 240 ML MOUTHWASH MM SCH ×7 (01:24→23:53)
[2021-12-13] MEDS: NYSTATIN 500,000 UNITS/5 ML SUSPENSION PO SCH ×7 (01:24→23:53)
[2021-12-13] MEDS: LEVOTHYROXINE NA 50 MCG TABLET (FP) PO SCH (06:08)
[2021-12-13] MEDS: PANTOPRAZOLE 40 MG TABLET PO SCH (10:41)
[2021-12-13] MEDS: VALSARTAN 80 MG TABLET PO SCH ×2 (10:42→22:56)
[2021-12-13] MEDS: ALPRAZolam 0.25 MG TABLET PO SCH ×3 (10:43→23:13)
[2021-12-13] MEDS: MULTIVITAMINS (DAILY MVI) TABLET (FP) PO SCH (10:44)
[2021-12-13] MEDS: CEFTRIAXONE 1 GM in DEXTROSE 5%-WATER - 50 ML IVPB SCH (10:45)
[2021-12-13] MEDS: ATENOLOL 25 MG TABLET (FP) PO SCH (10:45)
[2021-12-13] MEDS: AMINO ACIDS/PROTEIN HYDROLYS 30 ML LIQUID.PKT PO SCH (10:46)
[2021-12-13] MEDS: ESCITALOPRAM OXALATE 20 MG TABLET PO SCH (10:46)
[2021-12-13] MEDS: NYSTATIN/TRIAMCINOLONE TOPICAL CREAM 15 GM TUBE TP SCH ×2 (10:48→22:58)
[2021-12-13] MEDS: POLYETHYLENE GLYCOL (HEALTHYLAX) 3350 17 GM PACKET PO SCH ×2 (10:59→22:55)
[2021-12-13] MEDS: HYDROCORTISONE 2.5% TOPICAL CREAM 30 GM TUBE TP SCH ×2 (11:00→22:56)
[2021-12-13] MEDS: LYTES/YERBA SANTA 60 ML SPRAY MM SCH ×3 (22:30→22:59)
[2021-12-13] MEDS: SENNOSIDES 8.6MG TABLET (FP) PO SCH (22:56)
[2021-12-13] MEDS: ATORVASTATIN CA 10 MG TABLET (FP) PO SCH (22:56)
[2021-12-13] MEDS: EZETIMIBE 10 MG TABLET (FP) PO SCH (23:51)
[2021-12-14] MEDS: LEVOTHYROXINE NA 50 MCG TABLET (FP) PO SCH (06:46)
[2021-12-14] MEDS: MAG HYDROX/ALH/SMC/DPHA/LIDO 240 ML MOUTHWASH MM SCH ×3 (06:46→17:24)
[2021-12-14] MEDS: NYSTATIN 500,000 UNITS/5 ML SUSPENSION PO SCH ×3 (06:46→17:24)
[2021-12-14 07:16] LABS: IGA IMMUNOGLOBULIN 283 mg/dL (64-422); IGG QN IMMUNOGLOBULIN 1579 mg/dL (586-1602); IGM QN SERUM 36 mg/dL (26-217)
[2021-12-14] MEDS: ESCITALOPRAM OXALATE 20 MG TABLET PO SCH (10:18)
[2021-12-14] MEDS: ALPRAZolam 0.25 MG TABLET PO SCH ×2 (10:18→21:38)
[2021-12-14] MEDS: HYDROCORTISONE 2.5% TOPICAL CREAM 30 GM TUBE TP SCH ×2 (10:18→21:40)
[2021-12-14] MEDS: ATENOLOL 25 MG TABLET (FP) PO SCH (10:18)
[2021-12-14] MEDS: POLYETHYLENE GLYCOL (HEALTHYLAX) 3350 17 GM PACKET PO SCH ×3 (10:18→21:59)
[2021-12-14] MEDS: AMINO ACIDS/PROTEIN HYDROLYS 30 ML LIQUID.PKT PO SCH (10:19)
[2021-12-14] MEDS: MULTIVITAMINS (DAILY MVI) TABLET (FP) PO SCH (10:19)
[2021-12-14] MEDS: NYSTATIN/TRIAMCINOLONE TOPICAL CREAM 15 GM TUBE TP SCH ×2 (10:19→21:40)
[2021-12-14] MEDS: PANTOPRAZOLE 40 MG TABLET PO SCH (10:19)
[2021-12-14] MEDS: VALSARTAN 80 MG TABLET PO SCH ×2 (10:19→21:38)
[2021-12-14] MEDS: CEFTRIAXONE 1 GM in DEXTROSE 5%-WATER - 50 ML IVPB SCH (10:19)
[2021-12-14 18:07] LABS: FREE KAPPA,SERUM 77.8 mg/L (3.3-19.4)
[2021-12-14] MEDS ORDERED: diphenhydrAMINE HCL 25 MG CAPSULE (FP) PO PRN (18:52)
[2021-12-14] MEDS: EZETIMIBE 10 MG TABLET (FP) PO SCH (21:38)
[2021-12-14] MEDS: SENNOSIDES 8.6MG TABLET (FP) PO SCH (21:38)
[2021-12-14] MEDS: ATORVASTATIN CA 10 MG TABLET (FP) PO SCH (21:38)
[2021-12-14] MEDS: MELATONIN 5 MG TABLETS PO PRN (21:38)
[2021-12-14] MEDS: LYTES/YERBA SANTA 60 ML SPRAY MM SCH (21:43)
[2021-12-15] MEDS: MAG HYDROX/ALH/SMC/DPHA/LIDO 240 ML MOUTHWASH MM SCH ×4 (00:05→17:09)
[2021-12-15] MEDS: NYSTATIN 500,000 UNITS/5 ML SUSPENSION PO SCH ×4 (00:05→17:09)
[2021-12-15] MEDS: LEVOTHYROXINE NA 50 MCG TABLET (FP) PO SCH (06:51)
[2021-12-15] MEDS: POLYETHYLENE GLYCOL (HEALTHYLAX) 3350 17 GM PACKET PO SCH ×2 (10:06→21:49)
[2021-12-15] MEDS: MULTIVITAMINS (DAILY MVI) TABLET (FP) PO SCH (10:06)
[2021-12-15] MEDS: PANTOPRAZOLE 40 MG TABLET PO SCH (10:06)
[2021-12-15] MEDS: VALSARTAN 80 MG TABLET PO SCH ×2 (10:06→21:49)
[2021-12-15] MEDS: AMINO ACIDS/PROTEIN HYDROLYS 30 ML LIQUID.PKT PO SCH (10:06)
[2021-12-15] MEDS: HYDROCORTISONE 2.5% TOPICAL CREAM 30 GM TUBE TP SCH ×2 (10:06→21:53)
[2021-12-15] MEDS: NYSTATIN/TRIAMCINOLONE TOPICAL CREAM 15 GM TUBE TP SCH ×2 (10:06→21:53)
[2021-12-15] MEDS: ESCITALOPRAM OXALATE 20 MG TABLET PO SCH (10:06)
[2021-12-15] MEDS: ATENOLOL 25 MG TABLET (FP) PO SCH (10:06)
[2021-12-15] MEDS: ALPRAZolam 0.25 MG TABLET PO SCH ×2 (10:06→21:49)
[2021-12-15] MEDS: EZETIMIBE 10 MG TABLET (FP) PO SCH (21:49)
[2021-12-15] MEDS: SENNOSIDES 8.6MG TABLET (FP) PO SCH (21:49)
[2021-12-15] MEDS: LYTES/YERBA SANTA 60 ML SPRAY MM SCH (21:49)
[2021-12-15] MEDS: ATORVASTATIN CA 10 MG TABLET (FP) PO SCH (21:50)
[2021-12-16] MEDS: MAG HYDROX/ALH/SMC/DPHA/LIDO 240 ML MOUTHWASH MM SCH ×4 (01:02→17:00)
[2021-12-16] MEDS: NYSTATIN 500,000 UNITS/5 ML SUSPENSION PO SCH ×4 (01:03→17:00)
[2021-12-16] MEDS: LEVOTHYROXINE NA 50 MCG TABLET (FP) PO SCH (06:09)
[2021-12-16 09:32] LABS: ALBUMIN 3.4 g/dl (3.4-5.0); BLOOD UREA NITROGEN 24.1 mg/dL (7-18); CALCIUM 9.7 mg/dL (8.5-10.1)
[2021-12-16 09:33] LABS: CREATININE 0.5 mg/dL (0.55-1.3)
[2021-12-16 09:36] LABS: BILIRUBIN,TOTAL 0.3 mg/dL (0.2-1); TOT PROT 7.8 g/dl (6.4-8.2)
[2021-12-16] MEDS: VALSARTAN 80 MG TABLET PO SCH ×2 (09:40→21:22)
[2021-12-16] MEDS: AMINO ACIDS/PROTEIN HYDROLYS 30 ML LIQUID.PKT PO SCH (09:40)
[2021-12-16] MEDS: ESCITALOPRAM OXALATE 20 MG TABLET PO SCH (09:40)
[2021-12-16] MEDS: MULTIVITAMINS (DAILY MVI) TABLET (FP) PO SCH (09:40)
[2021-12-16] MEDS: ALPRAZolam 0.25 MG TABLET PO SCH ×2 (09:41→21:30)
[2021-12-16] MEDS: ATENOLOL 25 MG TABLET (FP) PO SCH (09:41)
[2021-12-16] MEDS: POLYETHYLENE GLYCOL (HEALTHYLAX) 3350 17 GM PACKET PO SCH ×2 (09:41→21:21)
[2021-12-16] MEDS: PANTOPRAZOLE 40 MG TABLET PO SCH (09:41)
[2021-12-16] MEDS: NYSTATIN/TRIAMCINOLONE TOPICAL CREAM 15 GM TUBE TP SCH ×2 (09:42→21:30)
[2021-12-16] MEDS: HYDROCORTISONE 2.5% TOPICAL CREAM 30 GM TUBE TP SCH ×2 (09:43→21:24)
[2021-12-16] MEDS: LYTES/YERBA SANTA 60 ML SPRAY MM SCH (21:23)
[2021-12-16] MEDS: ATORVASTATIN CA 10 MG TABLET (FP) PO SCH (21:23)
[2021-12-16] MEDS: SENNOSIDES 8.6MG TABLET (FP) PO SCH (21:23)
[2021-12-16] MEDS: EZETIMIBE 10 MG TABLET (FP) PO SCH (21:24)
[2021-12-17] MEDS: MAG HYDROX/ALH/SMC/DPHA/LIDO 240 ML MOUTHWASH MM SCH ×5 (00:03→23:13)
[2021-12-17] MEDS: NYSTATIN 500,000 UNITS/5 ML SUSPENSION PO SCH ×5 (00:03→23:13)
[2021-12-17] MEDS: LEVOTHYROXINE NA 50 MCG TABLET (FP) PO SCH (06:59)
[2021-12-17] MEDS: PANTOPRAZOLE 40 MG TABLET PO SCH (10:41)
[2021-12-17] MEDS: AMINO ACIDS/PROTEIN HYDROLYS 30 ML LIQUID.PKT PO SCH (10:41)
[2021-12-17] MEDS: ATENOLOL 25 MG TABLET (FP) PO SCH (10:42)
[2021-12-17] MEDS: MULTIVITAMINS (DAILY MVI) TABLET (FP) PO SCH (10:42)
[2021-12-17] MEDS: ALPRAZolam 0.25 MG TABLET PO SCH ×2 (10:42→21:57)
[2021-12-17] MEDS: ESCITALOPRAM OXALATE 20 MG TABLET PO SCH (10:43)
[2021-12-17] MEDS: POLYETHYLENE GLYCOL (HEALTHYLAX) 3350 17 GM PACKET PO SCH ×2 (10:43→21:52)
[2021-12-17] MEDS: VALSARTAN 80 MG TABLET PO SCH ×2 (10:45→21:54)
[2021-12-17] MEDS: NYSTATIN/TRIAMCINOLONE TOPICAL CREAM 15 GM TUBE TP SCH ×2 (10:45→21:57)
[2021-12-17] MEDS: HYDROCORTISONE 2.5% TOPICAL CREAM 30 GM TUBE TP SCH ×2 (10:53→21:52)
[2021-12-17] MEDS: MAG HYDROX/AL HYDROX/SIMETH 30 ML UNIT-DOSE CUP PO PRN (21:30)
[2021-12-17] MEDS: ATORVASTATIN CA 10 MG TABLET (FP) PO SCH (21:54)
[2021-12-17] MEDS: LYTES/YERBA SANTA 60 ML SPRAY MM SCH (21:54)
[2021-12-17] MEDS: SENNOSIDES 8.6MG TABLET (FP) PO SCH (21:54)
[2021-12-17] MEDS: EZETIMIBE 10 MG TABLET (FP) PO SCH (21:54)
[2021-12-18] MEDS: MAG HYDROX/ALH/SMC/DPHA/LIDO 240 ML MOUTHWASH MM SCH ×4 (05:46→23:42)
[2021-12-18] MEDS: NYSTATIN 500,000 UNITS/5 ML SUSPENSION PO SCH ×4 (05:46→23:42)
[2021-12-18] MEDS: LEVOTHYROXINE NA 50 MCG TABLET (FP) PO SCH (06:31)
[2021-12-18] MEDS: MAG HYDROX/AL HYDROX/SIMETH 30 ML UNIT-DOSE CUP PO PRN (08:29)
[2021-12-18] MEDS: ATENOLOL 25 MG TABLET (FP) PO SCH (10:02)
[2021-12-18] MEDS: VALSARTAN 80 MG TABLET PO SCH ×2 (10:03→21:10)
[2021-12-18] MEDS: AMINO ACIDS/PROTEIN HYDROLYS 30 ML LIQUID.PKT PO SCH (10:03)
[2021-12-18] MEDS: POLYETHYLENE GLYCOL (HEALTHYLAX) 3350 17 GM PACKET PO SCH ×2 (10:04→21:15)
[2021-12-18] MEDS: HYDROCORTISONE 2.5% TOPICAL CREAM 30 GM TUBE TP SCH ×2 (10:04→21:15)
[2021-12-18] MEDS: ESCITALOPRAM OXALATE 20 MG TABLET PO SCH (10:04)
[2021-12-18] MEDS: ALPRAZolam 0.25 MG TABLET PO SCH ×2 (10:05→21:14)
[2021-12-18] MEDS: MULTIVITAMINS (DAILY MVI) TABLET (FP) PO SCH (10:05)
[2021-12-18] MEDS: NYSTATIN/TRIAMCINOLONE TOPICAL CREAM 15 GM TUBE TP SCH ×2 (10:05→21:14)
[2021-12-18] MEDS: PANTOPRAZOLE 40 MG TABLET PO SCH (10:05)
[2021-12-18] MEDS ORDERED: oxyCODONE HCL 5 MG TABLET PO ONE (20:20)
[2021-12-18] MEDS: SENNOSIDES 8.6MG TABLET (FP) PO SCH (21:10)
[2021-12-18] MEDS: ATORVASTATIN CA 10 MG TABLET (FP) PO SCH (21:10)
[2021-12-18] MEDS: EZETIMIBE 10 MG TABLET (FP) PO SCH (21:10)
[2021-12-18] MEDS: LYTES/YERBA SANTA 60 ML SPRAY MM SCH (21:15)
[2021-12-19] MEDS: NYSTATIN 500,000 UNITS/5 ML SUSPENSION PO SCH ×4 (05:10→23:29)
[2021-12-19] MEDS: MAG HYDROX/ALH/SMC/DPHA/LIDO 240 ML MOUTHWASH MM SCH ×4 (05:10→23:29)
[2021-12-19] MEDS: LEVOTHYROXINE NA 50 MCG TABLET (FP) PO SCH (07:00)
[2021-12-19] MEDS: POLYETHYLENE GLYCOL (HEALTHYLAX) 3350 17 GM PACKET PO SCH ×2 (10:20→22:24)
[2021-12-19] MEDS: AMINO ACIDS/PROTEIN HYDROLYS 30 ML LIQUID.PKT PO SCH (10:20)
[2021-12-19] MEDS: HYDROCORTISONE 2.5% TOPICAL CREAM 30 GM TUBE TP SCH ×2 (10:20→22:41)
[2021-12-19] MEDS: MAG HYDROX/AL HYDROX/SIMETH 30 ML UNIT-DOSE CUP PO PRN ×2 (10:20→16:40)
[2021-12-19] MEDS: MULTIVITAMINS (DAILY MVI) TABLET (FP) PO SCH (10:21)
[2021-12-19] MEDS: NYSTATIN/TRIAMCINOLONE TOPICAL CREAM 15 GM TUBE TP SCH ×2 (10:21→22:42)
[2021-12-19] MEDS: ESCITALOPRAM OXALATE 20 MG TABLET PO SCH (10:21)
[2021-12-19] MEDS: ATENOLOL 25 MG TABLET (FP) PO SCH (10:34)
[2021-12-19] MEDS: VALSARTAN 80 MG TABLET PO SCH ×2 (10:34→22:25)
[2021-12-19] MEDS: PANTOPRAZOLE 40 MG TABLET PO SCH (10:34)
[2021-12-19] MEDS: ALBUTEROL SO4 2.5/IPRATROPIUM 0.5 INH SOL 3 ML VIAL.NEB. NEB SCH ×3 (11:09→20:02)
[2021-12-19] MEDS: SENNOSIDES 8.6MG TABLET (FP) PO SCH (22:24)
[2021-12-19] MEDS: EZETIMIBE 10 MG TABLET (FP) PO SCH (22:24)
[2021-12-19] MEDS: ATORVASTATIN CA 10 MG TABLET (FP) PO SCH (22:24)
[2021-12-19] MEDS: LYTES/YERBA SANTA 60 ML SPRAY MM SCH (22:46)
[2021-12-19] MEDS ORDERED: ALPRAZolam 0.25 MG TABLET PO PRN (23:57)
[2021-12-20] MEDS: NYSTATIN 500,000 UNITS/5 ML SUSPENSION PO SCH ×4 (07:05→18:00)
[2021-12-20] MEDS: LEVOTHYROXINE NA 50 MCG TABLET (FP) PO SCH (07:08)
[2021-12-20] MEDS: MAG HYDROX/ALH/SMC/DPHA/LIDO 240 ML MOUTHWASH MM SCH ×3 (07:08→17:59)
[2021-12-20] MEDS: ALBUTEROL SO4 2.5/IPRATROPIUM 0.5 INH SOL 3 ML VIAL.NEB. NEB SCH ×4 (08:13→20:50)
[2021-12-20] MEDS: ATENOLOL 25 MG TABLET (FP) PO SCH (10:30)
[2021-12-20] MEDS: VALSARTAN 80 MG TABLET PO SCH ×2 (10:30→21:45)
[2021-12-20] MEDS: MULTIVITAMINS (DAILY MVI) TABLET (FP) PO SCH (10:30)
[2021-12-20] MEDS: PANTOPRAZOLE 40 MG TABLET PO SCH (10:30)
[2021-12-20] MEDS: NYSTATIN/TRIAMCINOLONE TOPICAL CREAM 15 GM TUBE TP SCH ×2 (10:37→21:48)
[2021-12-20] MEDS: HYDROCORTISONE 2.5% TOPICAL CREAM 30 GM TUBE TP SCH ×2 (10:37→21:46)
[2021-12-20] MEDS: MAG HYDROX/AL HYDROX/SIMETH 30 ML UNIT-DOSE CUP PO PRN (10:41)
[2021-12-20] MEDS: AMINO ACIDS/PROTEIN HYDROLYS 30 ML LIQUID.PKT PO SCH (11:07)
[2021-12-20] MEDS: POLYETHYLENE GLYCOL (HEALTHYLAX) 3350 17 GM PACKET PO SCH ×2 (11:07→21:46)
[2021-12-20] MEDS: ESCITALOPRAM OXALATE 20 MG TABLET PO SCH (11:08)
[2021-12-20] MEDS: SENNOSIDES 8.6MG TABLET (FP) PO SCH (21:45)
[2021-12-20] MEDS: ATORVASTATIN CA 10 MG TABLET (FP) PO SCH (21:45)
[2021-12-20] MEDS: LYTES/YERBA SANTA 60 ML SPRAY MM SCH (21:47)
[2021-12-20] MEDS: EZETIMIBE 10 MG TABLET (FP) PO SCH (22:43)
[2021-12-21] MEDS: MAG HYDROX/ALH/SMC/DPHA/LIDO 240 ML MOUTHWASH MM SCH ×5 (00:30→18:44)
[2021-12-21] MEDS: NYSTATIN 500,000 UNITS/5 ML SUSPENSION PO SCH ×4 (00:30→17:08)
[2021-12-21] MEDS: LEVOTHYROXINE NA 50 MCG TABLET (FP) PO SCH (06:04)
[2021-12-21] MEDS: ALBUTEROL SO4 2.5/IPRATROPIUM 0.5 INH SOL 3 ML VIAL.NEB. NEB SCH ×4 (07:51→20:17)
[2021-12-21] MEDS: POLYETHYLENE GLYCOL (HEALTHYLAX) 3350 17 GM PACKET PO SCH ×2 (10:46→21:24)
[2021-12-21] MEDS: ESCITALOPRAM OXALATE 20 MG TABLET PO SCH (10:46)
[2021-12-21] MEDS: MAG HYDROX/AL HYDROX/SIMETH 30 ML UNIT-DOSE CUP PO PRN (10:52)
[2021-12-21] MEDS: PANTOPRAZOLE 40 MG TABLET PO SCH (10:53)
[2021-12-21] MEDS: AMINO ACIDS/PROTEIN HYDROLYS 30 ML LIQUID.PKT PO SCH (10:53)
[2021-12-21] MEDS: MULTIVITAMINS (DAILY MVI) TABLET (FP) PO SCH (10:53)
[2021-12-21] MEDS: ATENOLOL 25 MG TABLET (FP) PO SCH (10:53)
[2021-12-21] MEDS: VALSARTAN 80 MG TABLET PO SCH ×2 (10:54→21:22)
[2021-12-21] MEDS: HYDROCORTISONE 2.5% TOPICAL CREAM 30 GM TUBE TP SCH ×2 (10:56→21:24)
[2021-12-21] MEDS: NYSTATIN/TRIAMCINOLONE TOPICAL CREAM 15 GM TUBE TP SCH ×2 (10:56→21:25)
[2021-12-21] MEDS: SENNOSIDES 8.6MG TABLET (FP) PO SCH (21:22)
[2021-12-21] MEDS: EZETIMIBE 10 MG TABLET (FP) PO SCH (21:22)
[2021-12-21] MEDS: ATORVASTATIN CA 10 MG TABLET (FP) PO SCH (21:22)
[2021-12-21] MEDS: LYTES/YERBA SANTA 60 ML SPRAY MM SCH (21:24)
[2021-12-22] MEDS: NYSTATIN 500,000 UNITS/5 ML SUSPENSION PO SCH ×5 (00:38→23:48)
[2021-12-22] MEDS: MAG HYDROX/ALH/SMC/DPHA/LIDO 240 ML MOUTHWASH MM SCH ×5 (00:38→23:47)
[2021-12-22] MEDS: LEVOTHYROXINE NA 50 MCG TABLET (FP) PO SCH (06:16)
[2021-12-22] MEDS: ALBUTEROL SO4 2.5/IPRATROPIUM 0.5 INH SOL 3 ML VIAL.NEB. NEB SCH ×4 (07:55→20:30)
[2021-12-22] MEDS: AMINO ACIDS/PROTEIN HYDROLYS 30 ML LIQUID.PKT PO SCH (09:31)
[2021-12-22] MEDS: ATENOLOL 25 MG TABLET (FP) PO SCH (09:32)
[2021-12-22] MEDS: MULTIVITAMINS (DAILY MVI) TABLET (FP) PO SCH (09:32)
[2021-12-22] MEDS: PANTOPRAZOLE 40 MG TABLET PO SCH (09:32)
[2021-12-22] MEDS: HYDROCORTISONE 2.5% TOPICAL CREAM 30 GM TUBE TP SCH ×2 (09:33→22:11)
[2021-12-22] MEDS: NYSTATIN/TRIAMCINOLONE TOPICAL CREAM 15 GM TUBE TP SCH ×2 (09:34→22:12)
[2021-12-22] MEDS: ESCITALOPRAM OXALATE 20 MG TABLET PO SCH (09:35)
[2021-12-22] MEDS: POLYETHYLENE GLYCOL (HEALTHYLAX) 3350 17 GM PACKET PO SCH ×2 (09:35→22:11)
[2021-12-22] MEDS: VALSARTAN 80 MG TABLET PO SCH ×2 (09:35→22:15)
[2021-12-22] MEDS: MAG HYDROX/AL HYDROX/SIMETH 30 ML UNIT-DOSE CUP PO PRN ×3 (09:39→22:46)
[2021-12-22] MEDS: LYTES/YERBA SANTA 60 ML SPRAY MM SCH (22:12)
[2021-12-22] MEDS: SENNOSIDES 8.6MG TABLET (FP) PO SCH (22:15)
[2021-12-22] MEDS: ATORVASTATIN CA 10 MG TABLET (FP) PO SCH (22:15)
[2021-12-22] MEDS: EZETIMIBE 10 MG TABLET (FP) PO SCH (22:15)
[2021-12-22] MEDS ORDERED: ACETAMINOPHEN 325 MG TABLET (FP) PO ONE (22:30)
[2021-12-23] MEDS: MAG HYDROX/ALH/SMC/DPHA/LIDO 240 ML MOUTHWASH MM SCH ×3 (06:21→17:09)
[2021-12-23] MEDS: MAG HYDROX/AL HYDROX/SIMETH 30 ML UNIT-DOSE CUP PO PRN ×2 (06:22→12:18)
[2021-12-23] MEDS: NYSTATIN 500,000 UNITS/5 ML SUSPENSION PO SCH ×3 (06:22→17:09)
[2021-12-23] MEDS: LEVOTHYROXINE NA 50 MCG TABLET (FP) PO SCH (06:22)
[2021-12-23] MEDS: ALBUTEROL SO4 2.5/IPRATROPIUM 0.5 INH SOL 3 ML VIAL.NEB. NEB SCH ×4 (08:45→20:17)
[2021-12-23] MEDS: AMINO ACIDS/PROTEIN HYDROLYS 30 ML LIQUID.PKT PO SCH (09:17)
[2021-12-23] MEDS: POLYETHYLENE GLYCOL (HEALTHYLAX) 3350 17 GM PACKET PO SCH ×2 (09:17→22:08)
[2021-12-23] MEDS: VALSARTAN 80 MG TABLET PO SCH ×2 (09:18→22:08)
[2021-12-23] MEDS: MULTIVITAMINS (DAILY MVI) TABLET (FP) PO SCH (09:18)
[2021-12-23] MEDS: ESCITALOPRAM OXALATE 20 MG TABLET PO SCH (09:18)
[2021-12-23] MEDS: PANTOPRAZOLE 40 MG TABLET PO SCH (09:18)
[2021-12-23] MEDS: HYDROCORTISONE 2.5% TOPICAL CREAM 30 GM TUBE TP SCH ×2 (09:19→22:09)
[2021-12-23] MEDS: NYSTATIN/TRIAMCINOLONE TOPICAL CREAM 15 GM TUBE TP SCH ×2 (09:19→22:09)
[2021-12-23] MEDS: ATENOLOL 25 MG TABLET (FP) PO SCH (09:20)
[2021-12-23] MEDS: ACETAMINOPHEN 325 MG TABLET (FP) PO PRN (12:14)
[2021-12-23] MEDS: ALPRAZolam 0.25 MG TABLET PO PRN (15:27)
[2021-12-23] MEDS: SENNOSIDES 8.6MG TABLET (FP) PO SCH (22:08)
[2021-12-23] MEDS: LYTES/YERBA SANTA 60 ML SPRAY MM SCH (22:08)
[2021-12-23] MEDS: ATORVASTATIN CA 10 MG TABLET (FP) PO SCH (22:09)
[2021-12-23] MEDS: EZETIMIBE 10 MG TABLET (FP) PO SCH (22:09)
[2021-12-24] MEDS: NYSTATIN 500,000 UNITS/5 ML SUSPENSION PO SCH ×4 (00:54→17:55)
[2021-12-24] MEDS: MAG HYDROX/ALH/SMC/DPHA/LIDO 240 ML MOUTHWASH MM SCH ×4 (00:54→18:55)
[2021-12-24] MEDS: LEVOTHYROXINE NA 50 MCG TABLET (FP) PO SCH (06:14)
[2021-12-24] MEDS: ALBUTEROL SO4 2.5/IPRATROPIUM 0.5 INH SOL 3 ML VIAL.NEB. NEB SCH (07:41)
[2021-12-24] MEDS: MULTIVITAMINS (DAILY MVI) TABLET (FP) PO SCH (10:43)
[2021-12-24] MEDS: ATENOLOL 25 MG TABLET (FP) PO SCH (10:44)
[2021-12-24] MEDS: PANTOPRAZOLE 40 MG TABLET PO SCH (10:44)
[2021-12-24] MEDS: VALSARTAN 80 MG TABLET PO SCH ×2 (10:44→21:40)
[2021-12-24] MEDS: AMINO ACIDS/PROTEIN HYDROLYS 30 ML LIQUID.PKT PO SCH (10:44)
[2021-12-24] MEDS: ESCITALOPRAM OXALATE 20 MG TABLET PO SCH (10:45)
[2021-12-24] MEDS: POLYETHYLENE GLYCOL (HEALTHYLAX) 3350 17 GM PACKET PO SCH ×2 (10:45→21:38)
[2021-12-24] MEDS: HYDROCORTISONE 2.5% TOPICAL CREAM 30 GM TUBE TP SCH ×2 (10:47→21:41)
[2021-12-24] MEDS: NYSTATIN/TRIAMCINOLONE TOPICAL CREAM 15 GM TUBE TP SCH ×2 (10:47→21:42)
[2021-12-24] MEDS: MAG HYDROX/AL HYDROX/SIMETH 30 ML UNIT-DOSE CUP PO PRN (13:46)
[2021-12-24] MEDS: SERTRALINE HCL 25 MG TABLET (FP) PO SCH (18:55)
[2021-12-24] MEDS: SENNOSIDES 8.6MG TABLET (FP) PO SCH (21:38)
[2021-12-24] MEDS: EZETIMIBE 10 MG TABLET (FP) PO SCH (21:39)
[2021-12-24] MEDS: MELATONIN 5 MG TABLETS PO PRN (21:39)
[2021-12-24] MEDS: ATORVASTATIN CA 10 MG TABLET (FP) PO SCH (21:40)
[2021-12-24] MEDS: ALPRAZolam 0.25 MG TABLET PO PRN (21:40)
[2021-12-24] MEDS: LYTES/YERBA SANTA 60 ML SPRAY MM SCH (21:42)
[2021-12-25] MEDS: LEVOTHYROXINE NA 50 MCG TABLET (FP) PO SCH (06:52)
[2021-12-25] MEDS: NYSTATIN 500,000 UNITS/5 ML SUSPENSION PO SCH ×4 (06:56→17:55)
[2021-12-25] MEDS: MAG HYDROX/ALH/SMC/DPHA/LIDO 240 ML MOUTHWASH MM SCH ×4 (06:56→17:55)
[2021-12-25 09:09] LABS: HEMATOCRIT 30.9 % (32.4-45.2); HEMOGLOBIN 10.3 GM/dL (10.7-15.3); MCH 28.6 pg (25.7-33.7); MCHC 33.4 g/dl (32.0-36.0); MEAN CELL VOLUME 85.5 fl (80-96); MEAN PLT VOLUME 7.7 fl (7.5-11.1); PLATELET COUNT 368 10^3/uL (134-434); RBC 3.61 M/mm3 (3.60-5.2); RDW 13.1 % (11.6-15.6); WHITE BLOOD COUNT 10.2 K/mm3 (4.0-10.0)
[2021-12-25] MEDS: AMINO ACIDS/PROTEIN HYDROLYS 30 ML LIQUID.PKT PO SCH (09:37)
[2021-12-25] MEDS: PANTOPRAZOLE 40 MG TABLET PO SCH (09:37)
[2021-12-25] MEDS: ALPRAZolam 0.25 MG TABLET PO PRN ×2 (09:37→21:10)
[2021-12-25] MEDS: SERTRALINE HCL 25 MG TABLET (FP) PO SCH (09:37)
[2021-12-25] MEDS: MULTIVITAMINS (DAILY MVI) TABLET (FP) PO SCH (09:37)
[2021-12-25] MEDS: VALSARTAN 80 MG TABLET PO SCH ×2 (09:37→21:09)
[2021-12-25] MEDS: ATENOLOL 25 MG TABLET (FP) PO SCH (09:38)
[2021-12-25 09:43] LABS: ALBUMIN 3.2 g/dl (3.4-5.0)
[2021-12-25] MEDS: POLYETHYLENE GLYCOL (HEALTHYLAX) 3350 17 GM PACKET PO SCH ×2 (09:47→21:16)
[2021-12-25] MEDS: HYDROCORTISONE 2.5% TOPICAL CREAM 30 GM TUBE TP SCH ×2 (09:47→21:07)
[2021-12-25 09:50] LABS: BLOOD UREA NITROGEN 18.3 mg/dL (7-18); CALCIUM 9.8 mg/dL (8.5-10.1); CREATININE 0.4 mg/dL (0.55-1.3); TOT PROT 7.2 g/dl (6.4-8.2)
[2021-12-25 09:51] LABS: BILIRUBIN,TOTAL 0.5 mg/dL (0.2-1)
[2021-12-25] MEDS: NYSTATIN/TRIAMCINOLONE TOPICAL CREAM 15 GM TUBE TP SCH ×2 (11:58→21:07)
[2021-12-25] MEDS ORDERED: FUROSEMIDE 20 MG TABLET (FP) PO ONE (13:22)
[2021-12-25] MEDS ORDERED: SODIUM ZIRCONIUM CYCLOSILICATE (LOKELMA) 5 GM PACKET PO SCH ×2 (13:30→16:30)
[2021-12-25] MEDS ORDERED: ALBUTEROL SO4 HFA INHALER IH PRN (14:46)
[2021-12-25] MEDS: MELATONIN 5 MG TABLETS PO PRN (21:09)
[2021-12-25] MEDS: ATORVASTATIN CA 10 MG TABLET (FP) PO SCH (21:10)
[2021-12-25] MEDS: SENNOSIDES 8.6MG TABLET (FP) PO SCH (21:10)
[2021-12-25] MEDS: EZETIMIBE 10 MG TABLET (FP) PO SCH (21:10)
[2021-12-25] MEDS: LYTES/YERBA SANTA 60 ML SPRAY MM SCH (21:10)
[2021-12-26] MEDS: MAG HYDROX/ALH/SMC/DPHA/LIDO 240 ML MOUTHWASH MM SCH ×5 (01:48→23:52)
[2021-12-26] MEDS: NYSTATIN 500,000 UNITS/5 ML SUSPENSION PO SCH ×5 (01:48→23:52)
[2021-12-26] MEDS: LEVOTHYROXINE NA 50 MCG TABLET (FP) PO SCH (06:28)
[2021-12-26 09:47] LABS: ALBUMIN 3.1 g/dl (3.4-5.0); BLOOD UREA NITROGEN 27.1 mg/dL (7-18); CALCIUM 9.6 mg/dL (8.5-10.1)
[2021-12-26 09:50] LABS: CREATININE 0.7 mg/dL (0.55-1.3)
[2021-12-26 09:52] LABS: BILIRUBIN,TOTAL 0.4 mg/dL (0.2-1); TOT PROT 6.8 g/dl (6.4-8.2)
[2021-12-26] MEDS ORDERED: SODIUM ZIRCONIUM CYCLOSILICATE (LOKELMA) 5 GM PACKET PO SCH (10:00)
[2021-12-26] MEDS: AMINO ACIDS/PROTEIN HYDROLYS 30 ML LIQUID.PKT PO SCH (11:03)
[2021-12-26] MEDS: HYDROCORTISONE 2.5% TOPICAL CREAM 30 GM TUBE TP SCH ×2 (11:04→23:18)
[2021-12-26] MEDS: VALSARTAN 80 MG TABLET PO SCH ×2 (11:05→23:07)
[2021-12-26] MEDS: POLYETHYLENE GLYCOL (HEALTHYLAX) 3350 17 GM PACKET PO SCH ×2 (11:06→23:08)
[2021-12-26] MEDS: NYSTATIN/TRIAMCINOLONE TOPICAL CREAM 15 GM TUBE TP SCH ×2 (11:08→23:18)
[2021-12-26] MEDS: PANTOPRAZOLE 40 MG TABLET PO SCH (11:09)
[2021-12-26] MEDS: ATENOLOL 25 MG TABLET (FP) PO SCH (11:09)
[2021-12-26] MEDS: MULTIVITAMINS (DAILY MVI) TABLET (FP) PO SCH (11:09)
[2021-12-26] MEDS: SERTRALINE HCL 25 MG TABLET (FP) PO SCH (11:10)
[2021-12-26] MEDS: MAG HYDROX/AL HYDROX/SIMETH 30 ML UNIT-DOSE CUP PO PRN (11:27)
[2021-12-26] MEDS ORDERED: SODIUM CHLORIDE 1 GM TABLET PO SCH (15:29)
[2021-12-26] MEDS ORDERED: FUROSEMIDE 20 MG TABLET (FP) PO ONE (15:29)
[2021-12-26] MEDS: SODIUM CHLORIDE 1 GM TABLET PO SCH ×2 (19:36→23:07)
[2021-12-26] MEDS: ATORVASTATIN CA 10 MG TABLET (FP) PO SCH (23:07)
[2021-12-26] MEDS: SENNOSIDES 8.6MG TABLET (FP) PO SCH (23:08)
[2021-12-26] MEDS: EZETIMIBE 10 MG TABLET (FP) PO SCH (23:08)
[2021-12-26] MEDS: LYTES/YERBA SANTA 60 ML SPRAY MM SCH (23:14)
[2021-12-27] MEDS: NYSTATIN 500,000 UNITS/5 ML SUSPENSION PO SCH ×4 (00:09→17:42)
[2021-12-27] MEDS: MAG HYDROX/ALH/SMC/DPHA/LIDO 240 ML MOUTHWASH MM SCH ×3 (05:48→17:42)
[2021-12-27] MEDS: LEVOTHYROXINE NA 50 MCG TABLET (FP) PO SCH (06:10)
[2021-12-27] MEDS: AMINO ACIDS/PROTEIN HYDROLYS 30 ML LIQUID.PKT PO SCH (08:41)
[2021-12-27 09:44] LABS: CALCIUM 9.8 mg/dL (8.5-10.1)
[2021-12-27 09:46] LABS: ALBUMIN 3.4 g/dl (3.4-5.0); BLOOD UREA NITROGEN 24.5 mg/dL (7-18)
[2021-12-27 09:48] LABS: CREATININE 0.5 mg/dL (0.55-1.3)
[2021-12-27 09:49] LABS: BILIRUBIN,TOTAL 0.5 mg/dL (0.2-1); TOT PROT 7.6 g/dl (6.4-8.2)
[2021-12-27] MEDS: SERTRALINE HCL 25 MG TABLET (FP) PO SCH (10:27)
[2021-12-27] MEDS: MULTIVITAMINS (DAILY MVI) TABLET (FP) PO SCH (10:27)
[2021-12-27] MEDS: VALSARTAN 80 MG TABLET PO SCH ×2 (10:27→22:37)
[2021-12-27] MEDS: PANTOPRAZOLE 40 MG TABLET PO SCH (10:27)
[2021-12-27] MEDS: SODIUM CHLORIDE 1 GM TABLET PO SCH (10:28)
[2021-12-27] MEDS: ATENOLOL 25 MG TABLET (FP) PO SCH (10:29)
[2021-12-27] MEDS: HYDROCORTISONE 2.5% TOPICAL CREAM 30 GM TUBE TP SCH ×2 (10:29→22:39)
[2021-12-27] MEDS: POLYETHYLENE GLYCOL (HEALTHYLAX) 3350 17 GM PACKET PO SCH ×2 (10:30→22:37)
[2021-12-27] MEDS: NYSTATIN/TRIAMCINOLONE TOPICAL CREAM 15 GM TUBE TP SCH ×2 (10:30→22:39)
[2021-12-27] MEDS ORDERED: SODIUM CHLORIDE 1 GM TABLET PO ONE (16:27)
[2021-12-27] MEDS: SENNOSIDES 8.6MG TABLET (FP) PO SCH (22:37)
[2021-12-27] MEDS: ATORVASTATIN CA 10 MG TABLET (FP) PO SCH (22:37)
[2021-12-27] MEDS: LYTES/YERBA SANTA 60 ML SPRAY MM SCH (22:38)
[2021-12-27] MEDS: EZETIMIBE 10 MG TABLET (FP) PO SCH (22:41)
[2021-12-28] MEDS: MAG HYDROX/ALH/SMC/DPHA/LIDO 240 ML MOUTHWASH MM SCH ×4 (03:10→19:36)
[2021-12-28] MEDS: NYSTATIN 500,000 UNITS/5 ML SUSPENSION PO SCH ×4 (03:10→17:48)
[2021-12-28] MEDS: LEVOTHYROXINE NA 50 MCG TABLET (FP) PO SCH (06:12)
[2021-12-28] MEDS: POLYETHYLENE GLYCOL (HEALTHYLAX) 3350 17 GM PACKET PO SCH ×2 (09:40→21:42)
[2021-12-28] MEDS: MULTIVITAMINS (DAILY MVI) TABLET (FP) PO SCH (09:41)
[2021-12-28] MEDS: AMINO ACIDS/PROTEIN HYDROLYS 30 ML LIQUID.PKT PO SCH (09:42)
[2021-12-28] MEDS: PANTOPRAZOLE 40 MG TABLET PO SCH (09:45)
[2021-12-28] MEDS: ATENOLOL 25 MG TABLET (FP) PO SCH (09:45)
[2021-12-28] MEDS: SERTRALINE HCL 25 MG TABLET (FP) PO SCH (09:45)
[2021-12-28] MEDS: VALSARTAN 80 MG TABLET PO SCH ×2 (09:45→21:43)
[2021-12-28] MEDS: HYDROCORTISONE 2.5% TOPICAL CREAM 30 GM TUBE TP SCH ×2 (09:47→21:43)
[2021-12-28] MEDS: NYSTATIN/TRIAMCINOLONE TOPICAL CREAM 15 GM TUBE TP SCH ×2 (09:47→21:43)
[2021-12-28 11:00] LABS: CALCIUM 9.9 mg/dL (8.5-10.1)
[2021-12-28 11:01] LABS: ALBUMIN 3.4 g/dl (3.4-5.0); BLOOD UREA NITROGEN 22.1 mg/dL (7-18); MAGNESIUM 1.9 mg/dL (1.8-2.4)
[2021-12-28 11:02] LABS: BILIRUBIN,TOTAL 0.4 mg/dL (0.2-1); CREATININE 0.5 mg/dL (0.55-1.3)
[2021-12-28 11:03] LABS: TOT PROT 7.6 g/dl (6.4-8.2)
[2021-12-28] MEDS ORDERED: FUROSEMIDE 20 MG TABLET (FP) PO ONE (13:31)
[2021-12-28] MEDS ORDERED: SODIUM CHLORIDE 1 GM TABLET PO ONE (13:31)
[2021-12-28] MEDS: ATORVASTATIN CA 10 MG TABLET (FP) PO SCH (21:43)
[2021-12-28] MEDS: LYTES/YERBA SANTA 60 ML SPRAY MM SCH (21:43)
[2021-12-28] MEDS: EZETIMIBE 10 MG TABLET (FP) PO SCH (21:43)
[2021-12-28] MEDS: SENNOSIDES 8.6MG TABLET (FP) PO SCH (21:44)
[2021-12-28] MEDS: MAG HYDROX/AL HYDROX/SIMETH 30 ML UNIT-DOSE CUP PO PRN (21:49)
[2021-12-29] MEDS: MAG HYDROX/ALH/SMC/DPHA/LIDO 240 ML MOUTHWASH MM SCH ×4 (00:06→18:34)
[2021-12-29] MEDS: NYSTATIN 500,000 UNITS/5 ML SUSPENSION PO SCH ×5 (00:06→17:40)
[2021-12-29] MEDS: ACETAMINOPHEN 325 MG TABLET (FP) PO PRN (04:29)
[2021-12-29] MEDS: LEVOTHYROXINE NA 50 MCG TABLET (FP) PO SCH (06:47)
[2021-12-29] MEDS: AMINO ACIDS/PROTEIN HYDROLYS 30 ML LIQUID.PKT PO SCH (10:50)
[2021-12-29] MEDS: POLYETHYLENE GLYCOL (HEALTHYLAX) 3350 17 GM PACKET PO SCH ×2 (10:52→21:53)
[2021-12-29] MEDS: HYDROCORTISONE 2.5% TOPICAL CREAM 30 GM TUBE TP SCH ×2 (10:52→21:53)
[2021-12-29] MEDS: NYSTATIN/TRIAMCINOLONE TOPICAL CREAM 15 GM TUBE TP SCH ×2 (10:53→21:54)
[2021-12-29] MEDS: MULTIVITAMINS (DAILY MVI) TABLET (FP) PO SCH (10:55)
[2021-12-29] MEDS: SERTRALINE HCL 25 MG TABLET (FP) PO SCH (11:06)
[2021-12-29] MEDS: MAG HYDROX/AL HYDROX/SIMETH 30 ML UNIT-DOSE CUP PO PRN ×2 (11:06→22:53)
[2021-12-29] MEDS: ATENOLOL 25 MG TABLET (FP) PO SCH (11:06)
[2021-12-29] MEDS: PANTOPRAZOLE 40 MG TABLET PO SCH (11:07)
[2021-12-29] MEDS: VALSARTAN 80 MG TABLET PO SCH ×3 (11:07→22:49)
[2021-12-29] MEDS ORDERED: FUROSEMIDE 20 MG TABLET (FP) PO SCH (13:00)
[2021-12-29 14:44] VITALS: RESP 18
[2021-12-29 14:52] LABS: CALCIUM 9.3 mg/dL (8.5-10.1)
[2021-12-29 14:53] LABS: BLOOD UREA NITROGEN 25.7 mg/dL (7-18)
[2021-12-29 14:56] LABS: CREATININE 0.6 mg/dL (0.55-1.3)
[2021-12-29 14:57] LABS: BILIRUBIN,TOTAL 0.3 mg/dL (0.2-1)
[2021-12-29 14:58] LABS: TOT PROT 6.8 g/dl (6.4-8.2)
[2021-12-29] MEDS ORDERED: ALPRAZolam 0.25 MG TABLET PO PRN (15:26)
[2021-12-29] MEDS: LYTES/YERBA SANTA 60 ML SPRAY MM SCH (21:53)
[2021-12-29] MEDS: ATORVASTATIN CA 10 MG TABLET (FP) PO SCH ×2 (21:53→22:49)
[2021-12-29] MEDS: EZETIMIBE 10 MG TABLET (FP) PO SCH ×2 (21:54→22:49)
[2021-12-29] MEDS: SENNOSIDES 8.6MG TABLET (FP) PO SCH (21:54)
[2021-12-30] MEDS: NYSTATIN 500,000 UNITS/5 ML SUSPENSION PO SCH ×4 (00:59→17:06)
[2021-12-30] MEDS: MAG HYDROX/ALH/SMC/DPHA/LIDO 240 ML MOUTHWASH MM SCH ×4 (01:00→17:06)
[2021-12-30] MEDS: LEVOTHYROXINE NA 50 MCG TABLET (FP) PO SCH (06:29)
[2021-12-30 09:13] LABS: BASO % 0.9 % (0-2.0); HEMATOCRIT 30.2 % (32.4-45.2); LYMPH % 21.9 % (8-40); MCH 27.9 pg (25.7-33.7); MCHC 33.2 g/dl (32.0-36.0); MEAN CELL VOLUME 84.2 fl (80-96); MONO % 6.4 % (3.8-10.2); NEUT % 66.8 % (42.8-82.8); PLATELET COUNT 415 10^3/uL (134-434); RBC 3.59 M/mm3 (3.60-5.2); RDW 13.4 % (11.6-15.6); WHITE BLOOD COUNT 8.8 K/mm3 (4.0-10.0)
[2021-12-30 09:33] LABS: CALCIUM 9.8 mg/dL (8.5-10.1)
[2021-12-30 09:34] LABS: BLOOD UREA NITROGEN 17.7 mg/dL (7-18)
[2021-12-30 09:37] LABS: CREATININE 0.5 mg/dL (0.55-1.3)
[2021-12-30] MEDS: AMINO ACIDS/PROTEIN HYDROLYS 30 ML LIQUID.PKT PO SCH (09:42)
[2021-12-30] MEDS: HYDROCORTISONE 2.5% TOPICAL CREAM 30 GM TUBE TP SCH (09:42)
[2021-12-30] MEDS: VALSARTAN 80 MG TABLET PO SCH (09:43)
[2021-12-30] MEDS: MULTIVITAMINS (DAILY MVI) TABLET (FP) PO SCH (09:43)
[2021-12-30] MEDS: NYSTATIN/TRIAMCINOLONE TOPICAL CREAM 15 GM TUBE TP SCH (09:43)
[2021-12-30] MEDS: POLYETHYLENE GLYCOL (HEALTHYLAX) 3350 17 GM PACKET PO SCH (09:43)
[2021-12-30] MEDS: PANTOPRAZOLE 40 MG TABLET PO SCH (09:44)
[2021-12-30] MEDS: ATENOLOL 25 MG TABLET (FP) PO SCH (09:45)
[2021-12-30] MEDS: SERTRALINE HCL 25 MG TABLET (FP) PO SCH (09:46)
[2021-12-30] MEDS ORDERED: SODIUM CHLORIDE 1 GM TABLET PO SCH (10:00)
[2021-12-30 14:42] VITALS: TEMP 98.9
[2021-12-30 15:25] VITALS: BP 154/80; PULSE 67
== END 2021-12-30 17:00 | DRG 391 ==
LOC: JER 12:28 → JERBED 17:21 → J4W 20:56 → OBSVTOIN 12-06 12:04 → J7W 12-09 17:34
PROVIDERS: ADMIT Internal Medicine; ATTEND Family Medicine
PROC: 0DB68ZX Excision of Stomach, Via Natural or Artificial Opening Endoscopic, Diagnostic (ICD-10-PCS; 2021-12-10)
PROC: 0DB58ZX Excision of Esophagus, Via Natural or Artificial Opening Endoscopic, Diagnostic (ICD-10-PCS; principal; 2021-12-10 14:15)
DX: K22.2 Esophageal obstruction (principal); R53.2 Functional quadriplegia; N39.0 Urinary tract infection, site not specified; F33.9 Major depressive disorder, recurrent, unspecified; J96.11 Chronic respiratory failure with hypoxia; E22.2 Syndrome of inappropriate secretion of antidiuretic hormone; R07.89 Other chest pain; I10 Essential (primary) hypertension; I27.20 Pulmonary hypertension, unspecified; E03.9 Hypothyroidism, unspecified; E78.5 Hyperlipidemia, unspecified; Z93.0 Tracheostomy status; G14 Postpolio syndrome; K44.9 Diaphragmatic hernia without obstruction or gangrene; I89.0 Lymphedema, not elsewhere classified; R13.10 Dysphagia, unspecified; K29.00 Acute gastritis without bleeding; B96.20 Unspecified Escherichia coli [E. coli] as the cause of diseases classified elsewhere; D72.829 Elevated white blood cell count, unspecified; K21.00 Gastro-esophageal reflux disease with esophagitis, without bleeding
CPT/HCPCS: 0241U-QW; 36415; 71045-TC-FY; 71275-TC; 74220-TC-FY; 80048; 80053; 80061; 80076; 81003; 82533; 82607; 82728; 82746; 82784; 82977; 83036; 83540; 83550; 83690; 83735; 83880; 83883; 83930; 83935; 84132; 84155; 84165; 84300; 84443; 84484; 85025; 85027; 85379; 85610; 86038; 86235; 86431; 86850; 86900; 86901; 87086; 87186; 88305-TC; 93005; 93010; 93306-TC; 94640; 97161-GP; 99285-25; C9803-CS; G0378; Q9967; U0003; U0005